=== PATIENT | female | born 1950 | race Two or more races ===

== ENCOUNTER 2020-07-09 15:31 | Outpatient (REF) | payer MEDICARE, SELFPAY | END 2020-07-09 15:32 | disposition home or self-care (01) | LOC: HO.HAP 15:31 | PROVIDERS: Visit Provider Internal Medicine | DX: Z46.1 Encounter for fitting and adjustment of hearing aid (principal) | CPT/HCPCS: 92592; V5266 ==

== ENCOUNTER 2020-08-05 12:45 | Outpatient (REF) | payer MEDICARE, SELFPAY ==
[2020-08-05 13:33] LABS: MANUAL DIFF FLAG NO
[2020-08-05 13:35] LABS: Basophils Percent Auto 0.7 % (0-2); Eosinophils Absolute Auto 0.1 X10*3/uL (0.0-0.4); Eosinophils Percent Auto 1.8 % (0-4); Hematocrit 39.8 % (37-47); Hemoglobin 12.9 g/dl (12.0-16.0); Imm Gran Abs Auto 0.01 X10*3/uL (0.00-0.03); Imm Gran Pct Auto 0.2 % (0.0-0.4); Lymphocytes Absolute Auto 1.6 X10*3/uL (1.2-4.9); Mean Corpuscular HGB Conc 32.4 g/dl (31.0-35.0); Mean Corpuscular Hemoglobin 30.9 pg (27.0-33.0); Mean Corpuscular Volume 95.4 fL (80-98); Mean Platelet Volume 10.4 fL (9.4-12.3); Monocytes Absolute Auto 0.4 X10*3/uL (0.1-1.2); Monocytes Percent Auto 7.9 % (2-11); Neutrophils Absolute Auto 3.4 X10*3/uL (2.0-8.3); Neutrophils Percent Auto 61.4 % (45-73); Platelet Count 189 X10*3/uL (160-400); Red Blood Count 4.17 X10*6/uL (4.20-5.50); Red Cell Distribution Width 12.2 % (11.0-16.0); White Blood Count 5.5 X10*3/uL (4.8-10.8)
[2020-08-05 14:17] LABS: Alanine Aminotransferase 12 U/L (0-31); Alkaline Phosphatase 93 U/L (39-117); Anion Gap 11 (12-20); Aspartate Amino Transferase 18 U/L (5-31); Bilirubin Total 0.7 mg/dL (0.0-1.0); Blood Urea Nitrogen 15 mg/dL (9-16); Calcium 8.4 mg/dL (8.4-10.2); Carbon Dioxide 27 mmol/L (22-29); Chloride 107 mmol/L (96-108); Cholesterol 196 mg/dL; Estimated Glomerular Filt Rate > 60; HDL Cholesterol 71 mg/dL; LDL Cholesterol Calculated 113 mg/dl; Potassium 4.7 mmol/l (3.3-5.1); Sodium 140 mmol/L (135-145); Total Protein 6.5 g/dL (6.5-8.0); Triglycerides 60 mg/dL
[2020-08-05 14:20] LABS: Glucose Random 87 mg/dL (60-115)
[2020-08-05 14:38] LABS: TSH reflex Free T4 1.63 mIU/mL (0.32-4.0)
== END 2020-08-05 12:46 | disposition home or self-care (01) ==
LOC: HO.LAB 12:45
PROVIDERS: PCP Internal Medicine; Visit Provider Internal Medicine
DX: E78.00 Pure hypercholesterolemia, unspecified (principal); E66.09 Other obesity due to excess calories; L98.9 Disorder of the skin and subcutaneous tissue, unspecified
CPT/HCPCS: 36415; 80053; 80061; 84443; 85025

== ENCOUNTER 2020-09-23 13:16 | Outpatient (REF) | payer MEDICARE, SELFPAY ==
--- NOTE | 2020-09-23 14:43 | XR_ITS ---
EXAMINATION: CERVICAL SPINE X-RAY CLINICAL INFORMATION: Pain COMPARISON: Previous exam May 2015 TECHNIQUE: 3 views of the cervical spine FINDINGS: Bone alignment is normal. No fracture or dislocation is seen. There is evidence of degenerative spondylosis and degenerative disc disease at C5-C6 and C6-C7. There is mild degenerative spondylosis at C3-C4 and C4-C5 as well. Prevertebral soft tissues are normal. XR/XR cervical spine 2V IMPRESSION: Degenerative changes. EXAMINATION: Lumbar spine x-ray CLINICAL INFORMATION: Pain COMPARISON: Previous x-ray from 2013 TECHNIQUE: 3 views of the lumbar spine FINDINGS: There is mild curvature of the lumbar sacral spine to the right. Bone alignment is otherwise normal. No fracture or dislocation is seen. Disc spaces are normal. There is lower lumbar spine facet arthritis. There is increased sclerosis at the sacroiliac joints IMPRESSION: Lower lumbar spine facet arthritis. Increased sclerosis at the sacroiliac joints.
--- NOTE | 2020-09-23 14:43 | XR_ITS ---
EXAMINATION: CERVICAL SPINE X-RAY CLINICAL INFORMATION: Pain COMPARISON: Previous exam May 2015 TECHNIQUE: 3 views of the cervical spine FINDINGS: Bone alignment is normal. No fracture or dislocation is seen. There is evidence of degenerative spondylosis and degenerative disc disease at C5-C6 and C6-C7. There is mild degenerative spondylosis at C3-C4 and C4-C5 as well. Prevertebral soft tissues are normal. XR/XR lumbar spine 2-3V IMPRESSION: Degenerative changes. EXAMINATION: Lumbar spine x-ray CLINICAL INFORMATION: Pain COMPARISON: Previous x-ray from 2013 TECHNIQUE: 3 views of the lumbar spine FINDINGS: There is mild curvature of the lumbar sacral spine to the right. Bone alignment is otherwise normal. No fracture or dislocation is seen. Disc spaces are normal. There is lower lumbar spine facet arthritis. There is increased sclerosis at the sacroiliac joints IMPRESSION: Lower lumbar spine facet arthritis. Increased sclerosis at the sacroiliac joints.
== END 2020-09-23 13:17 | disposition home or self-care (01) ==
LOC: HO.XRAY 13:16
PROVIDERS: PCP Internal Medicine; Referring Provider Internal Medicine; Visit Provider Student in an Organized Health Care Education/Training Program
DX: M25.50 Pain in unspecified joint (principal); R20.0 Anesthesia of skin
CPT/HCPCS: 72040; 72100; 99202

== ENCOUNTER 2020-10-27 12:38 | Outpatient (REF) | payer MEDICARE, SELFPAY ==
--- NOTE | 2020-10-27 | US_ITS ---
EXAMINATION: PELVIC ULTRASOUND CLINICAL INFORMATION: Pain COMPARISON: Previous pelvic ultrasound April [address] of the abdomen and pelvis December 2015 TECHNIQUE: Transabdominal and transvaginal pelvic ultrasound was performed. Transvaginal exam was performed for better visualization of the uterus and ovaries FINDINGS: The uterus is anteverted and measures 5.2 x 2.6 x 3.8 cm in dimension. No focal uterine lesion is seen. There is a small amount of fluid seen cavity. This is similar to previous exam. The endometrium does not appear thickened. Double thickness endometrium measures 0.2 cm. The right ovary is normal-appearing and measures 1.6 x 0.7 x 0.5 cm. The left ovary is not seen. There is no fluid in the pelvis. US/US transvaginal IMPRESSION: Normal-appearing uterus and right ovary. Left ovary not seen.
--- NOTE | 2020-10-27 12:43 | US_ITS ---
EXAMINATION: US RETROPERITONEAL LIMITED (RENAL ONLY) CLINICAL INFORMATION: Cyst of kidney, acquired. COMPARISON: Abdominal ultrasound 06/02/2018 TECHNIQUE: Real-time imaging of the kidneys. FINDINGS: RIGHT KIDNEY: 10.4 x 4.3 x 5.2 cm (SAG x AP x TRV). The kidney is normal in size, contour, and echogenicity. Renal cortical thickness is normal. No renal calculi or hydronephrosis. There is an anechoic cyst in the midpole measuring 1.6 x 1.0 x 1.0 cm. LEFT KIDNEY: 9.9 x 5.4 x 4.0 cm (SAG x AP x TRV). The kidney is normal in size, contour, and echogenicity. Renal cortical thickness is normal. No calculi or focal parenchymal lesions. No hydronephrosis. US/US renal BI IMPRESSION: Anechoic cyst midpole right kidney. There are no echogenic stones or hydronephrosis.
--- NOTE | 2020-10-27 12:43 | US_ITS ---
EXAMINATION: PELVIC ULTRASOUND CLINICAL INFORMATION: Pain COMPARISON: Previous pelvic ultrasound April [address] of the abdomen and pelvis December 2015 TECHNIQUE: Transabdominal and transvaginal pelvic ultrasound was performed. Transvaginal exam was performed for better visualization of the uterus and ovaries FINDINGS: The uterus is anteverted and measures 5.2 x 2.6 x 3.8 cm in dimension. No focal uterine lesion is seen. There is a small amount of fluid seen cavity. This is similar to previous exam. The endometrium does not appear thickened. Double thickness endometrium measures 0.2 cm. The right ovary is normal-appearing and measures 1.6 x 0.7 x 0.5 cm. The left ovary is not seen. There is no fluid in the pelvis. US/US pelvic complete IMPRESSION: Normal-appearing uterus and right ovary. Left ovary not seen.
== END 2020-10-27 12:39 | disposition home or self-care (01) ==
LOC: HO.US 12:38
PROVIDERS: PCP Internal Medicine; Visit Provider Internal Medicine
DX: R10.2 Pelvic and perineal pain (principal); N28.1 Cyst of kidney, acquired
CPT/HCPCS: 76775; 76830; 76856

== ENCOUNTER 2020-12-16 11:00 | Outpatient (RCR) | payer MEDICARE, SELFPAY ==
--- NOTE | 2020-10-06 14:54 | MHC.PT.EP ---
[facility] [place] Office [place] Office [place] Office [address] [phone] F: [phone] F: [phone] F: [phone] F: [phone] Physical Therapy Plan of Care Date of Evaluation: 10/06/20 Date of Surgery: none Diagnosis: Cervical and Lumbar spine pain Assessment: Patient is a 70 year old, Divehi speaking, R handed female who presents with s/s consistent with back and neck pain. She does not work but does like to stay active around the house. Patient past medical history is seemingly non-contributory. Current impairments include pain, ROM, strength, activity tolerance and functional mobility. Functional limitations include decreased ability to walk, stand, transfer, negotiate stairs, and perform weight bearing activities.. Patient is motivated with good rehab potential. Skilled PT will address impairments and functional limitations in order to achieve goals. Frequency and Duration: The patient will be seen 2x/week for 5 weeks Short Term Goals: I with HEP - 2 week Hip strength abd 4-/5 - 3 weeks Demo proper squat mechanics - 3 weeks Senior Care Goals: NPDI 10%, Oswestry /25 - 5 weeks Able to walk > 20 minutes without increased pain - 5 weeks Hip abd 4/5, no trendelenberg - 5 weeks Treatment Plan: Modalities to reduce pain, spasms and effusion. Manual therapy to restore motion and function. Therapeutic exercise to improve strength and flexibility. Neuromuscular re-education for posture and balance. Therapeutic activities to return to functional activities of daily living. Electronically signed by: Pawan Moncada, PT Please sign and return to therapist. Thank you for your referral.
--- NOTE | 2020-10-07 08:53 | MHC.PT.EP ---
[facility] [place] Office [place] Office [place] Office [address] [phone] F: [phone] F: [phone] F: [phone] F: [phone] Physical Therapy Plan of Care Date of Evaluation: 10/06/20 Date of Surgery: none Diagnosis: Cervical and Lumbar spine pain Assessment: Patient is a 70 year old, Vietnamese speaking, R handed female who presents with s/s consistent with back and neck pain. She does not work but does like to stay active around the house. Patient past medical history is seemingly non-contributory. Current impairments include pain, ROM, strength, activity tolerance and functional mobility. Functional limitations include decreased ability to walk, stand, transfer, negotiate stairs, and perform weight bearing activities.. Patient is motivated with good rehab potential. Skilled PT will address impairments and functional limitations in order to achieve goals. Frequency and Duration: The patient will be seen 2x/week for 5 weeks Short Term Goals: I with HEP - 2 week Hip strength abd 4-/5 - 3 weeks Demo proper squat mechanics - 3 weeks Penitentiary Goals: NPDI 10%, Oswestry /25 - 5 weeks Able to walk > 20 minutes without increased pain - 5 weeks Hip abd 4/5, no trendelenberg - 5 weeks Treatment Plan: Modalities to reduce pain, spasms and effusion. Manual therapy to restore motion and function. Therapeutic exercise to improve strength and flexibility. Neuromuscular re-education for posture and balance. Therapeutic activities to return to functional activities of daily living. Electronically signed by: Pawan Moncada, PT Please sign and return to therapist. Thank you for your referral.
--- NOTE | 2021-02-06 07:31 | MHC.PT.DC ---
[facility] [place] Office [place] Office [place] Office [address] 140 [facility] [phone] F: [phone] F: [phone] F: [phone] F: [phone] Physical Therapy Discharge Report Diagnosis: Cervical and Lumbar spine pain Date of Surgery: none Date of Evaluation: 10/06/20 Date of Discharge: 12/08/20 Treatments to Date: 8 Cancellations to Date: No Shows to Date: Discharge Status: Achieved Goals Improved Function Independent with HEP Discharge Summary: Pt progressed well over the course of skilled PT making progress on impairments and functional limitations resulting in an improved quality of life. Pt is I with HEP and appropriate to d/c to HEP at this time. Electronically signed by: Pawan Moncada, PT Please sign and return to therapist. Thank you for your referral.
== END 2021-02-06 07:33 | disposition home or self-care (01) ==
LOC: HO.PTCHIC 11:00
PROVIDERS: PCP Internal Medicine; Visit Provider Student in an Organized Health Care Education/Training Program
DX: M25.50 Pain in unspecified joint (principal)
CPT/HCPCS: 97110; 97140; 97161

== ENCOUNTER → 2020-12-31 09:55 | Outpatient (BNVA) | payer MEDICARE, SELFPAY | PROVIDERS: PCP Internal Medicine; Referring Provider Internal Medicine; Visit Provider Internal Medicine Gastroenterology | DX: Z13.89 Encounter for screening for other disorder (principal) | CPT/HCPCS: 99212 ==

== ENCOUNTER 2021-02-06 14:51 | Outpatient (REF) | payer MEDICARE, SELFPAY ==
[2021-02-06 15:22] LABS: COVID-19 Test Negative (Negative)
== END 2021-02-06 14:52 | disposition home or self-care (01) ==
LOC: HO.LAB 14:51
PROVIDERS: Visit Provider Internal Medicine
DX: Z20.822 Contact with and (suspected) exposure to COVID-19 (principal)
CPT/HCPCS: 36415; 87635; C9803

== ENCOUNTER → 2021-05-05 12:47 | Outpatient (BNVA) | payer MEDICARE, SELFPAY | PROVIDERS: PCP Internal Medicine; Referring Provider Internal Medicine; Visit Provider Physician Assistant | DX: K21.9 Gastro-esophageal reflux disease without esophagitis (principal); K59.01 Slow transit constipation; K62.5 Hemorrhage of anus and rectum | CPT/HCPCS: 99212 ==

== ENCOUNTER → 2021-06-09 13:20 | Outpatient (BNVA) | payer MEDICARE, SELFPAY | PROVIDERS: PCP Internal Medicine; Referring Provider Internal Medicine; Visit Provider Physician Assistant | DX: K62.5 Hemorrhage of anus and rectum (principal); K59.01 Slow transit constipation; K76.0 Fatty (change of) liver, not elsewhere classified | CPT/HCPCS: 99212 ==

== ENCOUNTER 2021-07-20 08:45 | Outpatient (REF) | payer MEDICARE, SELFPAY ==
--- NOTE | ~2021-07-20 | US_ITS ---
EXAMINATION: US ABDOMEN LIMITED WITH LIVER ELASTOGRAPHY CLINICAL INFORMATION: Fatty liver. COMPARISON: 10/27/2020 renal ultrasound. TECHNIQUE: Real-time imaging of the abdominal viscera. Noninvasive ultrasound liver fibrosis assessment is performed using Matty ElastPQ point quantification shear wave elastography (pSWE) with a C5-2 MHz transducer. Multiple elastography samples are obtained. FINDINGS: PANCREAS: Visualized portions unremarkable. LIVER: Normal homogeneous echotexture without focal abnormality. The right lobe measures 14.4 cm in length. The left lobe measures 9.0 cm in length. Portal flow is hepatopedal and patent. Shear wave liver elastography median stiffness is 1.69 m/s (reference: normal median stiffness is 1.3 m/s or less). IQR/median stiffness to assess sampling precision is 0.24 (reference: good quality data set is IQR/median stiffness of 0.15 or less). GALLBLADDER: Unremarkable. COMMON BILE DUCT: Normal in caliber measuring 0.4 cm in diameter. RIGHT KIDNEY: 10.1 cm. Unremarkable. FREE FLUID: None. US/US abdomen mcdaniel w elastography IMPRESSION: 1. Unremarkable abdominal ultrasound. No focal hepatic abnormality. 2. Liver elastography: Borderline ruled out/suggestive of compensated advanced chronic liver disease. REFERENCE: Society of Radiologists in Ultrasound Liver Stiffness Thresholds (2020): LIVER STIFFNESS THRESHOLDS: *Liver Stiffness equal or less than 1.3 m/s: High probability of being normal. *Liver Stiffness less than 1.7 m/s: In the absence of other known clinical signs, rules out compensated advanced chronic liver disease. *Liver Stiffness 1.7-2.1 m/s: Suggestive of compensated advanced chronic liver disease but need further test for confirmation. *Liver Stiffness over 2.1 m/s: Rules in compensated advanced chronic liver disease. *Liver Stiffness over 2.4 m/s: Suggestive of clinically significant portal hypertension. QUALITY OF DATA SET: *IQR/Median value equal or less than 0.15 implies a quality data set. *IQR/Median value over 0.15 implies a poor quality data set. SIGNIFICANT CHANGE FROM PRIOR EXAM: Significant change if liver stiffness measurement is 10% or greater from prior exam. OTHER CONSIDERATIONS: The stage of liver fibrosis may be overestimated in the setting of acute hepatitis, liver inflammation, elevated liver function tests, hepatic vascular congestion, obstructive cholestasis, non-fasting state, and infiltrative diseases such as amyloidosis and lymphoma. In some patients with NAFLD, the liver stiffness thresholds for compensated advanced chronic liver disease may be lower. In causes other than viral hepatitis and NAFLD, liver stiffness thresholds are not well established.
== END 2021-07-20 08:46 | disposition home or self-care (01) ==
LOC: HO.US 08:45
PROVIDERS: PCP Internal Medicine; Visit Provider Physician Assistant
DX: K76.0 Fatty (change of) liver, not elsewhere classified (principal)
CPT/HCPCS: 76705; 76981

== ENCOUNTER 2022-01-26 13:18 | Outpatient (REF) | payer OTHER, SELFPAY ==
--- NOTE | ~2022-01-26 | MM_ITS ---
EXAMINATION: MM SCREENING DIGITAL BREAST TOMOSYNTHESIS, BILATERAL CLINICAL INFORMATION: Screening. Asymptomatic. The lifetime risk of breast cancer based on the Tyrer-Cuzick Model is 4%. COMPARISON: Mammography: 06/03/2020, 05/23/2020, 09/13/2018 TECHNIQUE: Digital breast tomosynthesis is performed in both the craniocaudal and mediolateral oblique views along with computer-aided detection (CAD). Synthesized 2D images are generated from the tomosynthesis. FINDINGS: The breasts are heterogeneously dense, which may obscure small masses (ACR BI-RADS breast composition Category c). There are no significant masses, abnormal calcifications, or other abnormalities. There is a dermal lesion again seen overlying the lower left breast, marked with skin marker. Parenchymal pattern is similar to prior studies. No significant changes. MM/MM tomosynthesis screening BI IMPRESSION: No mammographic evidence of malignancy. ASSESSMENT: BI-RADS 2: Benign RECOMMENDATION: Routine annual mammography screening. This patient's information was entered into a reminder system with a target due date for their next mammogram.
--- NOTE | ~2022-01-26 | MM_ITS ---
EXAMINATION: BONE DENSITOMETRY CLINICAL INDICATION: Asymptomatic menopausal state. COMPARISON: None (current study represents initial baseline exam). TECHNIQUE: Using a SPORTLOGiQ DXA System (software version: 13.1) manufactured by [employer], dual-energy x-ray absorptiometry was performed of the lumbar spine and left hip. The images are of good technical quality. Summary results are attached. FINDINGS: AP SPINE L1-L4: BMD 0.847 g/cm2, Z-score -1.4, T-score -2.8, osteoporosis. LEFT FEMUR, NECK: BMD 0.757 g/cm2, Z-score -0.5, T-score -2.0, osteopenia. LEFT FEMUR, TOTAL: BMD 0.726 g/cm2, Z-score -0.9, T-score -2.2, osteopenia. IDENTIFIED RISK FACTORS: Rheumatoid arthritis, low calcium intake, menopause. HISTORY OF FRACTURE: Humerus. MEDICATIONS: Calcium supplements or multivitamin, vitamin D. MM/XR DEXA axial skeleton IMPRESSION: 1. DIAGNOSIS: Osteoporosis based on the lowest T-score value of -2.8 in the lumbar spine applying World Health Organization criteria. 2. 10-YEAR FRACTURE RISK PREDICTION, FRAX: According to the guidelines, FRAX calculation should only be performed on patients in the osteopenia bone density category. Therefore, FRAX was not performed on this patient. 3. Treatment Recommendations: NOF guidelines recommend consideration for treatment in postmenopausal women and men age 50 and older presenting with the following: -A hip or vertebral (clinical or morphometric) fracture. -T-score less than or equal to -2.5 at the femoral neck or spine after appropriate evaluation to exclude secondary causes. -Low bone mass at the hip or spine and a 10-year fracture probability by FRAX of greater than or equal to 3% for hip fracture or greater than or equal to 20% for major osteoporotic fracture based on the [place] adapted WHO algorithm. 4. Other Recommendations: All treatment decisions require clinical judgment and consideration of individual patient factors, including patient preferences, comorbidities, previous drug use, risk factors not captured in the FRAX model (e.g. frailty, falls, vitamin D deficiency, increased bone turnover, interval significant decline in bone density) and possible under or overestimation of fracture risk by FRAX. Additional medical evaluation for secondary cause of low bone mineral density may be appropriate. FUTURE SCAN RECOMMENDATION: People with diagnosed cases of osteoporosis or at high risk for fracture should have regular bone mineral density tests. For patients eligible for Medicare, routine testing is allowed once every 2 years. The testing frequency can be increased to one year for patients who have rapidly progressing disease, those who are receiving or discontinuing medical therapy to restore bone mass, or have additional risk factors.
== END 2022-01-26 13:19 | disposition home or self-care (01) ==
LOC: HO.MAMMO 13:18
PROVIDERS: Visit Provider Internal Medicine
DX: Z12.31 Encounter for screening mammogram for malignant neoplasm of breast (principal); Z13.820 Encounter for screening for osteoporosis; Z78.0 Asymptomatic menopausal state; M81.0 Age-related osteoporosis without current pathological fracture
CPT/HCPCS: 77063; 77067; 77080

== ENCOUNTER → 2022-02-01 07:34 | Outpatient (BNVA) | payer MEDICARE, SELFPAY | PROVIDERS: PCP Internal Medicine; Referring Provider Internal Medicine; Visit Provider Physician Assistant | DX: K59.01 Slow transit constipation (principal); K21.9 Gastro-esophageal reflux disease without esophagitis; Z79.899 Other long term (current) drug therapy | CPT/HCPCS: 99212 ==

== ENCOUNTER 2022-05-18 08:32 | Outpatient (REF) | payer MEDICARE, SELFPAY ==
[2022-05-18 11:04] LABS: Phosphorus 4.2 mg/dL (2.7-4.5)
[2022-05-20 22:03] LABS: Prot Elec - Albumin 3.9 g/dL (3.8-4.8); Prot Elec - Alpha1 0.2 g/dL (0.2-0.3); Prot Elec - Alpha2 0.6 g/dL (0.5-0.9); Prot Elec - Beta 1 0.4 g/dL (0.4-0.6); Prot Elec - Beta 2 0.4 g/dL (0.2-0.5); Prot Elec - Gamma 0.9 g/dL (0.8-1.7); Prot Elec - Total Protein 6.3 g/dL (6.1-8.1)
== END 2022-05-18 08:33 | disposition home or self-care (01) ==
LOC: HO.10HDL 08:32
PROVIDERS: PCP Internal Medicine; Visit Provider Internal Medicine Endocrinology, Diabetes & Metabolism
DX: M81.0 Age-related osteoporosis without current pathological fracture (principal)
CPT/HCPCS: 82306; 84100; 84165; 86335; 99202

== ENCOUNTER 2022-05-25 12:56 | Outpatient (REF) | payer OTHER, SELFPAY ==
[2022-05-25 13:55] LABS: Total Volume 24 Hour Urine 975 mL
[2022-05-25 14:55] LABS: Creatinine, 24Hr Urine 0.9 G/Day (1.0-2.0); Creatinine, mg/dL 96.58
[2022-05-27 17:02] LABS: Calcium, 24 Hr Urine 113 mg/24 h; Calcium/Creatinine Ratio 118 mg/g creat (30-275); Creatinine 24Hr Urine 0.96 g/24 h (0.50-2.15)
== END 2022-05-25 12:57 | disposition home or self-care (01) ==
LOC: HO.10HDLNP 12:56
PROVIDERS: Visit Provider Internal Medicine Endocrinology, Diabetes & Metabolism
DX: M81.0 Age-related osteoporosis without current pathological fracture (principal)
CPT/HCPCS: 82340; 82570

== ENCOUNTER 2022-06-28 12:33 | Outpatient (REF) | payer OTHER, SELFPAY ==
--- NOTE | ~2022-06-28 | XR_ITS ---
EXAMINATION: XR CERVICAL SPINE CLINICAL INFORMATION: Cervicalgia COMPARISON: X-ray of the cervical spine September 2020. TECHNIQUE: 3 views of the cervical spine were obtained. FINDINGS: At the C5-C6 and C6-C7 levels there are endplate osteophytes and mild disc space narrowing indicative of degenerative disc disease unchanged compared with September 2020. The remaining disc levels appear normal. Facets unremarkable. Surrounding bone and soft tissues unremarkable. XR/XR cervical spine 2V IMPRESSION: Mild spondylosis of the cervical spine unchanged compared with September 2020.
== END 2022-06-28 12:34 | disposition home or self-care (01) ==
LOC: HO.XRAY 12:33
PROVIDERS: PCP Internal Medicine; Visit Provider Internal Medicine
DX: M54.2 Cervicalgia (principal)
CPT/HCPCS: 72040

== ENCOUNTER 2022-08-10 15:17 | Outpatient (REF) | payer OTHER, SELFPAY ==
[2022-08-10 17:38] LABS: Vitamin D 25-OH Total 27.9 ng/mL (>30)
[2022-08-10 17:50] LABS: Amylase 62 U/L (28-100); Gamma Glutamyl Transpeptidase 26 U/L (7-33); Lactate Dehydrogenase 178 U/L (122-220); Lipase 27 U/L (8-78)
== END 2022-08-10 15:18 | disposition home or self-care (01) ==
LOC: HO.LAB 15:17
PROVIDERS: Internal Medicine Endocrinology, Diabetes & Metabolism; PCP Internal Medicine; Visit Provider Nurse Practitioner
DX: R10.9 Unspecified abdominal pain (principal); K59.04 Chronic idiopathic constipation; M81.0 Age-related osteoporosis without current pathological fracture; K21.9 Gastro-esophageal reflux disease without esophagitis
CPT/HCPCS: 36415; 82150; 82306; 82977; 83615; 83690; 84443; 99212

== ENCOUNTER 2022-09-14 09:23 | Outpatient (REF) | payer OTHER, SELFPAY ==
--- NOTE | ~2022-09-14 | US_ITS ---
EXAMINATION: US ABDOMEN COMPLETE CLINICAL INFORMATION: Abdominal pain. COMPARISON: Ultrasound abdomen limited with elastography 07/20/2021. Renal ultrasound 10/27/2020. Ultrasound abdomen complete 06/02/2018. CT abdomen and pelvis 12/08/2015. TECHNIQUE: Real-time imaging of the abdominal viscera. Technically difficult study secondary to body habitus. FINDINGS: PANCREAS: Normal. ABDOMINAL AORTA: The proximal, mid, and distal segments are normal in caliber. INFERIOR VENA CAVA: Visualized portions are normal. LIVER: Normal. The liver is normal in size. The liver contour is normal. Parenchymal echogenicity is normal. No focal hepatic lesion. There is no intrahepatic biliary duct dilatation seen. GALLBLADDER: Normal. The gallbladder is physiologically distended without evidence of stones, sludge, polyps, wall thickening or pericholecystic fluid. COMMON BILE DUCT: Normal in caliber measuring 0.4 cm in diameter. RIGHT KIDNEY: Normal. No hydronephrosis. No renal calculi or focal parenchymal lesions. The kidney measures 8.5 cm in maximum dimension. LEFT KIDNEY: 2 x 3 mm echogenic density in the midpole questionable for a stone This is not appreciated on previous ultrasound. No hydronephrosis. The kidney measures 9.5 cm in maximum dimension. SPLEEN: Normal. The spleen measures 8.4 cm in maximum dimension. FREE FLUID: None. US/US abdomen complete IMPRESSION: Limited exam. Question small left renal stone.
== END 2022-09-14 09:24 | disposition home or self-care (01) ==
LOC: HO.US 09:23
PROVIDERS: Visit Provider Nurse Practitioner
DX: K59.04 Chronic idiopathic constipation (principal); R10.9 Unspecified abdominal pain; K21.9 Gastro-esophageal reflux disease without esophagitis
CPT/HCPCS: 76700

== ENCOUNTER → 2022-09-21 14:31 | Outpatient (BNVA) | payer OTHER, SELFPAY | PROVIDERS: PCP Internal Medicine; Visit Provider Nurse Practitioner | DX: K59.04 Chronic idiopathic constipation (principal); R10.9 Unspecified abdominal pain; R63.4 Abnormal weight loss; Z68.29 Body mass index [BMI] 29.0-29.9, adult; K21.9 Gastro-esophageal reflux disease without esophagitis; Z79.899 Other long term (current) drug therapy | CPT/HCPCS: 99212 ==

== ENCOUNTER 2022-10-26 13:36 | Emergency (ER) | payer OTHER, SELFPAY ==
--- NOTE | ~2022-10-26 | CT_ITS ---
EXAMINATION: HEAD CT WITHOUT CONTRAST CERVICAL SPINE CT WITHOUT CONTRAST CLINICAL INFORMATION: Dizziness. Neck pain radiating to left arm. COMPARISON: None. TECHNIQUE: Contiguous axial imaging of the head was performed without the administration of IV contrast. Axial multidetector volumetric images were also performed through the cervical spine without contrast. Multiplanar reconstructed images in coronal and sagittal orientations were submitted. DOSE: 955 mGy-cm FINDINGS: HEAD: There is no evidence of acute intracranial hemorrhage or edematous territorial infarction. No abnormal mass-effect or midline shift. No extra-axial fluid collections. Walls to white matter differentiation is well preserved. The ventricles are normal in size and configuration. Mild patchy deep white matter hypodensities suggestive of chronic microangiopathic changes. No acute calvarial fracture. Small fluid in some of the left mastoid air cells. The sinuses and right mastoid air cells are clear. CERVICAL SPINE: Straightening of the cervical curvature. There is anatomic alignment of the vertebral bodies and posterior elements. The atlantoaxial and atlantooccipital articulations are maintained. Vertebral body heights are maintained. No evidence of acute fracture. Cervical spondylosis. Moderate-severe C5-C6 disc degeneration with disc height loss, endplate osteophytes, endplate sclerosis and small cyst within the posterior disc osteophyte complex. Bilateral C5-C6 neural foramen narrowing. Multilevel facet degeneration. There is fusion of the left C4-C5 facet joint. No prevertebral soft tissue swelling. Mild biapical pleural parenchymal scarring. No suspicious thyroid findings. There are nonspecific cervical shotty lymph nodes. CT/CT cervical spine wo IV con IMPRESSION: 1. No acute intracranial hemorrhage or edematous territorial infarction. 2. Small fluid in some of the left mastoid air cells, nonspecific. 3.No acute fracture or malalignment cervical spine. 4. Cervical spondylosis. C5-C6 moderate-severe disc degeneration, with posterior disc osteophyte complex. Bilateral C5-C6 neural foramen narrowing. Further evaluation with MRI as clinically warranted.
--- NOTE | 2022-10-26 13:52 | ED_ITS ---
HPI - Neck Pain/Injury General Chief Complaint: Dizziness <JUSTEN Michel - Last Filed: 10/26/22 13:59> Stated Complaint: Neck pain rad L arm sent from walk in <JUSTEN Michel - Last Filed: 10/26/22 13:59> Time Seen by Provider: 10/26/22 19:36 <JUSTEN Michel - Last Filed: 10/26/22 13:59> Source: patient and family (Daughter) <Jake Ramirez MD - Last Filed: 3 21:02> Mode of arrival: ambulatory <Jake Ramirez MD - Last Filed: 10/26/22 21:02> Limitations: no limitations <Jake Ramirez MD - Last Filed: 10/26/22 21:02> History of Present Illness HPI Narrative: 72-year-old female who presents emergency department for evaluation of neck pain and arm numbness, she states that she has had the symptoms for approximately 2-3 months and that gotten worse over the past 3 weeks. She told her daughter about these symptoms today in the daughter was concerned and made the patient come to the emergency department for evaluation. Patient denies any neck injury. She states she does have pain neck especially when she turns her head to the left side. She states that the pain in her neck is a cracking sensation which is 10/10 at its worst. She states she does get relief when she takes naproxen and Flexeril. The patient states that she has been feeling dizzy and lightheaded over the past 3 weeks. She states she has had occasional chest pain and occasional shortness of breath. She denied fever, chills, rhinorrhea, sore throat, dyspnea on exertion, she has had occasional nausea with no vomiting. She denies weakness of her extremities. She denied loss of bowel or bladder control. <Jake Ramirez MD - Last Filed: 10/26/22 21:02> Related Data Home Medications: Home Medications Medication Instructions Recorded Confirmed latanoprost 0.005 % eye drops 1 drp ophthalmic (eye) BID 09/22/20 05/31/22 nebulizers #1 ea 09/22/20 05/31/22 timolol maleate 0.5 % eye drops 1 drp ophthalmic (eye) QAM 12/31/20 05/31/22 solifenacin 5 mg tablet 5 mg PO DAILY 08/10/22 Previous Rx's Medication Instructions Recorded cetirizine 10 mg tablet (All Day 10 mg PO DAILY PRN allergy 07/06/21 Allergy (cetirizine)) symptoms 90 days #90 tabs naproxen 500 mg tablet 500 mg PO Q12H PRN pain 90 days 07/06/21 #180 tabs alendronate 70 mg tablet 70 mg PO QWEEK 90 days #13 tabs 07/26/22 ipratropium bromide 21 mcg (0.03 2 spray intranasal BID 30 days #30 07/26/22 %) nasal spray mL linaclotide 290 mcg capsule 290 mcg PO QAM 30 days #30 caps 08/10/22 (Linzess) pantoprazole 40 mg tablet,delayed 40 mg PO DAILY #90 tabs 08/10/22 release cyclobenzaprine 10 mg tablet 10 mg PO TID PRN muscle pain or 10/26/22 spasm #20 tabs prednisone 20 mg tablet 40 mg PO DAILY 7 days #14 tabs 10/26/22 <JUSTEN Michel - Last Filed: 10/26/22 13:59> Allergies/Adverse Reactions: Allergies Allergy/AdvReac Type Severity Reaction Status Date / Time homatropine [Hydromet] Allergy Intermediate rash Verified 10/26/22 12:18 ketorolac [From TORADOL] Allergy Intermediate N/V Verified 10/26/22 12:18 Sulfa (Sulfonamide Allergy Intermediate RASH Verified 10/26/22 12:18 Antibiotics) [SULFA (SULFONAMIDE ANTIBIOTICS)] sulfacetamide Allergy Intermediate rash Verified 10/26/22 12:18 tramadol [TRAMADOL] Allergy Intermediate N/V, edema Verified 10/26/22 12:18 and vomiting, edema and vomiting tizanidine AdvReac Intermediate blurry Verified 10/26/22 12:18 vision <JUSTEN Michel - Last Filed: 10/26/22 13:59> Review of Systems Review of Systems: Yes all other systems are reviewed and are negative <Jake Ramirez MD - Last Filed: 10/26/22 21:02> [facility] Past Medical History [facility] Narrative: Social history: She denies tobacco use. She occasionally drinks alcohol. She denies drug use. <Jake Ramirez MD - Last Filed: 10/26/22 21:02> Medical History: Medical History Abdominal pain Age related osteoporosis Allergic rhinitis GERD (gastroesophageal reflux disease) Hemorrhoids Pelvic pain in female Physical exam Postmenopausal Precordial chest pain Renal cyst Toenail fungus Urine abnormality <JUSTEN iMchel - Last Filed: 10/26/22 13:59> Surgical History: Surgical History H/O colonoscopy History of ear surgery History of esophagogastroduodenoscopy (EGD) History of tonsillectomy History of tubal ligation <JUSTEN Michel - Last Filed: 10/26/22 13:59> Family History Family History: Family History Father CVD (cardiovascular disease) Mother No problems noted. Brother Stomach cancer Sister Liver cancer Brother Lung cancer Brother Colon cancer <JUSTEN Michel - Last Filed: 10/26/22 13:59> Social History Social History: Social History Household Members: None Housing: Apartment Alcohol intake: current Alcohol intake frequency: holidays/special occasions only Alcohol type: beer and wine Patient Tobacco Use Status: Former Tobacco user Tobacco use type: Cigarette Smoked in Last 30 Days: No e-Cigarette/Vaping Use: Never Used Second Hand Smoke Exposure: No Use of substances other than those prescribed or required for medical reasons: No Advance Directives: No Advance Directives Information Provided: Yes service: No Current occupational status: disabled Cognitive needs: No Hearing needs: No Vision needs: No <JUSTEN Michel - Last Filed: 10/26/22 13:59> Physical Exam Vital Signs: Vital Signs: Last Vital Signs Temp 97.9 F 10/26/22 18:23 Pulse 48 L 10/26/22 18:23 Resp 16 10/26/22 18:23 BP 122/54 L 10/26/22 18:23 Pulse Ox 97 10/26/22 18:23 O2 Del Method 10/26/22 13:53 BMI result Body Mass Index 28.6 <JUSTEN Michel - Last Filed: 10/26/22 13:59> Vital Signs: Last Vital Signs Temp 97.9 F 10/26/22 18:23 Pulse 48 L 10/26/22 18:23 Resp 16 10/26/22 18:23 BP 122/54 L 10/26/22 18:23 Pulse Ox 97 10/26/22 18:23 O2 Del Method 10/26/22 13:53 BMI result Body Mass Index 28.6 <Jake Ramirez MD - Last Filed: 10/26/22 21:02> Const: General: cooperative and no acute distress <Jake Ramirez MD - Last Filed: 10/26/22 21:02> Orientation/consciousness: oriented to person and oriented to place <Jake Ramirez MD - Last Filed: 10/26/22 21:02> Limitations: no limitations <Jake Ramirez MD - Last Filed: 10/26/22 21:02> HEENT: Head: Yes normal to inspection, Yes normocephalic and Yes atraumatic <Jake Ramirez MD - Last Filed: 10/26/22 21:02> Ears: external ears normal <Jake Ramirez MD - Last Filed: 10/26/22 21:02> General nose exam: Normal external nose present <Jake Ramirez MD - Last Filed: 10/26/22 21:02> Face and sinus: Yes normal facial exam <Jake Ramirez MD - Last Filed: 10/26/22 21:02> Mouth: Normal oral and palatal mucosa present <Jake Ramirez MD - Last Filed: 10/26/22 21:02> Throat: Yes posterior oropharynx normal <Jake Ramirez MD - Last Filed: 10/26/22 21:02> Eyes: General: appearance normal, both eyes and all related structures <Jake Ramirez MD - Last Filed: 10/26/22 21:02> Pupils: Equal, round and reactive pupils present <Jake Ramirez MD - Last Filed: 10/26/22 21:02> Neck: Other: Patient does have tenderness palpation of her cervical spine as well as tenderness palpation of her left trapezius muscle. Patient has full range of motion of her neck, she does have increased pain or neck when she turns her head to the left arm when she tries to put her left ear to her left shoulder. < Jake Ramirez MD - Last Filed: 10/26/22 21:02> Chest: Chest palpation & inspection: normal inspection of the chest and normal palpation of entire chest wall <Jake Ramirez MD - Last Filed: 10/26/22 21:02> Resp: Effort & Inspection: normal respiratory effort and able to speak in complete sentences <Jake Ramirez MD - Last Filed: 10/26/22 21:02> Auscultation: clear to auscultation bilaterally <Jake Ramirez MD - Last Filed: 10/26/22 21:02> Cardio: Rate: regular rate <Jake Ramirez MD - Last Filed: 10/26/22 21:02> Rhythm: regular rhythm <Jake Ramirez MD - Last Filed: 10/26/22 21:02> Heart sounds: S1 normal heart sound present, S2 normal heart sound present and no murmurs <Jake Ramirez MD - Last Filed: 10/26/22 21:02> GI: Inspection: Yes normal to inspection <Jake Ramirez MD - Last Filed: 10/26/22 21:02> Palpation (GI): Soft to palpation, nontender and no guarding <Jake Ramirez MD - Last Filed: 10/26/22 21:02> Auscultation: normal bowel sounds <Jake Ramirez MD - Last Filed: 10/26/22 21:02> : General: Yes no CVA tenderness <MD Deja Bynum Last Filed: 21:02> Back/Spine/Pelvis: Back: no CVA tenderness <Jake Ramirez MD - Last Filed: 10/26/22 21:02> Skin: General skin exam: no rashes or lesions noted <Jake Ramirez MD - Last Filed: 10/26/22 21:02> Neuro: General: oriented to person and oriented to place <Jake Ramirez MD - Last Filed: 10/26/22 21:02> Cranial nerves: Yes CN's II-XII intact bilaterally and Yes Equal, round and reactive pupils present <Jake Ramirez MD - Last Filed: 10/26/22 21:02> Cognition (Neuro): normal cognition <Jake Ramirez MD - Last Filed: 10/26/22 21:02> Motor exam (neuro): 5/5 motor strength present throughout <Jake Ramirez MD - Last Filed: 10/26/22 21:02> Sensory Exam: other (Diminished light touch bilaterally symmetric in the upper extremities colette) <Jake Ramirez MD - Last Filed: 10/26/22 21:02> Extrem: General: Yes normal to inspection <Jake Ramirez MD - Last Filed: 10/26/22 21:02> Psych: Appearance: grossly normal <Jake Ramirez MD - Last Filed: 10/26/22 21:02> Speech and movement: Normal speech and movement present <Jake Ramirez MD - Last Filed: 10/26/22 21:02> Affect: normal affect <Jake Ramirez MD - Last Filed: 10/26/22 21:02> Attitude: cooperative <Jake Ramirez MD - Last Filed: 10/26/22 21:02> Thought process: Normal thought process present <Jake Ramirez MD - Last Filed: 10/26/22 21:02> Thought content: Normal thought content present <Jake Ramirez MD - Last Filed: 10/26/22 21:02> Course Course Course Narrative: RME - 72 yo female presenting to the ER for evaluation of neck pain that radiates to her left arm along with intermittent dizziness episodes for the last 2 months that have been worsening. Upon review of records it appears she has had these symptoms since at least 2019, seen in Rheum office for polyarthralgia and bilateral hand numbness. Had negative Rheum workup. XR cervical spine w/ degenerative changes. VSS in triage. Will get CT head/c-spine. Labs and EKG ordered given increased dizzy episodes. Stable to go to waiting room until treatment room available. <JUSTEN Spencer - Last Filed: 10/26/22 13:59> Medical Decision Making Medical Decision Making [facility] Narrative: 72-year-old female who presents emergency department for evaluation of neck pain times 2-3 months with numbness radiating down both arms to her hands, she has had no weakness, loss of bowel or bladder control, she has had intermittent chest pain with shortness of breath. Vital signs revealed a blood pressure of 130/51 and a pulse ranging from 48-56 otherwise were unremarkable. Patient's exam did reveal tenderness palpation of her cervical spine and left trapezius muscle. She had increased neck pain with movement of her head to the left and lateral flexion of the neck. She has normal strength but does have diminished light touch to both upper extremities compared to lower extremities. The patient had the following tests ordered at [facility] triage provider: Complete blood count, basic metabolic panel, liver panel, magnesium, troponin, urinalysis, 12 EKG, CT scan of the spine without IV contrast, CT scan of the head and neck without IV contrast. 2055: My interpretation of the patient's laboratory and radiology data is as follows: CBC normal, BMP normal, LFTs normal. High sensitivity troponin I below detectable limits. Twelve EKG revealed a sinus bradycardia otherwise unremarkable. The CT scan of the head was unremarkable. CT scan of the cervic al spine revealed moderate to severe disc degeneration at C5-C6 with posterior disc osteophyte complex causing narrowing of the neural foramina at C5-C6-this would explain the patient's numbness and neck pain. I did discuss these findings with the patient the patient's daughter. The patient will be started on prednisone 40 mg once a day for 7 days see if this improves her symptoms. I told the patient that she will need to see a cervical spine surgeon to determine if she may benefit from spinal surgery. The patient was advised to contact her PCP for follow-up and to be referred to appropriate spine surgeon. I also told the patient that she could contact [facility] to see if they would follow lower up as well. Patient was advised to stop taking naproxen while she is on prednisone, she was advised to keep taking your other medications and she was also prescribed Flexeril which she is currently taking but only has a few pills left. <Jake Ramirez MD - Last Filed: 10/26/22 21:02> Differential Diagnosis The differential diagnosis includes was not limited to spinal infection, disc disease, cervical arthritis, musculoskeletal sprain/strain, coronary artery disease, myocardial infarction, mass effect, cerebral bleed, stroke <Jake Ramirez MD - Last Filed: 10/26/22 21:02> Lab Data [facility] Lab Attestation statement: I reviewed the patient's lab results. <Jake Ramirez MD - Last Filed: 10/26/22 21:02> Please see MDM from my discussion of the labs <Jake Ramirez MD - [facility] Filed: 10/26/22 21:02> Result Diagrams: 10/26/22 15:07 10/26/22 15:07 <JUSTEN Michel - Last Filed: 10/26/22 13:59> Labs: Lab Results 10/26/22 10/26/22 10/26/22 Range/Units 15:07 15:07 15:07 WBC 4.8 (4.8-10.8) X10*3/uL RBC 4.12 L (4.20-5.50) X10*6/uL Hgb 12.9 (12.0-16.0) g/dl Hct 39.0 (37.0-47.0) % MCV 94.7 (80.0-98.0) fL MCH 31.3 (27.0-33.0) pg MCHC 33.1 (31.0-35.0) g/dl RDW 12.0 (11.0-16.0) % Plt Count 194 (160-400) X10*3/uL MPV 10.1 (9.4-12.3) fL Immature Gran % (Auto) 0.2 (0.0-0.4) % Neut % (Auto) 52.8 (45-73) % Lymph % (Auto) 37.0 (20-40) % Dundy % (Auto) 6.9 (2-11) % Eos % (Auto) 2.1 (0-4) % Baso % (Auto) 1.0 (0-2) % Lymph # (Auto) 1.8 (1.2-4.9) X10*3/uL Dundy # (Auto) 0.3 (0.1-1.2) X10*3/uL Eos # (Auto) 0.1 (0.0-0.4) X10*3/uL Baso # (Auto) 0.1 (0.0-0.2) X10*3/uL Abs Immat Gran (auto) 0.01 (0.00-0.03) X10*3/uL Absolute Neuts (auto) 2.5 (2.0-8.3) x10*3/uL Absolute Nucleated RBC 0.000 (0.0-0.012) X10*3/uL Nucleated RBC % (auto) 0.0 (0.0-0.2) /100WBC Sodium 139 (135-145) mmol/L Potassium 4.7 (3.3-5.1) mmol/L Chloride 104 (96-108) mmol/L Carbon Dioxide 29 (22-29) mmol/L Anion Gap 11 L (12-20) BUN 13 (9-16) mg/dL Creatinine 0.74 (0.5-1.4) mg/dL Estim Creat Clear Calc 69.4 Estimated GFR > 60 Random Glucose 106 (60-115) mg/dL Calcium 9.2 D (8.4-10.2) mg/dL Magnesium 2.1 (1.6-2.6) mg/dL Total Bilirubin 0.7 (0.0-1.0) mg/dL Direct Bilirubin 0.2 (0.0-0.5) mg/dL AST 19 (5-31) U/L ALT 9 (0-31) U/L Alkaline Phosphatase 59 (39-117) U/L Troponin I High Sens < 3.5 (<3.5-17.0) ng/L Total Protein 6.5 (6.5-8.0) g/dL Albumin 4.0 (3.5-5.0) g/dL Urine Color Urine Appearance Urine pH (5.0-9.0) Ur Specific Ramona (1.005-1.025) Urine Protein (Neg-Trace) mg/dL Urine Glucose (UA) (Negative) mg/dL Urine Ketones (Negative) mg/dL Urine Blood (Negative) Urine Nitrite (Negative) Ur Leukocyte Esterase (Negative) Urine RBC (0-2) /HPF Urine WBC (0-5) /HPF Ur Squamous Epith Cells (0-2) /HPF Urine Bacteria (None Seen) Hyaline Casts (0-2) /LPF 10/26/22 Range/Units 15:12 WBC (4.8-10.8) X10*3/uL RBC (4.20-5.50) X10*6/uL Hgb (12.0-16.0) g/dl Hct (37.0-47.0) % MCV (80.0-98.0) fL MCH (27.0-33.0) pg MCHC (31.0-35.0) g/dl RDW (11.0-16.0) % Plt Count (160-400) X10*3/uL MPV (9.4-12.3) fL Immature Gran % (Auto) (0.0-0.4) % Neut % (Auto) (45-73) % Lymph % (Auto) (20-40) % Dundy % (Auto) (2-11) % Eos % (Auto) (0-4) % Baso % (Auto) (0-2) % Lymph # (Auto) (1.2-4.9) X10*3/uL Dundy # (Auto) (0.1-1.2) X10*3/uL Eos # (Auto) (0.0-0.4) X10*3/uL Baso # (Auto) (0.0-0.2) X10*3/uL Abs Immat Gran (auto) (0.00-0.03) X10*3/uL Absolute Neuts (auto) (2.0-8.3) x10*3/uL Absolute Nucleated RBC (0.0-0.012) X10*3/uL Nucleated RBC % (auto) (0.0-0.2) /100WBC Sodium (135-145) mmol/L Potassium (3.3-5.1) mmol/L Chloride (96-108) mmol/L Carbon Dioxide (22-29) mmol/L Anion Gap (12-20) BUN (9-16) mg/dL Creatinine (0.5-1.4) mg/dL Estim Creat Clear Calc Estimated GFR Random Glucose (60-115) mg/dL Calcium (8.4-10.2) mg/dL Magnesium (1.6-2.6) mg/dL Total Bilirubin (0.0-1.0) mg/dL Direct Bilirubin (0.0-0.5) mg/dL AST (5-31) U/L ALT (0-31) U/L Alkaline Phosphatase (39-117) U/L Troponin I High Sens (<3.5-17.0) ng/L Total Protein (6.5-8.0) g/dL Albumin (3.5-5.0) g/dL Urine Color Yellow Urine Appearance Clear Urine pH 5.5 (5.0-9.0) Ur Specific Ramona 1.015 (1.005-1.025) Urine Protein Negative (Neg-Trace) mg/dL Urine Glucose (UA) Negative (Negative) mg/dL Urine Ketones Negative (Negative) mg/dL Urine Blood Trace H (Negative) Urine Nitrite Negative (Negative) Ur Leukocyte Esterase Trace H (Negative) Urine RBC 0-2 (0-2) /HPF Urine WBC 0-5 (0-5) /HPF Ur Squamous Epith Cells 0-2 (0-2) /HPF Urine Bacteria None Seen (None Seen) Hyaline Casts 0-2 (0-2) /LPF <JUSTEN Michel - Last Filed: 10/26/22 13:59> Lab Results 10/26/22 10/26/22 10/26/22 Range/Units 15:07 15:07 15:07 WBC 4.8 (4.8-10.8) X10*3/uL RBC 4.12 L (4.20-5.50) X10*6/uL Hgb 12.9 (12.0-16.0) g/dl Hct 39.0 (37.0-47.0) % MCV 94.7 (80.0-98.0) fL MCH 31.3 (27.0-33.0) pg MCHC 33.1 (31.0-35.0) g/dl RDW 12.0 (11.0-16.0) % Plt Count 194 (160-400) X10*3/uL MPV 10.1 (9.4-12.3) fL Immature Gran % (Auto) 0.2 (0.0-0.4) % Neut % (Auto) 52.8 (45-73) % Lymph % (Auto) 37.0 (20-40) % Dundy % (Auto) 6.9 (2-11) % Eos % (Auto) 2.1 (0-4) % Baso % (Auto) 1.0 (0-2) % Lymph # (Auto) 1.8 (1.2-4.9) X10*3/uL Dundy # (Auto) 0.3 (0.1-1.2) X10*3/uL Eos # (Auto) 0.1 (0.0-0.4) X10*3/uL Baso # (Auto) 0.1 (0.0-0.2) X10*3/uL Abs Immat Gran (auto) 0.01 (0.00-0.03) X10*3/uL Absolute Neuts (auto) 2.5 (2.0-8.3) x10*3/uL Absolute Nucleated RBC 0.000 (0.0-0.012) X10*3/uL Nucleated RBC % (auto) 0.0 (0.0-0.2) /100WBC Sodium 139 (135-145) mmol/L Potassium 4.7 (3.3-5.1) mmol/L Chloride 104 (96-108) mmol/L Carbon Dioxide 29 (22-29) mmol/L Anion Gap 11 L (12-20) BUN 13 (9-16) mg/dL Creatinine 0.74 (0.5-1.4) mg/dL Estim Creat Clear Calc 69.4 Estimated GFR > 60 Random Glucose 106 (60-115) mg/dL Calcium 9.2 D (8.4-10.2) mg/dL Magnesium 2.1 (1.6-2.6) mg/dL Total Bilirubin 0.7 (0.0-1.0) mg/dL Direct Bilirubin 0.2 (0.0-0.5) mg/dL AST 19 (5-31) U/L ALT 9 (0-31) U/L Alkaline Phosphatase 59 (39-117) U/L Troponin I High Sens < 3.5 (<3.5-17.0) ng/L Total Protein 6.5 (6.5-8.0) g/dL Albumin 4.0 (3.5-5.0) g/dL Urine Color Urine Appearance Urine pH (5.0-9.0) Ur Specific Ramona (1.005-1.025) Urine Protein (Neg-Trace) mg/dL Urine Glucose (UA) (Negative) mg/dL Urine Ketones (Negative) mg/dL Urine Blood (Negative) Urine Nitrite (Negative) Ur Leukocyte Esterase (Negative) Urine RBC (0-2) /HPF Urine WBC (0-5) /HPF Ur Squamous Epith Cells (0-2) /HPF Urine Bacteria (None Seen) Hyaline Casts (0-2) /LPF 10/26/22 Range/Units 15:12 WBC (4.8-10.8) X10*3/uL RBC (4.20-5.50) X10*6/uL Hgb (12.0-16.0) g/dl Hct (37.0-47.0) % MCV (80.0-98.0) fL MCH (27.0-33.0) pg MCHC (31.0-35.0) g/dl RDW (11.0-16.0) % Plt Count (160-400) X10*3/uL MPV (9.4-12.3) fL Immature Gran % (Auto) (0.0-0.4) % Neut % (Auto) (45-73) % Lymph % (Auto) (20-40) % Dundy % (Auto) (2-11) % Eos % (Auto) (0-4) % Baso % (Auto) (0-2) % Lymph # (Auto) (1.2-4.9) X10*3/uL Dundy # (Auto) (0.1-1.2) X10*3/uL Eos # (Auto) (0.0-0.4) X10*3/uL Baso # (Auto) (0.0-0.2) X10*3/uL Abs Immat Gran (auto) (0.00-0.03) X10*3/uL Absolute Neuts (auto) (2.0-8.3) x10*3/uL Absolute Nucleated RBC (0.0-0.012) X10*3/uL Nucleated RBC % (auto) (0.0-0.2) /100WBC Sodium (135-145) mmol/L Potassium (3.3-5.1) mmol/L Chloride (96-108) mmol/L Carbon Dioxide (22-29) mmol/L Anion Gap (12-20) BUN (9-16) mg/dL Creatinine (0.5-1.4) mg/dL Estim Creat Clear Calc Estimated GFR Random Glucose (60-115) mg/dL Calcium (8.4-10.2) mg/dL Magnesium (1.6-2.6) mg/dL Total Bilirubin (0.0-1.0) mg/dL Direct Bilirubin (0.0-0.5) mg/dL AST (5-31) U/L ALT (0-31) U/L Alkaline Phosphatase (39-117) U/L Troponin I High Sens (<3.5-17.0) ng/L Total Protein (6.5-8.0) g/dL Albumin (3.5-5.0) g/dL Urine Color Yellow Urine Appearance Clear Urine pH 5.5 (5.0-9.0) Ur Specific Ramona 1.015 (1.005-1.025) Urine Protein Negative (Neg-Trace) mg/dL Urine Glucose (UA) Negative (Negative) mg/dL Urine Ketones Negative (Negative) mg/dL Urine Blood Trace H (Negative) Urine Nitrite Negative (Negative) Ur Leukocyte Esterase Trace H (Negative) Urine RBC 0-2 (0-2) /HPF Urine WBC 0-5 (0-5) /HPF Ur Squamous Epith Cells 0-2 (0-2) /HPF Urine Bacteria None Seen (None Seen) Hyaline Casts 0-2 (0-2) /LPF <Jake Ramirez MD - Last Filed: 10/26/22 21:02> Independent Interpretation I performed an independent interpretation of an: EKG <Jake Ramirez MD - Last Filed: 10/26/22 21:02> Interpretation: My independent interpretation of the patient's EKG done at 15:02 is as follows: Sinus bradycardia with a rate of 51, normal [place] interval, normal QRS duration normal QTC interval, inverted T-wave in lead 3 and V1, no ST segment elevation, no ST segment depression, no PACs, no PVCs, except for the bradycardia this is a normal EKG there are no significant changes compared to EKG dated 12/20/2017 <Jake Ramirez MD - Last Filed: 10/26/22 21:02> Radiology Impression Discussion of test interpretation with radiology: I have reviewed the radiologist's reading. <Jake Ramirez MD - Last Filed: 10/26/22 21:02> Radiologist Impression: CT head/brain wo IV con, CT scan of the C-spine without IV contrast IMPRESSION: 1. No acute intracranial hemorrhage or edematous territorial infarction. ? 2. Small fluid in some of the left mastoid air cells, nonspecific. ? 3.No acute fracture or malalignment cervical spine. ? 4. Cervical spondylosis. C5-C6 moderate-severe disc degeneration, with posterior disc osteophyte complex. Bilateral C5-C6 neural foramen narrowing. Further evaluation with MRI as clinically warranted. ? Dictated By: Alvaro Alvarez MD Signed By: <Electronically signed by Alvaro Alvarez MD in [facility]>10/26/221815 <Jake Ramirez MD - Last Filed: 10/26/22 21:02> Discharge Plan Discharge Clinical Impression: Cervical disc disorder with radiculopathy, Cervical radiculopathy at C6 <JUSTEN Michel - Last Filed: 10/26/22 13:59> Patient Disposition: Home, Self-Care <JUSTEN Michel - Last Filed: 10/26/22 13:59> Instructions: Cervical Radiculopathy (ED) <JUSTEN Michel - Last Filed: 10/26/22 13:59> Additional Instructions: Your pain in your neck and in your arms is caused by arthritis of your neck and bulging of the C5-C6 disc which is causing narrowing of opening where the spinal nerves go through. This narrowing of the opening is causing the nerves to blood pinched causing the numbness in your arms. Take prednisone 20 mg pills, 2 pills once a day for 7days. While you are taking prednisone, do not take any NSAIDs (Motrin, Advil, ibuprofen, Aleve, naproxen). Take Tylenol (acetaminophen) 500 mg pills, 2 pills every 4 to 6 hours as needed for pain. Take Flexeril (cyclobenzaprine) 10 mg pills, 1 pill every 6-8 hours as needed for pain or spasm. This medication will make you sleepy. Do not drive or work while taking this medication. Follow-up with your doctor to be re-evaluated in 1 week, your doctor will need to refer you to a spinal surgeon to determine if you would benefit from possible surgery of your cervical spine. [facility] is also a clinic and [facility] that has the bili to ev aluate you and possibly refer you to a surgeon as well. Please return to the emergency department if your symptoms get worse or if you develop any symptoms that are concerning to you. When you see your doctor, show them this paper with a reading of your CT of your head and neck HEAD There is no evidence of acute intracranial hemorrhage or edematous territorial infarction. No abnormal mass-effect or midline shift. No extra-axial fluid collections. Walls to white matter differentiation is well preserved. The ventricles are normal in size and configuration. Mild patchy deep white matter hypodensities suggestive of chronic microangiopathic changes. No acute calvarial fracture. Small fluid in some of the left mastoid air cells. The sinuses and right mastoid air cells are clear. CERVICAL SPINE: Straightening of the cervical curvature. There is anatomic alignment of the vertebral bodies and posterior elements. The atlantoaxial and atlantooccipital articulations are maintained. Vertebral body heights are maintained. No evidence of acute fracture. Cervical spondylosis. Moderate-severe C5-C6 disc degeneration with disc height loss, endplate osteophytes, endplate sclerosis and small cyst within the posterior disc osteophyte complex. Bilateral C5-C6 neural foramen narrowing. Multilevel facet degeneration. There is fusion of the left C4-C5 facet joint. No prevertebral soft tissue swelling. Mild biapical pleural parenchymal scarring. No suspicious thyroid findings. There are nonspecific cervical shotty lymph nodes. CT/CT head/brain wo IV con IMPRESSION: 1. No acute intracranial hemorrhage or edematous territorial infarction. 2. Small fluid in some of the left mastoid air cells, nonspecific. 3.No acute fracture or malalignment cervical spine. 4. Cervical spondylosis. C5-C6 moderate-severe disc degeneration, with posterior disc osteophyte complex. Bilateral C5-C6 neural foramen narrowing. Further evaluation with MRI as clinically warranted. Dictated By:Alvaro Alvarez MDSigned By:<Electronically signed by Alvaro Alvarez MD in [place]>10/26/[id number] <JUSTEN Michel - Last Filed: 10/26/22 13:59> Prescriptions: New prednisone 20 mg tablet 40 mg PO DAILY 7 Days Qty: 14 0RF cyclobenzaprine 10 mg tablet 10 mg PO TID PRN (Reason: muscle pain or spasm) Qty: 20 0RF No Action alendronate 70 mg tablet 70 mg PO QWEEK 90 Days Qty: 13 1RF ipratropium bromide 21 mcg (0.03 %) spray,non-aerosol 2 spray intranasal BID 30 Days Qty: 30 6RF Rx Instructions: administer into each nostril naproxen 500 mg tablet 500 mg PO Q12H PRN (Reason: pain) 90 Days Qty: 180 0RF cetirizine [All Day Allergy (cetirizine)] 10 mg tablet 10 mg PO DAILY PRN (Reason: allergy symptoms) 90 Days Qty: 90 2RF latanoprost 0.005 % drops 1 drp ophthalmic (eye) BID (DME) nebulizers Misc See Rx Instructions .ROUTE .MEDSUPPLY Qty: 1 Rx Instructions: As directed timolol maleate 0.5 % drops 1 drp ophthalmic (eye) QAM solifenacin 5 mg tablet 5 mg PO DAILY Linzess 290 mcg capsule 290 mcg PO QAM 30 Days Qty: 30 6RF pantoprazole 40 mg tablet,delayed release (DR/EC) 40 mg PO DAILY Qty: 90 3RF <JUSTEN Michel - Last Filed: 10/26/22 13:59>
[2022-10-26 13:53] VITALS: BP 130/51; PULSE 56; RESP 18; TEMP 36.1; O2SAT 99; BMI 28.6
--- NOTE | 2022-10-26 13:58 | ECG_ITS ---
Test Reason : DIZZINESS Blood Pressure : / mmHG Vent. Rate : 051 BPM Atrial Rate : 051 BPM P-R Int : 152 ms QRS Dur : 072 ms QT Int : 412 ms P-R-T Axes : 051 008 016 degrees QTc Int : 379 ms Sinus bradycardia Otherwise normal ECG When compared with ECG of 20-DEC-2017 12:17, No significant change was found Referred By: Corrie Davies Electronically Signed By:ALF MACHUCA
[2022-10-26 15:17] LABS: MANUAL DIFF FLAG NO
[2022-10-26 15:22] LABS: Appearance Urine Clear; Color Urine Yellow; Glucose Urine UA Negative (Negative); Leukocyte Esterase Urine Trace (Negative); Nitrite Urine Negative (Negative); PH 5.5 (5.0-9.0); Specific Gravity - Urine 1.015 (1.005-1.025); UMIC TRIGGER UACC YES; Urine Blood Trace (Negative); Urine Ketones Negative (Negative); Urine Protein Negative (Neg-Trace)
[2022-10-26 15:23] LABS: Basophils Absolute Auto 0.1 X10*3/uL (0.0-0.2); Eosinophils Absolute Auto 0.1 X10*3/uL (0.0-0.4); Eosinophils Percent Auto 2.1 % (0-4); Hemoglobin 12.9 g/dl (12.0-16.0); Imm Gran Abs Auto 0.01 X10*3/uL (0.00-0.03); Imm Gran Pct Auto 0.2 % (0.0-0.4); Lymphocytes Absolute Auto 1.8 X10*3/uL (1.2-4.9); Mean Corpuscular HGB Conc 33.1 g/dl (31.0-35.0); Mean Corpuscular Hemoglobin 31.3 pg (27.0-33.0); Mean Corpuscular Volume 94.7 fL (80.0-98.0); Mean Platelet Volume 10.1 fL (9.4-12.3); Monocytes Absolute Auto 0.3 X10*3/uL (0.1-1.2); Monocytes Percent Auto 6.9 % (2-11); Neutrophils Absolute Auto 2.5 x10*3/uL (2.0-8.3); Neutrophils Percent Auto 52.8 % (45-73); Platelet Count 194 X10*3/uL (160-400); Red Blood Count 4.12 X10*6/uL (4.20-5.50); White Blood Count 4.8 X10*3/uL (4.8-10.8)
[2022-10-26 15:24] LABS: Bacteria Urine None Seen (None Seen); Hyaline Casts Urine 0-2 /LPF (0-2); RBC Urine 0-2 /HPF (0-2); Squamous Epithelial Cell Urine 0-2 /HPF (0-2); WBC Urine 0-5 /HPF (0-5)
[2022-10-26 15:36] LABS: Alanine Aminotransferase 9 U/L (0-31); Alkaline Phosphatase 59 U/L (39-117); Anion Gap 11 (12-20); Aspartate Amino Transferase 19 U/L (5-31); Bilirubin Direct 0.2 mg/dL (0.0-0.5); Bilirubin Total 0.7 mg/dL (0.0-1.0); Blood Urea Nitrogen 13 mg/dL (9-16); Calcium 9.2 mg/dL (8.4-10.2); Carbon Dioxide 29 mmol/L (22-29); Chloride 104 mmol/L (96-108); Creatinine Clr Calc Pharmacy 69.4; Estimated Glomerular Filt Rate > 60; Glucose Random 106 mg/dL (60-115); Magnesium 2.1 mg/dL (1.6-2.6); Potassium 4.7 mmol/L (3.3-5.1); Sodium 139 mmol/L (135-145); Total Protein 6.5 g/dL (6.5-8.0)
[2022-10-26 15:47] LABS: Troponin-I High Sensitivity < 3.5 ng/L (<3.5-17.0)
[2022-10-26 18:23] VITALS: BP 122/54; PULSE 48; RESP 16; TEMP 36.6; O2SAT 97
--- NOTE | 2022-10-26 18:37 | PC.NURSE ---
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
--- NOTE | 2022-10-26 19:45 | PC.NURSE ---
Assumed care of pt. at 1900. Pt. in room lying in bed with daughter at bedside. Pt. requesting to urinate. Provided with bedpan. No distress noted. Will continue to monitor.
[2022-10-26] MEDS: predniSONE 20 MG TABLET 40 MG PO (21:04)
== END 2022-10-26 21:20 | disposition home or self-care (01) ==
PROVIDERS: Physician Assistant; Emergency Provider Emergency Medicine Emergency Medical Services; PCP Internal Medicine
DX: M54.12 Radiculopathy, cervical region (principal); R42 Dizziness and giddiness; M54.2 Cervicalgia; R51.9 Headache, unspecified; R20.0 Anesthesia of skin; Z79.899 Other long term (current) drug therapy
CPT/HCPCS: 36415; 70450; 72125; 80048; 80076; 81001; 83735; 84484; 85025; 93005; 99284; 99285

== ENCOUNTER → 2023-01-11 12:59 | Outpatient (BNVA) | payer OTHER, SELFPAY | PROVIDERS: PCP Internal Medicine; Visit Provider Nurse Practitioner | DX: K59.04 Chronic idiopathic constipation (principal); R63.4 Abnormal weight loss; K21.9 Gastro-esophageal reflux disease without esophagitis; R10.12 Left upper quadrant pain | CPT/HCPCS: 99212 ==

== ENCOUNTER → 2023-01-14 15:47 | Outpatient (BNVA) | payer OTHER, SELFPAY | PROVIDERS: PCP Internal Medicine; Visit Provider Internal Medicine Endocrinology, Diabetes & Metabolism | DX: M81.0 Age-related osteoporosis without current pathological fracture (principal); Z79.83 Long term (current) use of bisphosphonates | CPT/HCPCS: 99212 ==

== ENCOUNTER 2023-02-22 10:24 | Outpatient (REF) | payer OTHER, SELFPAY ==
[2023-02-22 12:07] LABS: Alanine Aminotransferase 16 U/L (0-31); Albumin Level 3.9 g/dL (3.5-5.0); Alkaline Phosphatase 52 U/L (39-117); Anion Gap 10 (12-20); Aspartate Amino Transferase 20 U/L (5-31); Bilirubin Total 0.9 mg/dL (0.0-1.0); Blood Urea Nitrogen 10 mg/dL (9-16); Calcium 8.8 mg/dL (8.4-10.2); Carbon Dioxide 29 mmol/L (22-29); Chloride 107 mmol/L (96-108); Cholesterol 204 mg/dL; Estimated Glomerular Filt Rate > 60; Glucose Fasting 103 mg/dL (60-99); HDL Cholesterol 77 mg/dL; LDL Cholesterol Calculated 111 mg/dl; Potassium 4.3 mmol/L (3.3-5.1); Sodium 142 mmol/L (135-145); Total Protein 6.4 g/dL (6.5-8.0); Triglycerides 81 mg/dL; Vitamin D 25-OH Total 33.6 ng/mL (>30)
== END 2023-02-22 10:25 | disposition home or self-care (01) ==
LOC: HO.LAB 10:24
PROVIDERS: PCP Internal Medicine; Visit Provider Internal Medicine
DX: E55.9 Vitamin D deficiency, unspecified (principal); E78.5 Hyperlipidemia, unspecified; R10.9 Unspecified abdominal pain
CPT/HCPCS: 36415; 80053; 80061; 82306

== ENCOUNTER 2023-03-30 11:52 | Outpatient (REF) | payer OTHER, SELFPAY ==
--- NOTE | ~2023-03-30 | MM_ITS ---
EXAMINATION: MM SCREENING DIGITAL BREAST TOMOSYNTHESIS, BILATERAL CLINICAL INFORMATION: Screening. Asymptomatic. The lifetime risk of breast cancer based on the Tyrer-Cuzick Model is 3.6.%. COMPARISON: Mammography: This study is compared with prior exams dating back to 2018. TECHNIQUE: Digital breast tomosynthesis is performed in both the craniocaudal and mediolateral oblique views along with computer-aided detection (CAD). Synthesized 2D images are generated from the tomosynthesis. FINDINGS: The breasts are heterogeneously dense, which may obscure small masses (ACR BI-RADS breast composition Category c). There are no significant masses, abnormal calcifications, or other abnormalities. There are few, unchanged, coarse, benign calcifications in the upper outer quadrant of the right breast. MM/MM tomosynthesis screening BI IMPRESSION: No mammographic evidence of malignancy. ASSESSMENT: BI-RADS BI-RADS 2 - Benign Findings RECOMMENDATION: Routine annual mammography screening. 1 year F/U This patient's information was entered into a reminder system with a target due date for their next mammogram.
== END 2023-03-30 11:53 | disposition home or self-care (01) ==
LOC: HO.MAMMO 11:52
PROVIDERS: PCP Internal Medicine; Visit Provider Internal Medicine
DX: Z12.31 Encounter for screening mammogram for malignant neoplasm of breast (principal)
CPT/HCPCS: 77063; 77067

== ENCOUNTER → 2023-03-30 12:15 | Outpatient (BNV) | payer OTHER, SELFPAY | PROVIDERS: PCP Internal Medicine; Visit Provider Radiology Diagnostic Radiology | DX: Z12.31 Encounter for screening mammogram for malignant neoplasm of breast (principal) | CPT/HCPCS: 77063; 77067 ==

== ENCOUNTER 2023-04-12 13:25 | Outpatient (AMB) | payer OTHER, SELFPAY ==
--- NOTE | 2023-04-12 13:26 | MHC.OFFVIS ---
Intake Vital Signs 04/12/23 13:28 Height 5 ft 4 in Weight 169 lb 12.095 oz BMI 29.1 BP 119/58 L Blood Pressure Location Lt brachial Position Sitting Pulse 61 Intake Visit Reasons: 2 Month Follow Ups Intake Note: Breanna presents in the office as a 2 month follow up. CC: She states that she is not having any concerns today. 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 Covering Name: Daughter Allergies homatropine [Hydromet] Allergy (Intermediate, Verified 04/12/23 13:30) rash ketorolac [From TORADOL] Allergy (Intermediate, Verified 04/12/23 13:30) N/V Sulfa (Sulfonamide Antibiotics) [SULFA (SULFONAMIDE ANTIBIOTICS)] Allergy (Intermediate, Verified 04/12/23 13:30) RASH sulfacetamide Allergy (Intermediate, Verified 04/12/23 13:30) rash tramadol [TRAMADOL] Allergy (Intermediate, Verified 04/12/23 13:30) N/V, edema and vomiting, edema and vomiting tizanidine Adverse Reaction (Intermediate, Verified 04/12/23 13:30) blurry vision HPI 2 Month Follow Ups HPI Details Assessment & Plan (1) Chronic idiopathic constipation: ?Code(s): K59.04 - Chronic idiopathic constipation ?Plan: [place] [employer] She just had a urinary surgery at [facility] - she does not know exactly what was done but she did have general anesthesia. Pawan Martin at [facility]. She is having intermittent LUQ stabbing pains that are mild now.? The pain is worse with sitting watching TV, no r/t eating or BM's. Was told it could be r/t her recent urology surgery.? I advised it could be bowel spasm from anesthesia and postop medications and since it is not happening often we will dose wait and watch and she should tell me if this worsens.? I will try to get the records to find out exactly what was done so I can give her proper supporting Education. She continues on her Linzess 290 micro g and her pantoprazole with good control of her constipation and her GERD.? She feels that her weight is stable at this time and she is no longer concerned about weight loss.? Her daughter says she simply eating in a healthier manner choosing salads and lean fish more than pizza and junk food. ROV 6 mos. (2) Weight loss, non-intentional: ?Code(s): R63.4 - Abnormal weight loss (3) GERD (gastroesophageal reflux disease): ?Comment: Will control pantoprazole ?Code(s): K21.9 - Gastro-esophageal reflux disease without esophagitis ?Qualifiers: ?Esophagitis presence:?esophagitis presence not specified? Qualified Code(s):?K21.9 - Gastro-esophageal reflux disease without esophagitis TODAY'S VISIT [place] #dtr translates per pt request. She continues to do well on her GI regimen Linzess 290 micro g and her pantoprazole with good control of her constipation and her GERD.? She just got back from camping with her family. She has had very dark urine since returning so I will order a UA as a courtesy. She could also just be dehydrated from the heat and camping. ROV 6 mos. [facility] Medical History Abdominal pain Age related osteoporosis Allergic rhinitis GERD (gastroesophageal reflux disease) Hemorrhoids Pelvic pain in female Physical exam Postmenopausal Precordial chest pain Renal cyst Toenail fungus Urine abnormality Surgical History H/O colonoscopy History of ear surgery History of esophagogastroduodenoscopy (EGD) History of tonsillectomy History of tubal ligation Family History Father CVD (cardiovascular disease) Mother No problems noted. Brother Stomach cancer Sister Liver cancer Brother Lung cancer Brother Colon cancer Social History Household Members: None Housing: Apartment Alcohol intake: current Alcohol intake frequency: holidays/special occasions only Alcohol type: beer and wine Patient Tobacco Use Status: Former Tobacco user Tobacco use type: Cigarette e-Cigarette/Vaping Use: Never Used Second Hand Smoke Exposure: No service: No Current occupational status: disabled Cognitive needs: No Hearing needs: No Vision needs: No Review of Systems Const Denies fatigue, Denies fever(s), Denies night sweats, Denies poor appetite and Denies weight loss ENT Reports Normal hearing present, Denies dental pain, Denies dysphagia, Denies hearing loss, Denies mouth pain, Denies odynophagia, Denies throat swelling, Denies tongue swelling and Reports other (Dentition adequate) Card Reports no additional complaints Resp Reports no additional complaints GI Denies abdominal pain, Denies melena, Denies bloating, Denies hematochezia, Reports constipation, Denies GI cramping, Denies dysphagia, Denies excessive flatus, Denies early satiety, Reports heartburn, Denies diarrhea, Denies nausea, Denies odynophagia, Denies vomiting and Denies hematemesis Details: Dark urine Skin/Breast Denies pruritus, Denies lesions, Denies rash and Denies jaundice Neuro Reports Normal hearing present and Denies Abnormal speech present Endo Denies fatigue Aller/Immun Denies throat swelling and Denies tongue swelling Physical Exam Vital Signs: Last Vital Signs Pulse 61 04/12/23 13:28 BP 119/58 L 04/12/23 13:28 BMI result Body Mass Index 29.1 Const General: cooperative, no acute distress, well developed and well groomed Nutritional Appearance: well nourished and overweight Orientation/consciousness: oriented to person, oriented to place and oriented to time Limitations: language barrier HEENT Head: Yes normocephalic and Yes atraumatic Eyes General: appearance normal, both eyes and all related structures Pupils: Equal, round and reactive pupils present Neck Neck: Yes normal visual inspection and Yes no lymphadenopathy Thyroid: Thyroid normal Resp Effort & Inspection: normal respiratory effort and able to speak in complete sentences Auscultation: clear to auscultation bilaterally Cardio Rate: regular rate Rhythm: regular rhythm Heart sounds: Normal, physiologic split S2 sound present Peripheral pulses: radial pulses present and posterior tibial pulses present GI Inspection: No distended, No Abdominal panniculus present and Yes obesity Palpation (GI): Soft to palpation, nontender, no guarding, not rigid and No hepatosplenomegaly present Percussion: Yes normal to percussion Auscultation: normal bowel sounds Rectal Exam - Female: deferred Skin General skin exam: no rashes or lesions noted, turgor normal, skin not dry, no jaundice, No spider nevi and no striae Rashes: no rashes Nails: normal Neuro General: oriented to person, oriented to place and oriented to time Cranial nerves: Yes Equal, round and reactive pupils present and Yes Normal hearing present Speech: No Abnormal speech present Extrem General: Yes normal to inspection, No clubbing, No cyanosis and No edema Psych Appearance: grossly normal and well kempt Mental Status: mental status grossly normal Speech and movement: Normal speech and movement present Affect: normal affect Attitude: cooperative Thought process: Normal thought process present and not confabulating Thought content: Normal thought content present Insight: Limited insight present (Psych) Judgement: Limited judgement present (Psych) Assessment & Plan Assessment & Plan (1) Chronic idiopathic constipation: Code(s): K59.04 - Chronic idiopathic constipation Plan: [place] #dtr translates per pt request. She continues to do well on her GI regimen Linzess 290 micro g and her pantoprazole with good control of her constipation and her GERD.? She just got back from camping with her family. She has had very dark urine since returning so I will order a UA as a courtesy. She could also just be dehydrated from the heat and camping. ROV 6 mos. (2) Weight loss, non-intentional: Code(s): R63.4 - Abnormal weight loss (3) GERD (gastroesophageal reflux disease): Comment: Will control pantoprazole Code(s): K21.9 - Gastro-esophageal reflux disease without esophagitis Qualifiers: Esophagitis presence: esophagitis presence not specified Qualified Code(s): K21.9 - Gastro-esophageal reflux disease without esophagitis (4) Dysuria: Code(s): R30.0 - Dysuria Orders: Orders UA CC w/rflx Micro + Cult 04/12/23 R30.0 - Dysuria Medications: Refilled linaclotide (Linzess) 290 mcg PO QAM 30 caps 6RF 30 days pantoprazole 40 mg PO DAILY 90 tabs 3RF Coding Level of Care Code Est Pt Level 3 (15944) Diagnoses Chronic idiopathic constipation K59.04 Weight loss, non-intentional R63.4 GERD (gastroesophageal reflux disease) K21.9 Esophagitis presence: esophagitis presence not specified Dysuria R30.0
[2023-04-12 13:28] VITALS: BP 119/58; PULSE 61; BMI 29.1
== END 2023-04-12 13:52 | disposition home or self-care (01) ==
PROVIDERS: Visit Provider Nurse Practitioner
DX: K59.04 Chronic idiopathic constipation (principal); R63.4 Abnormal weight loss; K21.9 Gastro-esophageal reflux disease without esophagitis; R30.0 Dysuria
CPT/HCPCS: 99213

== ENCOUNTER 2023-04-12 13:25 | Outpatient (REF) | payer OTHER, SELFPAY ==
[2023-04-12 15:32] LABS: Appearance Urine Clear; Color Urine Yellow; Glucose Urine UA Negative (Negative); Leukocyte Esterase Urine Trace (Negative); Nitrite Urine Negative (Negative); PH 5.5 (5.0-9.0); Specific Gravity - Urine 1.015 (1.005-1.025); UMIC TRIGGER UACC YES; Urine Blood Trace (Negative); Urine Ketones Negative (Negative); Urine Protein Negative (Neg-Trace)
[2023-04-12 15:35] LABS: Bacteria Urine None Seen (None Seen); Hyaline Casts Urine 0-2 /LPF (0-2); RBC Urine 0-2 /HPF (0-2); Squamous Epithelial Cell Urine 0-2 /HPF (0-2); UACC Culture Trigger YES
== END 2023-04-12 13:26 | disposition home or self-care (01) ==
LOC: HO.LAB 13:25
PROVIDERS: PCP Internal Medicine; Visit Provider Nurse Practitioner
DX: K59.04 Chronic idiopathic constipation (principal); R63.4 Abnormal weight loss; K21.9 Gastro-esophageal reflux disease without esophagitis; R30.0 Dysuria
CPT/HCPCS: 81001; 87086; 99212

== ENCOUNTER 2023-04-18 14:00 | Outpatient (RCR) | payer OTHER, SELFPAY | END 2023-04-18 15:00 | disposition home or self-care (01) | LOC: HO.PTCHIC 14:00 | PROVIDERS: PCP Internal Medicine; Visit Provider Nurse Practitioner Family | DX: M54.2 Cervicalgia (principal) | CPT/HCPCS: 97110; 97140; 97161 ==

== ENCOUNTER 2023-04-20 09:31 | Outpatient (REF) | payer OTHER, SELFPAY ==
--- NOTE | 2023-04-20 09:34 | EMG_ITS ---
Please see scanned EMG / Nerve Conduction Report. MTDD
== END 2023-04-20 09:32 | disposition home or self-care (01) ==
LOC: HO.NEURO 09:31
PROVIDERS: PCP Internal Medicine; Visit Provider Internal Medicine
DX: R20.0 Anesthesia of skin (principal)
CPT/HCPCS: 95885; 95913

== ENCOUNTER 2023-04-29 14:32 | Emergency (ER) | payer OTHER, SELFPAY ==
[2023-04-29] VITALS (9 sets, daily range): BP systolic 112–151; BP diastolic 47–77; PULSE 58–68; RESP 16–20; TEMP 36.5–36.9; O2SAT 97–100; BMI 27.4
--- NOTE | ~2023-04-29 | XR_ITS ---
EXAMINATION: XR CHEST CLINICAL INFORMATION: Dyspnea. COMPARISON: 12/06/2017 chest radiograph. TECHNIQUE: Frontal view of the chest was obtained. FINDINGS: No significant abnormality is noted involving the heart, lungs, mediastinum, bony thorax or soft tissues. XR/XR chest 1V IMPRESSION: No acute cardiopulmonary process.
--- NOTE | ~2023-04-29 | CT_ITS ---
EXAMINATION: CT HEAD WITHOUT CONTRAST CLINICAL INFORMATION: Dizziness. COMPARISON: 10/26/2022 TECHNIQUE: Contiguous axial imaging was performed from the skull base to vertex without intravenous administration of contrast. This CT examination was performed using dose optimization techniques as appropriate, variously including the following: *Automated exposure control *Adjustment of mA and/or kV according to patient size (this includes techniques or standardized protocols for targeted exams where dose is matched to indication/reason for exam; i.e. extremities or head) *Use of iterative reconstruction technique DLP: 627 mGy-cm FINDINGS: There is no evidence of acute intracranial hemorrhage or large territorial infarction. No mass effect or midline shift. No extra-axial fluid collections. Walls to white matter differentiation is preserved. The ventricles are normal in size and configuration for patient's age. The calvarium is intact. The mastoid air cells and imaged paranasal sinuses are well aerated. CT/CT head/brain wo IV con IMPRESSION: No acute intracranial pathology.
--- NOTE | 2023-04-29 14:35 | ED_ITS ---
HPI - General Adult General Chief complaint: General Medical Stated complaint: Dizzy Blood Pressure is Erratic Time Seen by Provider: 04/29/23 22:48 Source: family Mode of arrival: wheelchair Limitations: no limitations History of Present Illness HPI narrative: Patient comes to the emergency room accompanied by her daughters. Patient very anxious, feeling weak, tearful, hyperventilating. According to the patient's daughters, patient has been under a of stress. Patient has not had any chest pain or shortness of breath. Related Data Home Medications Medication Instructions Recorded Confirmed latanoprost 0.005 % eye drops 1 drp ophthalmic (eye) BID 09/22/20 03/07/23 nebulizers #1 ea 09/22/20 03/07/23 timolol maleate 0.5 % eye drops 1 drp ophthalmic (eye) QAM 12/31/20 03/07/23 doxycycline hyclate 100 mg tablet 100 mg PO BID 04/12/23 Previous Rx's Medication Instructions Recorded cyclobenzaprine 10 mg tablet 10 mg PO BID PRN muscle pain or 11/05/22 spasm #20 tabs naproxen 500 mg tablet 500 mg PO Q12H PRN pain 90 days 11/05/22 #180 tabs alendronate 70 mg tablet 70 mg PO QWEEK 90 days #13 tabs 11/25/22 cetirizine 10 mg tablet (All Day 10 mg PO DAILY PRN allergy 11/25/22 Allergy (cetirizine)) symptoms 90 days #90 tabs ipratropium bromide 21 mcg (0.03 2 spray intranasal BID 30 days #30 11/25/22 %) nasal spray mL ciprofloxacin 0.3 %-dexamethasone 4 drp otic (ears) BID 7 days #7.5 01/25/23 0.1 % ear drops,suspension mL (Ciprodex) lidocaine HCl 4 % topical cream 1 appl topical BID PRN pain 30 01/25/23 (Aspercreme (lidocaine HCl)) days #120 grams linaclotide 290 mcg capsule 290 mcg PO QAM 30 days #30 caps 04/12/23 (Linzess) pantoprazole 40 mg tablet,delayed 40 mg PO DAILY #90 tabs 04/12/23 release Allergies Allergy/AdvReac Type Severity Reaction Status Date / Time homatropine [Hydromet] Allergy Intermediate rash Verified 04/12/23 13:30 ketorolac [From TORADOL] Allergy Intermediate N/V Verified 04/12/23 13:30 Sulfa (Sulfonamide Allergy Intermediate RASH Verified 04/12/23 13:30 Antibiotics) [SULFA (SULFONAMIDE ANTIBIOTICS)] sulfacetamide Allergy Intermediate rash Verified 04/12/23 13:30 tramadol [TRAMADOL] Allergy Intermediate N/V, edema Verified 04/12/23 13:30 and vomiting, edema and vomiting tizanidine AdvReac Intermediate blurry Verified 04/12/23 13:30 vision Review of Systems Review of Systems: Constitutional : No Weight loss, No Fever, No Chills, No Night Sweats, No Fatigue, complaining of weakness ENT/Mouth : No Hearing loss, No Ear Pain, No Nasal Congestion, No Sinus Pain, No Hoarseness, No sore throat, No Rhinorrhea, No Swallowing Difficulty Eyes: No Eye Pain, No Swelling, No Redness, No Foreign Body, No Discharge, No Vision Changes Cardiovascular : No Chest Pain, No SOB, No Dyspnea on Exertion, No Orthopnea, No Edema, No Palpitations Respiratory : No Cough, No Sputum, No Wheezing, No Smoke Exposure, No Dyspnea Gastrointestinal : No Nausea, No Vomiting, No Diarrhea, No Constipation, No abdominal Pain, No Hematochezia, No Melena Genitourinary : no irregular bleeding, No Dysuria, No Urinary Frequency, No Hematuria, No Urinary Incontinence, No Urgency, No Flank Pain, No Urinary Flow Changes, No Hesitancy Musculoskeletal : No joint pain, No Myalgias, No Joint Swelling Skin : No Skin Lesions, No rash Neuro : No Weakness, No Numbness, No Paresthesias, No Loss of Consciousness, No Dizziness, No Headache Psych : Complaining of being feeling anxious, teary, no SI or HI Heme/Lymph: No Bruising, No Bleeding,No Lymphadenopathy Endocrine : No Polyuria, No Polydipsia, No Temperature Intolerance PMFSH Past Medical History Medical History Abdominal pain Age related osteoporosis Allergic rhinitis GERD (gastroesophageal reflux disease) Hemorrhoids Pelvic pain in female Physical exam Postmenopausal Precordial chest pain Renal cyst Toenail fungus Urine abnormality Surgical History H/O colonoscopy History of ear surgery History of esophagogastroduodenoscopy (EGD) History of tonsillectomy History of tubal ligation Family History Family History Father CVD (cardiovascular disease) Mother No problems noted. Brother Stomach cancer Sister Liver cancer Brother Lung cancer Brother Colon cancer Social History Social History Household Members: None Housing: Apartment Alcohol intake: current Alcohol intake frequency: holidays/special occasions only Alcohol type: beer and wine Patient Tobacco Use Status: Former Tobacco user Tobacco use type: Cigarette Smoked in Last 30 Days: No e-Cigarette/Vaping Use: Never Used Second Hand Smoke Exposure: No Use of substances other than those prescribed or required for medical reasons: No Advance Directives: No Advance Directives Information Provided: Yes service: No Current occupational status: disabled Cognitive needs: No Hearing needs: No Vision needs: No Physical Exam ED Vital Signs: Vital Signs - 24 hr 04/29/23 14:35 04/29/23 17:54 04/29/23 18:05 Temperature 98.4 F 97.9 F 97.8 F Pulse Rate 68 58 61 Respiratory Rate 20 18 16 Blood Pressure 145/59 H 112/47 L 113/56 L Pulse Oximetry 99 97 100 Oxygen Delivery Method Room Air Room Air Room Air 04/29/23 20:00 04/29/23 21:34 04/29/23 22:11 Temperature 98.1 F 97.7 F 97.9 F Pulse Rate 62 60 63 Respiratory Rate 16 16 16 Blood Pressure 132/55 L 125/51 L 128/77 Pulse Oximetry 98 98 98 Oxygen Delivery Method Room Air Room Air Room Air 04/29/23 22:17 04/29/23 22:19 04/29/23 22:20 Temperature Pulse Rate 62 59 68 Respiratory Rate Blood Pressure 131/51 L 119/52 L 151/64 H Pulse Oximetry Oxygen Delivery Method 04/30/23 00:00 04/30/23 00:24 04/30/23 00:25 Temperature 97.7 F Pulse Rate 59 52 61 Respiratory Rate 16 Blood Pressure 126/46 L 123/45 L 134/55 L Pulse Oximetry 98 Oxygen Delivery Method Room Air 04/30/23 00:26 04/30/23 01:43 Temperature 97.7 F Pulse Rate 64 64 Respiratory Rate 16 Blood Pressure 126/66 119/49 L Pulse Oximetry 97 Oxygen Delivery Method Room Air BMI result Body Mass Index 27.4 Const Other: Appearance: Alert. Oriented X3. No acute distress. Eyes: Pupils equal, round and reactive to light. ENT: Pharynx normal. Neck: Normal inspection. Neck supple. No lymph nodes noted. No crepitus CVS: Normal heart rate and rhythm. Pulses normal. Normal S1 and S2 Respiratory: No respiratory distress. Breath sounds normal. No Wheezing. No rales Abdomen: Soft and nontender. No rigidity. No distention. Skin: Skin warm and dry. Normal skin color. Normal skin turgor. Extremities: No lower extremity edema. No Lacerations. No Rash Neuro: Oriented X 3. No motor deficit. No sensory deficit. Moving all extremities. No slurred speech. CN 2 through 12 grossly intact Psych: calm, cooperative, flat affect Course Course Course Narrative: This is a rapid medical exam: Additional HPI, ROS, PE not included below will be deferred to primary provider. Patient is a 72-year-old [place]-speaking female presenting to the emergency department with complaint of intermittent dizziness for approximately 2 hours as well as shortness of breath. Daughter states she took BP which was 118/54 initially, then repeated and it was elevated. Daughter checked POC glucose which was 120, daughter gave juice, repeat was 160. Patient denies chest pain. Plan: EKG, labs, UA Medical Decision Making Medical Decision Making [facility] Narrative: -my interpretation of labs, hematology chemistry and urinalysis at baseline. -my interpretation of EKG: Sinus bradycardia, heart rate 57, C7 depression elevation, nonspecific T-wave inversion in lead 3, QTC 424 -patient initially said that she could not walk because she was too weak and feeling lightheaded. When she heard me discussing with her daughter that I would recommend her to stay for Behavioral Health for an assessment of depression and anxiety, patient said that she has needed to eat and she would feel better. Patient did eat, walked normal, feels ready for discharge Differential Diagnosis Differential Diagnoses: The differential diagnosis associated with the presentation includes (Anxiety, depression) Admission/Observation Consideration of admission/observation: Escalation of care including admission/observation considered (Admission/observation for psychiatric/behavioral health evaluation considered) Lab Data [facility] Lab Attestation statement: I reviewed the patient's lab results. 04/29/23 14:52 04/29/23 14:52 Labs: Lab Results 04/29/23 04/29/23 04/29/23 Range/Units 14:52 14:52 14:52 WBC 4.7 L (4.8-10.8) X10*3/uL RBC 3.88 L (4.20-5.50) X10*6/uL Hgb 12.1 (12.0-16.0) g/dl Hct 36.3 L (37.0-47.0) % MCV 93.6 (80.0-98.0) fL MCH 31.2 (27.0-33.0) pg MCHC 33.3 (31.0-35.0) g/dl RDW 11.9 (11.0-16.0) % Plt Count 180 (160-400) X10*3/uL MPV 9.5 (9.4-12.3) fL Immature Gran % (Auto) 0.2 (0.0-0.4) % Neut % (Auto) 57.1 (45-73) % Lymph % (Auto) 28.5 (20-40) % [place] % (Auto) 10.4 (2-11) % Eos % (Auto) 3.2 (0-4) % Baso % (Auto) 0.6 (0-2) % Lymph # (Auto) 1.3 (1.2-4.9) X10*3/uL [place] # (Auto) 0.5 (0.1-1.2) X10*3/uL Eos # (Auto) 0.2 (0.0-0.4) X10*3/uL Baso # (Auto) 0.0 (0.0-0.2) X10*3/uL Abs Immat Gran (auto) 0.01 (0.00-0.03) X10*3/uL Absolute Neuts (auto) 2.7 (2.0-8.3) x10*3/uL Absolute Nucleated RBC 0.000 (0.0-0.012) X10*3/uL Nucleated RBC % (auto) 0.0 (0.0-0.2) /100WBC PT (11.1-13.3) SEC INR (0.9-1.1) Sodium 137 (135-145) mmol/L Potassium 3.9 (3.3-5.1) mmol/L Chloride 103 (96-108) mmol/L Carbon Dioxide 24 (22-29) mmol/L Anion Gap 14 (12-20) BUN 11 (9-16) mg/dL Creatinine 0.79 (0.5-1.4) mg/dL Estim Creat Clear Calc 68.4 Estimated GFR > 60 Random Glucose 127 H (60-115) mg/dL Calcium 8.8 (8.4-10.2) mg/dL Total Bilirubin 0.4 (0.0-1.0) mg/dL AST 18 (5-31) U/L ALT 13 (0-31) U/L Alkaline Phosphatase 73 (39-117) U/L Troponin I High Sens < 2.7 (<3.5-17.0) ng/L Total Protein 6.7 (6.5-8.0) g/dL Albumin 3.9 (3.5-5.0) g/dL Urine Color Urine Appearance Urine pH (5.0-9.0) Ur Specific [place] (1.005-1.025) Urine Protein (Neg-Trace) mg/dL Urine Glucose (UA) (Negative) mg/dL Urine Ketones (Negative) mg/dL Urine Blood (Negative) Urine Nitrite (Negative) Ur Leukocyte Esterase (Negative) Urine RBC (0-2) /HPF Urine WBC (0-5) /HPF Ur Squamous Epith Cells (0-2) /HPF Urine Bacteria (None Seen) Hyaline Casts (0-2) /LPF 04/29/23 04/29/23 Range/Units 14:52 18:31 WBC (4.8-10.8) X10*3/uL RBC (4.20-5.50) X10*6/uL Hgb (12.0-16.0) g/dl Hct (37.0-47.0) % MCV (80.0-98.0) fL MCH (27.0-33.0) pg MCHC (31.0-35.0) g/dl RDW (11.0-16.0) % Plt Count (160-400) X10*3/uL MPV (9.4-12.3) fL Immature Gran % (Auto) (0.0-0.4) % Neut % (Auto) (45-73) % Lymph % (Auto) (20-40) % [place] % (Auto) (2-11) % Eos % (Auto) (0-4) % Baso % (Auto) (0-2) % Lymph # (Auto) (1.2-4.9) X10*3/uL [place] # (Auto) (0.1-1.2) X10*3/uL Eos # (Auto) (0.0-0.4) X10*3/uL Baso # (Auto) (0.0-0.2) X10*3/uL Abs Immat Gran (auto) (0.00-0.03) X10*3/uL Absolute Neuts (auto) (2.0-8.3) x10*3/uL Absolute Nucleated RBC (0.0-0.012) X10*3/uL Nucleated RBC % (auto) (0.0-0.2) /100WBC PT 11.0 L (11.1-13.3) SEC INR 0.9 (0.9-1.1) Sodium (135-145) mmol/L Potassium (3.3-5.1) mmol/L Chloride (96-108) mmol/L Carbon Dioxide (22-29) mmol/L Anion Gap (12-20) BUN (9-16) mg/dL Creatinine (0.5-1.4) mg/dL Estim Creat Clear Calc Estimated GFR Random Glucose (60-115) mg/dL Calcium (8.4-10.2) mg/dL Total Bilirubin (0.0-1.0) mg/dL AST (5-31) U/L ALT (0-31) U/L Alkaline Phosphatase (39-117) U/L Troponin I High Sens (<3.5-17.0) ng/L Total Protein (6.5-8.0) g/dL Albumin (3.5-5.0) g/dL Urine Color Straw Urine Appearance Clear Urine pH 7.0 (5.0-9.0) Ur Specific [place] <= 1.005 (1.005-1.025) Urine Protein Negative (Neg-Trace) mg/dL Urine Glucose (UA) Negative (Negative) mg/dL Urine Ketones Negative (Negative) mg/dL Urine Blood Trace (Negative) Urine Nitrite Negative (Negative) Ur Leukocyte Esterase Trace H (Negative) Urine RBC 0-2 (0-2) /HPF Urine WBC 0-5 (0-5) /HPF Ur Squamous Epith Cells 0-2 (0-2) /HPF Urine Bacteria None Seen (None Seen) Hyaline Casts 0-2 (0-2) /LPF Discharge Plan Discharge Clinical Impression: Weakness, Anxiety and depression Patient Disposition: Home, Self-Care Instructions: Depression (ED), Anxiety (ED) Additional Instructions: Please follow-up with your primary care physician tomorrow. He will likely need to be referred for a therapist to help you with anxiety and depression. If you have any worsening or new symptoms, please return to the emergency room or call 911 Prescriptions: No Action cetirizine [All Day Allergy (cetirizine)] 10 mg tablet 10 mg PO DAILY PRN (Reason: allergy symptoms) 90 Days Qty: 90 2RF ipratropium bromide 21 mcg (0.03 %) spray,non-aerosol 2 spray intranasal BID 30 Days Qty: 30 6RF Rx Instructions: administer into each nostril alendronate 70 mg tablet 70 mg PO QWEEK 90 Days Qty: 13 1RF latanoprost 0.005 % drops 1 drp ophthalmic (eye) BID (DME) nebulizers [facility] [place] Instructions .ROUTE .MEDSUPPLY Qty: 1 Rx Instructions: As directed lidocaine HCl [Aspercreme (lidocaine HCl)] 4 % cream 1 appl topical BID PRN (Reason: pain) 30 Days Qty: 120 1RF ciprofloxacin-dexamethasone [Ciprodex] 0.3-0.1 % drops,suspension 4 drp otic (ears) BID 7 Days Qty: 7.5 0RF naproxen 500 mg tablet 500 mg PO Q12H PRN (Reason: pain) 90 Days Qty: 180 0RF cyclobenzaprine 10 mg tablet 10 mg PO BID PRN (Reason: muscle pain or spasm) Qty: 20 0RF timolol maleate 0.5 % drops 1 drp ophthalmic (eye) QAM doxycycline hyclate 100 mg tablet 100 mg PO BID Linzess 290 mcg capsule 290 mcg PO QAM 30 Days Qty: 30 6RF pantoprazole 40 mg tablet,delayed release (DR/EC) 40 mg PO DAILY Qty: 90 3RF Interventions: ED Discharge Assessment Last Done: 04/30/23 02:23 Discharge Date/Time: 04/30/23 02:26
--- NOTE | 2023-04-29 14:40 | ECG_ITS ---
Test Reason : high blood pressure Blood Pressure : / mmHG Vent. Rate : 066 BPM Atrial Rate : 066 BPM P-R Int : 128 ms QRS Dur : 080 ms QT Int : 396 ms P-R-T Axes : 006 007 022 degrees QTc Int : 415 ms Normal sinus rhythm Minimal voltage criteria for LVH, may be normal variant ( R in aVL ) Borderline ECG When compared with ECG of 26-OCT-2022 15:02, No significant change was found Referred By: Hailey Guevara Electronically Signed By:KIMBERLY NORRIS MD
[2023-04-29 14:56] LABS: MANUAL DIFF FLAG NO
[2023-04-29 14:58] LABS: Basophils Percent Auto 0.6 % (0-2); Eosinophils Absolute Auto 0.2 X10*3/uL (0.0-0.4); Eosinophils Percent Auto 3.2 % (0-4); Hematocrit 36.3 % (37.0-47.0); Hemoglobin 12.1 g/dl (12.0-16.0); Imm Gran Abs Auto 0.01 X10*3/uL (0.00-0.03); Imm Gran Pct Auto 0.2 % (0.0-0.4); Lymphocytes Absolute Auto 1.3 X10*3/uL (1.2-4.9); Lymphocytes Percent Auto 28.5 % (20-40); Mean Corpuscular HGB Conc 33.3 g/dl (31.0-35.0); Mean Corpuscular Hemoglobin 31.2 pg (27.0-33.0); Mean Corpuscular Volume 93.6 fL (80.0-98.0); Mean Platelet Volume 9.5 fL (9.4-12.3); Monocytes Absolute Auto 0.5 X10*3/uL (0.1-1.2); Monocytes Percent Auto 10.4 % (2-11); Neutrophils Absolute Auto 2.7 x10*3/uL (2.0-8.3); Neutrophils Percent Auto 57.1 % (45-73); Platelet Count 180 X10*3/uL (160-400); Red Blood Count 3.88 X10*6/uL (4.20-5.50); Red Cell Distribution Width 11.9 % (11.0-16.0); White Blood Count 4.7 X10*3/uL (4.8-10.8)
[2023-04-29 15:11] LABS: Alanine Aminotransferase 13 U/L (0-31); Albumin Level 3.9 g/dL (3.5-5.0); Alkaline Phosphatase 73 U/L (39-117); Anion Gap 14 (12-20); Aspartate Amino Transferase 18 U/L (5-31); Bilirubin Total 0.4 mg/dL (0.0-1.0); Blood Urea Nitrogen 11 mg/dL (9-16); Calcium 8.8 mg/dL (8.4-10.2); Carbon Dioxide 24 mmol/L (22-29); Chloride 103 mmol/L (96-108); Creatinine Clr Calc Pharmacy 68.4; Estimated Glomerular Filt Rate > 60; Glucose Random 127 mg/dL (60-115); Potassium 3.9 mmol/L (3.3-5.1); Sodium 137 mmol/L (135-145); Total Protein 6.7 g/dL (6.5-8.0)
[2023-04-29 15:21] LABS: Troponin-I High Sensitivity < 2.7 ng/L (<3.5-17.0)
--- NOTE | 2023-04-29 18:18 | PC.NURSE ---
Pt stated she feels SOB, SpO2 99%, RR 16. Stated she feels nauseated, and dizzy even when lying down but james when changing positions, daughter informed staff Pt had a varicose vein pop yesterday, but is seeing a specialist for her varicose veins. Also noted to have difficultly having BM but informed staff she stopped taking her stool softeners.
--- NOTE | 2023-04-29 18:31 | MHC.EDTECH ---
PATIENT WAS ASSISTED UNTO BED MCINTOSH ,VOID LARGE AMOUNT OF URINE ,URINE SAMPLE COLLECTED AND SENT TO LAB .
[2023-04-29 18:38] LABS: Appearance Urine Clear; Color Urine Straw; Glucose Urine UA Negative (Negative); Leukocyte Esterase Urine Trace (Negative); Nitrite Urine Negative (Negative); Specific Gravity - Urine <= 1.005 (1.005-1.025); UMIC TRIGGER UACC YES; Urine Blood Trace (Negative); Urine Ketones Negative (Negative); Urine Protein Negative (Neg-Trace)
[2023-04-29 18:48] LABS: Bacteria Urine None Seen (None Seen); Hyaline Casts Urine 0-2 /LPF (0-2); RBC Urine 0-2 /HPF (0-2); Squamous Epithelial Cell Urine 0-2 /HPF (0-2); WBC Urine 0-5 /HPF (0-5)
[2023-04-29 20:06] LABS: INTERNATIONAL NORM RATIO 0.9 (0.9-1.1)
--- NOTE | 2023-04-29 22:15 | ECG_ITS ---
Test Reason : DIZZINESS Blood Pressure : / mmHG Vent. Rate : 057 BPM Atrial Rate : 057 BPM P-R Int : 148 ms QRS Dur : 080 ms QT Int : 436 ms P-R-T Axes : 033 010 014 degrees QTc Int : 424 ms Sinus bradycardia Otherwise normal ECG When compared with ECG of 29-APR-2023 14:48, No significant change was found Referred By: Generic ED Physician Electronically Signed By:KIMBERLY NORRIS MD
--- NOTE | 2023-04-29 22:35 | MHC.EDTECH ---
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
--- NOTE | 2023-04-29 23:03 | PC.NURSE ---
20 G IV line placed in R AC. Patient reports moderated headache, dizziness resolved. Magda, ED provider notified of headache, stable systolic BP's with irratic diastolic BP 48-77.
[2023-04-30] VITALS: BP 126/46; PULSE 59; RESP 16; TEMP 36.5; O2SAT 98
[2023-04-30 00:24] VITALS: BP 123/45; PULSE 52
[2023-04-30 00:25] VITALS: BP 134/55; PULSE 61
[2023-04-30 00:26] VITALS: BP 126/66; PULSE 64
--- NOTE | 2023-04-30 00:35 | MHC.EDTECH ---
DURING AMBULATION PATIENT BECAME DIZZY AND WAS BROUGHT BACK TO HER BED ,MD REYNA AWARE .
[2023-04-30 01:43] VITALS: BP 119/49; PULSE 64; RESP 16; TEMP 36.5; O2SAT 97
--- NOTE | 2023-04-30 02:03 | MHC.EDTECH ---
THIS PCT TOOK PATIENT FOR A LONG WALK ,PATIENT WAS ABLE TO WALK INDEPENDENTLY WITH STEADY GAIT ABOUT 300 FT WITH NO ISSUES ,PROVIDER AWARE .
== END 2023-04-30 02:26 | disposition home or self-care (01) ==
PROVIDERS: Registered Nurse Emergency; Emergency Provider Emergency Medicine; PCP Internal Medicine
DX: F41.1 Generalized anxiety disorder (principal); F43.0 Acute stress reaction; R06.02 Shortness of breath; R00.1 Bradycardia, unspecified; F33.1 Major depressive disorder, recurrent, moderate; R42 Dizziness and giddiness; Z87.891 Personal history of nicotine dependence; Z79.899 Other long term (current) drug therapy
CPT/HCPCS: 36415; 70450; 71045; 80053; 81001; 84484; 85025; 85610; 93005; 99285

== ENCOUNTER → 2023-04-29 14:40 | Outpatient (BNV) | payer OTHER, SELFPAY | PROVIDERS: Emergency Provider Emergency Medicine; PCP Internal Medicine; Visit Provider Internal Medicine Cardiovascular Disease | DX: R00.1 Bradycardia, unspecified (principal) | CPT/HCPCS: 93010 ==

== ENCOUNTER 2023-07-18 10:37 | Outpatient (AMB) | payer OTHER, SELFPAY ==
[2023-07-18 10:42] VITALS: BP 126/58; PULSE 65; O2SAT 98; BMI 27.6
--- NOTE | 2023-07-18 10:42 | A.OFFPC_ITS ---
Vital Signs 07/18/23 10:42 Height 5 ft 6 in Weight 171 lb BMI 27.6 BP 126/58 L Blood Pressure Location Lt brachial Position Sitting Pulse 65 Pulse Source Pulse Oximeter Pulse Oximetry (%) 98 Oxygen Delivery Method Room Air Intake Visit Reasons: gerd,osteoporosis Intake Note: Patient here for a follow up GERD, Osteoporosis Dye And Chemical Coordinator Required: No Accompanied by: Daughter Allergies homatropine [Hydromet] Allergy (Intermediate, Verified 07/18/23 10:54) rash ketorolac [From TORADOL] Allergy (Intermediate, Verified 07/18/23 10:54) N/V Sulfa (Sulfonamide Antibiotics) [SULFA (SULFONAMIDE ANTIBIOTICS)] Allergy (Intermediate, Verified 07/18/23 10:54) RASH sulfacetamide Allergy (Intermediate, Verified 07/18/23 10:54) rash tramadol [TRAMADOL] Allergy (Intermediate, Verified 07/18/23 10:54) N/V, edema and vomiting, edema and vomiting tizanidine Adverse Reaction (Intermediate, Verified 07/18/23 10:54) blurry vision Medication List - Last Reconciled 07/18/23 by Elena Cedillo MD alendronate 70 mg PO QWEEK 90 days cetirizine (All Day Allergy (cetirizine)) 10 mg PO DAILY PRN 90 days ciprofloxacin-dexamethasone 0.3-0.1 % (Ciprodex) 4 drps otic (ears) BID 7 days cyclobenzaprine 10 mg PO BID PRN doxycycline hyclate 100 mg PO BID ipratropium bromide 2 sprays intranasal BID 30 days latanoprost 0.005% 1 drp ophthalmic (eye) BID lidocaine HCl 4% (Aspercreme (lidocaine HCl)) 1 appl topical BID PRN 30 days linaclotide (Linzess) 290 mcg PO QAM 30 days naproxen 500 mg PO Q12H PRN 90 days nebulizers As directed pantoprazole 40 mg PO DAILY timolol maleate 0.5% 1 drp ophthalmic (eye) QAM Tobacco use date assessed: 11/05/22 Fall risk assessment: No Falls in past year Last assessed Fall Risk: 07/18/23 Dental Screening Dental Screen Date: 07/18/23 Did you have a dental visit in the last 12 months?: Yes Did you have a dental problem in the last 6 months where you did not have access to dental care?: No Was dental information given to patient?: Patient has dentist HPI HPI Comments History of Present Illness Details This is a 73-year-old female with osteoporosis, GERD and chronic constipation that comes today accompanied by daughter complaining of chronic sinus congestion that has been present for years. She also has a hoarse voice that has also been present for years and has been evaluated by ENT before. She would like another opinion for another in ENT. Last bone density was 2021 and next bone density should be 2023. Compliant with alendronate. GERD stable with medications. Constipation well controlled with Linzess. No chest pain or shortness of breath. [facility] Medical History (Updated 07/18/23 @ 11:02 by Elena Cedillo MD) Age related osteoporosis Postmenopausal Precordial chest pain Physical exam Toenail fungus Abdominal pain Urine abnormality Hemorrhoids Allergic rhinitis GERD (gastroesophageal reflux disease) Renal cyst Pelvic pain in female Surgical History H/O colonoscopy History of esophagogastroduodenoscopy (EGD) History of ear surgery History of tonsillectomy History of tubal ligation Family History Father CVD (cardiovascular disease) Mother No problems noted. Brother Stomach cancer Sister Liver cancer Brother Lung cancer Brother Colon cancer Social History Household Members: None Housing: Apartment Alcohol intake: current Alcohol intake frequency: holidays/special occasions only Alcohol type: beer and wine Patient Tobacco Use Status: Former Tobacco user Tobacco use type: Cigarette e-Cigarette/Vaping Use: Never Used Second Hand Smoke Exposure: No service: No Current occupational status: disabled Cognitive needs: No Hearing needs: No Vision needs: No Questionnaire Thrive Questionnaire Date Thrive assessed: 01/25/23 JOSELIN-7 AMB Questionnaire JOSELIN-7 Date JOSELIN - 7 assessed: 01/25/23 Source: Developed by Drs. Ward Goldman, Christine Pantoja, Desmond Thompson and colleagues, with an educational daniel from [employer]. Review of Systems Const All systems reviewed & are unremarkable except as noted in HPI and below Eyes Reports no additional complaints, Denies change in vision and Denies other visual disturbances Card Denies chest pain at rest, Denies chest pain with activity, Denies edema, Denies irregular heart rhythm, Denies claudication, Denies dyspnea, Denies dyspnea on exertion, Denies orthopnea, Denies paroxysmal nocturnal dyspnea and Denies slow heart rate Resp Denies cough, Denies dyspnea and Denies dyspnea on exertion GI Denies abdominal pain, Denies change in bowel habits, Denies excessive flatus, Denies nausea and Denies vomiting Denies urinary incontinence, Denies urinary hesitancy and Denies urinary urgency Musc Denies abnormal gait, Denies atrophy, Denies deformity and Denies limited range of motion Skin/Breast Denies bleeding lesions, Denies changing lesions and Denies rash Neuro Denies abnormal gait and Denies lack of coordination Physical exam (Primary Care) Vital Signs: Last Vital Signs Pulse 65 07/18/23 10:42 BP 126/58 L 07/18/23 10:42 Pulse Ox 98 07/18/23 10:42 Oxygen Delivery Method Room Air 07/18/23 10:42 BMI result Body Mass Index 27.6 Tobacco/Smoking Status: Tobacco use Status Tobacco use date assessed 11/05/22 07/18/23 10:46 Patient Tobacco Use Status Former Tobacco user 07/18/23 10:46 Tobacco use type Cigarette 07/18/23 10:46 e-Cigarette/Vaping Use Never Used 07/18/23 10:46 Thrive Assessment: Date of Thrive Assessment Date Thrive assessed 01/25/23 07/18/23 10:46 Eyes General: appearance normal, both eyes and all related structures Eyelids: Yes eyelids normal Conjunctivae: conjunctivae normal Neck Neck: Yes normal visual inspection and Yes supple Resp Effort & Inspection: normal respiratory effort Auscultation: clear to auscultation bilaterally Cardio Jugular venous distension: no JVD Rate: regular rate Rhythm: regular rhythm Heart sounds: S1 normal heart sound present and S2 normal heart sound present Extrem General: Yes full ROM Office Procedures Flu Questionnaire Does the patient have a severe egg allergy?: No Immunizations flu vacc [id number] 6mos up(PF) 60 mcg(15 mcgx4)/0.5 mL IM syringe Performing Provider: Elena Cedillo MD [facility] Documented (not given) by: ANTONY Olmos on 07/18/23 10:49 Reason Not Given: Patient Refused Assessment and Plan Assessment & Plan (1) Age related osteoporosis: Code(s): M81.0 - Age-related osteoporosis without current pathological fracture Plan: Continue alendronate. Bone density will be order 2023. (2) GERD (gastroesophageal reflux disease): Comment: Will control pantoprazole Code(s): K21.9 - Gastro-esophageal reflux disease without esophagitis Qualifiers: Esophagitis presence: esophagitis presence not specified Qualified Code(s): K21.9 - Gastro-esophageal reflux disease without esophagitis Plan: Continue PPIs as needed. (3) Chronic idiopathic constipation: Code(s): K59.04 - Chronic idiopathic constipation Plan: Continue Linzess. (4) Chronic sinusitis: Code(s): J32.9 - Chronic sinusitis, unspecified Plan: Referred to ENT. Orders: Orders Influenza [id number] Immunization Today Z23 - Encounter for immunization Referrals Ear/Nose/Throat Referral J32.9 - Chronic sinusitis, unspecified Coding Level of Care Code Est Pt Level 4 (49983) Diagnoses Age related osteoporosis M81.0 Gastroesophageal reflux disease, unspecified whether esophagitis present K21.9 Esophagitis presence: esophagitis presence not specified Chronic idiopathic constipation K59.04 Chronic sinusitis J32.9 Time Spent (min) 22
== END 2023-07-18 11:06 | disposition home or self-care (01) ==
PROVIDERS: Visit Provider Internal Medicine
DX: M81.0 Age-related osteoporosis without current pathological fracture (principal); K21.9 Gastro-esophageal reflux disease without esophagitis; K59.04 Chronic idiopathic constipation; J32.9 Chronic sinusitis, unspecified
CPT/HCPCS: 99214

== ENCOUNTER 2023-08-03 10:35 | Outpatient (AMB) | payer OTHER, SELFPAY ==
[2023-08-03 10:45] VITALS: BP 128/60; PULSE 62; BMI 27.8
--- NOTE | 2023-08-03 10:45 | A.OFFVIS_ITS ---
Intake Vital Signs 08/03/23 10:45 Height 5 ft 6 in Weight 172 lb 6.424 oz BMI 27.8 BP 128/60 Blood Pressure Location Rt brachial Position Sitting Pulse 62 Intake Visit Reasons: Rectal bleeding Intake Note: Patient presents to in office visit today in follow up of rectal bleeding. CC: Patient reports she had a positive FIT test and also reports seeing blood in the stool. Patient reports seeing her stools changing colors, sometimes darker than others. Off note patient reports she got a bit form an insect and felt like electricity at the time she was bit. Ever since she has been having electricity like currents from her left breast. She also reports occasional abdominal pain. Laminating Machine Feeder Required: No Accompanied by: Self / Same As Patient Allergies homatropine [Hydromet] Allergy (Intermediate, Verified 08/03/23 10:55) rash ketorolac [From TORADOL] Allergy (Intermediate, Verified 08/03/23 10:55) N/V Sulfa (Sulfonamide Antibiotics) [SULFA (SULFONAMIDE ANTIBIOTICS)] Allergy (Intermediate, Verified 08/03/23 10:55) RASH sulfacetamide Allergy (Intermediate, Verified 08/03/23 10:55) rash tramadol [TRAMADOL] Allergy (Intermediate, Verified 08/03/23 10:55) N/V, edema and vomiting, edema and vomiting tizanidine Adverse Reaction (Intermediate, Verified 08/03/23 10:55) blurry vision HPI Rectal bleeding HPI Details Assessment & Plan (1) Chronic idiopathic constipation: Code(s): K59.04 - Chronic idiopathic constipation Plan: Colombian #dtr translates per pt request. She continues to do well on her GI regimen Linzess 290 micro g and her pantoprazole with good control of her constipation and her GERD.? She just got back from camping with her family. She has had very dark urine since returning so I will order a UA as a courtesy. She could also just be dehydrated from the heat and camping. ROV 6 mos. (2) Weight loss, non-intentional: Code(s): R63.4 - Abnormal weight loss (3) GERD (gastroesophageal reflux diseas e): Comment: Will control pantoprazole Code(s): K21.9 - Gastro-esophageal reflux disease without esophagitis Qualifiers: Esophagitis presence: esophagitis presence not specified Qualified Code(s): K21.9 - Gastro-esophageal reflux disease without esophagitis (4) Dysuria: Code(s): R30.0 - Dysuria Orders: Orders UA CC w/rflx Micro + Cult 04/12/23 R30.0 - Dysuria Medications: Refilled linaclotide (Linze ss) 290 mcg PO QAM 30 caps 6RF 30 days pantoprazole 40 mg PO DAILY 90 tabs 3RF LABS: Collection Date: 04/29/23 Collection Time : 1828 Source: Urine , Clean Catch Test Result Flag Refere nce Si te Ur Color Straw Ur Appear C lear P H 7. 0 5.0-9.0 Ur Glu Negati ve Negative mg/d L Urine Blood Trace Negative Spec Gr avity Ur <= 1.005 1.005-1.025 Urine Pro tein Negative N eg-Trace mg/dL Urine [place] es Negative Neg ative mg/dL Ur Nitrite Negative Negat vj Ur Ankit Esterase Trace H Negativ e Ur RBC 0-2 0-2 /HPF U r WBC 0- 5 0-5 /HPF Ur Squam Epi 0-2 0-2 /HPF Ur Ba ct None Seen None Seen Ur Hyal ine Boom Man 0-2 0-2 /LPF TODAY'S VISIT Colombian #Dtr translates per pt request, then Terrie Raymond She is concerned becaseu she thought she was told that she had a positive FIT test. However, they brought me the printed report and this shows negative for blood. So there may have been a misunderstanding. However, she has had some episodes of visual RB in the stools. She had 2 episodes of small drops of BRB. She used a roid cream on these, but did not use it with an applicator or for 2 weeks straight. She has 2 brothers wtih colon polyps. She would then be due for colonscopy in 2023 as her last was in 2018. She will be going on a [place] in January!! rov 6 mos and after scope [facility] Medical History Age related osteoporosis Postmenopausal Precordial chest pain Physical exam Toenail fungus Abdominal pain Urine abnormality Hemorrhoids Allergic rhinitis GERD (gastroesophageal reflux disease) Renal cyst Pelvic pain in female Surgical History H/O colonoscopy History of esophagogastroduodenoscopy (EGD) History of ear surgery History of tonsillectomy History of tubal ligation Family History Father CVD (cardiovascular disease) Mother No problems noted. Brother Stomach cancer Sister Liver cancer Brother Lung cancer Brother Colon cancer Social History Household Members: None Housing: Apartment Alcohol intake: current Alcohol intake frequency: holidays/special occasions only Alcohol type: beer and wine Patient Tobacco Use Status: Former Tobacco user Tobacco use type: Cigarette e-Cigarette/Vaping Use: Never Used Second Hand Smoke Exposure: No service: No Current occupational status: disabled Cognitive needs: No Hearing needs: No Vision needs: No Review of Systems Const Denies fatigue, Denies fever(s), Denies night sweats, Denies poor appetite and Denies weight loss ENT Reports Normal hearing present, Denies dental pain, Denies dysphagia, Denies hearing loss, Denies mouth pain, Denies odynophagia, Denies throat swelling, Denies tongue swelling and Reports other (Dentition adequate) Card Reports no additional complaints Resp Reports no additional complaints GI Denies abdominal pain, Denies melena, Denies bloating, Reports hematochezia, Reports constipation, Denies GI cramping, Denies dysphagia, Denies excessive flatus, Denies early satiety, Reports heartburn, Denies diarrhea, Denies nausea, Denies odynophagia, Denies vomiting and Denies hematemesis Skin/Breast Denies pruritus, Denies lesions, Denies rash and Denies jaundice Neuro Reports Normal hearing present and Denies Abnormal speech present Endo Denies fatigue Aller/Immun Denies throat swelling and Denies tongue swelling Physical Exam Vital Signs: Last Vital Signs Pulse 62 08/03/23 10:45 BP 128/60 08/03/23 10:45 BMI result Body Mass Index 27.8 Const General: cooperative, no acute distress, well developed and well groomed Nutritional Appearance: average body habitus and well nourished Orientation/consciousness: oriented to person, oriented to place and oriented to time Limitations: language barrier HEENT Head: Yes normocephalic and Yes atraumatic Eyes General: appearance normal, both eyes and all related structures Pupils: Equal, round and reactive pupils present Neck Neck: Yes normal visual inspection and Yes no lymphadenopathy Thyroid: Thyroid normal Resp Effort & Inspection: normal respiratory effort and able to speak in complete sentences Auscultation: clear to auscultation bilaterally Cardio Rate: regular rate Rhythm: regular rhythm Heart sounds: Normal, physiologic split S2 sound present Peripheral pulses: radial pulses present and posterior tibial pulses present GI Inspection: No distended and No Abdominal panniculus present Palpation (GI): Soft to palpation, nontender, no guarding, not rigid and No hepatosplenomegaly present Percussion: Yes normal to percussion Auscultation: normal bowel sounds Rectal Exam - Female: deferred Skin General skin exam: no rashes or lesions noted, turgor normal, skin not dry, no jaundice, No spider nevi and no striae Rashes: no rashes Nails: normal Neuro General: oriented to person, oriented to place and oriented to time Cranial nerves: Yes Equal, round and reactive pupils present and Yes Normal hearing present Speech: No Abnormal speech present Extrem General: Yes normal to inspection, No clubbing, No cyanosis and No edema Psych Appearance: grossly normal and well kempt Mental Status: mental status grossly normal Speech and movement: Normal speech and movement present Affect: normal affect Attitude: cooperative Thought process: Normal thought process present and not confabulating Thought content: Normal thought content present Insight: Limited insight present (Psych) Judgement: Limited judgement present (Psych) Assessment & Plan Assessment & Plan (1) Chronic idiopathic constipation: Code(s): K59.04 - Chronic idiopathic constipation (2) Abdominal pain: Code(s): R10.9 - Unspecified abdominal pain (3) GERD (gastroesophageal reflux disease): Comment: Will control pantoprazole Code(s): K21.9 - Gastro-esophageal reflux disease without esophagitis Qualifiers: Esophagitis presence: esophagitis presence not specified Qualified Code(s): K21.9 - Gastro-esophageal reflux disease without esophagitis (4) Family history of polyps in the colon: Comment: 2 brothers with polyps Code(s): Z83.719 - Family history of colon polyps, unspecified Plan [place]ian #Dtr translates per pt request, then Terrie Raymond She is concerned because she thought she was told that she had a positive FIT test. However, they brought me the printed report and this shows negative for blood. So there may have been a misunderstanding. However, she has had some episodes of visual RB in the stools. She had 2 episodes of small drops of BRB. She used a roid cream on these, but did not use it with an applicator or for 2 weeks straight. She has 2 brothers wtih colon polyps. She would then be due for colonscopy in 2023 as her last was in 2018. She will be going on a [place] in January!! rov 6 mos and after scope Orders: Orders Colonoscopy - GI Use Only 08/03/23 Medications: New hydrocortisone 2.5% (Proctosol HC) BE SURE TO INCLUDE RECTAL APPICATOR!! 1 appl PA BID 30 grams 6RF hemorrhoids K64.9 - Unspecified hemorrhoids peg 3350-electrolytes 236-22.74-6.74 -5.86 gram (Golytely) until fecal effluent is clear; do not exceed a total volume of 2,000 mL 240 mL PO Q10M 4,000 mL 0RF 1 day Z12.11 - Encounter for screening for malignant neoplasm of colon bisacodyl (Dulcolax (bisacodyl)) 10 mg (2 x 5 mg) PO BEDTIME 4 tabs 0RF 2 days Z01.818 - Encounter for other preprocedural examination, Z83.719 - Family history of colon polyps, unspecified Refilled linaclotide (Linzess) 290 mcg PO QAM 30 caps 6RF 30 days pantoprazole 40 mg PO DAILY 90 tabs 3RF Coding Level of Care Code Est Pt Level 3 (93902) Diagnoses Chronic idiopathic constipation K59.04 Abdominal pain R10.9 Gastroesophageal reflux disease, unspecified whether esophagitis present K21.9 Esophagitis presence: esophagitis presence not specified Family history of polyps in the colon Z83.719
== END 2023-08-03 11:48 | disposition home or self-care (01) ==
PROVIDERS: PCP Internal Medicine; Visit Provider Nurse Practitioner
DX: K59.04 Chronic idiopathic constipation (principal); R10.9 Unspecified abdominal pain; K21.9 Gastro-esophageal reflux disease without esophagitis; Z83.719 Family history of colon polyps, unspecified
CPT/HCPCS: 99213

== ENCOUNTER → 2023-08-03 10:35 | Outpatient (BNVA) | payer OTHER, SELFPAY | PROVIDERS: PCP Internal Medicine; Visit Provider Nurse Practitioner | DX: K59.04 Chronic idiopathic constipation (principal); R10.9 Unspecified abdominal pain; K21.9 Gastro-esophageal reflux disease without esophagitis; Z83.719 Family history of colon polyps, unspecified; Z79.899 Other long term (current) drug therapy | CPT/HCPCS: 99212 ==

== ENCOUNTER 2023-12-19 11:34 | Day surgery (SDC) | payer OTHER, SELFPAY ==
--- NOTE | 2023-12-19 11:43 | P.HPSUR_ITS ---
Pre-Procedural Eval Section A - 24 Hr Update-Section A only Date of Service: 12/19/23 The patient is an INPATIENT: No The patient has been examined within 24 hours of the surgical procedure. The History & Physical has been completed within 30 days and I have reviewed it.: No Section B - Complete if H&P > 30 days Chief Complaint: screening, Family history of colon polyps Relevant Family History (Specify if Yes): Yes Relevant Social History: None Present Medications: see Short Stay Collaborative assessment Medical History: Significant History (Age related osteoporosis Postmenopausal Precordial chest pain Physical exam Toenail fungus Abdominal pain Urine abnormality Hemorrhoids Allergic rhinitis GERD (gastroesophageal reflux disease) Renal cyst Pelvic pain in female) History of Previous Operations: Relevant previous surgery/procedure and date(s) (H/O colonoscopy History of esophagogastroduodenoscopy (EGD) History of ear voss rgery History of tonsillectomy History of tubal ligation) Allergies: Allergies Allergy/AdvReac Type Severity Reaction Status Date / Time homatropine [Hydromet] Allergy Intermediate rash Verified 08/03/23 10:55 ketorolac [From TORADOL] Allergy Intermediate N/V Verified 08/03/23 10:55 Sulfa (Sulfonamide Allergy Intermediate RASH Verified 08/03/23 10:55 Antibiotics) [SULFA (SULFONAMIDE ANTIBIOTICS)] sulfacetamide Allergy Intermediate rash Verified 08/03/23 10:55 tramadol [TRAMADOL] Allergy Intermediate N/V, edema Verified 08/03/23 10:55 and vomiting, edema and vomiting tizanidine AdvReac Intermediate blurry Verified 08/03/23 10:55 vision Review of Systems Sugical H&P ROS: Negative: Constitution, Cardiovascular, Respiratory and Gastrointestinal Exam Surgical H&P Exam: Normal: Heart, Normal: Lungs, Normal: Extremities and Normal: Abdomen Plan Diagnosis/Plan: Unchanged I have reviewed the history and physical and performed a pertinent physical examination on my patient. No changes have occurred unless specified. Time Spent With Patient Time: Total time managing care of this patient today ____ minutes.
[2023-12-19 11:50] VITALS: BMI 27.8
[2023-12-19 12:03] VITALS: BP 108/44; PULSE 51; RESP 16; TEMP 37.2; O2SAT 97
[2023-12-19 12:14] VITALS: PULSE 48
[2023-12-19] MEDS: Lactated Ringers 1,000 ML 50 ML IVCONT (12:14)
--- NOTE | 2023-12-19 12:35 | P.CONAN_ITS ---
[facility] Active Problems Active Problems: All Active Problems (Updated 08/03/23 @ 11:43 by BLESSING Mejia) Family history of polyps in the colon (Acute) Pre-op examination (Acute) Chronic sinusitis (Acute) Dysuria (Acute) Venous insufficiency (Acute) Dyspnea (Acute) Hand numbness (Acute) Hospital discharge follow-up (Acute) Degenerative disc disease, cervical (Acute) Dizziness (Acute) Weight loss, non-intentional (Acute) Abdominal pain (Acute) Chronic idiopathic constipation (Acute) Neck arthralgia (Acute) Age related osteoporosis (Acute) Postmenopausal (Acute) Precordial chest pain (Acute) Physical exam (Acute) Toenail fungus (Acute) Abdominal pain (Acute) Urine abnormality (Acute) Rectal bleeding (Acute) Hemorrhoids (Acute) Allergic rhinitis (Acute) Bilateral hand numbness (Acute) Polyarthralgia (Acute) GERD (gastroesophageal reflux disease) (Acute) Renal cyst (Acute) Pelvic pain in female (Acute) Past Medical History Medical History Age related osteoporosis Postmenopausal Precordial chest pain Physical exam Toenail fungus Abdominal pain Urine abnormality Hemorrhoids Allergic rhinitis GERD (gastroesophageal reflux disease) Renal cyst Pelvic pain in female Family History Family History Father CVD (cardiovascular disease) Mother No problems noted. Brother Stomach cancer Sister Liver cancer Brother Lung cancer Brother Colon cancer Family history of problems with anesthesia: No Surgical History Surgical History H/O colonoscopy History of esophagogastroduodenoscopy (EGD) History of ear surgery History of tonsillectomy History of tubal ligation History of Problems with Anesthesia: No Social History Social History Household Members: None Housing: Apartment Alcohol intake: current Alcohol intake frequency: holidays/special occasions only Alcohol type: beer and wine Patient Tobacco Use Status: Former Tobacco user Tobacco use type: Cigarette e-Cigarette/Vaping Use: Never Used Second Hand Smoke Exposure: No Use of substances other than those prescribed or required for medical reasons: No Are you DNR?: No Advance Directives: No Advance Directives Information Provided: Yes service: No Current occupational status: disabled Cognitive needs: No Hearing needs: No Vision needs: No Meds Allergies Allergy/AdvReac Type Severity Reaction Status Date / Time homatropine [Hydromet] Allergy Intermediate rash Verified 08/03/23 10:55 ketorolac [From TORADOL] Allergy Intermediate N/V Verified 08/03/23 10:55 Sulfa (Sulfonamide Allergy Intermediate RASH Verified 08/03/23 10:55 Antibiotics) [SULFA (SULFONAMIDE ANTIBIOTICS)] sulfacetamide Allergy Intermediate rash Verified 08/03/23 10:55 tramadol [TRAMADOL] Allergy Intermediate N/V, edema Verified 08/03/23 10:55 and vomiting, edema and vomiting tizanidine AdvReac Intermediate blurry Verified 08/03/23 10:55 vision Active Medications: Current Medications Lactated Ringer's (Lr) 1,000 mls @ 50 mls/hr IVCONT .Q20H CLAY Last Admin: 12/19/23 12:14 Dose: 50 mls/hr Home Medications Medication Instructions Recorded Confirmed Last Taken Type latanoprost 0.005 % eye drops 1 drp ophthalmic (eye) BID 09/22/20 12/19/23 12/19/23 History nebulizers #1 ea 09/22/20 07/18/23 Unknown History timolol maleate 0.5 % eye drops 1 drp ophthalmic (eye) QAM 12/31/20 12/19/23 12/19/23 History Exam Height,Weight and Vital Signs: Height 5 ft 6 in Weight 78.018 kg Last Vital Signs Temp 99.0 F 12/19/23 12:03 Pulse 48 L 12/19/23 12:14 Resp 16 12/19/23 12:03 BP 108/44 L 12/19/23 12:03 Pulse Ox 97 12/19/23 12:03 O2 Del Method Room Air 12/19/23 12:03 Airway Mallampati Class: II (missing a coupke, denies anything loose) TM Dist: >3cm Neck ROM: Full Heart: rrr Lungs: cta Assessment and Plan Assessment Anesthesia Assessment: Anesthesia Plan Discussed and Chart Reviewed Final Anesthetic Review Family History of Problems with Anesthesia: No History of Problems with Anesthesia: No NPO: Yes ASA Class: III Final Preanesthetic Review: No Changes in Pt Med Stat, Meds/Allgs Chart Reviewed and Consent Obtained/Reviewed Patient Risk: Low Procedure Risk: Low Anesthetic Plan Anesthetic Plan: MAC: Disposition: Standard PACU
--- NOTE | 2023-12-19 12:48 | W.PM.OPN ---
Operative Note Operative Note Date of Service: 12/19/23 Narrative: COLONOSCOPY TILL CECUM WITH SNARE POLYPECTOMY, SUBMUCOSAL INJECTION AND HEMOCLIP PLACEMENT Pre-op diagnosis: Colon cancer screening, Family history of colon polyps. Post-op diagnosis:? Colon polyps, Diverticulosis. Endoscopist:? Max Rodriguez MD Anesthesia:?MAC Consent: Indications for the procedure and potential complications of bleeding, perforation, reaction to medications and missed diagnosis were discussed with the patient and informed consent was obtained. Instrument: Olympus PCF H 190 L variable stiffness pediatric colonoscope Monitoring: Vital signs and clinical assessment, intermittent blood pressure monitoring, continuous EKG monitoring, Pulse oximetry and Carbon Dioxide monitoring were done throughout the procedure. Please see anesthesia flowsheet. Colon withdrawl time was 21 minutes. Procedure: The patient was placed in the left lateral decubitis position and pre-procedure medications were administered. After a digital rectal examination of the ano-rectum, the video colonoscope was inserted into the rectum and advanced through the colon to the cecum. The colonoscope was slowly withdrawn in a retrograde panoramic fashion and the colon mucosa was carefully examined including a retroflexed view of the rectum. Findings and interventions are described below. Procedure Difficulty: without difficulty Findings: Terminal Ileum: Not evaluated Cecum: Normal Ascending Colon: A 12-15 mm flat polyp in the mid AC at 85 cms. Polyp was raised with 4 cc of Eleview and removed with a hot snare Polypectomy site was closed with one hemoclip Transverse Colon: A 10-12 mm flat polyp in mid TC - raised with 2 cc of Eleview and removed with a hot snare. Descending Colon: Moderate diverticulosis Sigmoid Colon: Moderate diverticulosis Rectum: Normal Ano-rectum: Normal Colon preparation: Good after some irrigation. [place] Bowel Preparation Scale Right colon; 2 Transverse colon: 2 Left colon; 2 (0 = Unprepared colon segment with mucosa not seen due to solid stool that cannot be cleared. 1 = Portion of mucosa of the colon segment seen, but other areas of the colon segment not well seen due to staining, residual stool and/or opaque liquid. 2 = Minor amount of residual staining, small fragments of stool and/or opaque liquid, but mucosa of colon segment seen well. 3 = Entire mucosa of colon segment seen well with no residual staining, small fragments of stool or opaque liquid) Impression and Post Procedure Diagnosis: Colonoscopy Findings: Two medium sized polyps were removed Moderate diverticulosis seen in the left colon Plan: Pt has a FU appointment on 02/07/24 with Bernice Gilbert NP Repeat Colonoscopy in 3-5 years if polyps are adenomatous and 10 year if polyps are hyperplastic. Above findings were reviewed with the patient and relevant handouts were given and the discharge area.
[2023-12-19 13:21] VITALS: BP 90/46; PULSE 52; RESP 16; TEMP 36.1; O2SAT 99
[2023-12-19 13:39] VITALS: BP 105/45; PULSE 51; RESP 18; TEMP 36.1; O2SAT 97
== END 2023-12-19 14:00 | disposition home or self-care (01) ==
PROVIDERS: PCP Internal Medicine; Visit Provider Internal Medicine Gastroenterology
PROC: 0DJD8ZZ Inspection of Lower Intestinal Tract, Via Natural or Artificial Opening Endoscopic (ICD-10-PCS; CPT 45378; principal; 2023-12-19 13:20)
DX: Z12.11 Encounter for screening for malignant neoplasm of colon (principal); D12.2 Benign neoplasm of ascending colon; K57.30 Diverticulosis of large intestine without perforation or abscess without bleeding; Z83.719 Family history of colon polyps, unspecified; K21.9 Gastro-esophageal reflux disease without esophagitis; R63.4 Abnormal weight loss; Z68.27 Body mass index [BMI] 27.0-27.9, adult
CPT/HCPCS: 45385; 45381; 88305; J2704

== ENCOUNTER → 2023-12-19 11:34 | Outpatient (BNV) | payer OTHER, SELFPAY | PROVIDERS: PCP Internal Medicine; Visit Provider Internal Medicine Gastroenterology | DX: Z12.11 Encounter for screening for malignant neoplasm of colon (principal); Z83.719 Family history of colon polyps, unspecified; K63.5 Polyp of colon; K57.90 Diverticulosis of intestine, part unspecified, without perforation or abscess without bleeding | CPT/HCPCS: 45381; 45385 ==

== ENCOUNTER 2024-01-03 15:45 | Outpatient (AMB) | payer OTHER, SELFPAY ==
[2024-01-03 15:47] VITALS: BP 118/62; PULSE 75; BMI 28.1
--- NOTE | 2024-01-03 15:47 | A.OFFVIS_ITS ---
Intake Vital Signs 01/03/24 15:47 Height 5 ft 6 in Weight 173 lb 15.115 oz BMI 28.1 BP 118/62 Blood Pressure Location Lt brachial Position Sitting Pulse 75 Pulse Source Pulse Oximeter Intake Visit Reasons: Osteoporosis-l v/m Intake Note: Patient presents today for Osteoporosis follow up visit. 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 Operator Required: Yes 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 Operator Language: Elementary Principal Name: Anisa medical staff Information Interpreted: non-clinical & clinical Accompanied by: Daughter Allergies homatropine [Hydromet] Allergy (Intermediate, Verified 01/03/24 15:53) rash ketorolac [From TORADOL] Allergy (Intermediate, Verified 01/03/24 15:53) N/V Sulfa (Sulfonamide Antibiotics) [SULFA (SULFONAMIDE ANTIBIOTICS)] Allergy (Intermediate, Verified 01/03/24 15:53) RASH sulfacetamide Allergy (Intermediate, Verified 01/03/24 15:53) rash tramadol [TRAMADOL] Allergy (Intermediate, Verified 01/03/24 15:53) N/V, edema and vomiting, edema and vomiting tizanidine Adverse Reaction (Intermediate, Verified 01/03/24 15:53) blurry vision Medication List - Last Reconciled 01/03/24 by Wadr Amaya MD alendronate 70 mg PO QWEEK 90 days cetirizine (All Day Allergy (cetirizine)) 10 mg PO DAILY PRN 90 days ciprofloxacin-dexamethasone 0.3-0.1 % (Ciprodex) 4 drps otic (ears) BID 7 days cyclobenzaprine 10 mg PO BID PRN hydrocortisone 2.5% (Proctosol HC) [address] BID ipratropium bromide 2 sprays intranasal BID 30 days latanoprost 0.005% 1 drp ophthalmic (eye) BID lidocaine HCl 4% (Aspercreme (lidocaine HCl)) 1 appl topical BID PRN 30 days linaclotide (Linzess) 290 mcg PO QAM 30 days naproxen 500 mg PO Q12H PRN 90 days nebulizers As directed pantoprazole 40 mg PO DAILY timolol maleate 0.5% 1 drp ophthalmic (eye) QAM HPI HPI Comments History of Present Illness Details 73 YO F with hx of RA is seen in [facility] at the request of PCP for Osteoporosis. First diagnosed in couple of mos ago . Received treatment with alendronate, 3 mos ago . Having pain in back and neck L side . Had pain before medication No history of pathologic fracture or ONJ. Fx L shoulder from fall 15 yrs ago Has several servings of dietary calcium per day . Takes Calcium supplement 1200 mg daily in divided doses. Takes MVI not sure of IU of Vitamin D daily.Was taking 2000 IU up to 1 wk ago Is using PPI, -anticoagulant, -antiepileptic or -glucocorticoid medication. 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 UTD on dental cleanings and sees dentist has upcoming appt No planned upcoming dental work or extractions. DXA dated 01/26/22: FINDINGS: AP SPINE L1-L4: BMD 0.847 g/cm2, Z-score -1.4, T-score -2.8, osteoporosis. LEFT FEMUR, NECK: BMD 0.757 g/cm2, Z-score -0.5, T-score -2.0, osteopenia. LEFT FEMUR, TOTAL: BMD 0.726 g/cm2, Z-score -0.9, T-score -2.2, osteopenia. IDENTIFIED RISK FACTORS: Rheumatoid arthritis, low calcium intake, menopause. HISTORY OF FRACTURE: Humerus. Labs: Secondary workup was negative. Currently on alendronate 70 mg Q weekly. No fx since last visit but does c/o lower back pain PFSH Medical History Age related osteoporosis Postmenopausal Precordial chest pain Physical exam Toenail fungus Abdominal pain Urine abnormality Hemorrhoids Allergic rhinitis GERD (gastroesophageal reflux disease) Renal cyst Pelvic pain in female Surgical History H/O colonoscopy History of esophagogastroduodenoscopy (EGD) History of ear surgery History of tonsillectomy History of tubal ligation Family History Father CVD (cardiovascular disease) Mother No problems noted. Brother Stomach cancer Sister Liver cancer Brother Lung cancer Brother Colon cancer Social History Household Members: None Housing: Apartment Alcohol intake: current Alcohol intake frequency: holidays/special occasions only Alcohol type: beer and wine Patient Tobacco Use Status: Former Tobacco user Tobacco use type: Cigarette e-Cigarette/Vaping Use: Never Used Second Hand Smoke Exposure: No service: No Current occupational status: disabled Cognitive needs: No Hearing needs: No Vision needs: No Physical Exam Vital Signs: Last Vital Signs Pulse 75 01/03/24 15:47 BP 118/62 01/03/24 15:47 BMI result Body Mass Index 28.1 Assessment & Plan Assessment & Plan (1) Age related osteoporosis: Code(s): M81.0 - Age-related osteoporosis without current pathological fracture Plan: This is a 71-year-old female with a history of osteoporosis currently being treated with alendronate. Secondary causes have been ruled out The plan is to continue the alendronate. Will recheck urinary NTX and obtain DEXA bone density with VFA to R/O vertebral fx Based on above, we will consider either continuing alendronate or giving drug holiday Orders: Orders Collagen Crosslinks NTX Today M81.0 - Age-related osteoporosis without current pathological fracture XR DEXA axial skeleton Today M81.0 - Age-related osteoporosis without current pathological fracture Coding Level of Care Code Est Pt Level 3 (89735) Diagnoses Age related osteoporosis M81.0
== END 2024-01-03 16:11 | disposition home or self-care (01) ==
LOC: HO.ENCR 15:45
PROVIDERS: PCP Internal Medicine; Visit Provider Internal Medicine Endocrinology, Diabetes & Metabolism
DX: M81.0 Age-related osteoporosis without current pathological fracture (principal)
CPT/HCPCS: 99213

== ENCOUNTER → 2024-01-03 15:45 | Outpatient (BNVA) | payer OTHER, SELFPAY | PROVIDERS: PCP Internal Medicine; Visit Provider Internal Medicine Endocrinology, Diabetes & Metabolism | DX: M81.0 Age-related osteoporosis without current pathological fracture (principal) | CPT/HCPCS: 99212 ==

== ENCOUNTER 2024-02-07 08:41 | Outpatient (AMB) | payer OTHER, SELFPAY ==
[2024-02-07 08:53] VITALS: BP 120/60; BMI 27.6
--- NOTE | 2024-02-07 08:53 | MHC.PC.OV ---
Vital Signs 02/07/24 08:53 Height 5 ft 6 in Weight 171 lb BMI 27.6 BP 120/60 Blood Pressure Location Lt brachial Position Sitting Intake Visit Reasons: pe Intake Note: Patient here for a physical exam, left ear pain Control Specialist Required: No Accompanied by: Daughter Allergies homatropine [Hydromet] Allergy (Intermediate, Verified 02/07/24 10:04) rash ketorolac [From TORADOL] Allergy (Intermediate, Verified 02/07/24 10:04) N/V Sulfa (Sulfonamide Antibiotics) [SULFA (SULFONAMIDE ANTIBIOTICS)] Allergy (Intermediate, Verified 02/07/24 10:04) RASH sulfacetamide Allergy (Intermediate, Verified 02/07/24 10:04) rash tramadol [TRAMADOL] Allergy (Intermediate, Verified 02/07/24 10:04) N/V, edema and vomiting, edema and vomiting tizanidine Adverse Reaction (Intermediate, Verified 02/07/24 10:04) blurry vision Medication List - Last Reconciled 02/07/24 by Elena Cedillo MD alendronate 70 mg PO QWEEK 90 days cetirizine (All Day Allergy (cetirizine)) 10 mg PO DAILY PRN 90 days ciprofloxacin-dexamethasone 0.3-0.1 % (Ciprodex) 4 drps otic (ears) BID 7 days cyclobenzaprine 10 mg PO BID PRN hydrocortisone 2.5% (Proctosol HC) 1 appl [place] BID ipratropium bromide 2 sprays intranasal BID 30 days latanoprost 0.005% 1 drp ophthalmic (eye) BID lidocaine HCl 4% (Aspercreme (lidocaine HCl)) 1 appl topical BID PRN 30 days linaclotide (Linzess) 290 mcg PO QAM 30 days naproxen 500 mg PO Q12H PRN 90 days nebulizers As directed pantoprazole 40 mg PO DAILY timolol maleate 0.5% 1 drp ophthalmic (eye) QAM Tobacco use date assessed: 02/07/24 Fall risk assessment: No Falls in past year Last assessed Fall Risk: 02/07/24 Dental Screening Dental Screen Date: 02/07/24 Did you have a dental visit in the last 12 months?: Yes Did you have a dental problem in the last 6 months where you did not have access to dental care?: No Was dental information given to patient?: Patient has dentist HPI HPI Comments History of Present Illness Details This is a 73-year-old female that comes for her physical exam accompanied by daughter. Mammogram done March 2023. Colonoscopy done December 2023. Pap smear not indicated. Complains of diffuse joint pain and will be referred to rheumatology. Osteoporosis is follow by Endocrinology that order a DEXA scan to be done this year. COUNT INCLUDES THE [facility] Medical History (Updated 02/07/24 @ 12:13 by Elena Cedillo MD) Age related osteoporosis Postmenopausal Precordial chest pain Physical exam Toenail fungus Abdominal pain Urine abnormality Hemorrhoids Allergic rhinitis GERD (gastroesophageal reflux disease) Renal cyst Pelvic pain in female Surgical History History of tooth extraction H/O colonoscopy History of esophagogastroduodenoscopy (EGD) History of ear surgery History of tonsillectomy History of tubal ligation Family History Father CVD (cardiovascular disease) Mother No problems noted. Brother Stomach cancer Sister Liver cancer Brother Lung cancer Brother No problems noted. Social History Household Members: None Housing: Apartment Alcohol intake: current Alcohol intake frequency: holidays/special occasions only Alcohol type: beer and wine Patient Tobacco Use Status: Former Tobacco user Tobacco use type: Cigarette e-Cigarette/Vaping Use: Never Used Second Hand Smoke Exposure: No service: No Current occupational status: disabled Cognitive needs: No Hearing needs: No Vision needs: No Questionnaire PHQ-9 Over the last 2 weeks, how often have you been bothered by any of the following problems? 1. Little interest or pleasure in doing things: not at all 2. Feeling down, depressed, or hopeless: not at all 3. Trouble falling or staying asleep, or sleeping too much: several days 4. Feeling tired or having little energy: more than half the days 5. Poor appetite or overeating: not at all 6. Feeling bad about yourself - or that you are a failure or have let yourself or your family down: not at all 7. Trouble concentrating on things, such as reading the newspaper or watching television: not at all 8. Moving or speaking so slowly that other people could have noticed. Or the opposite - being so fidgety or restless that you have been moving around a lot more than usual: not at all 9. Thoughts that you would be better off or of hurting yourself in some way: not at all Total score: 3 Depression Screening Interpretation: Negative Depression Screening Done: Yes 70855 - PHQ-9 Billing: Yes Source: Developed by Drs. Ward oGldman, Christine Pantoja, Desmond Thompson and colleagues, with an educational daniel from [employer]. Thrive Questionnaire Date Thrive assessed: 02/07/24 I am a: Patient What is your living situation today?: I have a steady place to live Within the past 12 months, did the food you bought not last and you didn't have the money to get more?: Never true Within the past 12 months, did you worry whether your food would run out before you got money to buy more?: Never true Do you have trouble paying for medicines?: No Do you have trouble getting transportation to medical appointments?: No Do you have trouble paying your heating and electricity bill?: No Do you have trouble taking care of your child, family member or friend?: No Do you have trouble with day-to-day activities such as bathing, preparing meals, shopping, managing finances, etc.?: No Are you currently unemployed and looking for a job?: No Are you interested in more education?: No Please select the resources that you would like help with: None Currently or been in a relationship where the following occur: no concerns reported THRIVE Score: 0 AUDIT C Alcohol Use Questionnaire (AUDIT-C) 1. How often do you have a drink containing alcohol?: Monthly or less 2. How many drinks containing alcohol do you have on a typical day when you are drinking?: 1 or 2 3. How often do you have six or more drinks on one occasion?: Never Total Score: 1 JOSELIN-7 AMB Questionnaire JOSELIN-7 Date JOSELIN - 7 assessed: 02/07/24 Feeling nervous, anxious, or on edge: 0 = Not at all Not being able to stop or control worryin = Not at all Worrying too much about different things: 0 = Not at all Trouble relaxin = Not at all Being so restless that it is hard to sit still: 0 = Not at all Becoming easily annoyed or irritable: 0 = Not at all Feeling afraid as if something awful might happen: 0 = Not at all Total JOSELIN-7 score (0-4 normal; 5-9 mild; 10-14 moderate; 15-21 severe): 0 Source: Developed by Drs. Ward Goldman, Christine Pantoja, Desmond Thompson and colleagues, with an educational daniel from [employer]. JOSELIN-7 Assessment Billing JOSELIN-7 Assessment Tool: JOSELIN-7 Assessment 33716 Review of Systems Const All systems reviewed & are unremarkable except as noted in HPI and below Eyes Reports no additional complaints, Denies change in vision and Denies other visual disturbances Card Denies chest pain at rest, Denies chest pain with activity, Denies edema, Denies irregular heart rhythm, Denies claudication, Denies dyspnea, Denies dyspnea on exertion, Denies orthopnea, Denies paroxysmal nocturnal dyspnea and Denies slow heart rate Resp Denies cough, Denies dyspnea and Denies dyspnea on exertion Physical exam (Primary Care) Vital Signs: Last Vital Signs BP 120/60 02/07/24 08:53 BMI result Body Mass Index 27.6 Tobacco/Smoking Status: Tobacco use Status Tobacco use date assessed 02/07/24 02/07/24 09:01 Patient Tobacco Use Status Former Tobacco user 02/07/24 09:01 Tobacco use type Cigarette 02/07/24 09:01 e-Cigarette/Vaping Use Never Used 02/07/24 09:01 PHQ-9: PHQ-9 Score PHQ-9: Total score 3 02/07/24 09:18 Depression Screening Interpretation: Negative Thrive Assessment: Date of Thrive Assessment Date Thrive assessed 02/07/24 02/07/24 09:01 Currently or been in a relationship where the following occur: no concerns reported Const Orientation/consciousness: patient oriented x3 HENMT Head: Yes normal to inspection, Yes normocephalic and Yes atraumatic Ears: external ears normal Eyes General: appearance normal, both eyes and all related structures Eyelids: Yes eyelids normal Conjunctivae: conjunctivae normal Neck Neck: Yes normal visual inspection and Yes supple Resp Effort & Inspection: normal respiratory effort Auscultation: clear to auscultation bilaterally Cardio Jugular venous distension: no JVD Rate: regular rate Rhythm: regular rhythm Heart sounds: S1 normal heart sound present and S2 normal heart sound present GI Inspection: Yes normal to inspection Palpation (GI): Soft to palpation and nontender Auscultation: normal bowel sounds Skin General skin exam: no rashes or lesions noted Neuro General: patient oriented x3 and no focal motor deficits Extrem General: Yes full ROM Psych Appearance: grossly normal Assessment and Plan Assessment & Plan (1) Physical exam: Code(s): Z00.00 - Encounter for general adult medical examination without abnormal findings Plan: Repeat in a year. Orders: Orders Complete Blood Count Auto Diff Today M25.50 - Pain in unspecified joint Thyroid Stimulating Hormone Today R53.83 - Other fatigue Vitamin B12 and Folate Today E53.8 - Deficiency of other specified B group vitamins, R53.83 - Other fatigue ECG 12 lead EKG Today Z01.818 - Encounter for other preprocedural examination Lipid Panel Today E78.5 - Hyperlipidemia, unspecified Comprehensive [place]. Panel Fast Today Z00.00 - Encounter for general adult medical examination without abnormal findings Vitamin D 25-OH Total Today M25.50 - Pain in unspecified joint Referrals Rheumatology Referral M25.50 - Pain in unspecified joint Medications: New amoxicillin 500 mg PO BID 14 tabs 0RF 7 days Coding Level of Care Code Est Pt Prev Care >65y(98074) Diagnoses Physical exam Z00.00 Additional Codes JOSELIN-7 Assessment Billing - JOSELIN-7 Assessment Tool: JOSELIN-7 Assessment 25123 ([id number]) Time Spent (min) 33
== END 2024-02-07 09:39 | disposition home or self-care (01) ==
PROVIDERS: PCP Internal Medicine; Visit Provider Internal Medicine
DX: Z00.00 Encounter for general adult medical examination without abnormal findings (principal)
CPT/HCPCS: 99397

== ENCOUNTER 2024-02-07 09:49 | Outpatient (AMB) | payer OTHER, SELFPAY ==
[2024-02-07 09:51] VITALS: BP 137/63; PULSE 50; BMI 27.6
--- NOTE | 2024-02-07 09:51 | A.OFFVIS_ITS ---
Vital Signs 02/07/24 09:51 Height 5 ft 6 in Weight 171 lb 1.259 oz BMI 27.6 BP 137/63 Blood Pressure Location Lt brachial Position Sitting Pulse 50 Intake Visit Reasons: s/p colonoscopy Intake Note: Patient presents to in office today in follow up of colonoscopy. CC: Patient reports that after the procedure she was having a lot of gas and burning sensations. She c/o LUQ abdominal pain, blood with BMs, dizziness, weakness, and sometimes nausea. 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 Accompanied by: Daughter Allergies homatropine [Hydromet] Allergy (Intermediate, Verified 02/07/24 10:04) rash ketorolac [From TORADOL] Allergy (Intermediate, Verified 02/07/24 10:04) N/V Sulfa (Sulfonamide Antibiotics) [SULFA (SULFONAMIDE ANTIBIOTICS)] Allergy (Intermediate, Verified 02/07/24 10:04) RASH sulfacetamide Allergy (Intermediate, Verified 02/07/24 10:04) rash tramadol [TRAMADOL] Allergy (Intermediate, Verified 02/07/24 10:04) N/V, edema and vomiting, edema and vomiting tizanidine Adverse Reaction (Intermediate, Verified 02/07/24 10:04) blurry vision HPI HPI s/p colonoscopy: Details: Assessment & Plan (1) Chronic idiopathic constipation: Code(s): K59.04 - Chronic idiopathic constipation (2) Abdominal pain: Code(s): R10.9 - Unspecified abdominal pain (3) GERD (gastroesophageal reflux disease): Comment: Will control pantoprazole Code(s): K21.9 - Gastro-esophageal reflux disease without esophagitis Qualifiers: Esophagitis presence: esophagitis presence not specified Qualified Code(s): K21.9 - Gastro-esophageal reflux disease without esophagitis (4) Family history of polyps in the colon: Comment: 2 brothers with polyps Code(s): Z83.719 - Family history of colon polyps, unspecified Plan [place] [facility]Dtr translates per pt request, then Terrie Segundo She is concerned because she thought she was told that she had a positive FIT test. However, they brought me the printed report and this shows negative for blood. So there may have been a misunderstanding. However, she has had some episodes of visual RB in the stools. She had 2 episodes of small drops of BRB. She used a roid cream on these, but did not use it with an applicator or for 2 weeks straight. She has 2 brothers wtih colon polyps. She would then be due for colonscopy in 2023 as her last was in 2018. She will be going on a [employer] [place] in January!! rov 6 mos and after scope Orders: Orders Colonoscopy - GI Use Only 08/03/23 Medications: New hydrocortisone 2.5% (Proctosol HC) BE SURE TO INCLUDE RECTAL APPICATOR!! 1 appl [place] BID 30 grams 6RF hemorrhoids K64.9 - Unspecified hemorrhoids peg 3350-electrolytes 236-22.74-6.74 -5.86 gram (Golytely) until fecal effluent is clear; do not exceed a total volume of 2,000 mL 240 mL PO Q10M 4,000 mL 0RF 1 day Z12.11 - Encounter for screening for malignant neoplasm of colon bisacodyl (Dulcolax (bisacodyl)) 10 mg (2 x 5 mg) PO BEDTIME 4 tabs 0RF 2 days Z01.818 - Encounter for other preprocedural examination, Z83.719 - Family history of colon polyps, unspecified Refilled linaclotide (Linzess) 290 mcg PO QAM 30 caps 6RF 30 days pantoprazole 40 mg PO DAILY 90 tabs 3RF COLONOSCOPY 12/19/23 Findings: Terminal Ileum: Not evaluated Cecum: Normal Ascending Colon: A 12-15 mm flat polyp in the mid AC at 85 cms. Polyp was raised with 4 cc of Eleview and removed with a hot snare Polypectomy site was closed with one hemoclip Transverse Colon: A 10-12 mm flat polyp in mid TC - raised with 2 cc of Eleview and removed with a hot snare. Descending Colon: Moderate diverticulosis Sigmoid Colon: Moderate diverticulosis Rectum: Normal Ano-rectum: Normal Impression and Post Procedure Diagnosis: Colonoscopy Findings: Two medium sized polyps were removed Moderate diverticulosis seen in the left colon Plan: Pt has a FU appointment on 02/07/24 with Bernice Gilbert NP Repeat Colonoscopy in 3-5 years if polyps are adenomatous and 10 year if polyps are hyperplastic. BIOPSY Received: 12/19/23 Diagnosis A. Colon, ascending, polypectomy: Sessile serrated lesion/polyp; negative for cytologic dysplasia. B. Colon, transverse, polypectomy: Hyperplastic mucosal polyp. TODAY'S VISIT [place] [facility]DTR TRANSLATES PER PT REQUEST She is agreeable to a 5 year follow up r/t FHX polyps. The procedure was well tolerated. The results were explained and the patient is agreeable to the follow-up interval as stated. The bowel pattern has returned to normal. Education was provided to tell any 1st degree relatives about their findings to be sure that they are screened by age 45. Educated that they will be put on a recall list when it is time for their repeat scope but should they move out of state or away from the hospital they will need to remember along with their primary to repeat the procedure in a timely fashion to avoid any adverse complications. She continues to do well on her pantoprazole and LInzess 290mcg. She sill RB on the TT frequently and she has never received the prctosol cream. ? Needs PA - will have staff check. She was worried that she needed a special diet for TICS - but with no infection this is not needed. For the past 2 weeks she has been having pain in the LUQ. The pain is colicky. She was worried about my liver but this is not t correct side and the liver is generally not a painful organ. It is more likely the colon. After discussion, she admits she is not taking the LInzess every day because she will not have any warning or sensation that I have to go and this can cause fecal incontin ence. I suggest we consider lowering the dose. She also is not getting her simethicone, it seems to have been taken off of her list, I will restart it. ROV 4 weeks. [facility] Medical History Age related osteoporosis Postmenopausal Precordial chest pain Physical exam Toenail fungus Abdominal pain Urine abnormality Hemorrhoids Allergic rhinitis GERD (gastroesophageal reflux disease) Renal cyst Pelvic pain in female Surgical History History of tooth extraction H/O colonoscopy History of esophagogastroduodenoscopy (EGD) History of ear surgery History of tonsillectomy History of tubal ligation Family History Father CVD (cardiovascular disease) Mother No problems noted. Brother Stomach cancer Sister Liver cancer Brother Lung cancer Brother No problems noted. Social History Household Members: None Housing: Apartment Alcohol intake: current Alcohol intake frequency: holidays/special occasions only Alcohol type: beer and wine Patient Tobacco Use Status: Former Tobacco user Tobacco use type: Cigarette e-Cigarette/Vaping Use: Never Used Second Hand Smoke Exposure: No service: No Current occupational status: disabled Cognitive needs: No Hearing needs: No Vision needs: No Review of Systems Const Denies fatigue, Denies fever(s), Denies night sweats, Denies poor appetite and Denies weight loss ENT Reports Normal hearing present, Denies dysphagia, Denies odynophagia, Denies throat swelling and Denies tongue swelling Card Reports no additional complaints Resp Reports no additional complaints GI Details: Reports abdominal pain, Denies melena, Reports bloating, Denies hematochezia, Reports constipation, Denies GI cramping, Denies dysphagia, Denies excessive flatus, Denies early satiety, Reports heartburn, Denies diarrhea, Denies nausea, Denies odynophagia, Denies vomiting and Denies hematemesis Skin/Breast Denies pruritus, Denies lesions, Denies rash and Denies jaundice Neuro Reports Normal hearing present and Denies Abnormal speech present Endo Denies fatigue Aller/Immun Denies throat swelling and Denies tongue swelling Physical Exam Vital Signs: Last Vital Signs Pulse 50 02/07/24 09:51 BP 137/63 05/07/24 09:51 BMI result Body Mass Index 27.6 Const General: cooperative, no acute distress, well developed and well groomed Nutritional Appearance: well nourished and overweight Orientation/consciousness: oriented to person, oriented to place and oriented to time Limitations: language barrier HEENT Head: Yes normocephalic and Yes atraumatic Eyes General: appearance normal, both eyes and all related structures Pupils: Equal, round and reactive pupils present Neck Neck: Yes normal visual inspection and Yes no lymphadenopathy Thyroid: Thyroid normal Resp Effort & Inspection: normal respiratory effort and able to speak in complete sentences Auscultation: clear to auscultation bilaterally Cardio Rate: regular rate Rhythm: regular rhythm Heart sounds: Normal, physiologic split S2 sound present Peripheral pulses: radial pulses present and posterior tibial pulses present GI Inspection: Yes distended, No Abdominal panniculus present and Yes obesity Palpation (GI): Soft to palpation, Tenderness to palpation present (GI) in the LUQ, no guarding, not rigid and No hepatosplenomegaly present Percussion: Yes normal to percussion Auscultation: normal bowel sounds Rectal Exam - Female: deferred Skin General skin exam: no rashes or lesions noted, turgor normal, skin not dry, no jaundice, No spider nevi and no striae Rashes: no rashes Nails: normal Neuro General: oriented to person, oriented to place and oriented to time Cranial nerves: Yes Equal, round and reactive pupils present and Yes Normal hearing present Speech: No Abnormal speech present Extrem General: Yes normal to inspection, No clubbing, No cyanosis and No edema Psych Appearance: grossly normal and well kempt Mental Status: mental status grossly normal Speech and movement: Normal speech and movement present Affect: normal affect Attitude: cooperative Thought process: Normal thought process present and not confabulating Thought content: Normal thought content present Insight: Limited insight present (Psych) Judgement: Limited judgement present (Psych) Results Reviewed Results Reviewed: COLONOSCOPY 12/19/23 Findings: Terminal Ileum: Not evaluated Cecum: Normal Ascending Colon: A 12-15 mm flat polyp in the mid AC at 85 cms. Polyp was raised with 4 cc of Eleview and removed with a hot snare Polypectomy site was closed with one hemoclip Transverse Colon: A 10-12 mm flat polyp in mid TC - raised with 2 cc of Eleview and removed with a hot snare. Descending Colon: Moderate diverticulosis Sigmoid Colon: Moderate diverticulosis Rectum: Normal Ano-rectum: Normal Impression and Post Procedure Diagnosis: Colonoscopy Findings: Two medium sized polyps were removed Moderate diverticulosis seen in the left colon Plan: Pt has a FU appointment on 02/07/24 with Bernice Gilbert NP Repeat Colonoscopy in 3-5 years if polyps are adenomatous and 10 year if polyps are hyperplastic. BIOPSY Received: 12/19/23 Diagnosis A. Colon, ascending, polypectomy: Sessile serrated lesion/polyp; negative for cytologic dysplasia. B. Colon, transverse, polypectomy: Hyperplastic mucosal polyp. Assessment & Plan Assessment & Plan (1) Family history of polyps in the colon: Comment: 2 brothers with polyps Code(s): Z83.719 - Family history of colon polyps, unspecified Category: Medical (2) GERD (gastroesophageal reflux disease): Comment: Will control pantoprazole Code(s): K21.9 - Gastro-esophageal reflux disease without esophagitis Category: Medical Qualifiers: Esophagitis presence: esophagitis presence not specified Qualified Code(s): K21.9 - Gastro-esophageal reflux disease without esophagitis (3) Abdominal pain: Comment: Resolved, reviewed ultrasound Code(s): R10.9 - Unspecified abdominal pain Category: Medical (4) Chronic idiopathic constipation: Code(s): K59.04 - Chronic idiopathic constipation Category: Medical Plan [place] #DTR TRANSLATES PER PT REQUEST She is agreeable to a 5 year follow up r/t FHX polyps. The procedure was well tolerated. The results were explained and the patient is agreeable to the follow-up interval as stated. The bowel pattern has returned to normal. Education was provided to tell any 1st degree relatives about their findings to be sure that they are screened by age 45. Educated that they will be put on a recall list when it is time for their repeat scope but should they move out of state or away from the hospital they will need to remember along with their primary to repeat the procedure in a timely fashion to avoid any adverse complications. She continues to do well on her pantoprazole and LInzess 290mcg. She sill RB on the TT frequently and she has never received the prctosol cream. ? Needs PA - will have staff check. She was worried that she needed a special diet for TICS - but with no infection this is not needed. For the past 2 weeks she has been having pain in the LUQ. The pain is colicky. She was worried about my liver but this is not t correct side and the liver is generally not a painful organ. It is more likely the colon. After discussion, she admits she is not taking the LInzess every day because she will not have any warning or sensation that I have to go and this can cause fecal incontinence. I suggest we consider lowering the dose. She also is not getting her simethicone, it seems to have been taken off of her list, I will restart it. ROV 4 weeks. Medications: New hydrocortisone 2.5% (Proctosol HC) BE SURE TO INCLUDE RECTAL APPICATOR!! 1 appl [place] BID 30 grams 6RF hemorrhoids K64.9 - Unspecified hemorrhoids dicyclomine 20 mg PO QID 120 tabs 1RF 30 days simethicone after meals 180 mg PO QID 120 caps 6RF 30 days Refilled pantoprazole 40 mg PO DAILY 90 tabs 3RF linaclotide (Linzess) 290 mcg PO QAM 30 caps 6RF 30 days Coding Level of Care Code Est Pt Level 3 (25371) Diagnoses Family history of polyps in the colon Z83.719 Gastroesophageal reflux disease, unspecified whether esophagitis present K21.9 Esophagitis presence: esophagitis presence not specified Abdominal pain R10.9 Chronic idiopathic constipation K59.04
== END 2024-02-07 11:20 | disposition home or self-care (01) ==
PROVIDERS: PCP Internal Medicine; Visit Provider Nurse Practitioner
DX: Z83.719 Family history of colon polyps, unspecified (principal); K21.9 Gastro-esophageal reflux disease without esophagitis; R10.9 Unspecified abdominal pain; K59.04 Chronic idiopathic constipation
CPT/HCPCS: 99213

== ENCOUNTER → 2024-02-07 09:49 | Outpatient (BNVA) | payer OTHER, SELFPAY | PROVIDERS: PCP Internal Medicine; Visit Provider Nurse Practitioner | DX: K57.30 Diverticulosis of large intestine without perforation or abscess without bleeding (principal); D12.2 Benign neoplasm of ascending colon; K63.5 Polyp of colon; K59.04 Chronic idiopathic constipation; R10.9 Unspecified abdominal pain; K21.9 Gastro-esophageal reflux disease without esophagitis; Z83.719 Family history of colon polyps, unspecified; Z98.890 Other specified postprocedural states | CPT/HCPCS: 99212 ==

== ENCOUNTER → 2024-02-22 10:04 | Outpatient (REF) | payer OTHER, SELFPAY ==
--- NOTE | 2024-02-22 10:10 | ECG_ITS ---
Test Reason : PRE OP Blood Pressure : / mmHG Vent. Rate : 054 BPM Atrial Rate : 054 BPM P-R Int : 146 ms QRS Dur : 076 ms QT Int : 424 ms P-R-T Axes : 031 011 014 degrees QTc Int : 402 ms Sinus bradycardia Otherwise normal ECG When compared with ECG of 29-APR-2023 22:26, No significant change was found Referred By: Elena Cedillo Electronically Signed By:KIMBERLY NORRIS MD
[2024-02-22 10:24] LABS: MANUAL DIFF FLAG NO
[2024-02-22 11:07] LABS: Basophils Percent Auto 0.8 % (0-2); Eosinophils Absolute Auto 0.1 X10*3/uL (0.0-0.4); Eosinophils Percent Auto 2.3 % (0-4); Hematocrit 37.7 % (37.0-47.0); Hemoglobin 12.6 g/dl (12.0-16.0); Imm Gran Abs Auto 0.01 X10*3/uL (0.00-0.03); Imm Gran Pct Auto 0.2 % (0.0-0.4); Lymphocytes Absolute Auto 1.5 X10*3/uL (1.2-4.9); Lymphocytes Percent Auto 31.1 % (20-40); Mean Corpuscular HGB Conc 33.4 g/dl (31.0-35.0); Mean Corpuscular Volume 95.7 fL (80.0-98.0); Mean Platelet Volume 10.2 fL (9.4-12.3); Monocytes Absolute Auto 0.4 X10*3/uL (0.1-1.2); Monocytes Percent Auto 8.8 % (2-11); Neutrophils Absolute Auto 2.7 x10*3/uL (2.0-8.3); Neutrophils Percent Auto 56.8 % (45-73); Platelet Count 186 X10*3/uL (160-400); Red Blood Count 3.94 X10*6/uL (4.20-5.50); Red Cell Distribution Width 12.2 % (11.0-16.0); White Blood Count 4.8 X10*3/uL (4.8-10.8)
[2024-02-22 11:39] LABS: Alanine Aminotransferase 12 U/L (0-31); Albumin Level 3.9 g/dL (3.5-5.0); Alkaline Phosphatase 67 U/L (39-117); Anion Gap 10 (12-20); Aspartate Amino Transferase 18 U/L (5-31); Bilirubin Total 0.4 mg/dL (0.0-1.0); Blood Urea Nitrogen 14 mg/dL (9-16); Calcium 8.8 mg/dL (8.4-10.2); Carbon Dioxide 27 mmol/L (22-29); Chloride 108 mmol/L (96-108); Cholesterol 183 mg/dL (<200); Estimated Glomerular Filt Rate > 60; Glucose Fasting 101 mg/dL (60-99); HDL Cholesterol 71 mg/dL (>40); LDL Cholesterol Calculated 104 mg/dL (<100); Potassium 4.3 mmol/L (3.3-5.1); Sodium 141 mmol/L (135-145); Total Protein 6.6 g/dL (6.5-8.0); Triglycerides 41 mg/dL (<150)
[2024-02-22 12:00] LABS: Thyroid Stimulating Hormone 2.01 uIU/mL (0.32-4.0); Vitamin D 25-OH Total 41.1 ng/mL (>30)
[2024-02-22 12:03] LABS: Folate 12.9 ng/mL (> or = 4.0); Vitamin B12 991 pg/mL (200-900)
== END ==
LOC: HO.CARD 10:04
PROVIDERS: PCP Internal Medicine; Visit Provider Internal Medicine
DX: Z01.818 Encounter for other preprocedural examination (principal); M25.50 Pain in unspecified joint; R53.83 Other fatigue; E53.8 Deficiency of other specified B group vitamins; E78.5 Hyperlipidemia, unspecified
CPT/HCPCS: 36415; 80053; 80061; 82306; 82607; 82746; 84443; 85025; 93005

== ENCOUNTER → 2024-02-22 10:10 | Outpatient (BNV) | payer OTHER, SELFPAY | PROVIDERS: PCP Internal Medicine; Visit Provider Internal Medicine Cardiovascular Disease | DX: R00.1 Bradycardia, unspecified (principal) | CPT/HCPCS: 93010 ==

== ENCOUNTER 2024-03-05 12:16 | Outpatient (AMB) | payer OTHER, SELFPAY ==
[2024-03-05 12:25] VITALS: BP 118/68; BMI 28.1
--- NOTE | 2024-03-05 12:25 | MHC.PC.OV ---
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 Accompanied by: Grand Child/ proxy Allergies homatropine [Hydromet] Allergy (Intermediate, Verified 03/05/24 12:39) rash ketorolac [From TORADOL] Allergy (Intermediate, Verified 03/05/24 12:39) N/V Sulfa (Sulfonamide Antibiotics) [SULFA (SULFONAMIDE ANTIBIOTICS)] Allergy (Intermediate, Verified 03/05/24 12:39) RASH sulfacetamide Allergy (Intermediate, Verified 03/05/24 12:39) rash tramadol [TRAMADOL] Allergy (Intermediate, Verified 03/05/24 12:39) N/V, edema and vomiting, edema and vomiting tizanidine Adverse Reaction (Intermediate, Verified 03/05/24 12:39) blurry vision Medication List - Last Reconciled 03/05/24 by Elena Cedillo MD alendronate 70 mg PO QWEEK 90 days cetirizine (All Day Allergy (cetirizine)) 10 mg PO DAILY PRN 90 days ciprofloxacin-dexamethasone 0.3-0.1 % (Ciprodex) 4 drps otic (ears) BID 7 days cyclobenzaprine 10 mg PO BID PRN dicyclomine 20 mg PO QID 30 days hydrocortisone 2.5% (Proctosol HC) 1 appl [place] BID hydrocortisone 2.5% (Proctosol HC) 1 appl MT BID ipratropium bromide 2 sprays intranasal BID 30 days latanoprost 0.005% 1 drp ophthalmic (eye) BID lidocaine HCl 4% (Aspercreme (lidocaine HCl)) 1 appl topical BID PRN 30 days linaclotide (Linzess) 290 mcg PO QAM 30 days naproxen 500 mg PO Q12H PRN 90 days nebulizers As directed pantoprazole 40 mg PO DAILY simethicone 180 mg PO QID 30 days timolol maleate 0.5% 1 drp ophthalmic (eye) QAM Tobacco use date assessed: 02/07/24 Fall risk assessment: No Falls in past year Last assessed Fall Risk: 03/05/24 Dental Screening Dental Screen Date: 02/07/24 HPI HPI Comments History of Present Illness Details This is a 73-year-old female with osteoporosis, GERD, chronic idiopathic constipation and allergic rhinitis that comes today accompanied by daughter for preop evaluation of cataract extraction and intraocular lens implant the 1st eyes scheduled for 03/12/2024. On alendronate for osteoporosis and last DEXA scan was 2021. GERD stable with PPIs. Constipation stable with Linzess. Allergic rhinitis stable with antihistamines. She denies any chest pain or shortness on breath. EKG shows sinus bradycardia and she would like to see Cardiology in a non urgent way. Labs showed no contraindication for this low risk surgery. She has 5-7 Mets of ADLs. By RCRI she is class 1 with 0.4% risk of cardiac complications. Patient is medically clear for surgery. [facility] Medical History (Updated 03/05/24 @ 12:49 by Elena Cedillo MD) Age related osteoporosis Postmenopausal Precordial chest pain Physical exam Toenail fungus Abdominal pain Urine abnormality Hemorrhoids Allergic rhinitis GERD (gastroesophageal reflux disease) Renal cyst Pelvic pain in female Surgical History History of tooth extraction H/O colonoscopy History of esophagogastroduodenoscopy (EGD) History of ear surgery History of tonsillectomy History of tubal ligation Family History Father CVD (cardiovascular disease) Mother No problems noted. Brother Stomach cancer Sister Liver cancer Brother Lung cancer Brother No problems noted. Social History Household Members: None Housing: Apartment Alcohol intake: current Alcohol intake frequency: holidays/special occasions only Alcohol type: beer and wine Patient Tobacco Use Status: Former Tobacco user Tobacco use type: Cigarette e-Cigarette/Vaping Use: Never Used Second Hand Smoke Exposure: No service: No Current occupational status: disabled Cognitive needs: No Hearing needs: No Vision needs: No Questionnaire Thrive Questionnaire Date Thrive assessed: 02/07/24 JOSELIN-7 AMB Questionnaire JOSELIN-7 Date JOSELIN - 7 assessed: 02/07/24 Source: Developed by Drs. Ward Goldman, Christine Pantoja, Desmond Thompson and colleagues, with an educational daniel from [employer]. Review of Systems Const All systems reviewed & are unremarkable except as noted in HPI and below Card Denies chest pain at rest, Denies chest pain with activity, Denies edema, Denies irregular heart rhythm, Denies claudication, Denies dyspnea, Denies dyspnea on exertion, Denies orthopnea, Denies paroxysmal nocturnal dyspnea and Denies slow heart rate Resp Denies cough, Denies dyspnea and Denies dyspnea on exertion GI Denies abdominal pain, Denies change in bowel habits, Denies excessive flatus, Denies nausea and Denies vomiting Physical exam (Primary Care) Vital Signs: Last Vital Signs BP 118/68 03/05/24 12:25 BMI result Body Mass Index 28.1 Tobacco/Smoking Status: Tobacco use Status Tobacco use date assessed 02/07/24 03/05/24 12:35 Patient Tobacco Use Status Former Tobacco user 03/05/24 12:35 Tobacco use type Cigarette 03/05/24 12:35 e-Cigarette/Vaping Use Never Used 03/05/24 12:35 Thrive Assessment: Date of Thrive Assessment Date Thrive assessed 02/07/24 03/05/24 12:35 Resp Effort & Inspection: normal respiratory effort Auscultation: clear to auscultation bilaterally Cardio Jugular venous distension: no JVD Rate: regular rate Rhythm: regular rhythm Heart sounds: S1 normal heart sound present and S2 normal heart sound present Neuro General: no focal motor deficits Extrem General: Yes full ROM Assessment and Plan Assessment & Plan (1) Pre-op examination: Code(s): Z01.818 - Encounter for other preprocedural examination Plan: Patient medically clear for surgery. (2) Age related osteoporosis: Code(s): M81.0 - Age-related osteoporosis without current pathological fracture Plan: Continue alendronate once a week. Repeat DEXA 2023. Follow-up with endocrinology. (3) Allergic rhinitis: Code(s): J30.9 - Allergic rhinitis, unspecified Qualifiers: Allergic rhinitis trigger: pollen Allergic rhinitis seasonality: seasonal Qualified Code(s): J30.1 - Allergic rhinitis due to pollen Plan: Continue antihistamines as needed. (4) GERD (gastroesophageal reflux disease): Comment: Will control pantoprazole Code(s): K21.9 - Gastro-esophageal reflux disease without esophagitis Qualifiers: Esophagitis presence: esophagitis presence not specified Qualified Code(s): K21.9 - Gastro-esophageal reflux disease without esophagitis Plan: Continue PPIs. (5) Chronic idiopathic constipation: Code(s): K59.04 - Chronic idiopathic constipation Plan: Continue Linzess. Orders: Orders XR DEXA axial skeleton Today N95.9 - Unspecified menopausal and perimenopausal disorder Referrals Cardiology Referral R00.1 - Bradycardia, unspecified Medications: Refilled ciprofloxacin-dexamethasone 0.3-0.1 % (Ciprodex) 4 drps otic (ears) BID 7 days 7.5 mL 0RF Coding Level of Care Code Est Pt Level 4 (93745) Complex EM visit Add On G2211 Diagnoses Pre-op examination Z01.818 Age related osteoporosis M81.0 Seasonal allergic rhinitis due to pollen J30.1 Allergic rhinitis trigger: pollen Allergic rhinitis seasonality: seasonal Gastroesophageal reflux disease, unspecified whether esophagitis present K21.9 Esophagitis presence: esophagitis presence not specified Chronic idiopathic constipation K59.04 Time Spent (min) 24
== END 2024-03-05 12:52 | disposition home or self-care (01) ==
PROVIDERS: PCP Internal Medicine; Visit Provider Internal Medicine
DX: Z01.818 Encounter for other preprocedural examination (principal); M81.0 Age-related osteoporosis without current pathological fracture; J30.1 Allergic rhinitis due to pollen; K21.9 Gastro-esophageal reflux disease without esophagitis; K59.04 Chronic idiopathic constipation
CPT/HCPCS: 99214; G2211

== ENCOUNTER 2024-03-06 13:53 | Outpatient (AMB) | payer OTHER, SELFPAY ==
[2024-03-06 13:56] VITALS: BP 115/53; PULSE 62; BMI 27.6
--- NOTE | 2024-03-06 13:56 | MHC.OFFVIS ---
Vital Signs 03/06/24 13:56 Height 5 ft 6 in Weight 171 lb 1.259 oz BMI 27.6 BP 115/53 L Blood Pressure Location Rt brachial Position Sitting Pulse 62 Intake Visit Reasons: Follow up 4 weeks abd pain Intake Note: Patient in office today in 4 weeks follow up of abdominal pain. CC: Patient states that she is doing better but she would like to have a stool test done d/t concerns of blood in stool. Academic Affairs Director Required: Yes Accompanied by: Daughter Allergies homatropine [Hydromet] Allergy (Intermediate, Verified 03/06/24 14:02) rash ketorolac [From TORADOL] Allergy (Intermediate, Verified 03/06/24 14:02) N/V Sulfa (Sulfonamide Antibiotics) [SULFA (SULFONAMIDE ANTIBIOTICS)] Allergy (Intermediate, Verified 03/06/24 14:02) RASH sulfacetamide Allergy (Intermediate, Verified 03/06/24 14:02) rash tramadol [TRAMADOL] Allergy (Intermediate, Verified 03/06/24 14:02) N/V, edema and vomiting, edema and vomiting tizanidine Adverse Reaction (Intermediate, Verified 03/06/24 14:02) blurry vision HPI HPI Follow up 4 weeks abd pain: Details: Assessment & Plan (1) Family history of polyps in the colon: Comment: 2 brothers with polyps Code(s): Z83.719 - Family history of colon polyps, unspecified Category: Medical (2) GERD (gastroesophageal reflux disease): Comment: Will control pantoprazole Code(s): K21.9 - Gastro-esophageal reflux disease without esophagitis Category: Medical Qualifiers: Esophagitis presence: esophagitis presence not specified Qualified Code(s): K21.9 - Gastro-esophageal reflux disease without esophagitis (3) Abdominal pain: Comment: Resolved, reviewed ultrasound Code(s): R10.9 - Unspecified abdominal pain Category: Medical (4) Chronic idiopathic constipation: Code(s): K59.04 - Chronic idiopathic constipation Category: Medical Plan German #DTR TRANSLATES PER PT REQUEST She is agreeable to a 5 year follow up r/t FHX polyps. The procedure was well tolerated. The results were explained and the patient is agreeable to the follow-up interval as stated. The bowel pattern has returned to normal. Education was provided to tell any 1st degree relatives about their findings to be sure that they are screened by age 45. Educated that they will be put on a recall list when it is time for their repeat scope but should they move out of state or away from the hospital they will need to remember along with their primary to repeat the procedure in a timely fashion to avoid any adverse complications. She continues to do well on her pantoprazole and LInzess 290mcg. She sill RB on the TT frequently and she has never received the prctosol cream. ? Needs PA - will have staff check. She was worried that she needed a special diet for TICS - but with no infection this is not needed. For the past 2 weeks she has been having pain in the LUQ. The pain is colicky. She was worried about my liver but this is not t correct side and the liver is generally not a painful organ. It is more likely the colon. After discussion, she admits she is not taking the LInzess every day because she will not have any warning or sensation that I have to go and this can cause fecal incontinence. I suggest we consider lowering the dose. She also is not getting her simethicone, it seems to have been taken off of her list, I will restart it. ROV 4 weeks. Medications: New hydrocortisone 2.5% (Proctosol HC) BE SURE TO INCLUDE RECTAL APPICATOR!! 1 appl NM BID 30 grams 6RF hemorrhoids K64.9 - Unspecified hemorrhoids dicyclomine 20 mg PO QID 120 tabs 1RF 30 days simethicone after meals 180 mg PO QID 120 caps 6RF 30 days Refilled pantoprazole 40 mg PO DAILY 90 tabs 3RF linaclotide (Linzess) 290 mcg PO QAM 30 caps 6RF 30 days TODAY'S VISIT German #Kelly [place] She is here today with a female family member who is supportive. She says she never received the proctosol cream. She only received the simethicone, and it is working well and has even improved her cramping. She only has this now occasionally. She is still having rectal bleeding, she just had a colonoscopy, so we know there is no severe pathology - but we need to get the hemorrhoids controlled. She DID buy and OTC hemorrhoid cream, but was not using it correctly with the rectal applicator or for 2 weeks straight bid. She was educated. Her GI regimen consists of Linzess 290 micro g, pantoprazole 40 mg daily, <del>dicyclomine</del> <del>20</del> <del>mg</del> <del>4</del> <del>times</del> <del>a</del> <del>da</del>y, simethicone 180 mg 4 times a day, and <del>Proctosol</del> <del>cream.</del> ROV 4 weeks. We will work on why she is not getting these, although she may not need the bentyl. [facility] Medical History (Updated 03/06/24 @ 14:14 by BLESSING Mejia) Abdominal pain Abdominal pain Rectal bleeding Bilateral hand numbness Physical exam Physical exam Pre-op examination Hospital discharge follow-up Age related osteoporosis Postmenopausal Precordial chest pain Toenail fungus Urine abnormality Hemorrhoids Allergic rhinitis GERD (gastroesophageal reflux disease) Renal cyst Pelvic pain in female Surgical History History of tooth extraction H/O colonoscopy History of esophagogastroduodenoscopy (EGD) History of ear surgery History of tonsillectomy History of tubal ligation Family History Father CVD (cardiovascular disease) Mother No problems noted. Brother Stomach cancer Sister Liver cancer Brother Lung cancer Brother No problems noted. Social History Household Members: None Housing: Apartment Alcohol intake: current Alcohol intake frequency: holidays/special occasions only Alcohol type: beer and wine Patient Tobacco Use Status: Former Tobacco user Tobacco use type: Cigarette e-Cigarette/Vaping Use: Never Used Second Hand Smoke Exposure: No service: No Current occupational status: disabled Cognitive needs: No Hearing needs: No Vision needs: No Review of Systems Const Denies fatigue, Denies fever(s), Denies night sweats, Denies poor appetite and Denies weight loss ENT Reports Normal hearing present, Denies dental pain, Denies dysphagia, Denies hearing loss, Denies mouth pain, Denies odynophagia, Denies throat swelling, Denies tongue swelling and Reports other (Dentition adequate) Card Reports no additional complaints Resp Reports no additional complaints GI Details: Denies abdominal pain, Denies melena, Reports bloating, Reports hematochezia, Denies constipation, Reports GI cramping, Denies dysphagia, Denies excessive flatus, Denies early satiety, Reports heartburn, Denies diarrhea, Denies nausea, Denies odynophagia, Denies vomiting and Denies hematemesis Skin/Breast Denies pruritus, Denies lesions, Denies rash and Denies jaundice Neuro Reports Normal hearing present and Denies Abnormal speech present Endo Denies fatigue Aller/Immun Denies throat swelling and Denies tongue swelling Physical Exam Vital Signs: Last Vital Signs Pulse 62 03/06/24 13:56 BP 115/53 L 03/06/24 13:56 BMI result Body Mass Index 27.6 Const General: cooperative, no acute distress, well developed and well groomed Nutritional Appearance: average body habitus and well nourished Orientation/consciousness: oriented to person, oriented to place and oriented to time Limitations: language barrier HEENT Head: Yes normocephalic and Yes atraumatic Eyes General: appearance normal, both eyes and all related structures Pupils: Equal, round and reactive pupils present Neck Neck: Yes normal visual inspection and Yes no lymphadenopathy Thyroid: Thyroid normal Resp Effort & Inspection: normal respiratory effort and able to speak in complete sentences Auscultation: clear to auscultation bilaterally Cardio Rate: regular rate Rhythm: regular rhythm Heart sounds: Normal, physiologic split S2 sound present Peripheral pulses: radial pulses present and posterior tibial pulses present GI Inspection: No distended and No Abdominal panniculus present Palpation (GI): Soft to palpation, nontender, no guarding, not rigid and No hepatosplenomegaly present Percussion: Yes normal to percussion Auscultation: normal bowel sounds Rectal Exam - Female: deferred Skin General skin exam: no rashes or lesions noted, turgor normal, skin not dry, no jaundice, No spider nevi and no striae Rashes: no rashes Nails: normal Neuro General: oriented to person, oriented to place and oriented to time Cranial nerves: Yes Equal, round and reactive pupils present and Yes Normal hearing present Speech: No Abnormal speech present Extrem General: Yes normal to inspection, No clubbing, No cyanosis and No edema Psych Appearance: grossly normal and well kempt Mental Status: mental status grossly normal Speech and movement: Normal speech and movement present Affect: normal affect Attitude: cooperative Thought process: Normal thought process present and not confabulating Thought content: Normal thought content present Insight: Limited insight present (Psych) Judgement: Limited judgement present (Psych) Assessment & Plan Assessment & Plan (1) Chronic idiopathic constipation: Code(s): K59.04 - Chronic idiopathic constipation Category: Medical (2) GERD (gastroesophageal reflux disease): Comment: Will control pantoprazole Code(s): K21.9 - Gastro-esophageal reflux disease without esophagitis Category: Medical Qualifiers: Esophagitis presence: esophagitis presence not specified Qualified Code(s): K21.9 - Gastro-esophageal reflux disease without esophagitis (3) Family history of polyps in the colon: Comment: 2 brothers with polyps Code(s): Z83.719 - Family history of colon polyps, unspecified Category: Medical Plan German #Kelly callahan She is here today with a female family member who is supportive. She says she never received the proctosol cream. She only received the simethicone, and it is working well and has even improved her cramping. She only has this now occasionally. She is still having rectal bleeding, she just had a colonoscopy, so we know there is no severe pathology - but we need to get the hemorrhoids controlled. She DID buy and OTC hemorrhoid cream, but was not using it correctly with the rectal applicator or for 2 weeks straight bid. She was educated. Her GI regimen consists of Linzess 290 micro g, pantoprazole 40 mg daily, <del>dicyclomine</del> <del>20</del> <del>mg</del> <del>4</del> <del>times</del> <del>a</del> <del>da</del>y, simethicone 180 mg 4 times a day, and <del>Proctosol</del> <del>cream.</del> ROV 4 weeks. We will work on why she is not getting these, although she may not need the bentyl. Medications: Refilled dicyclomine 20 mg PO QID 120 tabs 3RF 30 days hydrocortisone 2.5% (Proctosol HC) BE SURE TO INCLUDE RECTAL APPICATOR!! 1 appl NM BID 30 grams 6RF hemorrhoids K64.9 - Unspecified hemorrhoids Coding Level of Care Code Est Pt Level 3 (10358) Diagnoses Chronic idiopathic constipation K59.04 Gastroesophageal reflux disease, unspecified whether esophagitis present K21.9 Esophagitis presence: esophagitis presence not specified Family history of polyps in the colon Z83.719
== END 2024-03-06 14:40 | disposition home or self-care (01) ==
PROVIDERS: PCP Internal Medicine; Visit Provider Nurse Practitioner
DX: K59.04 Chronic idiopathic constipation (principal); K21.9 Gastro-esophageal reflux disease without esophagitis; Z83.719 Family history of colon polyps, unspecified
CPT/HCPCS: 99213

== ENCOUNTER → 2024-03-06 13:53 | Outpatient (BNVA) | payer OTHER, SELFPAY | PROVIDERS: PCP Internal Medicine; Visit Provider Nurse Practitioner | DX: K21.9 Gastro-esophageal reflux disease without esophagitis (principal); K59.04 Chronic idiopathic constipation; Z83.719 Family history of colon polyps, unspecified; Z79.899 Other long term (current) drug therapy | CPT/HCPCS: 99212 ==

== ENCOUNTER 2024-03-12 10:17 | Day surgery (SDC) | payer OTHER, SELFPAY ==
[2024-03-07 07:25] VITALS: BMI 28.1
--- NOTE | 2024-03-08 14:23 | P.CONAN_ITS ---
Documented by User: Christie Guy NP 03/08/24 14:24 HPI - Anesthesia Eval Consult details Narrative: 73yo F for Right Cataract Extraction IOL Insertion, Trabeculectomy No previous cataract on record PMFSH Active Problems Active Problems: All Active Problems Sinus bradycardia (Acute) Fatigue (Acute) Family history of polyps in the colon (Acute) Chronic sinusitis (Acute) Dysuria (Acute) Venous insufficiency (Acute) Dyspnea (Acute) Hand numbness (Acute) Degenerative disc disease, cervical (Acute) Dizziness (Acute) Weight loss, non-intentional (Acute) Chronic idiopathic constipation (Acute) Neck arthralgia (Acute) Age related osteoporosis (Acute) Postmenopausal (Acute) Precordial chest pain (Acute) Toenail fungus (Acute) Urine abnormality (Acute) Hemorrhoids (Acute) Allergic rhinitis (Acute) Polyarthralgia (Acute) GERD (gastroesophageal reflux disease) (Acute) Renal cyst (Acute) Pelvic pain in female (Acute) Past Medical History Medical History (Updated 03/06/24 @ 14:14 by BLESSING Mejia) Abdominal pain Abdominal pain Rectal bleeding Bilateral hand numbness Physical exam Physical exam Pre-op examination Hospital discharge follow-up Age related osteoporosis Postmenopausal Precordial chest pain Toenail fungus Urine abnormality Hemorrhoids Allergic rhinitis GERD (gastroesophageal reflux disease) Renal cyst Pelvic pain in female Family History Family History Father CVD (cardiovascular disease) Mother No problems noted. Brother Stomach cancer Sister Liver cancer Brother Lung cancer Brother No problems noted. Family history of problems with anesthesia: No Surgical History Surgical History History of tooth extraction H/O colonoscopy History of esophagogastroduodenoscopy (EGD) History of ear surgery History of tonsillectomy History of tubal ligation History of Problems with Anesthesia: No Social History Social History Household Members: None Housing: Apartment Are you a primary pulmonary care nurse to a significant other at home: No Alcohol intake: current Alcohol intake frequency: does not drink Alcohol type: beer and wine Patient Tobacco Use Status: Former Tobacco user Tobacco use type: Cigarette e-Cigarette/Vaping Use: Never Used Second Hand Smoke Exposure: No Advance Directives: No Advance Directives Information Provided: Yes Advance Directives on File: No Recently lost weight without trying: No Nutrition Risks: No Nutritional Risk Patient : No : No service: No Current occupational status: disabled Cognitive needs: No Hearing needs: No Vision needs: No Meds Allergies Allergy/AdvReac Type Severity Reaction Status Date / Time homatropine [Hydromet] Allergy Intermediate rash Verified 03/06/24 14:02 ketorolac [From TORADOL] Allergy Intermediate N/V Verified 03/06/24 14:02 Sulfa (Sulfonamide Allergy Intermediate RASH Verified 03/06/24 14:02 Antibiotics) [SULFA (SULFONAMIDE ANTIBIOTICS)] sulfacetamide Allergy Intermediate rash Verified 03/06/24 14:02 tramadol [TRAMADOL] Allergy Intermediate N/V, edema Verified 03/06/24 14:02 and vomiting, edema and vomiting tizanidine AdvReac Intermediate blurry Verified 03/06/24 14:02 vision Home Medications ?Medication ?Instructions ?Recorded ?Confirmed ?Last Taken ?Type latanoprost 0.005 % eye drops 1 drp ophthalmic (eye) BID 09/22/20 03/07/24 12/19/23 History nebulizers #1 ea 09/22/20 03/05/24 Unknown History timolol maleate 0.5 % eye drops 1 drp ophthalmic (eye) QAM 12/31/20 03/07/24 12/19/23 History Exam Height,Weight and Vital Signs: Height 5 ft 6 in Weight 78.925 kg Assessment and Plan Assessment Anesthesia Assessment: Chart Reviewed Final Anesthetic Review Family History of Problems with Anesthesia: No History of Problems with Anesthesia: No Documented by User: Serene Brown MD 03/12/24 12:57 PMFSH Past Medical History Medical History (Updated 03/06/24 @ 14:14 by BLESSING Mejia) Abdominal pain Abdominal pain Rectal bleeding Bilateral hand numbness Physical exam Physical exam Pre-op examination Hospital discharge follow-up Age related osteoporosis Postmenopausal Precordial chest pain Toenail fungus Urine abnormality Hemorrhoids Allergic rhinitis GERD (gastroesophageal reflux disease) Renal cyst Pelvic pain in female Family History Family History Father CVD (cardiovascular disease) Mother No problems noted. Brother Stomach cancer Sister Liver cancer Brother Lung cancer Brother No problems noted. Surgical History Surgical History History of tooth extraction H/O colonoscopy History of esophagogastroduodenoscopy (EGD) History of ear surgery History of tonsillectomy History of tubal ligation Social History Social History Household Members: None Housing: Apartment Are you a primary pulmonary care nurse to a significant other at home: No Alcohol intake: current Alcohol intake frequency: does not drink Alcohol type: beer and wine Patient Tobacco Use Status: Former Tobacco user Tobacco use type: Cigarette e-Cigarette/Vaping Use: Never Used Second Hand Smoke Exposure: No Advance Directives: No Advance Directives Information Provided: Yes Advance Directives on File: No Recently lost weight without trying: No Nutrition Risks: No Nutritional Risk Patient : No : No service: No Current occupational status: disabled Cognitive needs: No Hearing needs: No Vision needs: No Meds Allergies Allergy/AdvReac Type Severity Reaction Status Date / Time homatropine [Hydromet] Allergy Intermediate rash Verified 03/06/24 14:02 ketorolac [From TORADOL] Allergy Intermediate N/V Verified 03/06/24 14:02 Sulfa (Sulfonamide Allergy Intermediate RASH Verified 03/06/24 14:02 Antibiotics) [SULFA (SULFONAMIDE ANTIBIOTICS)] sulfacetamide Allergy Intermediate rash Verified 03/06/24 14:02 tramadol [TRAMADOL] Allergy Intermediate N/V, edema Verified 03/06/24 14:02 and vomiting, edema and vomiting tizanidine AdvReac Intermediate blurry Verified 03/06/24 14:02 vision Home Medications ?Medication ?Instructions ?Recorded ?Confirmed ?Last Taken ?Type latanoprost 0.005 % eye drops 1 drp ophthalmic (eye) BID 09/22/20 03/07/24 12/19/23 History nebulizers #1 ea 09/22/20 03/05/24 Unknown History timolol maleate 0.5 % eye drops 1 drp ophthalmic (eye) QAM 12/31/20 03/07/24 12/19/23 History Exam Airway Mallampati Class: II TM Dist: >3cm Neck ROM: Full Assessment and Plan Assessment Anesthesia Assessment: Anesthesia Plan Discussed Final Anesthetic Review NPO: Yes ASA Class: II Final Preanesthetic Review: No Changes in Pt Med Stat, Meds/Allgs Chart Reviewed, Consent Obtained/Reviewed and Anes Risks/Benef Reviewed Patient Risk: Low Procedure Risk: Low Anesthetic Plan Anesthetic Plan: MAC: Disposition: Standard PACU
[2024-03-12 12:28] VITALS: BP 134/68; PULSE 59; RESP 18; TEMP 36.2; O2SAT 98; BMI 25.8
[2024-03-12] MEDS: Tetracaine HCl/PF 0.5% Oph Sol 4 ML DROPS 1 DROP EYE-RIGHT (12:40)
[2024-03-12] MEDS: Phenylephrine HCL 2.5% Oph SoL 2 ML BOTTLE 1 DROP EYE-RIGHT ×3 (12:40→12:47)
[2024-03-12] MEDS: Lactated Ringers 500 ML 50 ML IV (12:40)
[2024-03-12] MEDS: Tropicamide 1 % Ophth Sol 3 ML BTL 1 DROP EYE-RIGHT ×3 (12:41→12:47)
[2024-03-12] MEDS: Ketorolac Tromethamine 0.5% Op 10 ML DROPS 1 DROP EYE-RIGHT ×3 (12:41→12:47)
[2024-03-12] MEDS: Cyclopentolate 1 % Ophth Sol 2 ML DRPBTL 1 DROP EYE-RIGHT ×3 (12:42→12:48)
--- NOTE | 2024-03-12 13:05 | MHC.SHP ---
Pre-Procedural Eval Section A - 24 Hr Update-Section A only Date of Service: 03/12/24 The patient is an INPATIENT: No Changes since office visit: No Cold of Flu in the past 2 weeks, No New Medical Problems, No Changes in Medication and No Patient answered all questions The patient has been examined within 24 hours of the surgical procedure. The History & Physical has been completed within 30 days and I have reviewed it.: Yes Section B - Complete if H&P > 30 days Chief Complaint: cataract,Primary open-angle glaucoma, left eye, Allergies: Allergies Allergy/AdvReac Type Severity Reaction Status Date / Time homatropine [Hydromet] Allergy Intermediate rash Verified 03/06/24 14:02 ketorolac [From TORADOL] Allergy Intermediate N/V Verified 03/06/24 14:02 Sulfa (Sulfonamide Allergy Intermediate RASH Verified 03/06/24 14:02 Antibiotics) [SULFA (SULFONAMIDE ANTIBIOTICS)] sulfacetamide Allergy Intermediate rash Verified 03/06/24 14:02 tramadol [TRAMADOL] Allergy Intermediate N/V, edema Verified 03/06/24 14:02 and vomiting, edema and vomiting tizanidine AdvReac Intermediate blurry Verified 03/06/24 14:02 vision Plan Diagnosis/Plan: Unchanged I have reviewed the history and physical and performed a pertinent physical examination on my patient. No changes have occurred unless specified. Time Spent With Patient Time: Total time managing care of this patient today ____ minutes.
--- NOTE | 2024-03-12 13:06 | HO.PNOPHT ---
Ophthalmology Procedure Procedure Date of Service: 03/12/24 Ophthalmology Viscoelastic: Healon Duet Dual Pack Pro Ophthalmology Lenses: IOL Acrysof MP - [id number] (22.5) Procedure Notes: PREOPERATIVE DIAGNOSIS: Decreased visual acuity right eye secondary to cataract and glaucoma. POSTOPERATIVE DIAGNOSIS: Same PROCEDURE: Right cataract extraction with intraocular lens insertion and trabeculectomy, right eye SURGEON: Keny Bauman M.D. ANESTHESIA: Topical/MAC ESTIMATED BLOOD LOSS: None COMPLICATIONS: None After obtaining informed consent, the patient was brought to the operating room suite and placed in the supine position. After adequate sedation per anesthesia, topical drops of Tetracaine were given to the right eye. The eye was then prepped and draped in the usual sterile fashion. The operating room microscope was then positioned over the right eye and a lid speculum placed. 2% Lidocaine was instilled subconjunctivally. After awaiting 30 seconds, a paracentesis was created superiorly. Hemostasis was then achieved using wet field cautery. Mitomycin .4mg/ml was then placed in the conjunctival pocket and held in place for two minutes. The subconjunctival pocket was then irrigated copiously with 20 mls of BSS. Paracentesis was then created. Viscoelastic was then instilled into the anterior chamber. A crescent blade was then utilized to create a partial thickness sclera wound followed by advancement to clear cornea with the crescent blade. A keratome was then utilized to enter the anterior chamber. Capsulotomy forceps were then utilized to create a continuous circular tear capsulotomy. Hydrodissection and hydrodelineation were carried out until adequate mobilization of the nucleus occurred. Phacoemulsification was utilized to remove the dense central nucleus followed by removal of remnant cortical material utilizing the automated aspiration irrigation unit. Viscoelastic was then instilled into the posterior capsular bag followed by placement of a posterior chamber intraocular lens. Attention was then directed to create a trabeculectomy. A Marta punch was then utilized to create the trabeculectomy. The residual Viscoelastic was then removed utilizing the automated IA machine. The egress of aqueous was evaluated and found to be appropriate. The conjunctiva was then closed with a 9-0 vicryl suture. BSS was then instilled into the anterior chamber creating a superior bleb, without obvious leakage. Intracameral injection of Vigamox 0.3%, 0.1 ml and subtenon injection of Kenalog-40 0.2 ml was given followed by an atropine drop. The patient tolerated the procedure well and will be followed up in the a.m.
[2024-03-12 14:10] VITALS: BP 138/55; PULSE 55; RESP 12; TEMP 36.1; O2SAT 97
[2024-03-12 14:25] VITALS: BP 164/57; PULSE 60; RESP 16; TEMP 36.2; O2SAT 98
[2024-03-12 14:40] VITALS: BP 140/54; PULSE 57; RESP 16; TEMP 36.1; O2SAT 97
== END 2024-03-12 15:06 | disposition home or self-care (01) ==
PROVIDERS: PCP Internal Medicine; Visit Provider Ophthalmology
PROC: (CPT 66985; principal; 2024-03-12 13:00)
PROC: (CPT 66170; 2024-03-12 13:00)
DX: H25.11 Age-related nuclear cataract, right eye (principal); H40.1112 Primary open-angle glaucoma, right eye, moderate stage; Z88.2 Allergy status to sulfonamides; Z88.8 Allergy status to other drugs, medicaments and biological substances
CPT/HCPCS: 66984; 66170; J2250; J3301; J7315; V2630

== ENCOUNTER 2024-03-26 09:31 | Day surgery (SDC) | payer OTHER, SELFPAY ==
[2024-03-07 07:40] VITALS: BMI 28.1
--- NOTE | 2024-03-22 12:24 | P.CONAN_ITS ---
Documented by User: Christie Guy NP 03/22/24 12:25 HPI - Anesthesia Eval Consult details Narrative: 73yo F for Left Cataract Extraction IOL Insertion, Left Trabeculectomy Right eye cataract 03/12/24: Midaz 1 PMFSH Active Problems Active Problems: All Active Problems Sinus bradycardia (Acute) Fatigue (Acute) Family history of polyps in the colon (Acute) Chronic sinusitis (Acute) Dysuria (Acute) Venous insufficiency (Acute) Dyspnea (Acute) Hand numbness (Acute) Degenerative disc disease, cervical (Acute) Dizziness (Acute) Weight loss, non-intentional (Acute) Chronic idiopathic constipation (Acute) Neck arthralgia (Acute) Age related osteoporosis (Acute) Postmenopausal (Acute) Precordial chest pain (Acute) Toenail fungus (Acute) Urine abnormality (Acute) Hemorrhoids (Acute) Allergic rhinitis (Acute) Polyarthralgia (Acute) GERD (gastroesophageal reflux disease) (Acute) Renal cyst (Acute) Pelvic pain in female (Acute) Past Medical History Medical History (Updated 03/06/24 @ 14:14 by BLESSING Mejai) Abdominal pain Abdominal pain Rectal bleeding Bilateral hand numbness Physical exam Physical exam Pre-op examination Hospital discharge follow-up Age related osteoporosis Postmenopausal Precordial chest pain Toenail fungus Urine abnormality Hemorrhoids Allergic rhinitis GERD (gastroesophageal reflux disease) Renal cyst Pelvic pain in female Family History Family History Father CVD (cardiovascular disease) Mother No problems noted. Brother Stomach cancer Sister Liver cancer Brother Lung cancer Brother No problems noted. Family history of problems with anesthesia: No Surgical History Surgical History History of tooth extraction H/O colonoscopy History of esophagogastroduodenoscopy (EGD) History of ear surgery History of tonsillectomy History of tubal ligation History of Problems with Anesthesia: No Social History Social History Household Members: None Housing: Apartment Are you a primary day care assistant to a significant other at home: No Alcohol intake: current Alcohol intake frequency: does not drink Alcohol type: beer and wine Patient Tobacco Use Status: Former Tobacco user Tobacco use type: Cigarette e-Cigarette/Vaping Use: Never Used Second Hand Smoke Exposure: No Use of substances other than those prescribed or required for medical reasons: No Are you DNR?: No Advance Directives: No Advance Directives Information Provided: Yes Advance Directives on File: No Recently lost weight without trying: No Nutrition Risks: No Nutritional Risk Patient : No : No service: No Current occupational status: disabled Cognitive needs: No Hearing needs: No Vision needs: No Meds Allergies Allergy/AdvReac Type Severity Reaction Status Date / Time homatropine [Hydromet] Allergy Intermediate rash Verified 03/12/24 13:13 ketorolac [From TORADOL] Allergy Intermediate N/V Verified 03/12/24 13:13 Sulfa (Sulfonamide Allergy Intermediate RASH Verified 03/12/24 13:13 Antibiotics) [SULFA (SULFONAMIDE ANTIBIOTICS)] sulfacetamide Allergy Intermediate rash Verified 03/12/24 13:13 tramadol [TRAMADOL] Allergy Intermediate N/V, edema Verified 03/12/24 13:13 and vomiting, edema and vomiting tizanidine AdvReac Intermediate blurry Verified 03/12/24 13:13 vision Home Medications ?Medication ?Instructions ?Recorded ?Confirmed ?Last Taken ?Type latanoprost 0.005 % eye drops 1 drp ophthalmic (eye) BID 09/22/20 03/07/24 12/19/23 History nebulizers #1 ea 09/22/20 03/05/24 Unknown History timolol maleate 0.5 % eye drops 1 drp ophthalmic (eye) QAM 12/31/20 03/07/24 12/19/23 History Exam Height,Weight and Vital Signs: Height 5 ft 6 in Weight 78.925 kg Assessment and Plan Assessment Anesthesia Assessment: Chart Reviewed Final Anesthetic Review Family History of Problems with Anesthesia: No History of Problems with Anesthesia: No Documented by User: Serene Brown MD 03/26/24 12:04 [facility] Past Medical History Medical History (Updated 03/06/24 @ 14:14 by BLESSING Mejia) Abdominal pain Abdominal pain Rectal bleeding Bilateral hand numbness Physical exam Physical exam Pre-op examination Hospital discharge follow-up Age related osteoporosis Postmenopausal Precordial chest pain Toenail fungus Urine abnormality Hemorrhoids Allergic rhinitis GERD (gastroesophageal reflux disease) Renal cyst Pelvic pain in female Family History Family History Father CVD (cardiovascular disease) Mother No problems noted. Brother Stomach cancer Sister Liver cancer Brother Lung cancer Brother No problems noted. Surgical History Surgical History History of tooth extraction H/O colonoscopy History of esophagogastroduodenoscopy (EGD) History of ear surgery History of tonsillectomy History of tubal ligation Social History Social History Household Members: None Housing: Apartment Are you a primary day care assistant to a significant other at home: No Alcohol intake: current Alcohol intake frequency: does not drink Alcohol type: beer and wine Patient Tobacco Use Status: Former Tobacco user Tobacco use type: Cigarette e-Cigarette/Vaping Use: Never Used Second Hand Smoke Exposure: No Use of substances other than those prescribed or required for medical reasons: No Are you DNR?: No Advance Directives: No Advance Directives Information Provided: Yes Advance Directives on File: No Recently lost weight without trying: No Nutrition Risks: No Nutritional Risk Patient : No : No service: No Current occupational status: disabled Cognitive needs: No Hearing needs: No Vision needs: No Meds Allergies Allergy/AdvReac Type Severity Reaction Status Date / Time homatropine [Hydromet] Allergy Intermediate rash Verified 03/12/24 13:13 ketorolac [From TORADOL] Allergy Intermediate N/V Verified 03/12/24 13:13 Sulfa (Sulfonamide Allergy Intermediate RASH Verified 03/12/24 13:13 Antibiotics) [SULFA (SULFONAMIDE ANTIBIOTICS)] sulfacetamide Allergy Intermediate rash Verified 03/12/24 13:13 tramadol [TRAMADOL] Allergy Intermediate N/V, edema Verified 03/12/24 13:13 and vomiting, edema and vomiting tizanidine AdvReac Intermediate blurry Verified 03/12/24 13:13 vision Home Medications ?Medication ?Instructions ?Recorded ?Confirmed ?Last Taken ?Type latanoprost 0.005 % eye drops 1 drp ophthalmic (eye) BID 09/22/20 03/07/24 12/19/23 History nebulizers #1 ea 09/22/20 03/05/24 Unknown History timolol maleate 0.5 % eye drops 1 drp ophthalmic (eye) QAM 12/31/20 03/07/24 12/19/23 History Exam Airway Mallampati Class: II TM Dist: >3cm Neck ROM: Full Assessment and Plan Final Anesthetic Review NPO: Yes ASA Class: II Final Preanesthetic Review: No Changes in Pt Med Stat, Meds/Allgs Chart Reviewed, Consent Obtained/Reviewed and Anes Risks/Benef Reviewed Patient Risk: Low Procedure Risk: Low Anesthetic Plan Anesthetic Plan: MAC: Disposition: Standard PACU
[2024-03-26] MEDS: Lactated Ringers 500 ML 50 ML IV (12:09)
[2024-03-26 12:18] VITALS: BP 118/53; PULSE 59; RESP 18; TEMP 36.6; O2SAT 99
[2024-03-26] MEDS: Tetracaine HCl/PF 0.5% Oph Sol 4 ML DROPS 1 DROP EYE-LEFT (12:19)
[2024-03-26] MEDS: Tropicamide 1 % Ophth Sol 3 ML BTL 1 DROP EYE-LEFT ×3 (12:20→12:34)
[2024-03-26] MEDS: Phenylephrine HCL 2.5% Oph SoL 2 ML BOTTLE 1 DROP EYE-LEFT ×3 (12:20→12:34)
[2024-03-26] MEDS: Cyclopentolate 1 % Ophth Sol 2 ML DRPBTL 1 DROP EYE-LEFT ×3 (12:20→12:34)
[2024-03-26] MEDS: Ketorolac Tromethamine 0.5% Op 10 ML DROPS 1 DROP EYE-LEFT ×3 (12:20→12:34)
--- NOTE | 2024-03-26 12:35 | PC.NURSE ---
author spoke with pharmacy and verified that drops were okay to give based on allergies/reactions. pharmacy verified that Patient received all drops for her first cataract two weeks ago, [employer] present and patient had no issue.
--- NOTE | 2024-03-26 13:01 | HO.PNOPHT ---
Ophthalmology Procedure Procedure Date of Service: 03/26/24 Ophthalmology Viscoelastic: Healon Duet Dual Pack Pro Ophthalmology Lenses: IOL Acrysof MP - MA60AC (22) Procedure Notes: PREOPERATIVE DIAGNOSIS: Decreased visual acuity left eye secondary to cataract POSTOPERATIVE DIAGNOSIS: Same PROCEDURE: Left cataract extraction with intraocular lens insertion SURGEON: Keny Bauman M.D. ANESTHESIA: Topical/MAC ESTIMATED BLOOD LOSS: None COMPLICATIONS: None After obtaining informed consent, the patient was brought to the operation room suite and placed in the supine position. After adequate sedation per anesthesia, topical drops of Tetracaine were given to the left eye. The eye was then prepped and draped in the usual sterile fashion. The operating room microscope was then positioned over the operative eye and a lid speculum placed. A paracentesis was created. Viscoelastic was then instilled into the anterior chamber. A three plane incision was then created temporally, utilizing a 2.85 mm keratome. Capsulotomy forceps were then utilized to create a circular tear capsulotomy. Hydrodissection and hydrodelineation were carried out until adequate mobilization of the nucleus occurred. Phacoemulsification was then utilized to remove the dense central nucleus followed by removal of the cortical material utilizing the automated aspiration irrigation unit. Viscoat elastic was instilled into the posterior capsular bag followed by placement of a posterior chamber intraocular lens without difficulty. The residual Viscoat elastic was then removed utilizing the automated IA machine. The wound was check and found to be watertight. The patient tolerated the procedure well and the lid speculum was removed. Intracameral injection of Vigamox 0.1 mL followed by a subtenon injection of Kenalog-40 0.2 mL were administered. The patient will be seen in the a.m.
--- NOTE | 2024-03-26 13:01 | MHC.SHP ---
Pre-Procedural Eval Section A - 24 Hr Update-Section A only Date of Service: 03/26/24 The patient is an INPATIENT: No Changes since office visit: No Cold of Flu in the past 2 weeks, No New Medical Problems, No Changes in Medication and No Patient answered all questions The patient has been examined within 24 hours of the surgical procedure. The History & Physical has been completed within 30 days and I have reviewed it.: Yes Section B - Complete if H&P > 30 days Chief Complaint: cataract,Primary open-angle glaucoma, left eye, mo Allergies: Allergies Allergy/AdvReac Type Severity Reaction Status Date / Time homatropine [Hydromet] Allergy Intermediate rash Verified 03/26/24 12:36 ketorolac [From TORADOL] Allergy Intermediate N/V Verified 03/26/24 12:36 Sulfa (Sulfonamide Allergy Intermediate RASH Verified 03/26/24 12:36 Antibiotics) [SULFA (SULFONAMIDE ANTIBIOTICS)] sulfacetamide Allergy Intermediate rash Verified 03/26/24 12:36 tramadol [TRAMADOL] Allergy Intermediate N/V, edema Verified 03/26/24 12:36 and vomiting, edema and vomiting tizanidine AdvReac Intermediate blurry Verified 03/26/24 12:36 vision Plan Diagnosis/Plan: Unchanged I have reviewed the history and physical and performed a pertinent physical examination on my patient. No changes have occurred unless specified. Time Spent With Patient Time: Total time managing care of this patient today ____ minutes.
--- NOTE | 2024-03-26 13:02 | HO.PNOPHT ---
Ophthalmology Procedure Procedure Date of Service: 03/26/24 Ophthalmology Viscoelastic: Healon Duet Dual Pack Pro Ophthalmology Lenses: IOL Acrysof MP - MA60AC (22) Procedure Notes: PREOPERATIVE DIAGNOSIS: Decreased visual acuity left eye secondary to cataract and glaucoma POSTOPERATIVE DIAGNOSIS: Same PROCEDURE: Left cataract extraction with intraocular lens insertion and trabeculectomy, left eye SURGEON: Keny Bauman M.D. ANESTHESIA: Topical/MAC ESTIMATED BLOOD LOSS: None COMPLICATIONS: None After obtaining informed consent, the patient was brought to the operating room suite and placed in the supine position. After adequate sedation per anesthesia, topical drops of Tetracaine were given to the left eye. The eye was then prepped and draped in the usual sterile fashion. The operating room microscope was then positioned over the left eye and a lid speculum placed. 2% Lidocaine was instilled subconjunctivally. After awaiting 30 seconds, a paracentesis was created superiorly. Hemostasis was then achieved using wet field cautery. Mitomycin .4mg/ml was then placed in the conjunctival pocket and held in place for two minutes. The subconjunctival pocket was then irrigated copiously with 20 mls of BSS. Paracentesis was then created. Viscoelastic was then instilled into the anterior chamber. A crescent blade was then utilized to create a partial thickness sclera wound followed by advancement to clear cornea with the crescent blade. A keratome was then utilized to enter the anterior chamber. Capsulotomy forceps were then utilized to create a continuous circular tear capsulotomy. Hydrodissection and hydrodelineation were carried out until adequate mobilization of the nucleus occurred. Phacoemulsification was utilized to remove the dense central nucleus followed by removal of remnant cortical material utilizing the automated aspiration irrigation unit. Viscoelastic was then instilled into the posterior capsular bag followed by placement of a posterior chamber intraocular lens. Attention was then directed to create a trabeculectomy. A Marta punch was then utilized to create the trabeculectomy. The residual Viscoelastic was then removed utilizing the automated IA machine. The egress of aqueous was evaluated and found to be appropriate. The conjunctiva was then closed with a 9-0 vicryl suture. BSS was then instilled into the anterior chamber creating a superior bleb, without obvious leakage. Intracameral injection of Vigamox 0.3%, 0.1 ml and subtenon injection of Kenalog-40 0.2 ml was given followed by an atropine drop. The patient tolerated the procedure well and will be followed up in the a.m.
[2024-03-26 13:57] VITALS: BP 133/56; PULSE 56; RESP 16; TEMP 36.1; O2SAT 98
[2024-03-26 14:08] VITALS: BP 134/50; PULSE 2; RESP 16; TEMP 36.2; O2SAT 99
== END 2024-03-26 14:18 | disposition home or self-care (01) ==
PROVIDERS: PCP Internal Medicine; Visit Provider Ophthalmology
PROC: (CPT 66985; principal; 2024-03-26 12:40)
PROC: (CPT 66170; 2024-03-26 12:40)
DX: H25.12 Age-related nuclear cataract, left eye (principal); H40.1122 Primary open-angle glaucoma, left eye, moderate stage; Z83.511 Family history of glaucoma; H35.363 Drusen (degenerative) of macula, bilateral; M81.0 Age-related osteoporosis without current pathological fracture; J30.1 Allergic rhinitis due to pollen; Z79.899 Other long term (current) drug therapy; Z79.1 Long term (current) use of non-steroidal anti-inflammatories (NSAID); Z88.2 Allergy status to sulfonamides; Z88.8 Allergy status to other drugs, medicaments and biological substances; Z87.891 Personal history of nicotine dependence; Z98.890 Other specified postprocedural states
CPT/HCPCS: 66984; 66170; J2250; J3301; J7315; V2630

== ENCOUNTER 2024-04-04 10:31 | Outpatient (REF) | payer OTHER, SELFPAY ==
--- NOTE | ~2024-04-04 | MM_ITS ---
EXAMINATION: BONE DENSITOMETRY CLINICAL INDICATION: Age-related osteoporosis without current pathological fracture. COMPARISON: Baseline BD dated 01/26/2022. TECHNIQUE: Using a [employer] DXA System (software version: 13.1) manufactured by [employer], dual-energy x-ray absorptiometry was performed of the lumbar spine and left hip. The images are of good technical quality. Summary results are attached. FINDINGS: LEFT FEMUR, NECK: Current: BMD 0.783 g/cm2, Z-score -0.3, T-score -1.8, osteopenia. Baseline: BMD 0.757 g/cm2. LEFT FEMUR, TOTAL: Current: BMD 0.768 g/cm2, Z-score -0.6, T-score -1.9, osteopenia, 5.8% increase from baseline (<5% change is not significant). Baseline: BMD 0.726 g/cm2. AP SPINE L1-L4: Current: BMD 0.996 g/cm2, Z-score -0.3, T-score -1.5, osteopenia, 17.6% increase from baseline (<5% change is not significant). Baseline: BMD 0.847 g/cm2. IDENTIFIED RISK FACTORS: Menopause, height loss. HISTORY OF FRACTURE: None listed. MEDICATIONS: Calcium supplements or multivitamin, vitamin D. MM/XR DEXA axial skeleton IMPRESSION: 1. DIAGNOSIS: Osteopenia based on the lowest T-score value of -1.9 in the total femur applying World Health Organization criteria. 2. 10-YEAR FRACTURE RISK PREDICTION, FRAX: Major osteoporotic fracture (clinical spine, forearm, hip or shoulder) 6.6%. Hip fracture 1.3%. 3. Treatment Recommendations: NOF guidelines recommend consideration for treatment in postmenopausal women and men age 50 and older presenting with the following: -A hip or vertebral (clinical or morphometric) fracture. -T-score less than or equal to -2.5 at the femoral neck or spine after appropriate evaluation to exclude secondary causes. -Low bone mass at the hip or spine and a 10-year fracture probability by FRAX of greater than or equal to 3% for hip fracture or greater than or equal to 20% for major osteoporotic fracture based on the [place] adapted WHO algorithm. 4. Other Recommendations: All treatment decisions require clinical judgment and consideration of individual patient factors, including patient preferences, comorbidities, previous drug use, risk factors not captured in the FRAX model (e.g. frailty, falls, vitamin D deficiency, increased bone turnover, interval significant decline in bone density) and possible under or overestimation of fracture risk by FRAX. Additional medical evaluation for secondary cause of low bone mineral density may be appropriate. FUTURE SCAN RECOMMENDATION: People with diagnosed cases of osteoporosis or at high risk for fracture should have regular bone mineral density tests. For patients eligible for Medicare, routine testing is allowed once every 2 years. The testing frequency can be increased to one year for patients who have rapidly progressing disease, those who are receiving or discontinuing medical therapy to restore bone mass, or have additional risk factors.
--- NOTE | ~2024-04-04 | MM_ITS ---
EXAMINATION: MM SCREENING DIGITAL BREAST TOMOSYNTHESIS, BILATERAL CLINICAL INFORMATION: Screening. Asymptomatic. COMPARISON: Mammography: This study is compared with prior exams dating back to 2019. TECHNIQUE: Digital breast tomosynthesis is performed in both the craniocaudal and mediolateral oblique views along with computer-aided detection (CAD). Synthesized 2D images are generated from the tomosynthesis. FINDINGS: The breasts are heterogeneously dense, which may obscure small masses (ACR BI-RADS breast composition Category c). There are no significant masses, abnormal calcifications, or other abnormalities. There is a small area of benign, coarse calcifications in the upper outer quadrant of the right breast. MM/MM tomosynthesis screening BI IMPRESSION: No mammographic evidence of malignancy. ASSESSMENT: BI-RADS BI-RADS 2 - Benign Findings RECOMMENDATION: Routine annual mammography screening. 1 year F/U This examination should not preclude the clinical evaluation of a suspicious palpable abnormality. This patient's information was entered into a reminder system with a target due date for their next mammogram.
== END 2024-04-04 10:32 | disposition home or self-care (01) ==
LOC: HO.MAMMO 10:31
PROVIDERS: PCP Internal Medicine; Visit Provider Internal Medicine Endocrinology, Diabetes & Metabolism
DX: Z12.31 Encounter for screening mammogram for malignant neoplasm of breast (principal); Z13.820 Encounter for screening for osteoporosis; M81.0 Age-related osteoporosis without current pathological fracture; Z78.0 Asymptomatic menopausal state
CPT/HCPCS: 77063; 77067; 77080

== ENCOUNTER → 2024-04-04 11:15 | Outpatient (BNV) | payer OTHER, SELFPAY | PROVIDERS: PCP Internal Medicine; Visit Provider Radiology Diagnostic Radiology | DX: Z12.31 Encounter for screening mammogram for malignant neoplasm of breast (principal) | CPT/HCPCS: 77063; 77067 ==

== ENCOUNTER 2024-04-04 11:39 | Outpatient (REF) | payer OTHER, SELFPAY ==
[2024-04-09 20:37] LABS: N-Telopeptide 20 (see note); NTXCreaRU 66 mg/dL (20-275)
== END 2024-04-04 11:40 | disposition home or self-care (01) ==
LOC: HO.10HDLNP 11:39
PROVIDERS: Visit Provider Internal Medicine Endocrinology, Diabetes & Metabolism
DX: M81.0 Age-related osteoporosis without current pathological fracture (principal); K59.04 Chronic idiopathic constipation; K21.9 Gastro-esophageal reflux disease without esophagitis; K64.9 Unspecified hemorrhoids
CPT/HCPCS: 82523; 99212

== ENCOUNTER 2024-04-04 12:05 | Outpatient (AMB) | payer OTHER, SELFPAY ==
--- NOTE | 2024-04-04 12:08 | MHC.OFFVIS ---
Vital Signs 04/04/24 12:14 Height 5 ft 6 in Weight 169 lb 12.095 oz BMI 27.4 BP 128/61 Blood Pressure Location Rt brachial Position Sitting Pulse 71 Intake Visit Reasons: 4 week follow up Intake Note: Breanna presents to in office today in 4 weeks follow up of [facility]. CC: Patient states that she has been feeling a very mild abdominal pain that is very deep but mild . Drawbridge Operator Required: Yes Accompanied by: Daughter Allergies homatropine [Hydromet] Allergy (Intermediate, Verified 04/04/24 12:19) rash ketorolac [From TORADOL] Allergy (Intermediate, Verified 04/04/24 12:19) N/V Sulfa (Sulfonamide Antibiotics) [SULFA (SULFONAMIDE ANTIBIOTICS)] Allergy (Intermediate, Verified 04/04/24 12:19) RASH sulfacetamide Allergy (Intermediate, Verified 04/04/24 12:19) rash tramadol [TRAMADOL] Allergy (Intermediate, Verified 04/04/24 12:19) N/V, edema and vomiting, edema and vomiting tizanidine Adverse Reaction (Intermediate, Verified 04/04/24 12:19) blurry vision HPI HPI 4 week follow up: Details: Assessment & Plan (1) Chronic idiopathic constipation: Code(s): K59.04 - Chronic idiopathic constipation Category: Medical (2) GERD (gastroesophageal reflux disease): Comment: Will control pantoprazole Code(s): K21.9 - Gastro-esophageal reflux disease without esophagitis Category: Medical Qualifiers: Esophagitis presence: esophagitis presence not specified Qualified Code(s): K21.9 - Gastro-esophageal reflux disease without esophagitis (3) Family history of polyps in the colon: Comment: 2 brothers with polyps Code(s): Z83.719 - Family history of colon polyps, unspecified Category: Medical Plan [place]ic #Kelly live She is here today with a female family member who is supportive. She says she never received the proctosol cream. She only received the simethicone, and it is working well and has even improved her cramping. She only has this now occasionally. She is still having rectal bleeding, she just had a colonoscopy, so we know there is no severe pathology - but we need to get the hemorrhoids controlled. She DID buy and OTC hemorrhoid cream, but was not using it correctly with the rectal applicator or for 2 weeks straight bid. She was educated. Her GI regimen consists of Linzess 290 micro g, pantoprazole 40 mg daily, <del>dicyclomine</del> <del>20</del> <del>mg</del> <del>4</del> <del>times</del> <del>a</del> <del>da</del>y, simethicone 180 mg 4 times a day, and <del>Proctosol</del> <del>cream.</del> ROV 4 weeks. We will work on why she is not getting these, although she may not need the bentyl. Medications: Refilled dicyclomine 20 mg PO QID 120 tabs 3RF 30 days hydrocortisone 2.5% (Proctosol HC) BE SURE TO INCLUDE RECTAL APPICATOR!! 1 appl MD BID 30 grams 6RF hemorrhoids K64.9 - Unspecified hemorrhoids TODAY'S VISIT Icelandic #dtr translates per pt request She is feeling much better, but still has a very small, soft pain in the left periumbilical area. She is not taking the bentyl daily, and I suggest she try using the bentyl with this pain to see if it is bowel cramping. She DOES describe it as a cramping pain. She is taking the simethicone only once a day and this is working well. She also requires more education about how to use the bentyl. Her RB has stopped with the proctosol cream. Her current GI regimen consists of Linzess 290 micro g, pantoprazole 40 mg daily, simethicone 180 mg up to 4 times a day, dicyclomine up to 4 times a day as needed. Overall, she is happy now with her GI regimen. She just had glaucoma surgery. [facility] Medical History Abdominal pain Abdominal pain Rectal bleeding Bilateral hand numbness Physical exam Physical exam Pre-op examination Hospital discharge follow-up Age related osteoporosis Postmenopausal Precordial chest pain Toenail fungus Urine abnormality Hemorrhoids Allergic rhinitis GERD (gastroesophageal reflux disease) Renal cyst Pelvic pain in female Surgical History History of tooth extraction H/O colonoscopy History of esophagogastroduodenoscopy (EGD) History of ear surgery History of tonsillectomy History of tubal ligation Family History Father CVD (cardiovascular disease) Mother No problems noted. Brother Stomach cancer Sister Liver cancer Brother Lung cancer Brother No problems noted. Social History Household Members: None Housing: Apartment Are you a primary director of career services to a significant other at home: No Alcohol intake: current Alcohol intake frequency: does not drink Alcohol type: beer and wine Patient Tobacco Use Status: Former Tobacco user Tobacco use type: Cigarette e-Cigarette/Vaping Use: Never Used Second Hand Smoke Exposure: No service: No Current occupational status: disabled Cognitive needs: No Hearing needs: No Vision needs: No Review of Systems Const Denies fatigue, Denies fever(s), Denies night sweats, Denies poor appetite and Denies weight loss ENT Reports Normal hearing present, Denies dental pain, Denies dysphagia, Denies hearing loss, Denies mouth pain, Denies odynophagia, Denies throat swelling, Denies tongue swelling and Reports other (Dentition adequate) Card Reports no additional complaints Resp Reports no additional complaints GI Details: Denies abdominal pain, Denies melena, Reports bloating, Denies hematochezia, Reports constipation, Denies GI cramping, Denies dysphagia, Denies excessive flatus, Denies early satiety, Reports heartburn, Denies diarrhea, Denies nausea, Denies odynophagia, Denies vomiting and Denies hematemesis Skin/Breast Denies pruritus, Denies lesions, Denies rash and Denies jaundice Neuro Reports Normal hearing present and Denies Abnormal speech present Endo Denies fatigue Aller/Immun Denies throat swelling and Denies tongue swelling Physical Exam Vital Signs: Last Vital Signs Pulse 71 04/04/24 12:14 BP 128/61 04/04/24 12:14 BMI result Body Mass Index 27.4 Const General: cooperative, no acute distress, well developed and well groomed Nutritional Appearance: average body habitus and well nourished Orientation/consciousness: oriented to person, oriented to place and oriented to time Limitations: language barrier HEENT Head: Yes normocephalic and Yes atraumatic Eyes General: appearance normal, both eyes and all related structures Pupils: Equal, round and reactive pupils present Neck Neck: Yes normal visual inspection and Yes no lymphadenopathy Thyroid: Thyroid normal Resp Effort & Inspection: normal respiratory effort and able to speak in complete sentences Auscultation: clear to auscultation bilaterally Cardio Rate: regular rate Rhythm: regular rhythm Heart sounds: Normal, physiologic split S2 sound present Peripheral pulses: radial pulses present and posterior tibial pulses present GI Inspection: No distended and No Abdominal panniculus present Palpation (GI): Soft to palpation, nontender, no guarding, not rigid and No hepatosplenomegaly present Percussion: Yes normal to percussion Auscultation: normal bowel sounds Rectal Exam - Female: deferred Skin General skin exam: no rashes or lesions noted, turgor normal, skin not dry, no jaundice, No spider nevi and no striae Rashes: no rashes Nails: normal Neuro General: oriented to person, oriented to place and oriented to time Cranial nerves: Yes Equal, round and reactive pupils present and Yes Normal hearing present Speech: No Abnormal speech present Extrem General: Yes normal to inspection, No clubbing, No cyanosis and No edema Psych Appearance: grossly normal and well kempt Mental Status: mental status grossly normal Speech and movement: Normal speech and movement present Affect: normal affect Attitude: cooperative Thought process: Normal thought process present and not confabulating Thought content: Normal thought content present Insight: Limited insight present (Psych) Judgement: Limited judgement present (Psych) Assessment & Plan Assessment & Plan (1) Chronic idiopathic constipation: Code(s): K59.04 - Chronic idiopathic constipation Category: Medical (2) GERD (gastroesophageal reflux disease): Comment: Will control pantoprazole Code(s): K21.9 - Gastro-esophageal reflux disease without esophagitis Category: Medical Qualifiers: Esophagitis presence: esophagitis presence not specified Qualified Code(s): K21.9 - Gastro-esophageal reflux disease without esophagitis (3) Hemorrhoids: Code(s): K64.9 - Unspecified hemorrhoids Category: Medical Plan [place]ic #dtr translates per pt request She is feeling much better, but still has a very small, soft pain in the left periumbilical area. She is not taking the bentyl daily, and I suggest she try using the bentyl with this pain to see if it is bowel cramping. She DOES describe it as a cramping pain. She is taking the simethicone only once a day and this is working well. She also requires more education about how to use the bentyl. Her RB has stopped with the proctosol cream. Her current GI regimen consists of Linzess 290 micro g, pantoprazole 40 mg daily, simethicone 180 mg up to 4 times a day, dicyclomine up to 4 times a day as needed. Overall, she is happy now with her GI regimen. She just had glaucoma surgery. Coding Level of Care Code Est Pt Level 3 (69325) Diagnoses Chronic idiopathic constipation K59.04 Gastroesophageal reflux disease, unspecified whether esophagitis present K21.9 Esophagitis presence: esophagitis presence not specified Hemorrhoids K64.9
[2024-04-04 12:14] VITALS: BP 128/61; PULSE 71; BMI 27.4
== END 2024-04-04 12:40 | disposition home or self-care (01) ==
PROVIDERS: PCP Internal Medicine; Visit Provider Nurse Practitioner
DX: K59.04 Chronic idiopathic constipation (principal); K21.9 Gastro-esophageal reflux disease without esophagitis; K64.9 Unspecified hemorrhoids
CPT/HCPCS: 99213

== ENCOUNTER 2024-04-23 10:49 | Outpatient (AMB) | payer OTHER, SELFPAY ==
--- NOTE | 2024-04-23 10:53 | MHC.OFFVIS ---
Vital Signs 04/23/24 11:00 Height 5 ft 6 in Weight 172 lb 13.478 oz BMI 27.9 BP 115/62 Blood Pressure Location Rt brachial Position Sitting Respiration 16 Pulse 65 Pulse Source Pulse Oximeter Pulse Oximetry (%) 97 Oxygen Delivery Method Room Air Intake Visit Reasons: joint Pain/CM Intake Note: Patient presents for joint pain. Feeling constant pain all over body Radiotelegrapher Required: Yes Radiotelegrapher Services: Radiotelegrapher Present Radiotelegrapher Name: Merlyn [id number] Allergies homatropine [Hydromet] Allergy (Intermediate, Verified 04/23/24 10:57) rash ketorolac [From TORADOL] Allergy (Intermediate, Verified 04/23/24 10:57) N/V Sulfa (Sulfonamide Antibiotics) [SULFA (SULFONAMIDE ANTIBIOTICS)] Allergy (Intermediate, Verified 04/23/24 10:57) RASH sulfacetamide Allergy (Intermediate, Verified 04/23/24 10:57) rash tramadol [TRAMADOL] Allergy (Intermediate, Verified 04/23/24 10:57) N/V, edema and vomiting, edema and vomiting tizanidine Adverse Reaction (Intermediate, Verified 04/23/24 10:57) blurry vision Medication List - Last Reconciled 04/23/24 by Luiz Carlson MD alendronate 70 mg PO QWEEK 90 days cetirizine (All Day Allergy (cetirizine)) 10 mg PO DAILY PRN 90 days cyclobenzaprine 10 mg PO BID PRN dicyclomine 20 mg PO QID 30 days hydrocortisone 2.5% (Proctosol HC) 1 appl SD BID ipratropium bromide 2 sprays intranasal BID 30 days latanoprost 0.005% 1 drp ophthalmic (eye) BID lidocaine HCl 4% (Aspercreme (lidocaine HCl)) 1 appl topical BID PRN 30 days linaclotide (Linzess) 290 mcg PO QAM 30 days nebulizers As directed pantoprazole 40 mg PO DAILY simethicone 180 mg PO QID 30 days timolol maleate 0.5% 1 drp ophthalmic (eye) QAM HPI Comments Details: This is a 73-year-old female who presents for evaluation of diffuse pain. She states that she has diffuse pain everywhere including her legs, back, neck, knees, the outside of the left hip. She was evaluated by Dr. Cabello in 2019 and no evidence of an autoimmune rheumatic disease was found at that time. [facility] Medical History Abdominal pain Abdominal pain Rectal bleeding Bilateral hand numbness Physical exam Physical exam Pre-op examination Hospital discharge follow-up Age related osteoporosis Postmenopausal Precordial chest pain Toenail fungus Urine abnormality Hemorrhoids Allergic rhinitis GERD (gastroesophageal reflux disease) Renal cyst Pelvic pain in female Surgical History History of tooth extraction H/O colonoscopy History of esophagogastroduodenoscopy (EGD) History of ear surgery History of tonsillectomy History of tubal ligation Family History Father CVD (cardiovascular disease) Mother No problems noted. Brother Stomach cancer Sister Liver cancer Brother Lung cancer Brother No problems noted. Social History Household Members: None Housing: Apartment Are you a primary daycare assistant to a significant other at home: No Alcohol intake: current Alcohol intake frequency: does not drink Alcohol type: beer and wine Patient Tobacco Use Status: Former Tobacco user Tobacco use type: Cigarette e-Cigarette/Vaping Use: Never Used Second Hand Smoke Exposure: No service: No Current occupational status: disabled Cognitive needs: No Hearing needs: No Vision needs: No Review of Systems Const Reports fatigue and Reports weakness Eyes Reports dry eyes and Reports itchy eyes ENT Reports dysphagia, Reports dizziness, Reports hearing loss and Reports tinnitus Card Reports chest pain, Reports irregular heart rhythm and Reports dyspnea Resp Reports cough and Reports dyspnea GI Reports dysphagia, Reports heartburn and Reports diarrhea Reports hematuria Musc Reports myalgias, Reports arthralgias and Reports stiffness Skin/Breast Reports alopecia Neuro Reports dizziness and Reports weakness Psych Reports abnormal sleep pattern and Reports anxiety Endo Reports fatigue Aller/Immun Reports itchy eyes Physical Exam Vital Signs: Last Vital Signs Pulse 65 04/23/24 11:00 Resp 16 04/23/24 11:00 BP 115/62 04/23/24 11:00 Pulse Ox 97 04/23/24 11:00 Oxygen Delivery Method Room Air 04/23/24 11:00 BMI result Body Mass Index 27.9 Const General: cooperative, healthy appearing and comfortable Nutritional Appearance: overweight Orientation/consciousness: patient oriented x3 Limitations: no limitations HEENT Head: Yes normocephalic and Yes atraumatic Mouth: moist mucous membranes Resp Effort & Inspection: normal respiratory effort and able to speak in complete sentences Skin General skin exam: no rashes or lesions noted Neuro General: patient oriented x3 Extrem Other: No active synovitis Few fibromyalgia tender points Normal nailfold capillaroscopy Left trochanteric bursa area tenderness Assessment & Plan Assessment & Plan (1) Fibromyalgia, primary: Code(s): M79.7 - Fibromyalgia Category: Medical Plan: This is a 73-year-old female who presents for evaluation of diffuse pain. Upon evaluation I do not see any signs suggestive of an autoimmune rheumatic disease. Clinical picture consistent with fibromyalgia, mild generalized osteoarthritis and left greater trochanteric pain syndrome. Discussed management of fibromyalgia with patient. Is a noninflammatory, non-autoimmune central afferent processing disorder leading to a diffuse pain syndrome. I suggested that patient try to address her underlying psychiatric issues, anxiety. I suggested evaluation by a therapist. Try to follow sleep hygiene practices. Consider a referral for a sleep study from her PCP. Patient would benefit from increased physical activity, either through formal physical therapy or by joining a gym. Advised patient that she should start activity slowly and increase as tolerated. Consider low-impact exercises such as walking, swimming, aqua therapy stretching, yoga. I provided patient with a printout of home exercises for greater trochanteric pain syndrome Follow-up with PCP Plan I spent 30 minutes reviewing patient's chart, evaluating patient, counseling patient and documenting in the chart Coding Level of Care Code New Pt Level 3 (86667) Diagnoses Fibromyalgia, primary M79.7
[2024-04-23 11:00] VITALS: BP 115/62; PULSE 65; RESP 16; O2SAT 97; BMI 27.9
== END 2024-04-23 11:35 | disposition home or self-care (01) ==
PROVIDERS: PCP Internal Medicine; Visit Provider Student in an Organized Health Care Education/Training Program
DX: M79.7 Fibromyalgia (principal)
CPT/HCPCS: 99203

== ENCOUNTER → 2024-04-23 10:49 | Outpatient (BNVA) | payer OTHER, SELFPAY | PROVIDERS: PCP Internal Medicine; Visit Provider Student in an Organized Health Care Education/Training Program | DX: M79.7 Fibromyalgia (principal) | CPT/HCPCS: 99202 ==

== ENCOUNTER 2024-06-18 14:28 | Outpatient (AMB) | payer OTHER, SELFPAY ==
[2024-06-18 15:04] VITALS: BP 122/62; PULSE 66; BMI 27.0
--- NOTE | 2024-06-18 15:04 | A.OFFVIS_ITS ---
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 Mathematics Instructor Required: Yes Mathematics Instructor Services: Mathematics Instructor Present Mathematics Instructor Name: [id number] Allergies homatropine [Hydromet] Allergy (Intermediate, Verified 04/23/24 10:57) rash ketorolac [From TORADOL] Allergy (Intermediate, Verified 04/23/24 10:57) N/V Sulfa (Sulfonamide Antibiotics) [SULFA (SULFONAMIDE ANTIBIOTICS)] Allergy (Intermediate, Verified 04/23/24 10:57) RASH sulfacetamide Allergy (Intermediate, Verified 04/23/24 10:57) rash tramadol [TRAMADOL] Allergy (Intermediate, Verified 04/23/24 10:57) N/V, edema and vomiting, edema and vomiting tizanidine Adverse Reaction (Intermediate, Verified 04/23/24 10:57) blurry vision Medication List - Last Reconciled 06/18/24 by Miguel Triana MD alendronate 70 mg PO QWEEK 90 days cetirizine (All Day Allergy (cetirizine)) 10 mg PO DAILY PRN 90 days ciprofloxacin-dexamethasone 0.3-0.1 % drps otic (ears) cyclobenzaprine 10 mg PO BID PRN ipratropium bromide 2 sprays intranasal BID 30 days lidocaine HCl 4% (Aspercreme (lidocaine HCl)) 1 appl topical BID PRN 30 days linaclotide (Linzess) 290 mcg PO QAM 30 days nebulizers As directed pantoprazole 40 mg PO DAILY simethicone 180 mg PO QID 30 days HPI Comments Details: Breanna has been referred for evaluation regarding bradycardia. However, she states she is rather having chest discomfort. She has describing episodes of chest pressure that goes down her left arm. She has apparently had this in the past but then spontaneously resolved but again having this in the last few weeks. She is also getting some shortness of breath with activity. No documented cardiac issues. Known sinus bradycardia. From the pulmonary standpoint, known to have nonspecific interstitial changes. Discussed with patient using commercial finance analyst. [facility], [facility] Medical History Abdominal pain Abdominal pain Rectal bleeding Bilateral hand numbness Physical exam Physical exam Pre-op examination Hospital discharge follow-up Age related osteoporosis Postmenopausal Precordial chest pain Toenail fungus Urine abnormality Hemorrhoids Allergic rhinitis GERD (gastroesophageal reflux disease) Renal cyst Pelvic pain in female Surgical History History of tooth extraction H/O colonoscopy History of esophagogastroduodenoscopy (EGD) History of ear surgery History of tonsillectomy History of tubal ligation Family History Father CVD (cardiovascular disease) Mother No problems noted. Brother Stomach cancer Sister Liver cancer Brother Lung cancer Brother No problems noted. Social History Household Members: None Housing: Apartment Are you a primary health care legal assistant to a significant other at home: No Alcohol intake: current Alcohol intake frequency: does not drink Alcohol type: beer and wine Patient Tobacco Use Status: Former Tobacco user Tobacco use type: Cigarette e-Cigarette/Vaping Use: Never Used Second Hand Smoke Exposure: No service: No Current occupational status: disabled Cognitive needs: No Hearing needs: No Vision needs: No Review of Systems Const Denies weakness ENT Denies dizziness Card Denies chest pain, Denies chest pain with activity, Denies syncope, Denies rapid heart rate, Denies pedal edema, Denies edema, Denies leg edema, Denies lightheadedness, Denies palpitations, Denies dyspnea, Denies dyspnea on exertion and Denies orthopnea Resp Denies cough, Denies dyspnea and Denies dyspnea on exertion GI Denies hematochezia and Denies change in stool character Musc Denies abnormal gait, Denies muscle cramps, Denies muscle weakness, Denies numbness, Denies radiating pain into limb and Denies tingling Neuro Denies abnormal gait, Denies dizziness, Denies syncope, Denies numbness, Denies tingling and Denies weakness Endo Denies palpitations Physical Exam Vital Signs: Last Vital Signs Pulse 66 06/18/24 15:04 BP 122/62 06/18/24 15:04 BMI result Body Mass Index 27.0 Const General: comfortable and no acute distress Orientation/consciousness: patient oriented x3 HEENT Other: Unremarkable Head: Yes normal to inspection Neck Neck: Yes normal visual inspection Chest Chest palpation & inspection: normal inspection of the chest Resp Auscultation: clear to auscultation bilaterally Cardio Palpation: normal PMI Heart sounds: S1 normal heart sound present, S2 normal heart sound present, no gallops, no murmurs and no rubs GI Palpation (GI): Soft to palpation Back/Spine/Pelvis Other: unremarkable Skin General skin exam: no rashes or lesions noted Neuro General: patient oriented x3 Extrem General: Yes normal to inspection Psych Mental Status: mental status grossly normal Assessment & Plan Assessment & Plan (1) Precordial chest pain: Code(s): R07.2 - Precordial pain Category: Medical Plan In chest CT scan, description of mild coronary calcification as well as vascular calcification. Peripheral ground-glass opacities, described as nonspecific interstitial pattern. EKG with underlying sinus bradycardia, 54/Min; no clear-cut ischemic changes. Similar to the EKG from last year. Based on presenting complaints of exertional sounding chest pain/shortness of breath, we will work her for any obstructive coronary disease. We can do an echocardiogram and exercise stress perfusion imaging study. Based on the findings, can plan further care. Orders: Orders CA stress test Today R07.2 - Precordial pain NM cardiolite stress test Today R07.2 - Precordial pain CA echo transthoracic complete Today R07.2 - Precordial pain Coding Level of Care Code New Pt Level 4 (16727) Diagnoses Precordial chest pain R07.2
== END 2024-06-18 15:42 | disposition home or self-care (01) ==
PROVIDERS: PCP Internal Medicine; Visit Provider Internal Medicine
DX: R07.2 Precordial pain (principal)
CPT/HCPCS: 99214

== ENCOUNTER → 2024-06-18 14:28 | Outpatient (BNVA) | payer OTHER, SELFPAY | PROVIDERS: PCP Internal Medicine; Visit Provider Internal Medicine | DX: R07.2 Precordial pain (principal) | CPT/HCPCS: 99212 ==

== ENCOUNTER 2024-07-04 15:26 | Outpatient (AMB) | payer OTHER, SELFPAY ==
--- NOTE | 2024-07-04 15:26 | A.OFFVIS_ITS ---
Vital Signs 07/04/24 15:27 Height 5 ft 6 in Weight 176 lb 5.917 oz BMI 28.5 BP 118/56 L Blood Pressure Location Lt brachial Position Sitting Pulse 67 Pulse Source Pulse Oximeter Intake Visit Reasons: f/u osteoporosis-conf Intake Note: Patient present today for Osteoporosis follow up visit. Changeover Operator Required: Yes Changeover Operator Language: Diet Kitchen Cook Services: Changeover Operator Present Changeover Operator Name: Jemal Rivera Information Interpreted: non-clinical & clinical Accompanied by: Daughter Allergies homatropine [Hydromet] Allergy (Intermediate, Verified 07/04/24 15:31) rash ketorolac [From TORADOL] Allergy (Intermediate, Verified 07/04/24 15:31) N/V Sulfa (Sulfonamide Antibiotics) [SULFA (SULFONAMIDE ANTIBIOTICS)] Allergy (Intermediate, Verified 07/04/24 15:31) RASH sulfacetamide Allergy (Intermediate, Verified 07/04/24 15:31) rash tramadol [TRAMADOL] Allergy (Intermediate, Verified 07/04/24 15:31) N/V, edema and vomiting, edema and vomiting tizanidine Adverse Reaction (Intermediate, Verified 07/04/24 15:31) blurry vision HPI Comments Details: 73 YO F with hx of RA is seen in consultation at the request of PCP for Osteoporosis. First diagnosed in couple of mos ago . Received treatment with alendronate, 3 mos ago . Having pain in back and neck L side . Had pain before medication No history of pathologic fracture or ONJ. Fx L shoulder from fall 15 yrs ago Has several servings of dietary calcium per day . Takes Calcium supplement 1200 mg daily in divided doses. Takes MVI not sure of IU of Vitamin D daily.Was taking 2000 IU up to 1 wk ago Is using PPI, -anticoagulant, -antiepileptic or -glucocorticoid medication. 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 UTD on dental cleanings and sees dentist has upcoming appt No planned upcoming dental work or extractions. DXA dated 01/26/22: FINDINGS: AP SPINE L1-L4: BMD 0.847 g/cm2, Z-score -1.4, T-score -2.8, osteoporosis. LEFT FEMUR, NECK: BMD 0.757 g/cm2, Z-score -0.5, T-score -2.0, osteopenia. LEFT FEMUR, TOTAL: BMD 0.726 g/cm2, Z-score -0.9, T-score -2.2, osteopenia. IDENTIFIED RISK FACTORS: Rheumatoid arthritis, low calcium intake, menopause. HISTORY OF FRACTURE: Humerus. Labs: Secondary workup was negative. Currently on alendronate 70 mg Q weekly. No fx since last visit but does c/o lower back pain . DEXA bone density shows low bone mass. Bone turnover marker NTX is suppressed [facility] Medical History Abdominal pain Abdominal pain Rectal bleeding Bilateral hand numbness Physical exam Physical exam Pre-op examination Hospital discharge follow-up Age related osteoporosis Postmenopausal Precordial chest pain Toenail fungus Urine abnormality Hemorrhoids Allergic rhinitis GERD (gastroesophageal reflux disease) Renal cyst Pelvic pain in female Surgical History History of tooth extraction H/O colonoscopy History of esophagogastroduodenoscopy (EGD) History of ear surgery History of tonsillectomy History of tubal ligation Family History Father CVD (cardiovascular disease) Mother No problems noted. Brother Stomach cancer Sister Liver cancer Brother Lung cancer Brother No problems noted. Social History Household Members: None Housing: Apartment Are you a primary laboratory animal care veterinarian to a significant other at home: No Alcohol intake: current Alcohol intake frequency: does not drink Alcohol type: beer and wine Patient Tobacco Use Status: Former Tobacco user Tobacco use type: Cigarette e-Cigarette/Vaping Use: Never Used Second Hand Smoke Exposure: No service: No Current occupational status: disabled Cognitive needs: No Hearing needs: No Vision needs: No Physical Exam Vital Signs: Last Vital Signs Pulse 67 07/04/24 15:27 BP 118/56 L 07/04/24 15:27 BMI result Body Mass Index 28.5 Assessment & Plan Assessment & Plan (1) Age related osteoporosis: Code(s): M81.0 - Age-related osteoporosis without current pathological fracture Category: Medical Plan: This is a 71-year-old female with a history of osteoporosis currently being treated with alendronate. Secondary causes have been ruled out. Urine NTX is suppressed and bone density is now in the low bone mass range The plan is to stop the alendronate and give the patient a drug holiday. Patient returned 6 months' time and have a urine NTX done prior Orders: Orders Collagen Crosslinks NTX 6 Months M81.0 - Age-related osteoporosis without current pathological fracture Coding Level of Care Code Est Pt Level 3 (88366) Diagnoses Age related osteoporosis M81.0
[2024-07-04 15:27] VITALS: BP 118/56; PULSE 67; BMI 28.5
== END 2024-07-04 15:48 | disposition home or self-care (01) ==
PROVIDERS: PCP Internal Medicine; Visit Provider Internal Medicine Endocrinology, Diabetes & Metabolism
DX: M81.0 Age-related osteoporosis without current pathological fracture (principal)
CPT/HCPCS: 99213

== ENCOUNTER → 2024-07-04 15:26 | Outpatient (BNVA) | payer OTHER, SELFPAY | PROVIDERS: PCP Internal Medicine; Visit Provider Internal Medicine Endocrinology, Diabetes & Metabolism | DX: M81.0 Age-related osteoporosis without current pathological fracture (principal) | CPT/HCPCS: 99212 ==

== ENCOUNTER → 2024-07-11 12:59 | Outpatient (REF) | payer OTHER, SELFPAY ==
--- NOTE | 2024-07-11 13:02 | CA_ITS ---
Transthoracic Echocardiogram Patient (Last, First, Middle): Breanna Catherine, Gender: Female Date of : 1950 Age: 73 Procedure Date: 07/11/2024 Procedure Type: Transthoracic Echocardiogram Location: OP Height: 167.64 cm Weight: 78.02 kg BSA: 1.88 m2 Heart Rate: bpm BP: 130 / 60 mmHg Theatre Manager: STEPHANIE Referring MD: Miguel Triana MD Medical Insurance Verifier: Yahir Carter MD Symptoms: R07.2 - Precordial pain Study Quality: Fair ECG Rhythm: Sinus Conclusions: - 1. Normal LV ejection fraction 55-60% with grade 1 diastolic dysfunction 2. Normal cardiac valvular Dopplers 3. Normal RV systolic pressure 4. No gross pericardial effusion Findings Left Ventricle Normal left ventricular size, thickness, and systolic function. The visually estimated ejection fraction is between 55-60%. Spectral Doppler is indicative of an impaired relaxation filling pattern. E/E prime ratio is <8, consistent with normal filling pressures. Evidence suggests grade I (mild) diastolic dysfunction. Right Ventricle Normal right ventricular cavity size and systolic function. Atria Both atria are normal in size. There is no evidence of interatrial shunt. Aortic Valve Normal aortic valve structure and function. There is no aortic valve stenosis. There is no aortic valve regurgitation. Mitral Valve Normal mitral valve structure and function. There is trace mitral valve regurgitation. There is no mitral valve stenosis. Pulmonic Valve The pulmonic valve is likely normal. There is trace pulmonic valve regurgitation. Tricuspid Valve Normal tricuspid valve structure. There is trace tricuspid valve regurgitation. The right ventricular systolic pressure is normal. The right ventricular systolic pressure is 20 mmHg. Normal right atrial pressure. There is no evidence of pulmonary hypertension. Great Vessels All visible segments of the aorta are normal in size. The pulmonary artery was not well visualized. There is no dilatation of the ascending aorta measuring 2.70 cm. Venous The inferior vena cava is normal in size and collapses greater than 50% with inspiration. Pericardium/Pleural There is no evidence of pericardial effusion. Prior Study Comparison No prior study available for comparison. Measurements 2D Linear Measurements IVSd: 0.92 0.6-0.9/0.6-1.0 cm LVIDd: 3.63 3.9-5.3/4.2-5.9 cm LVIDd Index: 1.93 2.4-3.2/2.2-3.1 cm/m2 LVIDs: 2.28 2.0-3.6 cm LVPWd: 1.04 0.7-1.1 cm Ao Root: 2.90 2.1-3.5 cm LA Diam: 2.90 2.7-3.8/3.0-4.0 cm LAIDs Index: 1.54 1.5-2.3 cm/m2 LV Mass: 131.43 67-162/88-224 g LV Mass Index: 69.91 43-95/49-115 g/m2 LVOT Diam: 2.10 3.0+(-)1.3 cm 2D Systolic Function EF 4C: 56.40 >55% EF 2C: 53.40 >55% EF BiP: 56.00 >55% Mitral Valve MV Pk E: 0.55 MV PK A: 0.75 MV Decel Time: 221.00 E/A: 0.70 E'Lateral: 8.38 E'Medial: 5.00 E/E' Med: 10.90 E/E' Lat: 6.50 PHT: 65.00 MVA PHT: 3.38 Decel [place]: 2.46 Aortic Valve AoV Pk Codey: 0.98 AoV Mn Codey: 0.59 AoV VTI: 0.22 AoV Pk Grad: 4.00 Aov Mn Grad: 2.00 JOSEPH Cont.VTI: 3.35 LVOT LVOT Pk Codey: 0.86 LVOT Mn Codey: 0.53 LVOT VTI: 0.21 LVOT Pk Grad: 3.00 LVOT Mn Grad: 1.00 LVOT Diam: 2.10 LVOT Area: 3.46 Diastolic Function MV Pk E: 0.55 MV Pk A: 0.75 E/A: 0.70 E'Medial: 5.00 E/E' Med: 10.90 E' Laterial: 8.38 E/E' Lat: 6.50 Right Ventricle TAPSE (mm): 19.00 TVS' Codey: 11.00 Tricuspid Valve TR Pk Codey: 2.09 TR Pk Grad: 17.00 RA Press: 3.00 RVSP: 20.00 Great Vessels Aorta Ao Root-2D: 2.90 2.0-3.7 cm Ao Asc: 2.70 2.1-3.4 cm Pulmonary Valve PV Pk Codey: 1.18 Peak PV Grad: 6.00 Updated in Other Vendor System with Status of Final Yahir Carter MD electronically signed on 07/12/2024 8:46:40 AM with status of Final
== END ==
LOC: HO.CARD 12:59
PROVIDERS: PCP Internal Medicine; Visit Provider Internal Medicine
DX: R07.2 Precordial pain (principal)
CPT/HCPCS: 93306

== ENCOUNTER → 2024-07-11 13:02 | Outpatient (BNV) | payer OTHER, SELFPAY | PROVIDERS: PCP Internal Medicine; Visit Provider Internal Medicine Cardiovascular Disease | DX: I51.89 Other ill-defined heart diseases (principal); R07.2 Precordial pain | CPT/HCPCS: 93306 ==

== ENCOUNTER 2024-08-16 13:25 | Emergency (ER) | payer OTHER, SELFPAY ==
--- NOTE | ~2024-08-16 | XR_ITS ---
EXAMINATION: XR CHEST 2 VIEW CLINICAL INFORMATION: Productive cough COMPARISON: None TECHNIQUE: PA and lateral views of the chest obtained. FINDINGS: The lungs are clear. There are no pleural effusions. The cardiomediastinal silhouette is normal. XR/XR chest 2V IMPRESSION: No acute cardiopulmonary disease. Electronically signed by: Matthew Blake MD 08/16/2024 02:36 PM [facility] [place]
--- NOTE | 2024-08-16 13:28 | ECG_ITS ---
Test Reason : cp Blood Pressure : / mmHG Vent. Rate : 072 BPM Atrial Rate : 072 BPM P-R Int : 146 ms QRS Dur : 076 ms QT Int : 378 ms P-R-T Axes : 030 004 017 degrees QTc Int : 413 ms Normal sinus rhythm Normal ECG When compared with ECG of 22-FEB-2024 10:15, No significant change was found Referred By: Chichi Waldron Electronically Signed By:Oliverio Singh
[2024-08-16 14:15] VITALS: BP 136/53; PULSE 74; RESP 20; TEMP 36.9; O2SAT 97; BMI 28.4
--- NOTE | 2024-08-16 14:15 | ED_ITS ---
HPI - URI/Sore Throat General Chief Complaint: Upper Respiratory Symptoms Stated Complaint: cp-sob Time Seen by Provider: 08/16/24 15:50 Source: patient, family, RN notes reviewed and old records reviewed Mode of arrival: ambulatory Limitations: no limitations History of Present Illness ED Provider: Elias Davies PA-C HPI Narrative: 74-year-old female with a history of fibromyalgia, sinus bradycardia, sinusitis, GERD, polyarthralgia, allergic rhinitis, osteoporosis who presents to the ER for evaluation of 1 week of productive cough, body aches, chills and generalized fatigue. No known sick contacts. She reports history of asthma in feels like her asthma is acting up. She denies being on any inhalers. She reports tightness in her chest when she coughs along with pain in her chest after she coughs. She has been bringing up clear phlegm. No fevers but she reports frequent chills and aches throughout her whole body. Her joints hurt. No abdominal pain, nausea, vomiting or diarrhea. MD elicited complaint: cough Onset (ago): week(s) (1) Consistency: progressively worsening Severity: moderate Description of mucous: clear and watery Able to tolerate fluids by mouth: Yes Exacerbating factors: nothing Relieving factors: nothing Associated symptoms: chills, myalgias, headache, rhinorrhea, nasal congestion, cough and chest pain Treatments prior to arrival: none Related Data Home Medications ?Medication ?Instructions ?Recorded ?Confirmed nebulizers #1 ea 09/22/20 03/05/24 ciprofloxacin 0.3 %-dexamethasone drp otic (ears) 06/18/24 06/18/24 0.1 % ear drops,suspension ketorolac 0.5 % eye drops (Acular) 1 drp ophthalmic (eye) QID 07/04/24 prednisolone acetate 1 % eye 1 drp ophthalmic (eye) QID 07/04/24 drops,suspension Previous Rx's ?Medication ?Instructions ?Recorded cyclobenzaprine 10 mg tablet 10 mg PO BID PRN muscle pain or 11/05/22 spasm #20 tabs lidocaine HCl 4 % topical cream 1 appl topical BID PRN pain 30 01/25/23 (Aspercreme (lidocaine HCl)) days #120 grams ipratropium bromide 21 mcg (0.03 2 spray intranasal BID 30 days #30 12/07/23 %) nasal spray mL linaclotide 290 mcg capsule 290 mcg PO QAM 30 days #30 caps 02/07/24 (Linzess) pantoprazole 40 mg tablet,delayed 40 mg PO DAILY #90 tabs 02/07/24 release simethicone 180 mg capsule 180 mg PO QID 30 days #120 caps 02/07/24 alendronate 70 mg tablet 70 mg PO QWEEK 90 days #13 tabs 03/15/24 cetirizine 10 mg tablet (All Day 10 mg PO DAILY PRN allergy 06/09/24 Allergy (cetirizine)) symptoms 90 days #90 tabs Hand held shower head #1 ea 08/08/24 Raised toilet seat #1 ea 08/08/24 Shower chair #1 ea 08/08/24 albuterol sulfate 90 mcg/actuation 1 inh inhalation QID PRN shortness 08/16/24 aerosol inhaler of breath or wheezing #6.7 grams azithromycin 250 mg tablet See Rx Instructions PO .COMPLEX #6 08/16/24 (Zithromax Z-Jose) tabs benzonatate 100 mg capsule 100 mg PO TID PRN cough #20 caps 08/16/24 prednisone 20 mg tablet 40 mg (2 x 20 mg) PO DAILY #8 tabs 08/16/24 Allergies Allergy/AdvReac Type Severity Reaction Status Date / Time homatropine [Hydromet] Allergy Intermediate rash Verified 08/16/24 14:22 ketorolac [From TORADOL] Allergy Intermediate N/V Verified 08/16/24 14:22 Sulfa (Sulfonamide Allergy Intermediate RASH Verified 08/16/24 14:22 Antibiotics) [SULFA (SULFONAMIDE ANTIBIOTICS)] sulfacetamide Allergy Intermediate rash Verified 08/16/24 14:22 tramadol [TRAMADOL] Allergy Intermediate N/V, edema Verified 08/16/24 14:22 and vomiting, edema and vomiting tizanidine AdvReac Intermediate blurry Verified 08/16/24 14:22 vision Review of Systems 2 Review of Systems: Yes all other systems are reviewed and are negative PMFSH Past Medical History Medical History Abdominal pain Abdominal pain Rectal bleeding Bilateral hand numbness Physical exam Physical exam Pre-op examination Hospital discharge follow-up Age related osteoporosis Postmenopausal Precordial chest pain Toenail fungus Urine abnormality Hemorrhoids Allergic rhinitis GERD (gastroesophageal reflux disease) Renal cyst Pelvic pain in female Surgical History History of tooth extraction H/O colonoscopy History of esophagogastroduodenoscopy (EGD) History of ear surgery History of tonsillectomy History of tubal ligation Family History Family History Father CVD (cardiovascular disease) Mother No problems noted. Brother Stomach cancer Sister Liver cancer Brother Lung cancer Brother No problems noted. Social History Social History Household Members: None Housing: Apartment Are you a primary md do resident urgent care to a significant other at home: No Unable to assess alcohol history related to: Unknown Alcohol intake: current Alcohol intake frequency: does not drink Alcohol type: beer and wine Patient Tobacco Use Status: Former Tobacco user Tobacco use type: Cigarette e-Cigarette/Vaping Use: Never Used Second Hand Smoke Exposure: No Use of substances other than those prescribed or required for medical reasons: Unknown Advance Directives: Yes Advance Directives on File: Yes Advance Directives Date on File: 03/05/24 service: No Current occupational status: disabled Cognitive needs: No Hearing needs: No Vision needs: No Physical Exam 2 Vital Signs: Vital Signs: Last Vital Signs Temp 98.5 F 08/16/24 14:15 Pulse 74 08/16/24 14:15 Resp 20 08/16/24 14:15 BP 136/53 L 08/16/24 14:15 Pulse Ox 97 08/16/24 14:15 O2 Del Method Room Air 08/16/24 14:15 BMI result Body Mass Index 28.4 Appearance: Alert. Oriented X3. Appears ill Head: normocephalic, atraumatic. Eyes: Pupils equal, round and reactive to light. ENT: Pharynx with moderate posterior erythema, no swelling. Uvula midline. No tonsillar swelling or exudate. Neck: Normal inspection. Neck supple. No lymphadenopathy CVS: Normal heart rate and rhythm. Pulses normal. Respiratory: No respiratory distress. Breath sounds coarse throughout, mildly diminished at the bases, no wheezing or rhonchi Abdomen: Soft and nontender. +BS x4 Skin: Skin warm and dry. Normal skin color. Normal skin turgor. No rashes. Extremities: No lower extremity edema. No joint swelling. Neuro/psych: Oriented X 3. Grossly normal, nonfocal Normal speech and cognition. Course Course Course Narrative: This is a Rapid Medical Exam performed in triage by Chichi Waldron PA-C. Full HPI, ROS and PE to be performed by primary ED provider. 74yo F w/pmhx GERD, fibromyalgia, DDD, presenting to the ED c/o chest pain and lungs hurt, w/myalgia, chills +productive cough of clear phlegm x 6 days. PE: congested, lungs CTA, talking in complete sentences Plan: EKG, labs, CXR, viral testing Medical Decision Making Medical Decision Making MDM Narrative: 74-year-old female presents to the ER for evaluation of 1 week of not feeling well, symptoms include productive cough of clear phlegm, body aches, chills, headache, chest tightness. Vital signs are stable, patient is afebrile and saturating well on room air. Not tachycardic. Chest x-ray, EKG and lab work was initiated from triage. Lab work showing a mild leukopenia. No anemia. EKG without any ischemic changes. Troponin is negative. Doubt any cardiac etiology. Viral studies are negative. Chest x-ray reviewed, no evidence of focal infiltrate or pneumonia. Patient's biggest complaint is the cough and chest congestion. Will treat for acute bronchitis with prednisone, Z-Jose, antitussives and supportive care. Will prescribe albuterol inhaler, she reports she does not have 1 at home. She is stable for discharge home with outpatient follow-up and supportive care. Return precautions were discussed. Patient agrees with plan all questions were answered. Differential Diagnosis Differential Diagnoses: The differential diagnosis associated with the presentation includes Acute asthma exacerbation, bronchitis, pneumonia, COVID, flu, RSV, low clinical suspicion for ACS or PE Admission/Observation Consideration of admission/observation: Escalation of care including admission/observation considered Lab Data [facility] Lab Attestation statement: I reviewed the patient's lab results. As above 08/16/24 15:23 08/16/24 15:23 Labs: Lab Results 08/16/24 Range/Units 15:23 WBC 4.5 L (4.8-10.8) X10*3/uL RBC 4.18 L (4.20-5.50) X10*6/uL Hgb 13.1 (12.0-16.0) g/dl Hct 39.0 (37.0-47.0) % MCV 93.3 (80.0-98.0) fL MCH 31.3 (27.0-33.0) pg MCHC 33.6 (31.0-35.0) g/dl RDW 12.1 (11.0-16.0) % Plt Count 165 (160-400) X10*3/uL MPV 9.8 (9.4-12.3) fL Immature Gran % (Auto) 0.2 (0.0-0.4) % Neut % (Auto) 54.7 (45-73) % Lymph % (Auto) 28.3 (20-40) % [facility] % (Auto) 12.4 H (2-11) % Eos % (Auto) 3.5 (0-4) % Baso % (Auto) 0.9 (0-2) % Lymph # (Auto) 1.3 (1.2-4.9) X10*3/uL [facility] # (Auto) 0.6 (0.1-1.2) X10*3/uL Eos # (Auto) 0.2 (0.0-0.4) X10*3/uL Baso # (Auto) 0.0 (0.0-0.2) X10*3/uL Abs Immat Gran (auto) 0.01 (0.00-0.03) X10*3/uL Absolute Neuts (auto) 2.5 (2.0-8.3) x10*3/uL Absolute Nucleated RBC 0.000 (0.0-0.012) X10*3/uL Nucleated RBC % (auto) 0.0 (0.0-0.2) /100WBC PT 11.3 (10.9-12.4) SEC INR 1.0 (0.9-1.1) Sodium 136 (135-145) mmol/L Potassium 3.8 (3.3-5.1) mmol/L Chloride 105 (96-108) mmol/L Carbon Dioxide 28 (22-29) mmol/L Anion Gap 7 L (12-20) BUN 12 (9-16) mg/dL Creatinine 0.76 (0.5-1.4) mg/dL Estim Creat Clear Calc 70.2 Estimated GFR > 60 Random Glucose 144 H (60-115) mg/dL Calcium 8.2 L D (8.4-10.2) mg/dL Magnesium 2.1 (1.6-2.6) mg/dL Total Bilirubin 0.6 (0.0-1.0) mg/dL Direct Bilirubin 0.2 (0.0-0.5) mg/dL AST 22 (5-31) U/L ALT 13 (0-31) U/L Alkaline Phosphatase 52 (39-117) U/L Troponin I High Sens < 2.7 (<3.5-17.0) ng/L Total Protein 6.6 (6.5-8.0) g/dL Albumin 3.9 (3.5-5.0) g/dL Influenza Type A (PCR) NEGATIVE (Negative) Influenza Type B (PCR) NEGATIVE (Negative) RSV RNA Qual (PCR) NEGATIVE (Negative) SARS-CoV-2 RNA (RT-PCR) NEGATIVE (Negative) Independent Interpretation I performed an independent interpretation of an: EKG and Plain X-Ray Interpretation: Chest x-ray without any focal infiltrate or effusion EKG with normal sinus rhythm, ventricular rate 72 beats per minute, normal [place] interval, normal QTC, no ST segment elevations or depressions. No change from prior EKG done in January Radiology Impression Discussion of test interpretation with radiology: I have reviewed the radiologist's reading. Radiologist Impression: XR/XR chest 2V IMPRESSION: No acute cardiopulmonary disease. Independent Historian Clinical information obtained from an independent historian. History obtained from or confirmed by: Other (Daughter who was at the bedside) External Record Review External record reviewed: Prior outpatient labs and Prior outpatient radiology Prescription Management I considered prescription management with: Pain Medication and Antibiotic Chronic Conditions Patient?s care impacted by: Other (fibromyalgia, asthma) Critical Care Time Critical Care Time Critical Care Time: No Discharge Plan Discharge Clinical Impression: Bronchitis Patient Disposition: Home, Self-Care Instructions: Acute Bronchitis (ED) Additional Instructions: Your chest x-ray did not show any evidence of pneumonia. Your lab work was reassuring. You tested negative for COVID, flu, RSV. You are being treated for bronchitis. Take the medications as directed. Start the prednisone tomorrow, your given the 1st dose today in the ER. Follow-up with your doctor. Rest and drink plenty of fluids. Take [id number] cold and flu medications as needed for your other symptoms. If you develop new or worsening symptoms call 911 or come back to the ER for further evaluation. Prescriptions: New albuterol sulfate 90 mcg/actuation HFA aerosol inhaler 1 inh inhalation QID PRN (Reason: shortness of breath or wheezing) Qty: 6.7 0RF azithromycin [Zithromax Z-Jose] 250 mg tablet See Rx Instructions .ROUTE .COMPLEX Qty: 6 0RF Rx Instructions: take 500 mg today (day 1), then 250 mg for 4 days (days 2-5) benzonatate 100 mg capsule 100 mg PO TID PRN (Reason: cough) Qty: 20 0RF prednisone 20 mg tablet 40 mg PO DAILY Qty: 8 0RF No Action ipratropium bromide 21 mcg (0.03 %) spray,non-aerosol 2 spray intranasal BID 30 Days Qty: 30 6RF Rx Instructions: administer into each nostril alendronate 70 mg tablet 70 mg PO QWEEK 90 Days Qty: 13 1RF cetirizine [All Day Allergy (cetirizine)] 10 mg tablet 10 mg PO DAILY PRN (Reason: allergy symptoms) 90 Days Qty: 90 2RF (DME) Hand held shower head See Rx Instructions .Route .MEDSUPPLY Qty: 1 0RF Rx Instructions: As directed (DME) Raised toilet seat See Rx Instructions .Route .MEDSUPPLY Qty: 1 0RF Rx Instructions: As directed (DME) Shower chair See Rx Instructions .Route .MEDSUPPLY Qty: 1 0RF Rx Instructions: As directed (DME) [place]bulizers [facility] [place] Instructions .ROUTE .MEDSUPPLY Qty: 1 Rx Instructions: As directed lidocaine HCl [Aspercreme (lidocaine HCl)] 4 % cream 1 appl topical BID PRN (Reason: pain) 30 Days Qty: 120 1RF cyclobenzaprine 10 mg tablet 10 mg PO BID PRN (Reason: muscle pain or spasm) Qty: 20 0RF prednisolone acetate 1 % drops,suspension 1 drp ophthalmic (eye) QID ketorolac [Acular] 0.5 % drops 1 drp ophthalmic (eye) QID Linzess 290 mcg capsule 290 mcg PO QAM 30 Days Qty: 30 6RF pantoprazole 40 mg tablet,delayed release (DR/EC) 40 mg PO DAILY Qty: 90 3RF simethicone 180 mg capsule 180 mg PO QID 30 Days Qty: 120 6RF Rx Instructions: after meals ciprofloxacin-dexamethasone 0.3-0.1 % drops,suspension otic (ears) Referrals: Elena Johnston MD [Primary Care Provider] - Print Language: Azeri
[2024-08-16 15:39] LABS: MANUAL DIFF FLAG NO
[2024-08-16 15:43] LABS: Basophils Percent Auto 0.9 % (0-2); Eosinophils Absolute Auto 0.2 X10*3/uL (0.0-0.4); Eosinophils Percent Auto 3.5 % (0-4); Hemoglobin 13.1 g/dl (12.0-16.0); Imm Gran Abs Auto 0.01 X10*3/uL (0.00-0.03); Imm Gran Pct Auto 0.2 % (0.0-0.4); Lymphocytes Absolute Auto 1.3 X10*3/uL (1.2-4.9); Lymphocytes Percent Auto 28.3 % (20-40); Mean Corpuscular HGB Conc 33.6 g/dl (31.0-35.0); Mean Corpuscular Hemoglobin 31.3 pg (27.0-33.0); Mean Corpuscular Volume 93.3 fL (80.0-98.0); Mean Platelet Volume 9.8 fL (9.4-12.3); Monocytes Absolute Auto 0.6 X10*3/uL (0.1-1.2); Monocytes Percent Auto 12.4 % (2-11); Neutrophils Absolute Auto 2.5 x10*3/uL (2.0-8.3); Neutrophils Percent Auto 54.7 % (45-73); Platelet Count 165 X10*3/uL (160-400); Red Blood Count 4.18 X10*6/uL (4.20-5.50); Red Cell Distribution Width 12.1 % (11.0-16.0); White Blood Count 4.5 X10*3/uL (4.8-10.8)
[2024-08-16 15:50] LABS: Prothrombin Time 11.3 SEC (10.9-12.4)
[2024-08-16 16:02] LABS: Alanine Aminotransferase 13 U/L (0-31); Albumin Level 3.9 g/dL (3.5-5.0); Alkaline Phosphatase 52 U/L (39-117); Anion Gap 7 (12-20); Aspartate Amino Transferase 22 U/L (5-31); Bilirubin Direct 0.2 mg/dL (0.0-0.5); Bilirubin Total 0.6 mg/dL (0.0-1.0); Blood Urea Nitrogen 12 mg/dL (9-16); Calcium 8.2 mg/dL (8.4-10.2); Carbon Dioxide 28 mmol/L (22-29); Chloride 105 mmol/L (96-108); Creatinine Clr Calc Pharmacy 70.2; Estimated Glomerular Filt Rate > 60; Glucose Random 144 mg/dL (60-115); Magnesium 2.1 mg/dL (1.6-2.6); Potassium 3.8 mmol/L (3.3-5.1); Sodium 136 mmol/L (135-145); Total Protein 6.6 g/dL (6.5-8.0)
[2024-08-16 16:04] LABS: Troponin-I High Sensitivity < 2.7 ng/L (<3.5-17.0)
[2024-08-16 16:37] LABS: Influenza A PCR NEGATIVE (Negative); Influenza B PCR NEGATIVE (Negative); Resp Syncy Virus RNA Qual PCR NEGATIVE (Negative); SARS COV2 PCR INHOUSE NEGATIVE (Negative)
[2024-08-16] MEDS: Acetaminophen 325 MG TABLET 975 MG PO (17:15)
[2024-08-16] MEDS: guaiFENesin DM 200/20/10 ML 10 ML SYRUP PO (17:16)
[2024-08-16] MEDS: predniSONE 20 MG TABLET 40 MG PO (17:16)
[2024-08-16 17:23] VITALS: BP 136/53; PULSE 74; RESP 20; TEMP 36.9; O2SAT 97
== END 2024-08-16 17:24 | disposition home or self-care (01) ==
PROVIDERS: Physician Assistant; Emergency Provider Emergency Medicine; PCP Internal Medicine
DX: J40 Bronchitis, not specified as acute or chronic (principal); R07.89 Other chest pain; R05.9 Cough, unspecified; M79.10 Myalgia, unspecified site; R53.83 Other fatigue; Z03.818 Encounter for observation for suspected exposure to other biological agents ruled out; Z79.899 Other long term (current) drug therapy
CPT/HCPCS: 0241U; 36415; 71046; 80048; 80076; 83735; 84484; 85025; 85610; 93005; 99283; 99284

== ENCOUNTER → 2024-08-16 13:28 | Outpatient (BNV) | payer OTHER, SELFPAY | PROVIDERS: Emergency Provider Emergency Medicine; PCP Internal Medicine; Visit Provider Internal Medicine Cardiovascular Disease | DX: R07.9 Chest pain, unspecified (principal) | CPT/HCPCS: 93010 ==

== ENCOUNTER → 2024-08-27 10:00 | Outpatient (REF) | payer OTHER, SELFPAY ==
--- NOTE | ~2024-08-27 | NM_ITS ---
EXERCISE MYOCARDIAL PERFUSION STUDY INDICATION: Precordial chest pain to evaluate for myocardial ischemia TECHNIQUE: The patient was brought in for an exercise perfusion study on 08/27/2024. Patient performed exercise as per Mark protocol and was injected 25 mCi of sestamibi once target heart rate was achieved. Images were obtained using the SPECT gamma camera interlaced with the gating device. Images were obtained in supine position. Resting perfusion study was performed on 08/28/2024. Patient was administered 25 mCi of sestamibi intravenously at rest. Images were then obtained in supine position. Images obtained without without CT attenuation. Total DLP 104 mGy-cm. Images were processed with the software and compared side to side in short axis, horizontal long axis and vertical long axis views. FINDINGS: Raw images were reviewed The stress perfusion study showed nonattenuated images show minimally reduced uptake in the distal anterolateral wall of the LV myocardium. Remainder of the LV myocardium is normally perfused. Attenuated corrected images show minimal thinning of the distal anterior and apical wall of the LV myocardium. The gated study shows normal LV systolic function with calculated LVEF of 74%. LV cavity is normal in size. The gated study shows normal systolic wall thickening and contraction of segments. Resting study shows no significant change in perfusion pattern compared to stress perfusion study. Gating at rest reveals normal systolic wall motion with ejection fraction at 71%. The findings are consistent with no clear reversible defect suggestive of ischemia. Likely normal myocardial perfusion. NM/NM cardiolite stress test IMPRESSION: 1. Myocardial perfusion imaging study shows likely normal myocardial perfusion. 2. Gated LVEF is 71%. 3. Transient ischemic dilatation not present. EKG revealed negative for ischemia. Electronically signed by: Yahir Carter MD 08/28/2024 03:51 PM [facility] [place]
--- NOTE | 2024-08-27 10:03 | CA_ITS ---
Acquisition Time: 2024-08-27 10:16:16 Total Exercise Time: 00:05:03 Test Indications: chest pain sob Medications: SEE H Protocol: SEBASTIAN Max HR: 146 BPM 99% of Pred: 147 BPM Max BP: 178/048 mmHG Max Work Load: 7.0 METS Exercise Stress Test with exercise 5 mins 3 secs of sebastian Protocol, achieving 99% MPHR, with moderate shortness of breath and 4/10 upper chest discomfort that quickly in recovery, without any arrythmias, with normotensive response to exercise. Without EKG changes meeting criteria for ischemia. Nuclear images pending. Breathing back to baseline in recovery. Test reviewed with Dr. Triana. Referred By: Miguel Triana Overread By: STEFANI ABREU
== END ==
LOC: HO.CARD 10:00
PROVIDERS: PCP Internal Medicine; Visit Provider Internal Medicine
DX: R07.2 Precordial pain (principal)
CPT/HCPCS: 78452; 93017; A9500

== ENCOUNTER → 2024-08-27 10:03 | Outpatient (BNV) | payer OTHER, SELFPAY | PROVIDERS: PCP Internal Medicine; Visit Provider Nurse Practitioner Family | DX: R06.02 Shortness of breath (principal); R07.9 Chest pain, unspecified | CPT/HCPCS: 78452; 93016; 93018 ==

== ENCOUNTER 2024-12-25 09:51 | Outpatient (REF) | payer OTHER, SELFPAY ==
[2024-12-30 05:33] LABS: N-Telopeptide 26 (see note); NTXCreaRU 67 mg/dL (20-275)
== END 2024-12-25 09:52 | disposition home or self-care (01) ==
LOC: HO.10HDLNP 09:51
PROVIDERS: Visit Provider Internal Medicine Endocrinology, Diabetes & Metabolism
DX: M81.0 Age-related osteoporosis without current pathological fracture (principal)
CPT/HCPCS: 82523

== ENCOUNTER 2025-01-01 11:15 | Outpatient (AMB) | payer OTHER, SELFPAY ==
--- NOTE | 2025-01-01 11:21 | A.OFFPC_ITS ---
Vital Signs 01/01/25 11:22 Height 5 ft 6 in Weight 178 lb BMI 28.7 BP 104/56 L Blood Pressure Location Lt brachial Position Sitting Respiration 16 Pulse 58 Pulse Source Pulse Oximeter Temp 97.3 F Temp Source Temporal Artery Scan Pulse Oximetry (%) 98 Oxygen Delivery Method Room Air Intake Visit Reasons: left arm pain Bridge Maintainer Required: Yes Bridge Maintainer Language: Pipe Testing Technician Name: Used tablet- José Manuel [id number] Accompanied by: Daughter Allergies homatropine [Hydromet] Allergy (Intermediate, Verified 01/01/25 11:28) rash ketorolac [From TORADOL] Allergy (Intermediate, Verified 01/01/25 11:28) N/V Sulfa (Sulfonamide Antibiotics) [SULFA (SULFONAMIDE ANTIBIOTICS)] Allergy (Intermediate, Verified 01/01/25 11:28) RASH sulfacetamide Allergy (Intermediate, Verified 01/01/25 11:28) rash tramadol [TRAMADOL] Allergy (Intermediate, Verified 01/01/25 11:28) N/V, edema and vomiting, edema and vomiting tizanidine Adverse Reaction (Intermediate, Verified 01/01/25 11:28) blurry vision Medication List - Last Reconciled 01/01/25 by Nayla Cruz PA-C albuterol sulfate 90 mcg/actuation 1 inh inhalation QID PRN cetirizine (All Day Allergy (cetirizine)) 10 mg PO DAILY PRN 90 days cyclobenzaprine 10 mg PO BID PRN [Hand held shower head As directed] ipratropium bromide 2 sprays intranasal BID 30 days latanoprost 0.005% drps ophthalmic (eye) linaclotide (Linzess) 290 mcg PO QAM 30 days nebulizers As directed pantoprazole 40 mg PO DAILY [Raised toilet seat As directed] [Shower chair As directed] Tobacco use date assessed: 01/01/25 Fall risk assessment: No Falls in past year Last assessed Fall Risk: 01/01/25 Dental Screening Dental Screen Date: 01/01/25 Did you have a dental visit in the last 12 months?: Yes Did you have a dental problem in the last 6 months where you did not have access to dental care?: No Was dental information given to patient?: Patient has dentist HPI left arm pain HPI Details 74-year-old female with past medical his tory of GERD, polyarthralgia, osteoporosis, constipation, degenerative disc disease, venous insufficiency and fibromyalgia last seen by Dr. Dela Cruz 03/2024 coming in for acute problem. patient relations director (José Manuel [id number]) used for the duration of the visit. Presenting with left shoulder pain and discomfort as well as left knee pain. Symptoms started approximately three months ago, beginning gradually without inciting event or injury. Pain is consistent throughout the day, increasingly severe, rated at 10/10 at times, and affects daily activities. Discomfort and pain extend to the neck, back, and radiate down the arm. She will occasionally have a sharp, burning, shooting pain that radiates from the neck down to the elbow. Additionally, the patient reports urinary frequency without current burning sensations. Left knee pain has also been going on for the last several months and worsening. [facility] Medical History Abdominal pain Abdominal pain Rectal bleeding Bilateral hand numbness Physical exam Physical exam Pre-op examination Hospital discharge follow-up Age related osteoporosis Postmenopausal Precordial chest pain Toenail fungus Urine abnormality Hemorrhoids Allergic rhinitis GERD (gastroesophageal reflux disease) Renal cyst Pelvic pain in female Surgical History History of tooth extraction H/O colonoscopy History of esophagogastroduodenoscopy (EGD) History of ear surgery History of tonsillectomy History of tubal ligation Family History Father CVD (cardiovascular disease) Mother No problems noted. Brother Stomach cancer Sister Liver cancer Brother Lung cancer Brother No problems noted. Social History Household Members: None Housing: Apartment Are you a primary child daycare worker to a significant other at home: No Unable to assess alcohol history related to: Unknown Alcohol intake: current Alcohol intake frequency: does not drink Alcohol type: beer and wine Patient Tobacco Use Status: Former Tobacco user Tobacco use type: Cigarette e-Cigarette/Vaping Use: Never Used Second Hand Smoke Exposure: No Advance Directives Date on File: 03/05/24 service: No Current occupational status: disabled Cognitive needs: No Hearing needs: No Vision needs: No Questionnaire Thrive Questionnaire Date Thrive assessed: 01/01/25 I am a: Parent/Caregiver What is your living situation today?: I have a steady place to live Within the past 12 months, did the food you bought not last and you didn't have the money to get more?: Never true Within the past 12 months, did you worry whether your food would run out before you got money to buy more?: Never true Do you have trouble paying for medicines?: No Do you have trouble getting transportation to medical appointments?: No Do you have trouble paying your heating and electricity bill?: No Do you have trouble taking care of your child, family member or friend?: No Do you have trouble with day-to-day activities such as bathing, preparing meals, shopping, managing finances, etc.?: No Are you currently unemployed and looking for a job?: No Are you interested in more education?: No Please select the resources that you would like help with: None Currently or been in a relationship where the following occur: No concerns reported THRIVE Score: 0 AUDIT C Alcohol Use Questionnaire (AUDIT-C) 1. How often do you have a drink containing alcohol?: Monthly or less 2. How many drinks containing alcohol do you have on a typical day when you are drinking?: 1 or 2 3. How often do you have six or more drinks on one occasion?: Never Total Score: 1 JOSELIN-7 AMB Questionnaire JOSELIN-7 Date JOSELIN - 7 assessed: 02/07/24 Source: Developed by Drs. Ward Goldman, Christine Pantoja, Desmond Thompson and colleagues, with an educational daniel from [employer]. Review of Systems Const Denies body aches, Denies chills, Denies fever(s), Denies headache(s) and Denies poor appetite Eyes Reports no additional complaints ENT Denies dysphagia, Denies dizziness, Denies headache(s) and Denies odynophagia Card Denies chest pain, Denies syncope, Denies edema, Denies irregular heart rhythm, Denies lightheadedness and Denies dyspnea Resp Denies cough and Denies dyspnea GI Denies abdominal pain, Denies constipation, Denies dysphagia, Denies diarrhea, Denies nausea, Denies odynophagia and Denies vomiting Reports no additional complaints Musc Reports no additional complaints and Denies abnormal gait Skin/Breast Reports system reviewed and no additional complaints, except as documented Neuro Denies abnormal gait, Denies dizziness, Denies syncope and Denies headache(s) Psych Reports no additional complaints Physical exam (Primary Care) Vital Signs: Last Vital Signs Temp 97.3 F 01/01/25 11:22 Pulse 58 01/01/25 11:22 Resp 16 01/01/25 11:22 BP 104/56 L 01/01/25 11:22 Pulse Ox 98 01/01/25 11:22 Oxygen Delivery Method Room Air 01/01/25 11:22 BMI result Body Mass Index 28.7 Tobacco/Smoking Status: Tobacco use Status Tobacco use date assessed 01/01/25 01/01/25 11:40 Patient Tobacco Use Status Former Tobacco user 01/01/25 11:25 Tobacco use type Cigarette 01/01/25 11:25 e-Cigarette/Vaping Use Never Used 01/01/25 11:25 Thrive Assessment: Date of Thrive Assessment Date Thrive assessed 01/01/25 01/01/25 11:40 Currently or been in a relationship where the following occur: No concerns reported Const General: cooperative, healthy appearing, comfortable and no acute distress Orientation/consciousness: patient oriented x3 HENMT Head: Yes normocephalic Ears: hearing grossly normal bilaterally General nose exam: Normal external nose present Eyes General: appearance normal, both eyes and all related structures Conjunctivae: conjunctivae normal Neck Neck: Yes full ROM and Yes no lymphadenopathy Resp Effort & Inspection: normal respiratory effort Auscultation: clear to auscultation bilaterally, no crackles, no rales, no rhonchi and no wheezes Cardio Rate: regular rate Rhythm: regular rhythm Back/Spine/Pelvis Other: No tenderness to palpation over entirety of the spine or paraspinal muscles. No tenderness to palpation of bilateral hips Skin General skin exam: no rashes or lesions noted Neuro Other: Intact strength and sensation in bilateral upper extremities General: patient oriented x3 Gait exam (Neuro): Normal gait present Extrem Other: Pain with extension and internal rotation of left shoulder. Pain to palpation over anterior aspect of left shoulder and left bicep. Tenderness to palpation over lateral joint line of left knee with intact strength and sensation General: Yes normal to inspection, Yes full ROM and No edema Psych Affect: normal affect Attitude: cooperative Insight: Good insight present (Psych) Judgement: Good judgement present (Psych) Results AMB Urinalysis, Automated UA Leukoctes 0 Ankit/uL Last Edit by Amada Milton, PAM on 01/01/25 12:17 UA Nitrite Negative Last Edit by Amada Milton, OPEN HEARTH HELPER on 01/01/25 12:17 UA Urobilinogen 0.2 mg/dL Last Edit by Amada Milton, OPEN HEARTH HELPER on 01/01/25 12:17 UA Protein 0 mg/dL Last Edit by Amada Milton, OPEN HEARTH HELPER on 01/01/25 12:17 UA pH 5.5 Last Edit by Amada Milton, OPEN HEARTH HELPER on 01/01/25 12:17 UA Blood 10 Jean/uL Last Edit by Amada Milton, OPEN HEARTH HELPER on 01/01/25 12:17 UA Specific Eckley 1.030 Last Edit by Amada Milton, OPEN HEARTH HELPER on 01/01/25 12:17 UA Ketone Negative Last Edit by Amada Milton, OPEN HEARTH HELPER on 01/01/25 12:17 UA Bilirubin 0 mg/dL Last Edit by Amada Milton, OPEN HEARTH HELPER on 01/01/25 12:17 UA Glucose 0 mg/dL Last Edit by Amada Milton, OPEN HEARTH HELPER on 01/01/25 12:17 Coding Level of Care Code Est Pt Level 3 (94583) Diagnoses Left knee pain M25.562 Left shoulder pain M25.512 Left arm numbness R20.0 Urinary frequency R35.0 Assessment & Plan Assessment & Plan (1) Left knee pain: Code(s): M25.562 - Pain in left knee Category: Medical Plan: Plan to order for left knee x-ray for further evaluation. Advised patient to use Tylenol and ibuprofen as needed for pain. (2) Left shoulder pain: Code(s): M25.512 - Pain in left shoulder Category: Medical Plan: Advised patient to use Tylenol ibuprofen as needed for pain. May also use [id number] Voltaren gel. Ordered for x-ray for further evaluation. (3) Left arm numbness: Code(s): R20.0 - Anesthesia of skin Category: Medical Plan: Patient complaining of numbness and shooting pain of the left arm plan to order for EMG for further evaluation (4) Urinary frequency: Code(s): R35.0 - Frequency of micturition Category: Medical Plan: Patient is not reporting symptoms of UTI . Urinalysis in the office today negative advised patient to continue to monitor symptoms at this time. Reviewed red flag symptoms and when to present for re-evaluation Plan Imaging studies will proceed with an X-ray of the left shoulder to investigate potential fractures, arthritis, or rotator cuff issues, while also evaluating the knee. Nerve conduction tests are advised to assess for nerve impingement due to the reported symptoms. Given her osteoporosis, continuous monitoring is important, although current medication alendronate) is halted. Urinary frequency concerns warrant a urinalysis to exclude infection. This note was constructed using voice recognition software. While every effort has been made to ensure accuracy and world travel counselor, still areas may have been included sometimes these areas may affect the content or meeting of the given symptoms. Total time spent caring for the patient today was 20 minutes. This includes time spent before the visit reviewing the chart, time spent during the visit, and time spent after the visit and documentation. Patient was informed and verbally consented to the use of an ambient scribe for clinic note documentation during this visit. Orders: Orders XR shoulder LT min 2V Today M25.512 - Pain in left shoulder NE electromyogram (EMG) Today R20.0 - Anesthesia of skin XR knee LT 2V Today M25.562 - Pain in left knee AMB Urinalysis Automated Today Z13.9 - Encounter for screening, unspecified
[2025-01-01 11:22] VITALS: BP 104/56; PULSE 58; RESP 16; TEMP 36.3; O2SAT 98; BMI 28.7
--- OUTSIDE RECORDS SUMMARY | 2025-01-01 13:35 | XMS_ITS | Data Portability ---
Author Organization [place] - [facility], Allergy Address [address] [address] Care Team Providers Care Nougat Cutter Machine Name Role Phone WAN BRAMBILA Primary Care Provider [phone] Assessment No assessment recorded. Plan of Treatment Reminders Order Date Submit Date Provider Last Modified By Organization Details Last Modified Time Details Appointments None recorde d. Lab None recorde d. Referral None recorde d. Procedures None recorde d. Surgeries None recorde d. Imaging polysom nogram, diagnos tic, 6 yrs or older 025 12/26/19 25 [facility] Sleep Medicine Services, [address] [place] [address], [address], 5 09:20:42 Medication Orders None recorde d. Patient TargetsNo targets recorded. Patient InstructionsNo instructions recorded. Reason for Referral None Reported. Problems Name Problem SNOMED Code Status Onset Date Resolution Date Notes Provider Name and Address Organization Details Recorded Time Gastroeso phageal reflux disease without esophagit is 972316457 Active 2018 Gastro-es ophageal reflux disease without esophagit is; Note: Date Diagnosed : 01/03/2019 11:01 AM (K21.9) Not Available [facility] 4 03:27:11 Chronic rhinitis 53063592 Active 2018 Chronic rhinitis; Note: Date Diagnosed : 01/03/2019 11:01 AM (J31.0) Not Available [facility] 4 03:27:11 Posterior rhinorrhe a 97481271 Active 2018 Postnasal drip; Note: Date Diagnosed : 01/03/2019 11:01 AM (R09.82) Not Available [facility] 4 03:27:11 Central perforati on of left tympanic membrane 32537215401 84278 Active 2024 KALYAN MELO MD [address] [facility] [place] [address], [place], [place], [address] , [facility] - [facility] 5 09:13:10 Dysphagia 10305966 Active 2024 KALYAN MELO MD [address] [facility] [place] [address], [place], [address] , [facility] - [facility] 5 09:13:23 Feeling of lump in throat 112037786 Active 2024 KALYAN MELO MD [address] [facility] [place] [address], [place], [address] , [facility] - [facility] [place] 5 09:13:28 Obstructi ve sleep apnea syndrome 17753764 Active 2024 KALYAN MELO MD [address] [place] [address],[place] [address], [place], [place], [address] , [facility] - [facility] 5 09:13:32 Problem Notes None recorded. Procedures Surgical History Date Name Laterality Status Provider Name and Address Organization Details Recorded Time 12/25/2024 FFL_RE completed KALYAN MELO MD [address] [facility] [place] [address], [place], [address], [facility] - [facility] 12/25/2024 09:02:57 Imaging Results None recorded. Procedure Notes None recorded. Medical Equipment None Reported. Allergies Allergen ID Allergen Name Allergen Category Reaction Reaction Severity Criticality Documentation Date Start Date Code Code System Note Provider Name and Address Organization Details Recorded Time 771685 tramadol Not available other Not available Not available 02/14/2024 15038 RxNorm React ion: unkno wn, unspe cifie d;; Not Available [facility] 4 01:25:04 691009 Substance with sulfonami de structure and antibacte rial mechanism of action (substanc e) medicatio n other Not available Not available 02/14/2024 89624 8003 SNOMED React ion: unkno wn, unspe cifie d;; Not Available [facility] 4 01:25:05 Medications Name Sig Start Date Stop Date Status Note LastModified by Organization Details LastModified Time cyclobenza angela 10 mg tablet 2018 active Medicatio n ID: [id number] Du ration Value: 30 Brand Name: destiny payne Se nd Method: E-Prescri bed Subs Allowed: subs OK Medica tionGener icName: cyclobenz aprine Not Available Not Available Not Available latanopros t 0.005 % eye drops INSTILL 1 DROP IN RIGHT EYE AT BEDTIME active Not Available Not Available No t Available cetirizine 10 mg tablet TAKE 1 TABLET BY MOUTH NEEDED FOR ALLERGY active Not Available Not Available No t Available azithromyc in 250 mg tablet TAKE 2 TABLETS BY MOUTH ON DAY 1 THEN TAKE 1 TABLET BY MOUTH EVERY DAY FOR 4 DAYS active Not Available Not Available No t Available simethicon e 180 mg capsule TAKE 1 CAPSULE BY MOUTH FOUR TIMES A DAY AFTER MEALS active Not Available Not Available No t Available ranitidine 300 mg tablet 2018 active Medicatio n ID: [id number] Du ration Value: 30 Brand Name: ranitidin e HCl Send Method: E-Prescri bed Subs Allowed: subs OK [facility] icName: ranitidin e HCl Not Available Not Available Not Available prednisone 20 mg tablet TAKE 2 TABLETS BY MOUTH DAILY active Not Available Not Available No t Available alendronat e 70 mg tablet TAKE 1 TABLET BY MOUTH EVERY WEEK active Not Available Not Available No t Available Milk of Magnesia 400 mg/5 mL oral suspension 2018 active Medicatio n ID: [id number] Du ration Value: 36 Brand Name: Milk of Magnesia Send Method: E-Prescri bed Subs Allowed: subs [place] [facility] ic[facility]: Milk of Magnesia Not Available Not Available Not Available ciprofloxa alla 500 mg tablet TAKE 1 TABLET BY MOUTH TWICE DAILY active Not Available Not Available No t Available amoxicilli n 500 mg tablet TAKE 1 TABLET BY MOUTH TWICE DAILY FOR 7 DAYS active Not Available Not Available No t Available prednisolo ne acetate 1 % eye drops,susp ension SHAKE LIQUID AND INSTILL 1 DROP IN LEFT EYE FOUR TIMES DAILY UNTIL SEEN active Not Available Not Available No t Available dicyclomin e 20 mg tablet TAKE 1 TABLET BY MOUTH FOUR TIMES DAILY active Not Available Not Available No t Available benzonatat e 100 mg capsule TAKE 1 CAPSULE BY MOUTH THREE TIMES DAILY NEEDED FOR COUGH active Not Available Not Available No t Available pantoprazo le 40 mg tablet,del ayed release TAKE 1 TABLET BY MOUTH DAILY active Not Available Not Available No t Available albuterol sulfate HFA 90 mcg/actuat ion aerosol inhaler INHALE 1 PUFF BY MOUTH FOUR TIMES DAILY NEEDED FOR SHORTNESS OF BREATH OR WHEEZING active Not Available Not Available No t Available timolol maleate 0.5 % eye drops INSTILL 1 DROP IN BOTH EYES EVERY MORNING active Not Available Not Available No t Available fluticason e propionate 50 mcg/actuat ion nasal spray,susp ension 2018 active Medicatio n ID: [id number] Du ration Value: 60 Brand Name: fluticaso ne propionat e Send Method: E-Prescri bed Subs Allowed: subs OK Medica tionGener icName: fluticaso ne propionat e Not Available Not Available Not Available ipratropiu m bromide 21 mcg (0.03 %) nasal spray Inhale 2 spray into both nostrils three times a day as directed 2018 active Medicatio n ID: [id number] Pr escribed By Name: Marcelo thompson M.D. Bran d Name: ipratropi um bromide S end Method: E-Prescri bed Subs Allowed: subs OK Medica tionGener icName: ipratropi um bromide Not Available Not Available Not Available Myrbetriq 50 mg tablet,ext ended release 2018 active Medicatio n ID: [id number] Du ration Value: 30 Brand Name: Myrbetriq Send Method: E-Prescri bed Subs Allowed: subs OK Medica tionGener icName: Myrbetriq Not Available Not Available Not Available Linzess 145 mcg capsule 2018 active Medicatio n ID: [id number] Du ration Value: 30 Brand Name: Linzess S end Method: E-Prescri bed Subs Allowed: subs OK Medica tionGener icName: Linzess Not Available Not Available Not Available Linzess 290 mcg capsule TAKE 1 CAPSULE BY MOUTH EVERY MORNING active Not Available Not Available No t Available Procto-Med HC 2.5 % topical cream perineal applicator APPLY RECTALLY TWICE DAILY FOR HEMORRHOI DS active Not Available Not Available No t Available Vitals Date Recorded Body height Body mass index (BMI) Body weight Provider Name and Address Organization Details Last Updated DateTime 12/25/2024 162.56 cm 30.7 kg/m2 40232.03 g Arcelia [place] [facility] 12/25/2024 09:00:53 Social History None recorded. Functional Status None recorded. Mental Status None recorded. Family History Nothing Reported. Medical History No medical history recorded. Gynecological HistoryNo gynecological history recorded. Obstetrics History GPAL:G 0 P 0 0 0 0 Past Encounters Encounter ID Performer Location Encounter Start Date Encounter Closed Date Diagnosis/Indication Diagnosis SNOMED-CT Code Diagnosis ICD10 Code Diagnosis Note [id number] KALYAN MELO MD [facility] [address] [address] 12/25/2024 08:35:25 12/25/2024 09:20:14 Central perforation of left tympanic membrane [id number] 852368 H72.02 Dry and safe. We will plan on audiogram at follow-up. Dysphagia 78981918 R13.1 0 No obstructiv e lesions. Dysphagia seems mild and we will defer swallow study for now. Obstructiv e sleep apnea syndrome 21527650 G47.33 She may have TK based on her descriptio n of apnea while sleeping I will order a polysomnog ayush with follow-up to review. Health Concerns Section Related Observation LastModified by Organization Detai ls LastModified Time None Recorded Concern Status LastModified by Organization Details LastModified Time None Recorded Advance Directives Directive None Recorded Payers Encounter Date Sequence Insurance Name Policy Number Policy Villela Covered Member ID Villela Member ID Guarantor Name 12/25/2024 1 [facility] - DOS ON OR AFTER 2023 - MEDICARE [place]VANTAGE [place] REPLACEMENT/ADV ANTAGE - PPO) Breanna Floyd [id number] Breanna Floyd Notes Date Note Type Note Provider Name and Address Organization Details Recorded Time 12/25/2024 text/html She reports she chokes often in her sleep. Her throat feels tight and it is as if she is choking. Her mouth is dry. She is unsure if she mouth breathes at night. She has woken up unable to breathe a few times. She has some choking when she eats as well. She reports some SOB during the day as well. She has not had a sleep study. She endorses acid reflux and takes pantoprazole for this. KALYAN MELO MD [address] [place] [address], [place], [address], [facility] - [facility] 12/25/2024 09:14:45 OBGyn Episode No OBEpisode recorded.
--- OUTSIDE RECORDS SUMMARY | 2025-01-01 13:35 | XMS_ITS | Clinical Summary ---
Author Organization [facility] Address [address] [place] [address] Care Team Providers Care Forensic Manager Name Role Phone Unavailable Primary Care Provider Unavailabl e Source Comments PLEASE NOTE, if this patient is a minor, it may be UNLAWFUL to discuss sensitive information that is contained in these records (such as FAMILY PLANNING, MENTAL HEALTH or SUBSTANCE ABUSE) with the minor patient's parent or other person without the patient's specific authorization.[facility] Medications No known medications Active Problems No known active problems Social History Tobacco Use Types Packs/Day Years Used Date Smoking Tobacco: Never Smokeless Tobacco: Never Tobacco Cessation:Counseling Given: Not Answered Social Connections Answer Date Recorded Connectedness 0 06/14/2024 Financial Resource Strain Answer Date R ecorded Financial Resource Strain 0 2021 Stress Answer Date Recorded Stress 0 06/28/2022 Physical Activity Answer Date Recorded Physical Activity 0 06/28/2022 Food Insecurity Answer Date Recorded Food 0 06/28/2024 Transportation Needs Answer Date Record ed Transportation 0 06/28/2022 Housing Stability Answer Date Recorded Housing 0 06/28/2022 Safety and Environment Answer Date Marcos rded Safety 0 06/28/2022 Utilities Answer Date Recorded Utilities 0 06/28/2022 Employment Answer Date Recorded Stress 0 06/14/2024 Comments Unknown Sex and Gender Information Value Date Recorded Sex Assigned at Female 06/28/2022 7:57 AM PDT Legal Sex Female 11:18 AM PST Gender Identity Female 06/28/2022 7:57 AM PDT Sexual Orientation Straight 06/28/2022 7: 57 AM PDT Last Filed Vital Signs Vital Sign Reading Time Taken Comments Blood Pressure 127/60 08/01/2024 2:07 PM EDT Pulse 61 08/24/2023 1:00 PM EST Temperature - - Respiratory Rate - - Oxygen Saturation - - Inhaled Oxygen Concentration - - Weight - - Height - - Body Mass Index - - Plan of Treatment Health Maintenance Due Date Last Done Comments Dental FMX/Pano 1950 Hepatitis C Screening 1950 Lipid Screening 1950 Medicare Annual Wellness Visit 1969 Imm-DTaP/Tdap/Td (1 - Tdap) 1970 Breast Cancer Screening (Mammogram) 1991 CT Colonography 1996 Colonoscopy 1996 Colorectal Cancer Screening 1996 FIT/gFOBT 1996 Fecal DNA 1996 Flexible Sigmoidoscopy 1996 Imm-Pneumococcal 65+ (1 of 1 - PCV) 2001 Imm-Zoster, Recombinant (1 of 2) 2001 Bone Density Screening 2016 Falls Prevention 2016 [id number] ( - season) 2024 Imm-Influenza (#1) 2024 Alcohol and Drug Screen 10/03/2024 Depression Annual Screen 10/03/2024 Dental Perio Charting 12/21/2024 12/20/2023, 022 Tobacco Screening 06/27/2025 06/27/2024 Dental BW 06/29/2025 06/27/2024, 12/01, 06/14/2023, Additional history exists Dental Examination 06/29/2025 06/27/2024, 0 12/20/2023, 06/14/2023, Additional history exists Dental Prophy 06/29/2025 06/27/2024, 0306/2024, 06/14/2023, Additional history exists Hypertension Screening (#1) 08/01/2025 Procedures Procedure Name Priority Date/Time Associated Diagnosis Comments BITEWINGS - FOUR RADIOGRAPHIC IMAGES Routine 06/27/2024 1:00 PM EDT Encounter for dental examination and cleaning with abnormal findings PROPHYLAXIS - ADULT Routine 06/27/2024 1 :00 PM EDT Encounter for dental examination and cleaning with abnormal findings PERIODIC ORAL EVALUATION ESTABLISHED PATIENT Routine 06/27/2024 1:00 PM EDT Encounter for dental examination and cleaning with abnormal findings COMP PERIODONTAL EVALUATION - NEW/EST PATIENT Routine 12/20/2023 3:40 PM EDT Encounter for dental examination from Last 3 Months or Most Recently Relevant to Health Maintenance Insurance [facility] Member Subscriber Plan / Payer (Ef fective 2021-Present) Name:Breanna Catherine Relation to Subscriber:Self Name:Breanna Catherine Payer ID:[id number] Group ID:Not on file Type:Medicare Address: [place] [id number]
== END 2025-01-01 12:23 | disposition home or self-care (01) ==
LOC: HO.HMCH 11:15
PROVIDERS: PCP Internal Medicine
DX: M25.562 Pain in left knee (principal); M25.512 Pain in left shoulder; R20.0 Anesthesia of skin; R35.0 Frequency of micturition; Z13.9 Encounter for screening, unspecified

== ENCOUNTER 2025-01-01 11:15 | Outpatient (REF) | payer OTHER, SELFPAY ==
--- NOTE | ~2025-01-01 | XR_ITS ---
CLINICAL HISTORY: M25.562 - Pain in left knee 2 view left knee Comparison: None Findings: No fractures or dislocations. Mild to moderate degenerative narrowing of the medial tibiofemoral compartment. No joint effusion. No radiopaque foreign body. IMPRESSION: Mild to moderate degenerative narrowing of the medial tibiofemoral compartment. This document has been electronically signed by: Lamar Leo MD on 01/03/2025 06:32:47
--- NOTE | ~2025-01-01 | XR_ITS ---
CLINICAL HISTORY: M25.512 - Pain in left shoulder 3 view left shoulder Comparison: None Findings: No acute fracture. Mild step-off of the inferior articular surface of the AC joint due to age-indeterminate subluxation. Correlate clinically. Mild AC joint osteoarthritis. No erosions. No radiopaque foreign body. IMPRESSION: Mild step-off of the inferior articular surface of the AC joint due to age-indeterminate subluxation. Correlate clinically. This document has been electronically signed by: Lamar Leo MD on 01/03/2025 06:32:07
--- OUTSIDE RECORDS SUMMARY | 2025-01-01 14:33 | XMS_ITS | Clinical Summary ---
Author Organization [facility] Address [address] [place] [address] Care Team Providers Care Contract Clerk Automobile Name Role Phone Unavailable Primary Care Provider [...] Bone Density Screening 2016 Falls Prevention 2016 Icu-[id number]-[id number] ( - season) 2024 Imm-Influenza (#1) 2024 [...] to Health Maintenance Insurance [facility] - DENTAL Member Subscriber Plan / Payer (Ef fective 2021-Present) Name:Breanna Catherine Relation to Subscriber:Self Name:Breanna Catherine Payer ID:[id number] Group ID:Not on file Type:Medicare Address: [place] [id number]
== END 2025-01-01 11:16 | disposition home or self-care (01) ==
LOC: HO.XRAY 11:15
PROVIDERS: PCP Internal Medicine
DX: M25.512 Pain in left shoulder (principal); M25.562 Pain in left knee; R20.0 Anesthesia of skin; R35.0 Frequency of micturition
CPT/HCPCS: 73030; 73560; 81003; 99212

== ENCOUNTER → 2025-01-01 12:22 | Outpatient (BNV) | payer OTHER, SELFPAY | PROVIDERS: PCP Internal Medicine; Visit Provider Radiology Diagnostic Radiology | DX: M25.512 Pain in left shoulder (principal); M17.12 Unilateral primary osteoarthritis, left knee | CPT/HCPCS: 73030; 73560 ==

== ENCOUNTER → 2025-01-02 13:03 | Outpatient (BNVA) | payer OTHER, SELFPAY | PROVIDERS: PCP Internal Medicine; Visit Provider Internal Medicine Endocrinology, Diabetes & Metabolism ==

== ENCOUNTER 2025-01-22 10:22 | Outpatient (REF) | payer OTHER, SELFPAY ==
--- NOTE | 2025-01-22 10:28 | EMG_ITS ---
PROCEDURE: Left median and ulnar motor and sensory studies were performed. Radial sensory and median and lateral antecubital brachial sensory studies were performed and paraspinal muscles were tested with a needle. IMPRESSION: Mild left median neuropathy across carpal tunnel. MD KYLEIGH Walters/GIAN / [id number]
--- OUTSIDE RECORDS SUMMARY | 2025-01-22 11:59 | XMS_ITS | Clinical Summary ---
Author Organization [facility] Address [address] [place] [address] Care Team Providers Care Parcel Post Clerk Name Role Phone Unavailable Primary Care Provider [...] Bone Density Screening 2016 Falls Prevention 2016 [id number] ( - season) 2024 Imm-Influenza (#1) 2024 [...] Most Recently Relevant to Health Maintenance Insurance [facility] - [facility] Member Subscriber Plan / Payer (Ef fective 2021-Present) Name:Breanna Catherine Relation to Subscriber:Self Name:Breanna Catherine Payer ID:[id number] Group ID:Not on file Type:Medicare Address: [place] [id number]
--- OUTSIDE RECORDS SUMMARY | 2025-01-22 11:59 | XMS_ITS | Encounter Summary ---
Author Organization [employer] [facility] Address [address] [place] [address] Care Team Providers Care Windows Deployment Technician Name Role Phone Elena Cedillo MD Primary Care Provider Moo davis Encounter Details Date Type Department Care Team Description 06/08/2022 Citrix Administrator Report Medical Records [address] [place] [address] Pawan Martin MD Social History Tobacco Use Types Packs/Day Years Used Date Smoking Tobacco: Never Smokeless Tobacco: Never Alcohol Use Standard Drinks/Week Comments Yes 0 (1 standard drink = 0.6 oz pur e alcohol) rare Sex Assigned at Date Recorded Not on file Job Start Date Occupation Industry Not on file Not on file Not on file documented as of this encounter Plan of Treatment Not on file documented as of this encounter Visit Diagnoses Not on filedocumented in this encounter Care Teams Windows Deployment Technician Relationship Specialty Start Date End Date Elena Cedillo MD PCP - General Internal Medicine 05/09/15 documented as of this encounter
--- OUTSIDE RECORDS SUMMARY | 2025-01-22 11:59 | XMS_ITS | Encounter Summary ---
Author Organization [facility] [employer] [facility] Address [address] [place] [address] Care Team Providers Care Commissary Steward Name Role Phone Elena Cedillo MD Primary Care Provider Moo davis Encounter Details Date Type Department Care Team Description 12/31/2022 Strap Buckler Report Medical Records [address] [place] [address] Pawan Martin MD Social History Tobacco Use [...] on filedocumented in this encounter Care Teams Commissary Steward Relationship Specialty Start Date End Date Elena Cedillo MD PCP - General Internal Medicine 05/09/15 documented as of this encounter
--- OUTSIDE RECORDS SUMMARY | 2025-01-22 11:59 | XMS_ITS | Encounter Summary ---
Author Organization [employer] [facility] Address [address] [place] [address] Care Team Providers Care Orthopedic Rn Name Role Phone Elena Cedillo MD Primary Care Provider Moo davis Encounter Details Date Type Department Care Team Description 05/16/2023 Leave Coordinator Report Medical Records [address] [place] [address] Pawan Martin MD Social History Tobacco Use Types Packs/Day Years Used Date Smoking Tobacco: Never Smokeless Tobacco: Never Alcohol Use Standard Drinks/Week Comments Yes 0 (1 standard drink = 0.6 oz pur e alcohol) rare Sex Assigned at Date Recorded Not on file Job Start Date Occupation Industry Not on file Not on file Not on file COVID-19 Exposure Response Date Recorded In the last 10 days, have yo u been in contact with someone who was confirmed or suspected to have Coronavirus/COVID-19? No / Unsure 05/16/2023 3:09 PM EDT documented as of this encounter Plan of Treatment Not on file documented as of this encounter Visit Diagnoses Not on filedocumented in this encounter Care Teams Orthopedic Rn Relationship Specialty Start Date End Date Elena Cedillo MD PCP - General Internal Medicine 05/09/15 documented as of this encounter
--- OUTSIDE RECORDS SUMMARY | 2025-01-22 11:59 | XMS_ITS | Encounter Summary ---
Author Organization [employer] [facility] Address [address] [place] [address] Care Team Providers Care Dry Man Name Role Phone Elena Cedillo MD Primary Care Provider Moo davis Encounter Details Date Type Department Care Team Description 01/11/2022 Dial Marker Report Medical Records [address] [place] [address] Pawan Martin MD Social History Tobacco Use [...] on filedocumented in this encounter Care Teams Dry Man Relationship Specialty Start Date End Date Elena Cedillo MD PCP - General Internal Medicine 05/09/15 documented as of this encounter
--- OUTSIDE RECORDS SUMMARY | 2025-01-22 11:59 | XMS_ITS | Encounter Summary ---
Author Organization [employer] [facility] Address [address] [facility] [place] [address] Care Team Providers Care Peer Specialist Name Role Phone Elena Cedillo MD Primary Care Provider Moo davis Encounter Details Date Type Department Care Team Description 05/28/2021 Release of Information Medical Records [address] [place] [address] Abstract, Provider Social History Tobacco Use Types Packs/Day Years Used Date Smoking Tobacco: Never Assessed Sex Assigned at Date Recorded Not on file Job Start Date Occupation Industry Not on file Not on file Not on file documented as of this encounter Nursing Notes * Nikki Traore - 05/28/2021 8:23 AM EDT AUTHORIZATION TO OBTAIN MEDICAL RECORDS FAXED TO [facility] documented in this encounter Plan of Treatment Not on file documented as of this encounter Visit Diagnoses Not on filedocumented in this encounter Care Teams Peer Specialist Relationship Specialty Start Date End Date Elena Cedillo MD PCP - General Internal Medicine 05/09/15 documented as of this encounter
== END 2025-01-22 10:23 | disposition home or self-care (01) ==
LOC: HO.NEURO 10:22
PROVIDERS: PCP Internal Medicine
DX: R20.0 Anesthesia of skin (principal)
CPT/HCPCS: 95886; 95910

== ENCOUNTER 2025-02-11 12:44 | Outpatient (AMB) | payer OTHER, SELFPAY ==
[2025-02-11 12:46] VITALS: BP 142/70; BMI 28.9
--- NOTE | 2025-02-11 12:46 | A.OFFPC_ITS ---
Vital Signs 02/11/25 12:46 Height 5 ft 6 in Weight 179 lb BMI 28.9 BP 142/70 H Blood Pressure Location Lt brachial Position Sitting Intake Visit Reasons: annual exam Maintenance Superintendent Required: No Accompanied by: Self / Same As Patient Allergies homatropine [Hydromet] Allergy (Intermediate, Verified 02/11/25 13:16) rash ketorolac [From TORADOL] Allergy (Intermediate, Verified 02/11/25 13:16) N/V Sulfa (Sulfonamide Antibiotics) [SULFA (SULFONAMIDE ANTIBIOTICS)] Allergy (Intermediate, Verified 02/11/25 13:16) RASH sulfacetamide Allergy (Intermediate, Verified 02/11/25 13:16) rash tramadol [TRAMADOL] Allergy (Intermediate, Verified 02/11/25 13:16) N/V, edema and vomiting, edema and vomiting tizanidine Adverse Reaction (Intermediate, Verified 02/11/25 13:16) blurry vision Medication List - Last Reconciled 02/11/25 by Elena Cedillo MD albuterol sulfate 90 mcg/actuation 1 inh inhalation QID PRN cetirizine (All Day Allergy (cetirizine)) 10 mg PO DAILY PRN 90 days cyclobenzaprine 10 mg PO BID PRN [Hand held shower head As directed] ipratropium bromide 2 sprays intranasal BID 30 days latanoprost 0.005% drps ophthalmic (eye) linaclotide (Linzess) 290 mcg PO QAM 30 days nebulizers As directed pantoprazole 40 mg PO DAILY [Raised toilet seat As directed] [Shower chair As directed] Tobacco use date assessed: 01/01/25 Dental Screening Dental Screen Date: 01/01/25 HPI HPI Comments History of Present Illness Details This is a 74-year-old female that comes for her physical exam. Mamm ogram done 2023. Colonoscopy done 2023. Vaccines are up-to-date. No need for Pap smears due to age. DEXA scan done 2023 showing osteopenia and next DEXA should be 2025. Complains of dysuria and has urinary tract infection. Has mild major depression but declines any treatment. She also has left shoulder subluxation and will see ortho for that matter. 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 [facility] Medical History (Updated 02/11/25 @ 13:44 by Elena Cedillo MD) Physical exam Abdominal pain Abdominal pain Rectal bleeding Bilateral hand numbness Physical exam Pre-op examination Hospital discharge follow-up Age related osteoporosis Postmenopausal Precordial chest pain Toenail fungus Urine abnormality Hemorrhoids Allergic rhinitis GERD (gastroesophageal reflux disease) Renal cyst Pelvic pain in female Surgical History Hx of eye surgery History of tooth extraction H/O colonoscopy History of esophagogastroduodenoscopy (EGD) History of ear surgery History of tonsillectomy History of tubal ligation Family History Father CVD (cardiovascular disease) Mother No problems noted. Brother Stomach cancer Sister Liver cancer Brother Lung cancer Brother No problems noted. Social History (Updated 02/11/25 @ 13:21 by Elena Cedillo MD) Household Members: None Housing: Apartment Are you a primary child adolescent care to a significant other at home: No Unable to assess alcohol history related to: Unknown Alcohol intake: current Alcohol intake frequency: holidays/special occasions only Alcohol type: beer and wine Patient Tobacco Use Status: Former Tobacco user Tobacco use type: Cigarette e-Cigarette/Vaping Use: Never Used Second Hand Smoke Exposure: No Advance Directives Date on File: 03/05/24 service: No Current occupational status: disabled Cognitive needs: No Hearing needs: No Vision needs: No Questionnaire PHQ-9 Over the last 2 weeks, how often have you been bothered by any of the following problems? 1. Little interest or pleasure in doing things: not at all 2. Feeling down, depressed, or hopeless: not at all 3. Trouble falling or staying asleep, or sleeping too much: not at all 4. Feeling tired or having little energy: more than half the days 5. Poor appetite or overeating: more than half the days 6. Feeling bad about yourself - or that you are a failure or have let yourself or your family down: not at all 7. Trouble concentrating on things, such as reading the newspaper or watching television: not at all 8. Moving or speaking so slowly that other people could have noticed. Or the opposite - being so fidgety or restless that you have been moving around a lot more than usual: more than half the days 9. Thoughts that you would be better off or of hurting yourself in some way: not at all Total score: 6 Depression Screening Interpretation: Positive Depression Screening Follow-up: Existing condition and Follow-up Visit Requested Depression Screening Done: Yes 46271 - PHQ-9 Billing: Yes Source: Developed by Drs. Ward Goldman, Christine Pantoja, Desmond Thompson and colleagues, with an educational daniel from [employer]. Thrive Questionnaire Date Thrive assessed: 02/11/25 I am a: Patient What is your living situation today?: I choose not to answer this question Within the past 12 months, did the food you bought not last and you didn't have the money to get more?: I choose not to answer this question Within the past 12 months, did you worry whether your food would run out before you got money to buy more?: I choose not to answer this question Do you have trouble paying for medicines?: I choose not to answer this question Do you have trouble getting transportation to medical appointments?: I choose not to answer this question Do you have trouble paying your heating and electricity bill?: I choose not to answer this question Do you have trouble taking care of your child, family member or friend?: I choose not to answer this question Do you have trouble with day-to-day activities such as bathing, preparing meals, shopping, managing finances, etc.?: I choose not to answer this question Are you currently unemployed and looking for a job?: I choose not to answer this question Are you interested in more education?: I choose not to answer this question Please select the resources that you would like help with: None Currently or been in a relationship where the following occur: No concerns reported THRIVE Score: 0 AUDIT C Alcohol Use Questionnaire (AUDIT-C) 1. How often do you have a drink containing alcohol?: Monthly or less 2. How many drinks containing alcohol do you have on a typical day when you are drinking?: 1 or 2 3. How often do you have six or more drinks on one occasion?: Never Total Score: 1 JOSELIN-7 AMB Questionnaire JOSELIN-7 Date JOSELIN - 7 assessed: 02/11/25 Feeling nervous, anxious, or on edge: 1 = Several days Not being able to stop or control worryin = Not at all Worrying too much about different things: 1 = Several days Trouble relaxin = Not at all Being so restless that it is hard to sit still: 0 = Not at all Becoming easily annoyed or irritable: 0 = Not at all Feeling afraid as if something awful might happen: 0 = Not at all Total JOSELIN-7 score (0-4 normal; 5-9 mild; 10-14 moderate; 15-21 severe): 2 Source: Developed by Drs. Ward Goldman, Christine Pantoja, Desmond Thompson and colleagues, with an educational daniel from [employer]. JOSELIN-7 Assessment Billing JOSELIN-7 Assessment Tool: JOSELIN-7 Assessment 26937 Review of Systems Const All systems reviewed & are unremarkable except as noted in HPI and below Card Denies chest pain at rest, Denies chest pain with activity, Denies edema, Denies irregular heart rhythm, Denies claudication, Denies dyspnea, Denies dyspnea on exertion, Denies orthopnea, Denies paroxysmal nocturnal dyspnea and Denies slow heart rate Resp Denies cough, Denies dyspnea and Denies dyspnea on exertion Musc Reports arthralgias Physical exam (Primary Care) Vital Signs: Last Vital Signs BP 142/70 H 02/11/25 12:46 BMI result Body Mass Index 28.9 Tobacco/Smoking Status: Tobacco use Status Tobacco use date assessed 01/01/25 02/11/25 12:51 Patient Tobacco Use Status Former Tobacco user 02/11/25 13:21 Tobacco use type Cigarette 02/11/25 13:21 e-Cigarette/Vaping Use Never Used 02/11/25 13:21 PHQ-9: PHQ-9 Score PHQ-9: Total score 6 02/11/25 13:49 Depression Screening Interpretation: Positive Depression Screening Follow-up: Existing condition and Follow-up Visit Requested Thrive Assessment: Date of Thrive Assessment Date Thrive assessed 02/11/25 02/11/25 12:51 Currently or been in a relationship where the following occur: No concerns reported HENMT Head: Yes normal to inspection, Yes normocephalic and Yes atraumatic Ears: external ears normal Eyes General: appearance normal, both eyes and all related structures Eyelids: Yes eyelids normal Conjunctivae: conjunctivae normal Neck Neck: Yes normal visual inspection and Yes supple Resp Effort & Inspection: normal respiratory effort Auscultation: clear to auscultation bilaterally Cardio Jugular venous distension: no JVD Rate: regular rate Rhythm: regular rhythm Heart sounds: S1 normal heart sound present and S2 normal heart sound present GI Inspection: Yes normal to inspection Palpation (GI): Soft to palpation and nontender Auscultation: normal bowel sounds Skin General skin exam: no rashes or lesions noted Neuro General: no focal motor deficits Extrem Left upper extremity: shoulder/upper arm Details: abnormal ROM Details: pain with active ROM Details: in ABduction and in extension Psych Appearance: grossly normal Results AMB Urinalysis, Automated UA Leukoctes 3 Ankit/uL Last Edit by Martín Smith, [facility] on 02/11/25 13:05 UA Nitrite Negative Last Edit by Martín Smith, [facility] on 02/11/25 13:05 UA Urobilinogen 0 mg/dL Last Edit by Martín Smith, [facility] on 02/11/25 13:05 UA Protein 0 mg/dL Last Edit by Martín Smith, [facility] on 02/11/25 13:05 UA pH 6.0 Last Edit by Martín Smith, [facility] on 02/11/25 13:05 UA Blood 0 Jean/uL Last Edit by Martín Smith, [facility] on 02/11/25 13:05 UA Specific [place] 1.030 Last Edit by Martín Smith, [facility] on 02/11/25 13 :05 UA Ketone Negative Last Edit by Martín Smith, [facility] on 02/11/25 13:05 UA Bilirubin 0 mg/dL Last Edit by Martín Smith, [facility] on 02/11/25 13:05 UA Glucose 0 mg/dL Last Edit by Martín Smith, [facility] on 02/11/25 13:05 AMB Rapid Strep AMB Rapid Strep Negative Last Edit by Martín Smith [facility] on 02/11/25 13: 49 Results Reviewed Results Reviewed: Laboratory Last Values Urine pH (Auto) 6.0 02/11/25 12:54 Specific [place] (Auto) 1.030 02/11/25 12:54 Urine Protein (Auto) 0 mg/dL 02/11/25 12:54 Glucose (UA)(Auto) 0 mg/dL 02/11/25 12:54 Urine Ketones (Auto) Negative 02/11/25 12:54 Urine Blood (Auto) 0 Jean/uL 02/11/25 12:54 Urine Nitrite (Auto) Negative 02/11/25 12:54 Urine Bilirubin (Auto) 0 mg/dL 02/11/25 12:54 Urine Urobilinogen (Auto) 0 mg/dL 02/11/25 12:54 Leukocyte Esterase (Auto) 3 Ankit/uL 02/11/25 12:54 Strep Scn Rapid Clinic Negative 02/11/25 13:27 Coding Level of Care Code Est Pt Level 3 (66837) Est Pt Prev Care >65y(89696) Diagnoses Physical exam Z00.00 UTI (urinary tract infection) N39.0 Acromioclavicular joint arthritis M19.019 Mild recurrent major depression F33.0 Additional Codes JOSELIN-7 Assessment Billing - JOSELIN-7 Assessment Tool: JOSELIN-7 Assessment 40161 ([id number]) PHQ-9 - 59189 - PHQ-9 Billing: Yes ([id number]) Time Spent (min) 35 Assessment & Plan Assessment & Plan (1) Physical exam: Code(s): Z00.00 - Encounter for general adult medical examination without abnormal findings Category: Medical (2) UTI (urinary tract infection): Code(s): N39.0 - Urinary tract infection, site not specified Category: Medical (3) Acromioclavicular joint arthritis: Code(s): M19.019 - Primary osteoarthritis, unspecified shoulder Category: Medical (4) Mild recurrent major depression: Code(s): F33.0 - Major depressive disorder, recurrent, mild Category: Medical Plan Start antibiotic for UTI. Order mammogram for this year. DEXA scan 01/2026. Next colonoscopy should be 2028. Follow-up with ortho for left shoulder. Orders: Orders AMB Urinalysis Automated Today R35.0 - Frequency of micturition AMB Rapid Strep Screen Today Z13.9 - Encounter for screening, unspecified Urine Culture Today N39.0 - Urinary tract infection, site not specified Vitamin D 25-OH Total Today E55.9 - Vitamin D deficiency, unspecified MM tomosynthesis screening BI Today Z12.31 - Encounter for screening mammogram for malignant neoplasm of breast Lipid Panel Today E78.5 - Hyperlipidemia, unspecified Vitamin B12 and Folate Today E53.8 - Deficiency of other specified B group vitamins Comprehensive [place]. Panel Fast Today Z00.00 - Encounter for general adult medical examination without abnormal findings Medications: New nitrofurantoin macrocrystal must administer with a meal/food 100 mg PO BID 14 caps 0RF 7 days
--- OUTSIDE RECORDS SUMMARY | 2025-02-11 13:05 | XMS_ITS | Continuity of Care Document ---
Author Organization [facility] Address [address] [place] [address] [address] [place] [address] Phone Care Team Providers Care Dairy Laboratory Technician Name Role Phone Ramon ALCANTAR FACS RVT Fahad ACOSTA Unavailable Unavailable Procedures Procedure Date Duplex Scan-extrem Veins; Comp Offic Cons New/estab Mod 40 Mi Advance Directives Directive Yes / No Effective Date File Name No Information Encounters Encounter Description Practice Location Reason(s) For Visit Diagnoses Date Provider Providers Copied on Encounter [facility], [address] [place] [address] [address], [id number], [place] tel:[phone] [facility] No Information 3 Ramon ALCANTAR FACS SRINIVASAT DAVE Orellana. [address] [facility] [address], [address], [place], [address], [place]. tel:[phone] Referring Provider: Elena Dela Cruz MD, [address] [place] [address] DrBr[address], [address] [place] D/B/A: yessica [facility], [place], [address]. tel:[phone] [facility], [address] [place] [address] [address], [id number], [place] tel:[phone] [facility] Chronic venous htn w oth comp of bilateral low extrm 3 Ramon ALCANTAR FACS T DAVE Orellana. [address] [facility], [place] [address], [place], [address], [place]. tel:[phone] Referring Provider: Elena Dela Cruz MD, [address], [address] [place] [address] D/B/A: [place], [address]. tel:[phone] Offic Cons New/estab Mod 40 [place] [facility], [address], [place], [id number], [place] tel:[phone] [facility] - [facility] Chronic venous htn w oth comp of bilateral low extrmFlail joint, unspecified jointPruritus , unspecifiedCr amp and spasmLocalize d edema 3 Ramon ALCANTAR FACS T DAVE Orellana. [address] [facility], [place] [address], [place], [address], [place]. tel:[phone] Referring Provider: Elena Dela Cruz MD, [address] [facility] [address], [address] [place] [address] D/B/A: [place], [address]. tel:[phone] Family History Family Member Type Diagnosis Age At Onset No Information Payers Payer name Insurance type Covered green party ID Authoriza tion(s) [facility] CI [id number] Medical Assistance [facility] [id number] Social History Type Description Quantity Date Captured [...]
--- OUTSIDE RECORDS SUMMARY | 2025-02-11 13:05 | XMS_ITS | Data Portability ---
Author Organization [place] [facility], Allergy Address [address] [address] Care Team Providers Care Steel Turner Name Role Phone WAN BRAMBILA Primary Care Provider [phone] Assessment No assessment recorded. Plan of Treatment Reminders Order Date Submit Date Provider Last Modified By Organization Details Last Modified Time Details Appointments None recorde d. Lab None recorde d. Referral None recorde d. Procedures None recorde d. Surgeries None recorde d. Imaging polysom nogram, diagnos tic, 6 yrs or older 025 12/26/19 25 [facility] Sleep Medicine Services, [address] [place] [address], [address], 5 09:20:42 Medication Orders None recorde d. Patient TargetsNo targets recorded. Patient InstructionsNo instructions recorded. Reason for Referral None Reported. Problems Name Problem SNOMED Code Status Onset Date Resolution Date Notes Provider Name and Address Organization Details Recorded Time Gastroeso phageal reflux disease without esophagit is 389563933 Active 2018 Gastro-es ophageal reflux disease without esophagit is; Note: Date Diagnosed : 01/03/2019 11:01 AM (K21.9) Not Available [facility] 4 03:27:11 Chronic rhinitis 31087478 Active 2018 Chronic rhinitis; Note: Date Diagnosed : 01/03/2019 11:01 AM (J31.0) Not Available [facility] 4 03:27:11 Posterior rhinorrhe a 83378823 Active 2018 Postnasal drip; Note: Date Diagnosed : 01/03/2019 11:01 AM (R09.82) Not Available [facility] 4 03:27:11 Central perforati on of left tympanic membrane 88391021687 94400 Active 2024 KALYAN MELO MD [address] [facility] [place] [address], [place], [place], [address] , [facility] - [facility] 5 09:13:10 Dysphagia 29794897 Active 2024 KALYAN MELO MD [address] [facility] [place] [address], [place], [address] , [facility] - [facility] 5 09:13:23 Feeling of lump in throat 852570556 Active 2024 KALYAN MELO MD [address] [facility] [place] [address], [place], [address] , [facility] 5 09:13:28 Obstructi ve sleep apnea syndrome 43597905 Active 2024 KALYAN MELO MD [address] [place] [address],[place] [address], [place], [place], [address] , [facility] - [facility] 5 09:13:32 Problem Notes None recorded. Procedures Surgical History Date Name Laterality Status Provider Name and Address Organization Details Recorded Time 12/25/2024 FFL_RE completed KALYAN MELO MD [address] [facility] [place] [address], [place], [address], [facility] - [facility] 12/25/2024 09:02:57 Imaging Results None recorded. Procedure Notes None recorded. Medical Equipment None Reported. Allergies Allergen ID Allergen Name Allergen Category Reaction Reaction Severity Criticality Documentation Date Start Date Code Code System Note Provider Name and Address Organization Details Recorded Time 695011 tramadol Not available other Not available Not available 02/14/2024 25580 RxNorm React ion: unkno wn, unspe cifie d;; Not Available [facility] 4 01:25:04 389014 Substance with sulfonami de structure and antibacte rial mechanism of action (substanc e) medicatio n other Not available Not available 02/14/2024 56947 8003 SNOMED React ion: unkno wn, unspe cifie d;; Not Available [facility] 4 01:25:05 Medications Name Sig Start Date Stop Date Status Note LastModified by Organization Details LastModified Time cyclobenza angela 10 mg tablet 2018 active Medicatio n ID: [id number] Du ration Value: 30 Brand Name: destiny [...] mg tablet 2018 active Medicatio n ID: [id number] Du ration Value: 30 Brand Name: ranitidin e HCl Send Method: E-Prescri bed Subs Allowed: subs [place] [facility]: ranitidin e HCl Not Available Not Available Not Available prednisone 20 mg tablet TAKE 2 TABLETS BY MOUTH DAILY active Not Available Not Available No t Available alendronat e 70 mg tablet TAKE 1 TABLET BY MOUTH EVERY WEEK active Not Available Not Available No t Available Milk of Magnesia 400 mg/5 mL oral suspension 2018 active Medicatio n ID: [id number] Du ration Value: 36 Brand Name: Milk of Magnesia Send Method: E-Prescri bed Subs Allowed: subs [place] [facility] icName: Milk of Magnesia Not Available Not [...] spray,susp ension 2018 active Medicatio n ID: [id number] Du ration Value: 60 Brand Name: fluticaso ne propionat e Send Method: E-Prescri bed Subs Allowed: subs OK Medica tionGener icName: fluticaso ne propionat e Not Available Not Available Not Available ipratropiu m bromide 21 mcg (0.03 %) nasal spray Inhale 2 spray into both nostrils three times a day as directed 2018 active Medicatio n ID: [id number] Pr escribed By Name: Marcelo thompson M.D. Bran d Name: ipratropi um bromide S end Method: E-Prescri bed Subs Allowed: subs OK Medica tionGener icName: ipratropi um bromide Not Available Not Available Not Available Myrbetriq 50 mg tablet,ext ended release 2018 active Medicatio n ID: [id number] Du ration Value: 30 Brand Name: Myrbetriq Send Method: E-Prescri bed Subs Allowed: subs OK Medica tionGener icName: Myrbetriq Not Available Not Available Not Available Linzess 145 mcg capsule 2018 active Medicatio n ID: [id number] Du ration Value: 30 Brand Name: Linzess [...] Updated DateTime 12/25/2024 162.56 cm 30.7 kg/m2 30939.03 g Arcelia [place] [facility] 12/25/2024 09:00:53 Social History None recorded. Functional Status None recorded. Mental Status None recorded. Family History Nothing Reported. Medical History No medical history recorded. Gynecological HistoryNo gynecological history recorded. Obstetrics History GPAL:G 0 P 0 0 0 0 Past Encounters Encounter ID Performer Location Encounter Start Date Encounter Closed Date Diagnosis/Indication Diagnosis SNOMED-CT Code Diagnosis ICD10 Code Diagnosis Note [id number] KALYAN MELO MD [facility] [address] [address] 12/25/2024 08:35:25 12/25/2024 09:20:14 Central perforation of left tympanic membrane 8188126898 763232 H72.02 Dry and safe. We will plan on audiogram at follow-up. Dysphagia 20063218 R13.1 0 No obstructiv e lesions. Dysphagia seems mild and we will defer swallow study for now. Obstructiv e sleep apnea syndrome 00387995 G47.33 She may have TK based on her descriptio n of apnea while sleeping I will order a polysomnog ayush with follow-up to review. Health Concerns Section Related Observation LastModified by Organization Detai ls LastModified Time None Recorded Concern Status LastModified by Organization Details LastModified Time None Recorded Advance Directives Directive None Recorded Payers Insurance Date Sequence Insurance Name Policy Number Policy Villela Covered Member ID Villela Member ID Guarantor Name 12/25/2024 1 [facility] - DOS ON OR AFTER 2023 - MEDICARE [place]VANTAGE [place] (MEDICARE REPLACEMENT/ADV ANTAGE - PPO) Breanna Floyd [id number] Breanna Floyd Notes Date Note Type Note [...] takes pantoprazole for this. KALYAN MELO MD [address] [place] [address], [place], [address], [facility] - [facility] 12/25/2024 09:14:45 OBGyn Episode No OBEpisode recorded.
--- OUTSIDE RECORDS SUMMARY | 2025-02-11 13:05 | XMS_ITS | Clinical Summary ---
Author Organization [facility] Address [address] [place] [address] Care Team Providers Care Head Mixer Name Role Phone Unavailable Primary Care Provider [...] Bone Density Screening 2016 Falls Prevention 2016 [id number] ( - season) 2024 Imm-Influenza (#1) 2024 [...] Most Recently Relevant to Health Maintenance Insurance [facility] Member Subscriber Plan / Payer (Ef fective 2021-Present) Name:Breanna Catherine Relation to Subscriber:Self Name:Breanna Catherine Payer ID:[id number] Group ID:Not on file Type:Medicare Address: [place] [id number]
== END 2025-02-11 13:41 | disposition home or self-care (01) ==
LOC: HO.HMCH 12:45
PROVIDERS: PCP Internal Medicine; Visit Provider Internal Medicine
DX: Z00.00 Encounter for general adult medical examination without abnormal findings (principal); N39.0 Urinary tract infection, site not specified; M19.019 Primary osteoarthritis, unspecified shoulder; F33.0 Major depressive disorder, recurrent, mild; R35.0 Frequency of micturition; Z13.9 Encounter for screening, unspecified

== ENCOUNTER 2025-02-11 12:44 | Outpatient (REF) | payer OTHER, SELFPAY ==
--- OUTSIDE RECORDS SUMMARY | 2025-02-11 13:48 | XMS_ITS | Continuity of Care Document ---
Author Organization [facility] Address [address] [place] [address] [address] [place] [address] Phone Care Team Providers Care Facility Technician Name Role Phone Ramon ALCANTAR FACS RVT Fahad ACOSTA Unavailable Unavailable Procedures Procedure Date Duplex Scan-extrem Veins; Comp Offic Cons New/estab Mod 40 Mi Advance Directives Directive Yes / No Effective Date File Name No Information Encounters Encounter Description Practice Location Reason(s) For Visit Diagnoses Date Provider Providers Copied on Encounter [facility], [address] [place] [address] [address], [id number], [place] tel:[phone] [facility] No Information 3 Ramon ALCANTAR FACS SRINIVASAT DAVE Orellana. [address] [facility], [address], [place], [address], [place]. tel:[phone] Referring Provider: Elena Dela Cruz MD, [address] [place] [address] DrBrise[address], [address] [place] D/B/A: yessica [facility], [place], [address]. tel:[phone] [facility], [address] [place] [address] [address], [id number], [place] tel:[phone] [facility] Chronic venous htn w oth comp of bilateral low extrm 3 Ramon ALCANTAR FACS T DAVE Orellana. [address] [facility], [place] [address], [place], [address], [place]. tel:[phone] Referring Provider: Elena Dela Cruz MD, [address], [address] [place] [address] D/B/A: [place], [address]. tel:[phone] Offic Cons New/estab Mod 40 [place] [facility], [address], [place], [id number], [place] tel:[phone] [facility] - [facility] Chronic venous htn w oth comp of bilateral low extrmFlail joint, unspecified jointPruritus , unspecifiedCr amp and spasmLocalize d edema 3 Ramon ALCANTAR FACS T DAVE Orellana. [address] [facility], [place] [address], [place], [address], [place]. tel:[phone] Referring Provider: Elena Dela Cruz MD, [address] [facility] [address], [address] [place] [address] D/B/A: [place], [address]. tel:[phone] Family History Family Member Type Diagnosis Age At Onset No Information Payers Payer name Insurance type Covered alliance party ID Authoriza tion(s) [facility] CI [id number] Medical Assistance [facility] [id number] Social History Type Description Quantity Date Captured [...]
--- OUTSIDE RECORDS SUMMARY | 2025-02-11 13:48 | XMS_ITS | Clinical Summary ---
Author Organization [facility] Address [address] [place] [address] Care Team Providers Care Statistician Name Role Phone Unavailable Primary Care Provider [...] Bone Density Screening 2016 Falls Prevention 2016 [id number] ( - season) 2024 Imm-Influenza (#1) 2024 [...] Most Recently Relevant to Health Maintenance Insurance [facility] Member Subscriber Plan / Payer (Ef fective 2021-Present) Name:Breanna Catherine Relation to Subscriber:Self Name:Breanna Catherine Payer ID:[id number] Group ID:Not on file Type:Medicare Address: [place] [id number]
== END 2025-02-11 12:45 | disposition home or self-care (01) ==
LOC: HO.LAB 12:44
PROVIDERS: PCP Internal Medicine; Visit Provider Internal Medicine
DX: Z00.00 Encounter for general adult medical examination without abnormal findings (principal); N39.0 Urinary tract infection, site not specified; M19.019 Primary osteoarthritis, unspecified shoulder; F33.0 Major depressive disorder, recurrent, mild; R35.0 Frequency of micturition
CPT/HCPCS: 81003; 87086; 87880; 96127; 99212; 99397

== ENCOUNTER 2025-03-05 08:46 | Outpatient (REF) | payer OTHER, SELFPAY ==
--- NOTE | ~2025-03-05 | XR_ITS ---
EXAMINATION: XR KNEE, LEFT CLINICAL INFORMATION: M25.569 - Pain in unspecified knee COMPARISON: None available. TECHNIQUE: AP bilateral standing and sunrise view of the left knee. FINDINGS: There is mild narrowing of the medial joint space. Small marginal osteophytes are present along trochlea and medial tibial plateau. No other abnormality. XR/XR knee LT 2V IMPRESSION: Mild medial compartment osteoarthritis. Electronically signed by: Spencer English MD 03/05/2025 06:09 PM EDT
== END 2025-03-05 08:47 | disposition home or self-care (01) ==
LOC: HO.HOSX 08:46
PROVIDERS: Visit Provider Physician Assistant
DX: M25.562 Pain in left knee (principal); M54.12 Radiculopathy, cervical region; M50.30 Other cervical disc degeneration, unspecified cervical region
CPT/HCPCS: 73560; 99202

== ENCOUNTER 2025-03-05 14:21 | Outpatient (AMB) | payer OTHER, SELFPAY ==
--- NOTE | 2025-03-05 14:39 | MHC.OFFVIS ---
Vital Signs 03/05/25 14:53 Height 5 ft 6 in Weight 179 lb BMI 28.9 Intake Visit Reasons: New Pt - left shoulder pain Intake Note: Breanna is a 74 year old female who presents today as a new patient for a evaluation of her left shoulder pain. Patient mentions that her pain started in her neck for many years and regional facilities specialist to her shoulder and down to her hand and she feels that it is getting worse. Her pain is located on the lateral aspect of the shoulder. She notices that her pain is worse when she is lifting her arm. Patient has taken Tylenol, NASAIDs with mild relief. IMPRESSION: Mild step-off of the inferior articular surface of the AC joint due to age-indeterminate subluxation. Correlate clinically. Business Solutions Architect Services: Business Solutions Architect Present (Matthew ([id number])) Allergies homatropine [Hydromet] Allergy (Intermediate, Verified 03/05/25 14:54) rash ketorolac [From TORADOL] Allergy (Intermediate, Verified 03/05/25 14:54) N/V Sulfa (Sulfonamide Antibiotics) [SULFA (SULFONAMIDE ANTIBIOTICS)] Allergy (Intermediate, Verified 03/05/25 14:54) RASH sulfacetamide Allergy (Intermediate, Verified 03/05/25 14:54) rash tramadol [TRAMADOL] Allergy (Intermediate, Verified 03/05/25 14:54) N/V, edema and vomiting, edema and vomiting tizanidine Adverse Reaction (Intermediate, Verified 03/05/25 14:54) blurry vision HPI HPI New Pt - left shoulder pain: Details: Ms. House is a 74 year old female who presents today as a new patient for a evaluation of her left upper extremity pain that radiates from her neck to her hand. She reports pain in her neck for years. She denies any injury or trauma to the left upper extremity or the shoulder. She notices that her pain is worse when she is lifting her arm or motion of her neck. She endorses numbness and tingling in bilateral upper extremities. Patient has taken Tylenol, NASAIDs with mild relief. [facility] Medical History (Updated 03/06/25 @ 10:13 by Bina Frost PA-C) Physical exam Abdominal pain Abdominal pain Rectal bleeding Bilateral hand numbness Physical exam Pre-op examination Hospital discharge follow-up Age related osteoporosis Postmenopausal Precordial chest pain Toenail fungus Urine abnormality Hemorrhoids Allergic rhinitis GERD (gastroesophageal reflux disease) Renal cyst Pelvic pain in female Surgical History Hx of eye surgery History of tooth extraction H/O colonoscopy History of esophagogastroduodenoscopy (EGD) History of ear surgery History of tonsillectomy History of tubal ligation Family History Father CVD (cardiovascular disease) Mother No problems noted. Brother Stomach cancer Sister Liver cancer Brother Lung cancer Brother No problems noted. Social History Household Members: None Housing: Apartment Are you a primary care program director to a significant other at home: No Unable to assess alcohol history related to: Unknown Alcohol intake: current Alcohol intake frequency: holidays/special occasions only Alcohol type: beer and wine Patient Tobacco Use Status: Former Tobacco user Tobacco use type: Cigarette e-Cigarette/Vaping Use: Never Used Second Hand Smoke Exposure: No Advance Directives Date on File: 03/05/24 service: No Current occupational status: disabled Cognitive needs: No Hearing needs: No Vision needs: No Review of Systems Const All systems reviewed & are unremarkable except as noted in HPI and below Physical Exam Vital Signs: BMI result Body Mass Index 28.9 Const General: cooperative, healthy appearing and no acute distress Resp Effort & Inspection: normal respiratory effort and able to speak in complete sentences Extrem Other: Right shoulder: Forward flexion to 45 degrees. Abduction to 45 degrees. Pain with cross-body reach. Unable to perform drop arm or empty can due to pain and weakness. NVI. Assessment & Plan Assessment & Plan (1) Degenerative disc disease, cervical: Code(s): M50.30 - Other cervical disc degeneration, unspecified cervical region Category: Medical (2) Cervical radiculopathy: Code(s): M54.12 - Radiculopathy, cervical region Category: Medical Plan Ms. House is a 74 year old female who presents today as a new patient for a evaluation of her left upper extremity pain that radiates from her neck to her hand. She reports pain in her neck for years. She denies any injury or trauma to the left upper extremity or the shoulder. She notices that her pain is worse when she is lifting her arm or motion of her neck. She endorses numbness and tingling in bilateral upper extremities. Patient has taken Tylenol, NASAIDs with mild relief. While in the office today I discussed with the patient that her symptoms appear to be originating from her cervical spine. I would like for her to be evaluated by Dr. Sood for further evaluation and treatment. X-rays of the left shoulder which were obtained on 01/03/2025 IMPRESSION: Mild step-off of the inferior articular surface of the AC joint due to age-indeterminate subluxation. Correlate clinically. Orders: Orders XR knee LT 2V 03/05/25 M25.569 - Pain in unspecified knee Coding Level of Care Code New Pt Level 3 (12941) Diagnoses Degenerative disc disease, cervical M50.30 Cervical radiculopathy M54.12
[2025-03-05 14:53] VITALS: BMI 28.9
--- OUTSIDE RECORDS SUMMARY | 2025-03-05 16:12 | XMS_ITS | Data Portability ---
Author Organization [place] - [facility], Allergy Address [address] [address] Care Team Providers Care Phone Representative Name Role Phone WAN BRAMBILA Primary Care Provider Assessment No assessment recorded. Plan of Treatment Reminders Order Date Submit Date Provider Last Modified By Organization Details Last Modified Time Details Appointments None recorde d. Lab None recorde d. Referral None recorde d. Procedures None recorde d. Surgeries None recorde d. Imaging polysom nogram, diagnos tic, 6 yrs or older 025 12/26/19 25 [facility] Sleep Medicine Services, [address] [place] [address], [address], 5 09:20:42 Medication Orders None recorde d. Patient TargetsNo targets recorded. Patient InstructionsNo instructions recorded. Reason for Referral None Reported. Problems Name Problem SNOMED Code Status Onset Date Resolution Date Notes Provider Name and Address Organization Details Recorded Time Gastroeso phageal reflux disease without esophagit is 664778047 Active 2018 Gastro-es ophageal reflux disease without esophagit is; Note: Date Diagnosed : 01/03/2019 11:01 AM (K21.9) Not Available [facility] 4 03:27:11 Chronic rhinitis 14926394 Active 2018 Chronic rhinitis; Note: Date Diagnosed : 01/03/2019 11:01 AM (J31.0) Not Available [facility] 4 03:27:11 Posterior rhinorrhe a 59744069 Active 2018 Postnasal drip; Note: Date Diagnosed : 01/03/2019 11:01 AM (R09.82) Not Available [facility] 4 03:27:11 Central perforati on of left tympanic membrane 40000991114 14524 Active 2024 KALYAN MELO MD [address] [facility] [address], [place], [place], [address] , [facility] - [facility] 5 09:13:10 Dysphagia 04946705 Active 2024 KALYAN MELO MD [address] [facility] [place] [address], [place], [address] , [facility] - [facility] 5 09:13:23 Feeling of lump in throat 827168684 Active 2024 KALYAN MELO MD [address] [facility] [place] [address], [place], [address] , [facility] - [facility] [place] 5 09:13:28 Obstructi ve sleep apnea syndrome 99244772 Active 2024 KALYAN MELO MD [address] [place] [address],[place] [address], [place], [place], [address] , [facility] - [facility] [place] 5 09:13:32 Problem Notes None recorded. Procedures Surgical History Date Name Laterality Status Provider Name and Address Organization Details Recorded Time 12/25/2024 FFL_RE completed KALYAN MELO MD [address] [facility] [place] [address], [place], [address], [facility] - [facility] 12/25/2024 09:02:57 Imaging Results None recorded. Procedure Notes None recorded. Medical Equipment None Reported. Allergies Allergen ID Allergen Name Allergen Category Reaction Reaction Severity Criticality Documentation Date Start Date Code Code System Note Provider Name and Address Organization Details Recorded Time 517517 tramadol Not available other Not available Not available 02/14/2024 16107 RxNorm React ion: unkno wn, unspe cifie d;; Not Available [facility] 4 01:25:04 537242 Substance with sulfonami de structure and antibacte rial mechanism of action (substanc e) medicatio n other Not available Not available 02/14/2024 01644 8003 SNOMED React ion: unkno wn, unspe cifie d;; Not Available [facility] 4 01:25:05 Medications Name Sig Start Date Stop Date Status Note LastModified by Organization Details LastModified Time cyclobenza angela 10 mg tablet 2018 active Medicatio n ID: [id number] Du ration Value: 30 Brand Name: destiny [...] mg tablet 2018 active Medicatio n ID: [id number] Du ration Value: 30 Brand Name: ranitidin e HCl Send Method: E-Prescri bed Subs Allowed: subs [place] [facility]: [facility] HCl Not Available Not Available Not Available prednisone 20 mg tablet TAKE 2 TABLETS BY MOUTH DAILY active Not Available Not Available No t Available alendronat e 70 mg tablet TAKE 1 TABLET BY MOUTH EVERY WEEK active Not Available Not Available No t Available Milk of Magnesia 400 mg/5 mL oral suspension 2018 active Medicatio n ID: [id number] Du ration Value: 36 Brand Name: Milk of Magnesia Send Method: E-Prescri bed Subs Allowed: subs [place] [facility] Milk of Magnesia Not Available Not [...] spray,susp ension 2018 active Medicatio n ID: [id number] Du ration Value: 60 Brand Name: fluticaso ne propionat e Send Method: E-Prescri bed Subs Allowed: subs OK Medica tionGener icName: fluticaso ne propionat e Not Available Not Available Not Available ipratropiu m bromide 21 mcg (0.03 %) nasal spray Inhale 2 spray into both nostrils three times a day as directed 2018 active Medicatio n ID: [id number] Pr escribed By Name: Marcelo thompson M.D. Bran d Name: ipratropi um bromide S end Method: E-Prescri bed Subs Allowed: subs OK Medica tionGener icName: ipratropi um bromide Not Available Not Available Not Available Myrbetriq 50 mg tablet,ext ended release 2018 active Medicatio n ID: [id number] Du ration Value: 30 Brand Name: Myrbetriq Send Method: E-Prescri bed Subs Allowed: subs OK Medica tionGener icName: Myrbetriq Not Available Not Available Not Available Linzess 145 mcg capsule 2018 active Medicatio n ID: [id number] Du ration Value: 30 Brand Name: Linzess [...] Updated DateTime 12/25/2024 162.56 cm 30.7 kg/m2 37631.03 g Arcelia Winchester [place] - [facility] 12/25/2024 09:00:53 Social History None recorded. Functional Status None recorded. Mental Status None recorded. Family History Nothing Reported. Medical History No medical history recorded. Gynecological HistoryNo gynecological history recorded. Obstetrics History GPAL:G 0 P 0 0 0 0 Past Encounters Encounter ID Performer Location Encounter Start Date Encounter Closed Date Diagnosis/Indication Diagnosis SNOMED-CT Code Diagnosis ICD10 Code Diagnosis Note [id number] KALYAN MELO MD [facility] of [address] [address] 12/25/2024 08:35:25 12/25/2024 09:20:14 Central perforation of left tympanic membrane [id number] 353615 H72.02 Dry and safe. We will plan on audiogram at follow-up. Dysphagia 64349106 R13.1 0 No obstructiv e lesions. Dysphagia seems mild and we will defer swallow study for now. Obstructiv e sleep apnea syndrome 67228225 G47.33 She may have TK based on [...] Villela Member ID Guarantor Name 12/25/2024 1 [facility] - DOS ON OR AFTER 2023 - MEDICARE ADVANTAGE [place] (MEDICARE REPLACEMENT/ADV ANTAGE - PPO) Breanna Floyd [id number] Breanna Floyd Notes Date Note Type Note [...] takes pantoprazole for this. KALYAN MELO MD [address] [place] [address], [place], [address], [facility] - [facility] 12/25/2024 09:14:45 OBGyn Episode No OBEpisode recorded.
== END 2025-03-05 15:21 | disposition home or self-care (01) ==
LOC: HO.HOS 14:22
PROVIDERS: PCP Internal Medicine; Visit Provider Physician Assistant
DX: M50.30 Other cervical disc degeneration, unspecified cervical region (principal); M54.12 Radiculopathy, cervical region
CPT/HCPCS: 99203

== ENCOUNTER → 2025-03-05 14:25 | Outpatient (BNV) | payer OTHER, SELFPAY | PROVIDERS: Visit Provider Radiology Diagnostic Radiology | DX: M17.12 Unilateral primary osteoarthritis, left knee (principal) | CPT/HCPCS: 73560 ==

== ENCOUNTER 2025-03-26 10:16 | Outpatient (AMB) | payer OTHER, SELFPAY ==
[2025-03-26 10:19] VITALS: BMI 28.9
--- NOTE | 2025-03-26 10:19 | MHC.OFFVIS ---
Vital Signs 03/26/25 10:19 Height 5 ft 6 in Weight 179 lb BMI 28.9 Intake Visit Reasons: New prob - Left CTS, EMG done Intake Note: Breanna is a 74 year old left hand dominant female who presents today for a new problem visit for evaluation of her left upper extremity. Patient reports her symptoms presented about 4-5 months ago. States her pain started in her hand, then started to travel up her arm to her elbow and eventually went up to her neck. She has numbness and tingling in her hand. States a stinging sensations with turning her head from side to side. She has no strength in her hand. EMG/NCS done on 01/22/25 IMPRESSION: Mild left median neuropathy across carpal tunnel. Supervisor [employer] Required: Yes Supervisor [employer] Services: Supervisor [employer] Present Supervisor [employer] Fin[employer] Name: Deep Mar ID#[id number] Allergies homatropine (Hydromet) Allergy (Intermediate, Verified 03/26/25 10:25) rash ketorolac (From TORADOL) Allergy (Intermediate, Verified 03/26/25 10:25) N/V Sulfa (Sulfonamide Antibiotics) (SULFA (SULFONAMIDE ANTIBIOTICS)) Allergy (Intermediate, Verified 03/26/25 10:25) RASH sulfacetamide Allergy (Intermediate, Verified 03/26/25 10:25) rash tramadol (TRAMADOL) Allergy (Intermediate, Verified 03/26/25 10:25) N/V, edema and vomiting, edema and vomiting tizanidine Adverse Reaction (Intermediate, Verified 03/26/25 10:25) blurry vision HPI HPI New prob - Left CTS, EMG done: Details: Breanna is a 74 year old left hand dominant female who presents today for a new problem visit for evaluation of her left upper extremity. Patient reports her symptoms presented about 4-5 months ago. States her pain started in her hand, then started to travel up her arm to her elbow and eventually went up to her neck. She has numbness and tingling in her hand. States a stinging sensations with turning her head from side to side. She has no strength in her hand. EMG/NCS done on 01/22/25 IMPRESSION: Mild left median neuropathy across carpal tunnel. [facility] Medical History (Updated 03/06/25 @ 10:13 by Bina Frost PA-C) Physical exam Abdominal pain Abdominal pain Rectal bleeding Bilateral hand numbness Physical exam Pre-op examination Hospital discharge follow-up Age related osteoporosis Postmenopausal Precordial chest pain Toenail fungus Urine abnormality Hemorrhoids Allergic rhinitis GERD (gastroesophageal reflux disease) Renal cyst Pelvic pain in female Surgical History Hx of eye surgery History of tooth extraction H/O colonoscopy History of esophagogastroduodenoscopy (EGD) History of ear surgery History of tonsillectomy History of tubal ligation Family History Father CVD (cardiovascular disease) Mother No problems noted. Brother Stomach cancer Sister Liver cancer Brother Lung cancer Brother No problems noted. Social History Household Members: None Housing: Apartment Are you a primary career developer to a significant other at home: No Unable to assess alcohol history related to: Unknown Alcohol intake: current Alcohol intake frequency: holidays/special occasions only Alcohol type: beer and wine Patient Tobacco Use Status: Former Tobacco user Tobacco use type: Cigarette e-Cigarette/Vaping Use: Never Used Second Hand Smoke Exposure: No Advance Directives Date on File: 03/05/24 service: No Current occupational status: disabled Cognitive needs: No Hearing needs: No Vision needs: No Review of Systems Const All systems reviewed & are unremarkable except as noted in HPI and below Physical Exam Vital Signs: BMI result Body Mass Index 28.9 Extrem Other: Neuro: Normal sensation of the tips of all digits of the left hand in the office today No thenar or intrinsic wasting. Good APB muscle firing and good finger cross. Vascular: Capillary refill brisk. ROM: Patient can make a fist and extend all their digits. Skin: No lacerations or abrasions noted. General: No ecchymosis. No erythema or evidence of infection. Assessment & Plan Assessment & Plan (1) Left carpal tunnel syndrome: Code(s): G56.02 - Carpal tunnel syndrome, left upper limb Category: Medical Plan 1. Left carpal tunnel syndrome Intermittent, daily, worse at night Patient is educated about this condition Patient is educated about the typical recovery course At this time, patient is educated that surgical intervention is the preferred treatment for carpal tunnel syndrome However, the patient states that she is not interested in surgical intervention at this time, and would prefer a referral to occupational therapy OT referral placed Patient is educated on the risks of prolonging treatment for carpal tunnel syndrome Patient understands these risks Follow-up if she is ready to discuss surgical intervention, sooner with any acute concerns Orders: Orders OT Evaluation and Treatment Today G56.02 - Carpal tunnel syndrome, left upper limb Coding Level of Care Code New Pt Level 3 (98334) Diagnoses Left carpal tunnel syndrome G56.02
--- OUTSIDE RECORDS SUMMARY | 2025-03-26 11:23 | XMS_ITS | Data Portability ---
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 Plan of Treatment Reminders Order Date Submit Date Provider Last Modified By Organization Details Last Modified Time Details Appointments None recorde d. Lab None recorde d. Referral None recorde d. Procedures None recorde d. Surgeries None recorde d. Imaging polysom nogram, diagnos tic, 6 yrs or older 025 12/26/19 25 [facility] Sleep Medicine Services, [address] [place], [address], 5 09:20:42 Medication Orders None recorde d. Patient TargetsNo targets recorded. Patient InstructionsNo instructions recorded. Reason for Referral None Reported. Problems Name Problem SNOMED Code Status Onset Date Resolution Date Notes Provider Name and Address Organization Details Recorded Time Gastroeso phageal reflux disease without esophagit is 639846800 Active 2018 Gastro-es ophageal reflux disease without esophagit is; Note: Date Diagnosed : 01/03/2019 11:01 AM (K21.9) Not Available [facility] 4 03:27:11 Chronic rhinitis 97210516 Active 2018 Chronic rhinitis; Note: Date Diagnosed : 01/03/2019 11:01 AM (J31.0) [facility] Available [facility] 4 03:27:11 Posterior rhinorrhe a 12993236 Active 2018 Postnasal drip; Note: Date Diagnosed : 01/03/2019 11:01 AM (R09.82) Not Available [facility] 4 03:27:11 Central perforati on of left tympanic membrane 90584904038 29401 Active 2024 KALYAN MELO MD 100 [facility] [place] [address], [place], [address] , [facility] - [facility] [place] 5 09:13:10 Dysphagia 04967863 Active 2024 KALYAN MELO MD 100 [facility],[place] [address], [place], [address] , [facility] - [facility] [place] 5 09:13:23 Feeling of lump in throat 682759068 Active 2024 KALYAN MELO MD 100 [facility],[place] [address], [place], [address] , [facility] - [facility] [place] 5 09:13:28 Obstructi ve sleep apnea syndrome 85677110 Active 2024 KALYAN MELO MD [address] [place] [address],[place] [address], [place], [address] , [facility] - [facility] [place] 09:13:32 Problem Notes None recorded. Procedures Surgical History Date Name Laterality Status Provider Name and Address Organization Details Recorded Time 12/25/2024 FFL_RE completed KALYAN MELO MD 100 [facility],[place] [address], [place], [address], [facility] - [facility] [place] 12/25/2024 09:02:57 Imaging Results None recorded. Procedure Notes None recorded. Medical Equipment None Reported. Allergies Allergen ID Allergen Name Allergen Category Reaction Reaction Severity Criticality Documentation Date Start Date Code Code System Note Provider Name and Address Organization Details Recorded Time 844072 tramadol Not available other Not available Not available 02/14/2024 65695 RxNorm React ion: unkno wn, unspe cifie d;; Not Available [facility] 4 01:25:04 194517 Substance with sulfonami de structure and antibacte rial mechanism of action (substanc e) medicatio n other Not available Not available 02/14/2024 45774 8003 SNOMED React ion: unkno wn, unspe cifie d;; Not Available [facility] 4 01:25:05 Medications Name Sig Start Date Stop Date Status Note LastModified by Organization Details LastModified Time jazmyne angela 10 mg tablet 2018 active Medicatio n ID: [id number] Du ration Value: 30 Brand Name: destiny hydeine Se nd Method: E-Prescri bed Subs Allowed: [...] mg tablet 2018 active Medicatio n ID: [id number] Du ration Value: 30 Brand Name: ranitidin e HCl Send Method: E-Prescri bed Subs Allowed: subs OK Medica tionGener icName: ranitidin e HCl Not Available Not Available Not Available prednisone 20 mg tablet TAKE 2 TABLETS BY MOUTH DAILY active Not Available Not Available No t Available alendronat e 70 mg tablet TAKE 1 TABLET BY MOUTH EVERY WEEK active Not Available Not Available No t Available Milk of Magnesia 400 mg/5 mL oral suspension 2018 active Medicatio n ID: [id number] Du ration Value: 36 Brand Name: Milk of Magnesia Send Method: E-Prescri bed Subs Allowed: subs [place] Medica tionGener icName: Milk of Magnesia Not Available Not [...] spray,susp ension 2018 active Medicatio n ID: [id number] Du ration Value: 60 Brand Name: fluticaso ne propionat e Send Method: E-Prescri bed Subs Allowed: subs [place] Medica tionGener icName: fluticaso ne propionat e Not Available Not Available Not Available ipratropiu m bromide 21 mcg (0.03 %) nasal spray Inhale 2 spray into both nostrils three times a day as directed 2018 active Medicatio n ID: [id number] Pr escribed By Name: Kris Musa Name: ipratropi um bromide S end Method: E-Prescri bed Subs Allowed: subs OK Medica tionGener icName: ipratropi um bromide Not Available Not Available Not Available Myrbetriq 50 mg tablet,ext ended release 2018 active Medicatio n ID: [id number] Du ration Value: 30 Brand Name: Myrbetriq Send Method: E-Prescri bed Subs Allowed: subs [place] Medica tionGener icName: Myrbetriq Not Available Not Available Not Available Linzess 145 mcg capsule 2018 active Medicatio n ID: [id number] Du ration Value: 30 Brand Name: Linzess [...] Updated DateTime 12/25/2024 162.56 cm 30.7 kg/m2 06444.[address] [place] - [facility] 12/25/2024 09:00:53 Social History None recorded. Functional Status None recorded. Mental Status None recorded. Family History Nothing Reported. Medical History No medical history recorded. Gynecological HistoryNo gynecological history recorded. Obstetrics History GPAL:G 0 P 0 0 0 0 Past Encounters Encounter ID Performer Location Encounter Start Date Encounter Closed Date Diagnosis/Indication Diagnosis SNOMED-CT Code Diagnosis ICD10 Code Diagnosis Note [id number] KALYAN MELO MD [facility] of [address] [address] 12/25/2024 08:35:25 12/25/2024 09:20:14 Central perforation of left tympanic membrane 5488155650 813655 H72.02 Dry and safe. We will plan on audiogram at follow-up. Dysphagia 75896962 R13.1 0 No obstructiv e lesions. Dysphagia seems mild and we will defer swallow study for now. Obstructiv e sleep apnea syndrome 69411807 G47.33 She may have TK based on [...] Villela Member ID Guarantor Name 12/25/2024 1 [facility] - DOS ON OR AFTER 2023 - MEDICARE ADVANTAGE [place] (MEDICARE REPLACEMENT/ADV ANTAGE - PPO) Breanna Floyd [id number] Breanna Floyd Notes Date Note Type Note [...] acid reflux and takes pantoprazole for this. KALAYN MELO MD [address] [place] [address], [phone], [facility] - [facility] 12/25/2024 09:14:45 OBGyn Episode No OBEpisode recorded.
== END 2025-03-26 10:55 | disposition home or self-care (01) ==
LOC: HO.HOS 10:17
PROVIDERS: PCP Internal Medicine
DX: G56.02 Carpal tunnel syndrome, left upper limb (principal)
CPT/HCPCS: 99213

== ENCOUNTER → 2025-03-26 10:16 | Outpatient (BNVA) | payer OTHER, SELFPAY | PROVIDERS: PCP Internal Medicine | DX: G56.02 Carpal tunnel syndrome, left upper limb (principal) | CPT/HCPCS: 99212 ==

== ENCOUNTER 2025-04-15 13:41 | Outpatient (REF) | payer OTHER, SELFPAY ==
--- OUTSIDE RECORDS SUMMARY | 2023-05-23 10:25 | XMS_ITS | Continuity of Care Document ---
Author Organization [facility] Address [address] [place] [address] [address] [place] [address] Phone Care Team Providers Care Service Desk Technician Name Role Phone Ramon ALCANTAR FACS RVT Fahad ACOSTA Unavailable Unavailable Procedures Procedure Date Duplex Scan-extrem Veins; Comp Offic Cons New/estab Mod 40 Mi Advance Directives Directive Yes / No Effective Date File Name No Information Encounters Encounter Description Practice Location Reason(s) For Visit Diagnoses Date Provider Providers Copied on Encounter [facility], [address] [place] [address] [address], [id number], [place] tel:[phone] [facility] No Information 3 Ramon ALCANTAR FACS SRINIVASAT DAVE Orellana. [address] [facility], [address], [place], [address], [place]. tel:[phone] Referring Provider: Elena Dela Cruz MD, [address] [place] [address] Dr[address], [address] [place] D/B/A: yessica [facility], [place], [address]. tel:[phone] [facility], [address] [place] [address] [address], [id number], [place] tel:[phone] [facility] Chronic venous htn w oth comp of bilateral low extrm 3 Ramon ALCANTAR FACS T DAVE Orellana. [address] [facility], [place] [address], [place], [address], [place]. tel:[phone] Referring Provider: Elena Dela Cruz MD, [address], [address] [place] [address] D/B/A: [place], [address]. tel:[phone] Offic Cons New/estab Mod 40 Nd [facility], [address], [place], [id number], [place] tel:[phone] [facility] - [facility] Chronic venous htn w oth comp of bilateral low extrmFlail joint, unspecified jointPruritus , unspecifiedCr amp and spasmLocalize d edema 3 Ramon ALCANTAR FACS T DAVE Orellana. [address] [facility], [place] [address], [place], [address], [place]. tel:[phone] Referring Provider: Elena Dela Cruz MD, [address] [facility] [address], [address] [place] [address] D/B/A: [place], [address]. tel:[phone] Family History Family Member Type Diagnosis Age At Onset No Information Payers Payer name Insurance type Covered democrat ID Authoriza tion(s) [facility] CI [id number] Medical Assistance [facility] [id number] Social History Type Description Quantity Date Captured [...]
--- OUTSIDE RECORDS SUMMARY | 2025-04-15 14:54 | XMS_ITS | Data Portability ---
Author Organization [place] - [facility], Allergy Address [address] [address] Care Team Providers Care Architectural Technologist Name Role Phone AWN BRAMBILA Primary Care Provider [phone] Assessment No assessment recorded. Plan of Treatment Reminders Order Date Submit Date Provider Last Modified By Organization Details Last Modified Time Details Appointments None recorde d. Lab None recorde d. Referral None recorde d. Procedures None recorde d. Surgeries None recorde d. Imaging polysom nogram, diagnos tic, 6 yrs or older 025 12/26/19 25 [facility] Sleep Medicine Services, [address] [place], [address], 5 09:20:42 Medication Orders None recorde d. Patient TargetsNo targets recorded. Patient InstructionsNo instructions recorded. Reason for Referral None Reported. Problems Name Problem SNOMED Code Status Onset Date Resolution Date Notes Provider Name and Address Organization Details Recorded Time Gastroeso phageal reflux disease without esophagit is 552839604 Active 2018 Gastro-es ophageal reflux disease without esophagit is; Note: Date Diagnosed : 01/03/2019 11:01 AM (K21.9) Not Available [facility] 4 03:27:11 Chronic rhinitis 45755269 Active 2018 Chronic rhinitis; Note: Date Diagnosed : 01/03/2019 11:01 AM (J31.0) Not Available [facility] 4 03:27:11 Posterior rhinorrhe a 56095636 Active 2018 Postnasal drip; Note: Date Diagnosed : 01/03/2019 11:01 AM (R09.82) Not Available [facility] 4 03:27:11 Central perforati on of left tympanic membrane 24514850474 48199 Active 2024 KALYAN MELO MD [address] [facility] [address], [place], [address] , [facility] - [facility] 5 09:13:10 Dysphagia 14180458 Active 2024 KALYAN MELO MD 100 [facility],[place] [address], [place], [address] , [facility] - [facility] 5 09:13:23 Feeling of lump in throat 922463997 Active 2024 KALYAN MELO MD 100 [facility],[place] [address], [place], [address] , [facility] - [facility] 5 09:13:28 Obstructi ve sleep apnea syndrome 06578705 Active 2024 KALYAN MELO MD [address] [place] [address],[place] [address], [place], [address] , [facility] - [facility] 09:13:32 Problem Notes None recorded. Procedures Surgical History Date Name Laterality Status Provider Name and Address Organization Details Recorded Time 12/25/2024 FFL_RE completed KALYAN MELO MD [address] [facility],[place] [address], [place], [address], [facility] - [facility] 12/25/2024 09:02:57 Imaging Results None recorded. Procedure Notes None recorded. Medical Equipment None Reported. Allergies Allergen ID Allergen Name Allergen Category Reaction Reaction Severity Criticality Documentation Date Start Date Code Code System Note Provider Name and Address Organization Details Recorded Time 426500 tramadol Not available other Not available Not available 02/14/2024 29464 RxNorm React ion: unkno wn, unspe cifie d;; Not Available [facility] 4 01:25:04 432756 Substance with sulfonami de structure and antibacte rial mechanism of action (substanc e) medicatio n other Not available Not available 02/14/2024 41436 8003 SNOMED React ion: unkno wn, unspe cifie d;; Not Available [facility] 4 01:25:05 Medications Name Sig Start Date Stop Date Status Note LastModified by Organization Details LastModified Time jazmyne angela 10 mg tablet 2018 active Medicatio n ID: [id number] Du ration Value: 30 Brand Name: destiny [...] mg tablet 2018 active Medicatio n ID: [id number] Du ration Value: 30 Brand Name: ranitidin [...] oral suspension 2018 active Medicatio n ID: [id number] Du ration Value: 36 Brand Name: Milk [...] spray,susp ension 2018 active Medicatio n ID: [id number] Du ration Value: 60 Brand Name: fluticaso ne propionat e Send Method: E-Prescri bed Subs Allowed: subs OK Medica tionGener icName: fluticaso ne propionat e Not Available Not Available Not Available ipratropiu m bromide 21 mcg (0.03 %) nasal spray Inhale 2 spray into both nostrils three times a day as directed 2018 active Medicatio n ID: [id number] Pr escribed By Name: Kris Musa Name: ipratropi um bromide S end Method: E-Prescri bed Subs Allowed: subs OK Medica tionGener icName: ipratropi um bromide Not Available Not Available Not Available Myrbetriq 50 mg tablet,ext ended release 2018 active Medicatio n ID: [id number] Du ration Value: 30 Brand Name: Myrbetriq Send Method: E-Prescri bed Subs Allowed: subs OK Medica tionGener icName: Myrbetriq Not Available Not Available Not Available Linzess 145 mcg capsule 2018 active Medicatio n ID: [id number] Du ration Value: 30 Brand Name: Linzess [...] Updated DateTime 12/25/2024 162.56 cm 30.7 kg/m2 66371.03 g Arcelia [place] - [facility] 12/25/2024 09:00:53 Social History None recorded. Functional Status None recorded. Mental Status None recorded. Family History Nothing Reported. Medical History No medical history recorded. Gynecological HistoryNo gynecological history recorded. Obstetrics History GPAL:G 0 P 0 0 0 0 Past Encounters Encounter ID Performer Location Encounter Start Date Encounter Closed Date Diagnosis/Indication Diagnosis SNOMED-CT Code Diagnosis ICD10 Code Diagnosis Note [id number] KALYAN MELO MD [facility] [address] [address] 12/25/2024 08:35:25 12/25/2024 09:20:14 Central perforation of left tympanic membrane [id number] 516975 H72.02 Dry and safe. We will plan on audiogram at follow-up. Dysphagia 37803224 R13.1 0 No obstructiv e lesions. Dysphagia seems mild and we will defer swallow study for now. Obstructiv e sleep apnea syndrome 84109038 G47.33 She may have TK based on [...] [place] Member ID Guarantor Name 12/25/2024 1 [facility] - DOS ON OR AFTER 2023 - MEDICARE ADVANTAGE [place] (MEDICARE REPLACEMENT/ADV ANTAGE - PPO) Breanna Floyd [id number] Breanna Floyd Notes Date Note Type Note [...] takes pantoprazole for this. KALYAN MELO MD [address] [place] [address], [address], [facility] - [facility] 12/25/2024 09:14:45 OBGyn Episode No OBEpisode recorded.
--- OUTSIDE RECORDS SUMMARY | 2025-04-15 14:54 | XMS_ITS | Clinical Summary ---
Author Organization [facility] Address [address] [place] [address] Care Team Providers Care Cloth Washer Operator Name Role Phone Unavailable Primary Care Provider [...] Fecal DNA 1996 Flexible Sigmoidoscopy 1996 Imm-Pneumococcal 50+ (1 of 1 - PCV) 2001 Imm-Zoster, Recombinant (1 of 2) 2001 Bone Density Screening 2016 Falls Prevention 2016 [id number] ( - season) 2024 Alcohol and Drug Screen 10/03/2024 Depression Annual Screen 10/03/2024 Dental Perio Charting 12/21/2024 12/20/2023, 022 Imm-Influenza (#1) 2025 Tobacco Screening 06/27/2025 06/27/2024 Dental BW 06/29/2025 06/27/2024, 12/01, 06/14/2023, Additional history exists Dental Examination 06/29/2025 06/27/2024, 0 12/20/2023, 06/14/2023, Additional history exists Dental Prophy 06/29/2025 06/27/2024, 12/01, 06/14/2023, Additional history exists Hypertension Screening (#1) [...] Health Maintenance Insurance [facility] Member Subscriber Plan / Payer (Ef fective 2021-Present) Name:Breanna Catherine Relation to Subscriber:Self Name:Breanna Catherine Payer ID:[id number] Group ID:Not on file Type:Medicare Address: [place] [id number]
== END 2025-04-15 13:42 | disposition home or self-care (01) ==
LOC: HO.MAMMO 13:41
PROVIDERS: PCP Internal Medicine; Visit Provider Internal Medicine
DX: Z12.31 Encounter for screening mammogram for malignant neoplasm of breast (principal)
CPT/HCPCS: 77063; 77067

== ENCOUNTER → 2025-04-15 14:15 | Outpatient (BNV) | payer OTHER, SELFPAY | PROVIDERS: PCP Internal Medicine; Visit Provider Internal Medicine | DX: Z12.31 Encounter for screening mammogram for malignant neoplasm of breast (principal) | CPT/HCPCS: 77063; 77067 ==

== ENCOUNTER 2025-04-22 14:00 | Outpatient (RCR) | payer OTHER, SELFPAY ==
--- NOTE | 2025-04-08 15:08 | MHC.OT.EP ---
[address] [phone] Occupational Therapy Plan of Care Patient Name: Breanna Jauregui Date of Evaluation: 04/08/25 Diagnosis: L CTS Pain Location: L BASE OF THUMB 2-3/10 L SHOULDER 9/10 Pain Score: 2-9/10 Pain Scale Used: Numeric (0 - 10) Aggravating Factors: GRASPING, CARRYING HEAVY ITEMS Alleviating Factors: NAPROXEN, FLEXERIL Assessment: MS ROBE JAUREGUI HAD AN EMG COMPLETED IN JANUARY 2025 WHICH SHOWS MILD MEDIAN NERVE IMPAIRMENT. SHE REPORTS MILD NUMBNESS AND TINGLING AND PAIN IN HAND AND WRIST, YET SEVERE PAIN IN HER L SHOULDER AND NECK. AN 80% LIMITATION WAS REPORTED PER THE QUICK DASH ASSESSMENT. A BRIEF COURSE OF OT IS WARRANTED TO PROVIDE ED ON ORTHOSIS USE, ROM, STRENGTH AND LUE SAFETY. PER EMR, PENDING REFERRAL TO DR CALDERON FOR CERVICAL RADICULOPATHY. Frequency and Duration: The patient will be seen 2X/WEEK FOR 2 WEEKS Short Term Goals: IND HEP IND ORTHOSIS USE IND JT PROTECTION AND ACTIVITY MODIFICATIONS Compressor Station Chief Engineer Goals: SEE ABOVE Treatment Plan: Therapeutic Exercise Therapeutic Activity Home Exercise Program Splinting Neuro Re-ed Patient Education Desensitization/Sensory Re-ed Edema Control ADL Training Ultrasound NMES Iontophoresis Paraffin Fluidotherapy MHP Cold Packs Joint Mobilization Soft Tissue Mobilization Kinesiotaping Other (see comments) Electronically Signed By: GALO ALEXANDER OTR/L Please Sign and return to therapist. Thank you once again for your referral.
--- NOTE | 2025-04-22 14:27 | MHC.OT.DC ---
[address] [phone] F: [phone] Occupational Therapy Discharge Note Patient Name: Breanna Jauregui Provider: Lamberto Burrell Diagnosis: L CTS Date of Evaluation: 04/08/25 Date of Discharge: 04/22/25 Treatments to Date: 5 Discharge Status: Achieved Goals Improved Function Independent with HEP Discharge Summary: MS ROBE JAUREGUI REPORTS LESS NUMBNESS, TINGLING AND PAIN. SHE HAS BEEN EDUCATED ON HEP WITH IMPROVEMENTS IN FOLLOW THROUGH WITH MULTIMODAL EDUCATION. PRINTED WORKSHEETS PROVIDED ON MEDIAN NERVE SAFETY. READY FOR TRANSITION TO A HOME BASED PROGRAM. Electronically Signed By: CYNDEE PACHECO/Darío Reviewed/agree with student documentation: N/A Therapist: Please Sign and return to therapist, thank you for your referral.
== END 2025-04-22 14:25 | disposition home or self-care (01) ==
LOC: HO.OT 14:00
PROVIDERS: PCP Internal Medicine
DX: Z48.811 Encounter for surgical aftercare following surgery on the nervous system (principal)
CPT/HCPCS: 97110; 97140; 97166

== ENCOUNTER 2025-04-23 09:23 | Outpatient (REF) | payer OTHER, SELFPAY ==
[2025-04-23 14:57] LABS: B Type Natriuretic Peptide 60 pg/mL (<100)
== END 2025-04-23 09:24 | disposition home or self-care (01) ==
LOC: HO.LAB 09:23
PROVIDERS: PCP Internal Medicine; Visit Provider Internal Medicine
DX: R06.02 Shortness of breath (principal); I50.9 Heart failure, unspecified; R07.9 Chest pain, unspecified; Z79.899 Other long term (current) drug therapy
CPT/HCPCS: 36415; 83880; 99212

== ENCOUNTER 2025-04-23 09:23 | Outpatient (AMB) | payer OTHER, SELFPAY ==
--- OUTSIDE RECORDS SUMMARY | 2023-05-23 10:25 | XMS_ITS | Continuity of Care Document ---
Author Organization [facility] Address [address] [place] [address] [address] [place] [address] Phone Care Team Providers Care Data Architect Manager Name Role Phone Ramon ALCANTAR FACS RVT Fahad ACOSTA Unavailable Unavailable Procedures Procedure Date Duplex Scan-extrem Veins; Comp Offic Cons New/estab Mod 40 Mi Advance Directives Directive Yes / No Effective Date File Name No Information Encounters Encounter Description Practice Location Reason(s) For Visit Diagnoses Date Provider Providers Copied on Encounter [facility], [address] [place] [address] [address], [id number], [place] tel:[phone] [facility] No Information 3 Ramon ALCANTAR FACS SRINIVASAT DAVE Orellana. [address] [facility], [address], [place], [address], [place]. tel:[phone] Referring Provider: Elena Dela Cruz MD, [address] [place] [address] [address], [address] [place] D/B/A: [facility]essica [facility], [place], [address]. tel:[phone] [facility], [address] [place] [address] [address], [id number], [place] tel:[phone] [facility] Chronic venous htn w oth comp of bilateral low extrm 3 Ramon ALCANTAR FACS T DAVE Orellana. [address] [facility], [place] [address], [place], [address], [place]. tel:[phone] Referring Provider: Elena Dela Cruz MD, [address], [address] [place] [address] D/B/A: [place], [address]. tel:[phone] Offic Cons New/estab Mod 40 Sc [facility], [address] [facility] [address], [place], [id number], [place] tel:[phone] [facility] Chronic venous htn w oth comp of bilateral low extrmFlail joint, unspecified jointPruritus , unspecifiedCr amp and spasmLocalize d edema 3 Ramon ACLANTAR FACS T DAVE Orellana. [address] [facility], [place] [address], [place], [address], [place]. tel:[phone] Referring Provider: Elena Dela Cruz MD, [address] [facility] [address], [address] [place] [address] D/B/A: [place], [address]. tel:[phone] Family History Family Member Type Diagnosis Age At Onset No Information Payers Payer name Insurance type Covered libertarian ID Authoriza tion(s) [facility] CI [id number] Medical Assistance [facility] [id number] Social History Type Description Quantity Date Captured [...]
--- NOTE | 2025-04-23 09:21 | MHC.OFFVIS ---
Vital Signs 04/23/25 09:36 Height 5 ft 6 in Weight 179 lb BMI 28.9 Intake Visit Reasons: New Prob- Left knee pain Intake Note: Breanna is a 74 year old female who presents today for a evaluation of her left knee OA. Patient reports ongoing pain for about a year. She notices that her pain is on the medial and lateral aspect of the knee and at times it radiates up to her thigh. She notices that her pain also comes down to her ankle. Patient mentions that her pain is worse when she is walking, going up and down the stairs and bending. Patient has tried a brace for 3 + months no relief and more pain. IMPRESSION: Mild medial compartment osteoarthritis. Allergies homatropine (Hydromet) Allergy (Intermediate, Verified 04/23/25 09:36) rash ketorolac (From TORADOL) Allergy (Intermediate, Verified 04/23/25 09:36) N/V Sulfa (Sulfonamide Antibiotics) (SULFA (SULFONAMIDE ANTIBIOTICS)) Allergy (Intermediate, Verified 04/23/25 09:36) RASH sulfacetamide Allergy (Intermediate, Verified 04/23/25 09:36) rash tramadol (TRAMADOL) Allergy (Intermediate, Verified 04/23/25 09:36) N/V, edema and vomiting, edema and vomiting tizanidine Adverse Reaction (Intermediate, Verified 04/23/25 09:36) blurry vision HPI HPI New Prob- Left knee pain: Details: Ms. Harsh Floyd is a 74-year-old female who presents to the office for evaluation of left lower extremity numbness, tingling, electricity feel and pain. She reports that she has back pain, thigh pain, knee pain with radiation down to her foot. She reports that this has been present for quite some time but more recently has become more consistent. She reports that ambulating makes her pain worse as well as going up and down stairs and bending. She reports a history of low back pain but has not been evaluated for this. COUNT INCLUDES THE [facility] Medical History (Updated 04/23/25 @ 10:57 by Bina Frost PA-C) Physical exam Abdominal pain Abdominal pain Rectal bleeding Bilateral hand numbness Physical exam Pre-op examination Hospital discharge follow-up Age related osteoporosis Postmenopausal Precordial chest pain Toenail fungus Urine abnormality Hemorrhoids Allergic rhinitis GERD (gastroesophageal reflux disease) Renal cyst Pelvic pain in female Surgical History Hx of eye surgery History of tooth extraction H/O colonoscopy History of esophagogastroduodenoscopy (EGD) History of ear surgery History of tonsillectomy History of tubal ligation Family History Father CVD (cardiovascular disease) Mother No problems noted. Brother Stomach cancer Sister Liver cancer Brother Lung cancer Brother No problems noted. Social History Household Members: None Housing: Apartment Are you a primary dog day care attendant to a significant other at home: No Unable to assess alcohol history related to: Unknown Alcohol intake: current Alcohol intake frequency: holidays/special occasions only Alcohol type: beer and wine Patient Tobacco Use Status: Former Tobacco user Tobacco use type: Cigarette e-Cigarette/Vaping Use: Never Used Second Hand Smoke Exposure: No Advance Directives Date on File: 03/05/24 service: No Current occupational status: disabled Cognitive needs: No Hearing needs: No Vision needs: No Review of Systems Const All systems reviewed & are unremarkable except as noted in HPI and below Physical Exam Vital Signs: BMI result Body Mass Index 28.9 Const General: cooperative, healthy appearing and no acute distress Resp Effort & Inspection: normal respiratory effort and able to speak in complete sentences Extrem Other: Left knee: Normal to inspection. No ecchymosis, erythema, or joint effusion. No tenderness to palpation along the medial or lateral joint lines. Full knee extension and flexion. Left hip: Full hip ROM in all planes. No reported groin pain with range of motion testing. No tenderness to palpation over the greater trochanteric bursa. 4/5 strength with resisted hip flexion, knee extension, abduction, and abduction. Able to perform straight leg raise with reproduction of symptoms. Assessment & Plan Assessment & Plan (1) Lumbar back pain with radiculopathy affecting left lower extremity: Code(s): M54.16 - Radiculopathy, lumbar region Category: Medical Plan Ms. Harsh Floyd is a 74-year-old female who presents to the office for evaluation of left lower extremity numbness, tingling, electricity feel and pain. She reports that she has back pain, thigh pain, knee pain with radiation down to her foot. She reports that this has been present for quite some time but more recently has become more consistent. She reports that ambulating makes her pain worse as well as going up and down stairs and bending. She reports a history of low back pain but has not been evaluated for this. While in the office today, we discussed x-ray findings which were obtained on 03/05/2025 as well as additional imaging on 01/03/2025 which is significant for mild medial compartment osteoarthritis. However, based off of the patient's neurological symptoms I feel that there is a low back component contributing to her pain. I have recommended an evaluation with Dr. Sood for further evaluation and treatment. She will follow up with Orthopedics p.r.n., sooner if needed. Coding Level of Care Code Est Pt Level 3 (08444) Diagnoses Lumbar back pain with radiculopathy affecting left lower extremity M54.16
[2025-04-23 09:36] VITALS: BMI 28.9
--- OUTSIDE RECORDS SUMMARY | 2025-04-23 09:57 | XMS_ITS | Clinical Summary ---
Author Organization [facility] Address [address] [place] [address] Care Team Providers Care Truck Chauffeur Name Role Phone Unavailable Primary Care Provider [...] Bone Density Screening 2016 Falls Prevention 2016 [id number] ( - season) 2024 Alcohol and Drug [...] Most Recently Relevant to Health Maintenance Insurance [facility] - [facility] Member Subscriber Plan / Payer (Ef fective 2021-Present) Name:Breanna Catherine Relation to Subscriber:Self Name:Breanna Catherine Payer ID:[id number] Group ID:Not on file Type:Medicare Address: [place] [id number]
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
--- OUTSIDE RECORDS SUMMARY | 2025-04-23 09:57 | XMS_ITS | Data Portability ---
Author Organization [place] [facility], Allergy Address [address] [address] Care Team Providers Care Retail Reset Merchandiser Name Role Phone WAN BRAMBILA Primary Care [...] or older 025 12/26/19 25 [facility], [address] [place], [address], 5 09:20:42 Medication Orders None recorde d. Patient TargetsNo targets recorded. Patient InstructionsNo instructions recorded. Reason for Referral None Reported. Problems Name Problem SNOMED Code Status Onset Date Resolution Date Notes Provider Name and Address Organization Details Recorded Time Gastroeso phageal reflux disease without esophagit is 034751571 Active 2018 Gastro-es ophageal reflux disease without esophagit is; Note: Date Diagnosed : 01/03/2019 11:01 AM (K21.9) Not Available [facility] 4 03:27:11 Chronic rhinitis 77656161 Active 2018 Chronic rhinitis; Note: Date Diagnosed : 01/03/2019 11:01 AM (J31.0) Not Available [facility] 4 03:27:11 Posterior rhinorrhe a 74420333 Active 2018 Postnasal drip; Note: Date Diagnosed : 01/03/2019 11:01 AM (R09.82) Not Available [facility] 4 03:27:11 Central perforati on of left tympanic membrane [id number] 12534 Active 2024 KALYAN MELO MD [address] [facility] [place] [address], [place], [address] , [facility] [place] 5 09:13:10 Dysphagia 51887129 Active 2024 KALYAN MELO MD [address] [facility],[place] [address], [place], [address] , [facility] - [facility] [place] 5 09:13:23 Feeling of lump in throat 511489284 Active 2024 KALYAN MELO MD [address] [facility],[place] [address], [place], [address] , [facility] [place] 5 09:13:28 Obstructi ve sleep apnea syndrome 22178484 Active 2024 KALYAN MELO MD [address] [place] [address],[place] [address], [place], [address] , [facility] - [facility] [place] 09:13:32 Problem Notes None recorded. Procedures Surgical History Date Name Laterality Status Provider Name and Address Organization Details Recorded Time 12/25/2024 FFL_RE completed KALYAN MELO MD [address] [facility],[place] [address], [place], [address], [facility] - [facility] [place] 12/25/2024 09:02:57 Imaging Results None recorded. Procedure Notes None recorded. Medical Equipment None Reported. Allergies Allergen ID Allergen Name Allergen Category Reaction Reaction Severity Criticality Documentation Date Start Date Code Code System Note Provider Name and Address Organization Details Recorded Time [id number] tramadol Not available other Not available Not available 02/14/2024 57424 RxNorm React ion: unkno wn, unspe cifie d;; Not Available [facility] 4 01:25:04 191735 Substance with sulfonami de structure and antibacte rial mechanism of action (substanc e) medicatio n other Not available Not available 02/14/2024 13233 8003 SNOMED React ion: unkno wn, unspe cifie d;; Not Available [facility] 4 01:25:05 Medications Name Sig Start Date Stop Date Status Note LastModified by Organization Details LastModified Time jazmyne angela 10 mg tablet 2018 active Medicatio n ID: [id number] Du ration Value: 30 Brand Name: destiny [...] mg tablet 2018 active Medicatio n ID: [id number] Du ration Value: 30 Brand Name: ranitidin [...] oral suspension 2018 active Medicatio n ID: [id number] Du ration Value: 36 Brand Name: Milk [...] spray,susp ension 2018 active Medicatio n ID: [id number] Du ration Value: 60 Brand Name: fluticaso ne propionat e Send Method: E-Prescri bed Subs Allowed: subs OK Medica tionGener icName: fluticaso ne propionat e Not Available Not Available Not Available ipratropiu m bromide 21 mcg (0.03 %) nasal spray Inhale 2 spray into both nostrils three times a day as directed 2018 active Medicatio n ID: [id number] Pr escribed By Name: Kris Musa Name: ipratropi um bromide S end Method: E-Prescri bed Subs Allowed: subs OK Medica tionGener icName: ipratropi um bromide Not Available Not Available Not Available Myrbetriq 50 mg tablet,ext ended release 2018 active Medicatio n ID: [id number] Du ration Value: 30 Brand Name: Myrbetriq Send Method: E-Prescri bed Subs Allowed: subs OK Medica tionGener icName: Myrbetriq Not Available Not Available Not Available Linzess 145 mcg capsule 2018 active Medicatio n ID: [id number] Du ration Value: 30 Brand Name: Linzess [...] Updated DateTime 12/25/2024 162.56 cm 30.7 kg/m2 85458.03 g Arcelia [place] [facility] 12/25/2024 09:00:53 Social History None recorded. Functional Status None recorded. Mental Status None recorded. Family History Nothing Reported. Medical History No medical history recorded. Gynecological HistoryNo gynecological history recorded. Obstetrics History GPAL:G 0 P 0 0 0 0 Past Encounters Encounter ID Performer Location Encounter Start Date Encounter Closed Date Diagnosis/Indication Diagnosis SNOMED-CT Code Diagnosis ICD10 Code Diagnosis Note [id number] KALYAN MELO MD [facility] [address] [address] 12/25/2024 08:35:25 12/25/2024 09:20:14 Central perforation of left tympanic membrane [id number] 846832 H72.02 Dry and safe. We will plan on audiogram at follow-up. Dysphagia 72022823 R13.1 0 No obstructiv e lesions. Dysphagia seems mild and we will defer swallow study for now. Obstructiv e sleep apnea syndrome 33698381 G47.33 She may have TK based on [...] Villela Member ID Guarantor Name 12/25/2024 1 [facility] - DOS ON OR AFTER 2023 - MEDICARE ADVANTAGE [place] (MEDICARE REPLACEMENT/ADV ANTAGE - PPO) Breanna Floyd [id number] Breanna Floyd Notes Date Note Type Note [...] takes pantoprazole for this. KALYAN MELO MD [address] [place] [address], [address], [facility] - [facility] 12/25/2024 09:14:45 OBGyn Episode No OBEpisode recorded.
== END 2025-04-23 10:20 | disposition home or self-care (01) ==
LOC: HO.HOS 09:23
PROVIDERS: PCP Internal Medicine; Visit Provider Physician Assistant
DX: M54.16 Radiculopathy, lumbar region (principal)
CPT/HCPCS: 99213

== ENCOUNTER 2025-04-23 13:18 | Outpatient (AMB) | payer OTHER, SELFPAY ==
[2025-04-23 13:21] VITALS: BP 106/60; PULSE 67; BMI 28.8
--- NOTE | 2025-04-23 13:21 | A.OFFVIS_ITS ---
Vital Signs 04/23/25 13:21 Height 5 ft 6 in Weight 178 lb 9.191 oz BMI 28.8 BP 106/60 Blood Pressure Location Lt brachial Position Sitting Pulse 67 Pulse Source Pulse Oximeter Intake Visit Reasons: follow up/ ongoing SOB/chest pain Nickel Operator Required: Yes Nickel Operator Name: RENATO [id number] Allergies homatropine (Hydromet) Allergy (Intermediate, Verified 04/23/25 09:36) rash ketorolac (From TORADOL) Allergy (Intermediate, Verified 04/23/25 09:36) N/V Sulfa (Sulfonamide Antibiotics) (SULFA (SULFONAMIDE ANTIBIOTICS)) Allergy (Intermediate, Verified 04/23/25 09:36) RASH sulfacetamide Allergy (Intermediate, Verified 04/23/25 09:36) rash tramadol (TRAMADOL) Allergy (Intermediate, Verified 04/23/25 09:36) N/V, edema and vomiting, edema and vomiting tizanidine Adverse Reaction (Intermediate, Verified 04/23/25 09:36) blurry vision Medication List - Last Reconciled 04/23/25 by Miguel Triana MD albuterol sulfate 90 mcg/actuation 1 inh inhalation QID PRN cetirizine (All Day Allergy (cetirizine)) 10 mg PO DAILY PRN 90 days cyclobenzaprine 10 mg PO BID PRN 30 days [Hand held shower head As directed] ipratropium bromide 2 sprays intranasal BID 30 days latanoprost 0.005% drps ophthalmic (eye) linaclotide (Linzess) 290 mcg PO QAM 30 days naproxen 500 mg PO BID PRN 30 days nebulizers As directed nitrofurantoin macrocrystal 100 mg PO BID 7 days pantoprazole 40 mg PO DAILY [Raised toilet seat As directed] [Shower chair As directed] HPI Comments Details: Breanna returns for follow-up. In the past, she was seen regarding question of bradycardia and other symptoms like chest pressure, shortness of breath. However, cardiac workup itself was unremarkable. She also has a history of nonspecific interstitial pneumonitis and goes to [facility] pulmonology. She states that she is getting up at night with sensation not able to breathe. Not clear if she is having sleep apnea. It seems that she might be getting a sleep study through [facility]. Otherwise, some shortness of breath with activity same as before. No clear anginal-type symptoms. It seems that she has gained some weight recently. He is wondering if that is the reason for her shortness of breath. Discussed with patient using conference interpreter. [facility] Medical History (Updated 04/23/25 @ 10:57 by Bina Frost PA-C) Physical exam Abdominal pain Abdominal pain Rectal bleeding Bilateral hand numbness Physical exam Pre-op examination Hospital discharge follow-up Age related osteoporosis Postmenopausal Precordial chest pain Toenail fungus Urine abnormality Hemorrhoids Allergic rhinitis GERD (gastroesophageal reflux disease) Renal cyst Pelvic pain in female Surgical History Hx of eye surgery History of tooth extraction H/O colonoscopy History of esophagogastroduodenoscopy (EGD) History of ear surgery History of tonsillectomy History of tubal ligation Family History Father CVD (cardiovascular disease) Mother No problems noted. Brother Stomach cancer Sister Liver cancer Brother Lung cancer Brother No problems noted. Social History Household Members: None Housing: Apartment Are you a primary health care aide to a significant other at home: No Unable to assess alcohol history related to: Unknown Alcohol intake: current Alcohol intake frequency: holidays/special occasions only Alcohol type: beer and wine Patient Tobacco Use Status: Former Tobacco user Tobacco use type: Cigarette e-Cigarette/Vaping Use: Never Used Second Hand Smoke Exposure: No Advance Directives Date on File: 03/05/24 service: No Current occupational status: disabled Cognitive needs: No Hearing needs: No Vision needs: No Review of Systems Const Denies weakness ENT Denies dizziness Card Denies chest pain, Denies chest pain with activity, Denies syncope, Denies rapid heart rate, Denies pedal edema, Denies edema, Denies leg edema, Denies lightheadedness, Denies palpitations, Reports dyspnea, Reports dyspnea on exertion and Reports orthopnea Resp Denies cough, Reports dyspnea and Reports dyspnea on exertion GI Denies hematochezia and Denies change in stool character Musc Denies abnormal gait, Denies muscle cramps, Denies muscle weakness, Denies numbness, Denies radiating pain into limb and Denies tingling Neuro Denies abnormal gait, Denies dizziness, Denies syncope, Denies numbness, Denies tingling and Denies weakness Endo Denies palpitations Physical Exam Vital Signs: Last Vital Signs Pulse 67 04/23/25 13:21 BP 106/60 04/23/25 13:21 BMI result Body Mass Index 28.8 Const General: comfortable and no acute distress Orientation/consciousness: patient oriented x3 HEENT Other: Unremarkable Head: Yes normal to inspection Neck Neck: Yes normal visual inspection Chest Chest palpation & inspection: normal inspection of the chest Resp Auscultation: clear to auscultation bilaterally Cardio Palpation: normal PMI Heart sounds: S1 normal heart sound present, S2 normal heart sound present, no gallops, no murmurs and no rubs GI Palpation (GI): Soft to palpation Back/Spine/Pelvis Other: unremarkable Skin General skin exam: no rashes or lesions noted Neuro General: patient oriented x3 Extrem General: Yes normal to inspection Psych Mental Status: mental status grossly normal Assessment & Plan Assessment & Plan (1) Dyspnea: Code(s): R06.00 - Dyspnea, unspecified Category: Medical Plan Echocardiogram with LVEF of 55-60% mild diastolic dysfunction, otherwise unremarkable. Myocardial perfusion imaging study shows likely normal perfusion. Per [facility] pulmonary note, subtle ground-glass/subpleural interstitial changes in both lower lobes, possible ILD like nonspecific interstitial pneumonitis versus silent aspiration. Suspect shortness of breath is most likely noncardiac. We will get cardiac BNP as well for further clarification. Otherwise, she can follow up with on a sleep study. Discussion Notes I discussed with the patient the possibility of sleep apnea contributing to her nocturnal symptoms and the importance of undergoing a sleep study. We also talked about the need for a blood test to check her heart function, given her history of normal cardiac tests last year. I advised her to be mindful of her weight, as it may be impacting her breathing. Patient was informed and verbally consented to the use of an ambient scribe for clinic note documentation during this visit. Orders: Orders B Type Natriuretic Peptide Today I50.9 - Heart failure, unspecified Patient Instructions: - Schedule and complete the sleep study as soon as possible. - Go to the lab for the blood test to check heart function. - Monitor your weight and try to maintain a healthy weight. Coding Level of Care Code Est Pt Level 3 (26696) Diagnoses Dyspnea R06.00
== END 2025-04-23 14:11 | disposition home or self-care (01) ==
PROVIDERS: PCP Internal Medicine; Visit Provider Internal Medicine
DX: R06.00 Dyspnea, unspecified (principal)
CPT/HCPCS: 99213

== ENCOUNTER 2025-05-31 10:38 | Outpatient (AMB) | payer OTHER, SELFPAY ==
--- OUTSIDE RECORDS SUMMARY | 2023-05-23 10:25 | XMS_ITS | Continuity of Care Document ---
Author Organization [facility] Address [address] [place] [address] [address] [place] [phone] Phone Care Team Providers Care Customer Service Analyst Name Role Phone Ramon ALCANTAR FACS RVT Fahad ACOSTA Unavailable Unavailable Procedures Procedure Date Duplex Scan-extrem Veins; Comp Offic Cons New/estab Mod 40 Mi Advance Directives Directive Yes / No Effective Date File Name No Information Encounters Encounter Description Practice Location Reason(s) For Visit Diagnoses Date Provider Providers Copied on Encounter [facility], [address] [place] [address] [address], [id number], [place] tel:[phone] [facility] No Information 3 Ramon ALCANTAR FACS SRINIVASAT DAVE Orellana. [address] [facility], [address], [place], [address], [place]. tel:[phone] Referring Provider: Elena Dela Cruz MD, [address] [place] [address] DrBr[address], [address] [place] D/B/A: yessica [facility], [place], [address]. tel:[phone] [facility], [address] [place] [address] [address], [id number], [place] tel:[phone] [facility] Chronic venous htn w oth comp of bilateral low extrm 3 Ramon ALCANTAR FACS T DAVE Orellana. [address] [facility], [place] [address], [place], [address], [place]. tel:[phone] Referring Provider: Elena Dela Cruz MD, [address], [address] [place] [address] D/B/A: [place], [address]. tel:[phone] Offic Cons New/estab Mod 40 Ri [facility], [address], [place], [id number], [place] tel:[phone] [facility] - [facility] Chronic venous htn w oth comp of bilateral low extrmFlail joint, unspecified jointPruritus , unspecifiedCr amp and spasmLocalize d edema 3 Ramon ALCANTAR FACS T DAVE Orellana. [address] [facility], [place] [address], [place], [address], [place]. tel:[phone] Referring Provider: Elena Dela Cruz MD, [address] [facility] [address], [address] [place] [address] D/B/A: [place], [address]. tel:[phone] Family History Family Member Type Diagnosis Age At Onset No Information Payers Payer name Insurance type Covered constitution party ID Authoriza tion(s) [facility] CI [id number] Medical Assistance [facility] [id number] Social History Type Description Quantity Date Captured [...]
--- NOTE | 2025-05-31 10:41 | A.OFFVIS_ITS ---
Vital Signs 05/31/25 10:50 Height 5 ft 6 in Weight 180 lb BMI 29.0 Intake Visit Reasons: New Patient Left Sided Neck Pain Intake Note: Breanna is a 74 year old female left hand dominant who presents today as a new patient for left sided neck pain. Patient was referred by her PCP and AA. Patient states that for the past 3 to 4 months she has had neck pain that is radiating down the left arm. Patient states that she has not tried physical therapy or injections. Residential Interior Designer Required: Yes Residential Interior Designer Services: Residential Interior Designer Present Residential Interior Designer Name: José Manuel [id number] Allergies homatropine (Hydromet) Allergy (Intermediate, Verified 05/31/25 10:52) rash ketorolac (From TORADOL) Allergy (Intermediate, Verified 05/31/25 10:52) N/V Sulfa (Sulfonamide Antibiotics) (SULFA (SULFONAMIDE ANTIBIOTICS)) Allergy (Intermediate, Verified 05/31/25 10:52) RASH sulfacetamide Allergy (Intermediate, Verified 05/31/25 10:52) rash tramadol (TRAMADOL) Allergy (Intermediate, Verified 05/31/25 10:52) N/V, edema and vomiting, edema and vomiting tizanidine Adverse Reaction (Intermediate, Verified 05/31/25 10:52) blurry vision Medication List - Last Reconciled 05/31/25 by Trudi Smith MD albuterol sulfate 90 mcg/actuation 1 inh inhalation QID PRN cetirizine (All Day Allergy (cetirizine)) 10 mg PO DAILY PRN 90 days cyclobenzaprine 10 mg PO BID PRN 30 days [Hand held shower head As directed] ipratropium bromide 2 sprays intranasal BID 30 days latanoprost 0.005% drps ophthalmic (eye) linaclotide (Linzess) 290 mcg PO QAM 30 days naproxen 500 mg PO BID PRN 30 days nebulizers As directed nitrofurantoin macrocrystal 100 mg PO BID 7 days pantoprazole 40 mg PO DAILY [Raised toilet seat As directed] [Shower chair As directed] HPI Comments Details: She was seen by Bina CAMPUZANO for left leg pain/numbness. Referred to Physiatry for further evaluation of lumbar spine. She was also seen by Lamberto CAMPUZANO for left arm/hand numbness. But she says today that she is here for left sided neck pain, NOT low back pain. 3 months only for left sided neck pain, radiating down to left shoulder and elbow. Does not radiate to left hand now, it used to but it resolved with therapy. Denies numbness on arm or hand. Limited ROM on left shoulder forward flexion. 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 Murray 2022. Shoulder xray done few months ago. CT cervical spine few years ago, no surgery or injections. On further review, she did have chronic neck pain that comes/goes. But it seems her main complaint is left shoulder. [facility] Medical History (Updated 05/31/25 @ 12:07 by Trudi Smith MD) Physical exam Abdominal pain Abdominal pain Rectal bleeding Bilateral hand numbness Physical exam Pre-op examination Hospital discharge follow-up Age related osteoporosis Postmenopausal Precordial chest pain Toenail fungus Urine abnormality Hemorrhoids Allergic rhinitis GERD (gastroesophageal reflux disease) Renal cyst Pelvic pain in female Surgical History Hx of eye surgery History of tooth extraction H/O colonoscopy History of esophagogastroduodenoscopy (EGD) History of ear surgery History of tonsillectomy History of tubal ligation Family History Father CVD (cardiovascular disease) Mother No problems noted. Brother Stomach cancer Sister Liver cancer Brother Lung cancer Brother No problems noted. Social History Household Members: None Housing: Apartment Are you a primary home care chaplain to a significant other at home: No Unable to assess alcohol history related to: Unknown Alcohol intake: current Alcohol intake frequency: holidays/special occasions only Alcohol type: beer and wine Patient Tobacco Use Status: Former Tobacco user Tobacco use type: Cigarette e-Cigarette/Vaping Use: Never Used Second Hand Smoke Exposure: No Advance Directives Date on File: 03/05/24 service: No Current occupational status: disabled Cognitive needs: No Hearing needs: No Vision needs: No Review of Systems Const All systems reviewed & are unremarkable except as noted in HPI and below Physical Exam Exam Exam: Constitutional: Patient appears to be in no acute distress, well nourished and well developed. Patient was appropriately conversant and oriented. Good historian. MSK: Inspection reveals appropriate head and neck positioning. Indicated pain on left upper trapezius and left subacromial area. Cervical ROM was full. Spurling's sign negative. Limited left shoulder range of motion with forward flexion and abduction, with pain. Positive left Jim sign. Could not do good empty can test. Neurological: Neurologic examination of the upper and lower extremities was nonfocal with intact sensation, muscle stretch reflexes and without focal motor deficits . Chamberlain?s negative bilaterally. Babinski was down going bilaterally. Clonus was negative. Gait is non-antalgic without loss of balance. Vital Signs: BMI result Body Mass Index 29.0 Results Reviewed Results Reviewed: Ordering Physician: Nayla Cruz PA-C Date of Service: 01/01/25 Procedure(s): XR shoulder LT min 2V Accession Number(s): [id number] cc: Nayla Cruz PA-C; Elena Johnston MD~ CLINICAL HISTORY: M25.512 - Pain in left shoulder 3 view left shoulder Comparison: None Findings: No acute fracture. Mild step-off of the inferior articular surface of the AC joint due to age-indeterminate subluxation. Correlate clinically. Mild AC joint osteoarthritis. No erosions. No radiopaque foreign body. IMPRESSION: Mild step-off of the inferior articular surface of the AC joint due to age-indeterminate subluxation. Correlate clinically. This document has been electronically signed by: Lamar Leo MD on 01/03/2025 06:32:07 Ordering Physician: Corrie Davies Date of Service: 10/26/22 Procedure(s): CT cervical spine wo IV con Accession Number(s): [id number] cc: Corrie Davies~ EXAMINATION: HEAD CT WITHOUT CONTRAST CERVICAL SPINE CT WITHOUT CONTRAST CLINICAL INFORMATION: Dizziness. Neck pain radiating to left arm. COMPARISON: None. TECHNIQUE: Contiguous axial imaging of the head was performed without the administration of IV contrast. Axial multidetector volumetric images were also performed through the cervical spine without contrast. Multiplanar reconstructed images in coronal and sagittal orientations were submitted. DOSE: 955 mGy-cm FINDINGS: HEAD: There is no evidence of acute intracranial hemorrhage or edematous territorial infarction. No abnormal mass-effect or midline shift. No extra-axial fluid collections. Walls to white matter differentiation is well preserved. The ventricles are normal in size and configuration. Mild patchy deep white matter hypodensities suggestive of chronic microangiopathic changes. No acute calvarial fracture. Small fluid in some of the left mastoid air cells. The sinuses and right mastoid air cells are clear. CERVICAL SPINE: Straightening of the cervical curvature. There is anatomic alignment of the vertebral bodies and posterior elements. The atlantoaxial and atlantooccipital articulations are maintained. Vertebral body heights are maintained. No evidence of acute fracture. Cervical spondylosis. Moderate-severe C5-C6 disc degeneration with disc height loss, endplate osteophytes, endplate sclerosis and small cyst within the posterior disc osteophyte complex. Bilateral C5-C6 neural foramen narrowing. Multilevel facet degeneration. There is fusion of the left C4-C5 facet joint. No prevertebral soft tissue swelling. Mild biapical pleural parenchymal scarring. No suspicious thyroid findings. There are nonspecific cervical shotty lymph nodes. CT/CT cervical spine wo IV con IMPRESSION: 1. No acute intracranial hemorrhage or edematous territorial infarction. 2. Small fluid in some of the left mastoid air cells, nonspecific. 3.No acute fracture or malalignment cervical spine. 4. Cervical spondylosis. C5-C6 moderate-severe disc degeneration, with posterior disc osteophyte complex. Bilateral C5-C6 neural foramen narrowing. Further evaluation with MRI as clinically warranted. I reviewed records from the following: ortho hand surgery Assessment & Plan Assessment & Plan (1) Tendinopathy of left rotator cuff: Code(s): M67.912 - Unspecified disorder of synovium and tendon, left shoulder Category: Medical (2) Arthritis of shoulder region, left: Code(s): M19.012 - Primary osteoarthritis, left shoulder Category: Medical (3) Myofascial pain: Code(s): M79.18 - Myalgia, other site Category: Medical (4) Cervical spondylosis: Code(s): M47.812 - Spondylosis without myelopathy or radiculopathy, cervical region Category: Medical Plan Left rotator cuff tendinopathy versus myofascial pain. No signs of cervical radiculopathy or myelopathy today. Offered trial of steroid injection to shoulder or trigger point injections to trapezius. Patient defers. She is amenable to going back to PT to further work on left shoulder, rotator cuff, trapezius muscles. Referral placed. Assessment and plan discussed with patient, and patient was agreeable. All questions were answered thoroughly. Follow up 3 months. Trudi Smith MD, JASMYNE Board Certified, [place] [employer] and Rehabilitation (ABPMR) Board Certified, [place] [employer] Electrodiagnostic Medicine (ABEM) Orders: Orders PT Evaluation and Treatment Today M19.012 - Primary osteoarthritis, left shoul robi, M47.812 - Spondylosis without myelopathy or radiculopathy, cervical region, M67.911 - Unspecified disorder of synovium and tendon, right shoulder, M79.18 - Myalgia, other site Coding Level of Care Code New Pt Level 4 (18682) Diagnoses Tendinopathy of left rotator cuff M67.912 Arthritis of shoulder region, left M19.012 Myofascial pain M79.18 Cervical spondylosis M47.812
[2025-05-31 10:50] VITALS: BMI 29.0
--- OUTSIDE RECORDS SUMMARY | 2025-05-31 11:17 | XMS_ITS | Encounter Summary ---
Author Organization [facility] Address [address] [place] [address] Care Team Providers Care Entertainment Usher Name Role Phone Elena Cedillo MD Primary Care Provider [phone] Encounter Details Date Type Department Care Team (Late Contact Info) Description 04/30/[address] [facility] - Main Lab [address] [facility] [place] [address] Homar Britt, PA [address] [place] [address] [place] [address] Urinary tract infection, site not specified; Dysuria Social History Tobacco Use Types Packs/Day Years Used Date Smoking Tobacco: Never Smokeless Tobacco: Never Alcohol Use Standard Drinks/Week Comments Yes 0 (1 standard drink = 0.6 oz pur e alcohol) Comments Unknown Sex and Gender Information Value Date Recorded Sex Assigned at Not on file Legal Sex Female 12:40 PM EST Gender Identity Not on file Sexual Orientation Not on file documented as of this encounter Plan of Treatment Upcoming Encounters Date Type Department Care Team (Late st Contact Info) Description 06/17/2025 10:00 AM EDT Office Visit Obstetrics and Gynecology - [address] [phone] [place], YANCY [address] [place], [place] documented as of this encounter Procedures Procedure Name Priority Date/Time Associated Diagnosis Comments CULTURE URINE Routine 04/30/2025 12:00 AM EDT Urinary tract infection, site not specified Dysuria documented in this encounter Results * Culture urine (04/30/2025 12:00 AM EDT) Culture, Urine No growth 05/01/2025 1:37 PM EDT [facility] Urine Urine specimen obtained by clean catch procedure / Unknown Non-blood Collection / Unknown 04/30/2025 04/30/2025 6:19 PM EDT us Homar [facility] MICROBIOLOGY - GENERAL ORD ERABLES Final Result [facility] [address] [place] [address], documented in this encounter Visit Diagnoses Diagnosis Urinary tract infection, site not specified Dysuria documented in this encounter Care Teams Entertainment Usher Relationship Specialty Start Date End Date Elena Cedillo MD 2 [facility] , [address] Physician Associ D/B/A: [facility] Telephone, [place] PCP - General Internal Medicine 05/09/15 documented as of this encounter
--- OUTSIDE RECORDS SUMMARY | 2025-05-31 11:17 | XMS_ITS | Clinical Summary ---
Author Organization [facility] Address [address] [place] [address] Care Team Providers Care Chief Electrician Name Role Phone Unavailable Primary Care Provider [...] Bone Density Screening 2016 Falls Prevention 2016 [id number] ( - season) 2024 Alcohol and Drug [...] Most Recently Relevant to Health Maintenance Insurance [facility] Member Subscriber Plan / Payer (Ef fective 2021-Present) Name:Breanna Catherine Relation to Subscriber:Self Name:Breanna Catherine Payer ID:[id number] Group ID:Not on file Type:Medicare Address: [place] [id number]
--- OUTSIDE RECORDS SUMMARY | 2025-05-31 11:17 | XMS_ITS | Encounter Summary ---
Author Organization [facility] Address [address] [place] [address] Care Team Providers Care Cryptographic Machine Operator Name Role Phone Elena Cedillo MD Primary Care Provider Moo davis Encounter Details Date Type Department Care Team Description 12/24/2023 Orders Only [facility] [address] [place] [address] Dania Gilliland, [address] [address] Social History Tobacco Use Types Packs/Day Years [...] on filedocumented in this encounter Care Teams Cryptographic Machine Operator Relationship Specialty Start Date End Date Elena Cedillo MD PCP - General Internal Medicine 05/09/15 documented as of this encounter
--- OUTSIDE RECORDS SUMMARY | 2025-05-31 11:17 | XMS_ITS | Encounter Summary ---
Author Organization [facility] Address [address] [place] [address] Care Team Providers Care Special Weapons Unit Officer Name Role Phone Elena Cedillo MD Primary Care Provider Moo davis Reason for Visit * Reason Onset Date Comments medication problems 12/23/2023 Encounter Details Date Type Department Care Team Description 12/23/2023 Telephone OBGYN - [place] [address] [place] [address] [address] [phone] medication problems Social History Tobacco Use Types Packs/Day Years Used Date Smoking Tobacco: Never Smokeless Tobacco: Never Alcohol Use Standard Drinks/Week Comments Yes 0 (1 standard drink = 0.6 oz pur e alcohol) rare Sex Assigned at Date Recorded Not on file Job Start Date Occupation Industry Not on file Not on file Not on file documented as of this encounter Miscellaneous Notes * Telephone Encounter - Celine Puente M.A. - 12/26/2023 2:29 PM EDT Telephone Information: L/M to call [facility] to speak with floor nurse. Pt has a uti, rx sent for macrobid BID x 5 days. Saee note as below. * Telephone Encounter - Celine Puente M.A. - 12/26/2023 2:28 PM EDT ----- Message from Dania Gilliland CNM sent at 12/24/2023 9:47 AM EDT ----- Pls call pt to inform that she has a UTI. Rx for Macrobid BID x 5 days sent to her pharmacy. Pls advise pt to take full course of abx. All other results were neg. * Telephone Encounter - Leora Martínez R.N. - 12/23/2023 4:38 PM EDT Spoke with patients daughter.Explained the final result of the urine culture is not back yet and tocall 12/24/23 am to speak with consulting psychiatrist provider for result. Pt still c/o burning with urination. * Telephone Encounter - Tia Rosenberg - 12/23/2023 4:11 PM EDT Patient was seen 12/20 and the patient is saying that antibiotics were supposed to be sent over to the pharmacy but they weren't. I couldn't see anything under the medication tab please advice. documented in this encounter Plan of Treatment Not on file documented as of this encounter Visit Diagnoses Not on filedocumented in this encounter Care Teams Special Weapons Unit Officer Relationship Specialty Start Date End Date Elena Cedillo MD PCP - General Internal Medicine 05/09/15 documented as of this encounter
--- OUTSIDE RECORDS SUMMARY | 2025-05-31 11:18 | XMS_ITS | Encounter Summary ---
Author Organization [facility] Address [address] [place] [address] Care Team Providers Care Immunopathologist Name Role Phone Elena Cedillo MD Primary Care Provider Moo davis Encounter Details Date Type Department Care Team Description 12/31/2022 Sharepoint Administrator Report Medical Records [address] [place] [address] Pawan Martin MD Social History Tobacco Use [...] on filedocumented in this encounter Care Teams Immunopathologist Relationship Specialty Start Date End Date Elena Cedillo MD PCP - General Internal Medicine 05/09/15 documented as of this encounter
--- OUTSIDE RECORDS SUMMARY | 2025-05-31 11:18 | XMS_ITS | Encounter Summary ---
Author Organization [facility] Address [address] [place] [address] Care Team Providers Care Glass Cutter Helper Name Role Phone Elena Cedillo MD Primary Care Provider Moo davis Encounter Details Date Type Department Care Team Description 05/16/2023 First Line Production Supervisor Report Medical Records [address] [place] [address] Pawan Martin MD Social History Tobacco Use [...] on filedocumented in this encounter Care Teams Glass Cutter Helper Relationship Specialty Start Date End Date Elena Cedillo MD PCP - General Internal Medicine 05/09/15 documented as of this encounter
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
--- OUTSIDE RECORDS SUMMARY | 2025-05-31 11:18 | XMS_ITS | Encounter Summary ---
Author Organization [facility] Address [address] [place] [address] Care Team Providers Care Tool Storage Attendant Name Role Phone Elena Cedillo MD Primary Care Provider Moo davis Encounter Details Date Type Department Care Team Description 01/11/2022 Communications Administrator Report Medical Records [address] [place] [address] Pawan Martin MD Social History Tobacco Use [...] on filedocumented in this encounter Care Teams Tool Storage Attendant Relationship Specialty Start Date End Date Elena Cedillo MD PCP - General Internal Medicine 05/09/15 documented as of this encounter
--- OUTSIDE RECORDS SUMMARY | 2025-05-31 11:18 | XMS_ITS | Encounter Summary ---
Author Organization [facility] Address [address] [facility] [place] [address] Care Team Providers Care Crew Truck Driver Name Role Phone Elena Cedillo MD Primary Care Provider Moo davis Encounter Details Date Type Department Care Team Description 05/28/2021 Release of Information Medical Records [address] [place] [address] Abstract, Provider Social History Tobacco Use Types Packs/Day Years Used Date Smoking Tobacco: Never Assessed Sex Assigned at Date Recorded Not on file Job Start Date Occupation Industry Not on file Not on file Not on file documented as of this encounter Nursing Notes * Nikki Traore - 05/28/2021 8:23 AM EDT AUTHORIZATION TO OBTAIN MEDICAL RECORDS FAXED TO [facility] documented in this encounter Plan of Treatment Not on file documented as of this encounter Visit Diagnoses Not on filedocumented in this encounter Care Teams Crew Truck Driver Relationship Specialty Start Date End Date Elena Cedillo MD PCP - General Internal Medicine 05/09/15 documented as of this encounter
== END 2025-05-31 11:21 | disposition home or self-care (01) ==
PROVIDERS: PCP Internal Medicine; Visit Provider Physical Medicine & Rehabilitation
DX: M67.912 Unspecified disorder of synovium and tendon, left shoulder (principal); M19.012 Primary osteoarthritis, left shoulder; M79.18 Myalgia, other site; M47.812 Spondylosis without myelopathy or radiculopathy, cervical region
CPT/HCPCS: 99203

== ENCOUNTER → 2025-05-31 10:38 | Outpatient (BNVA) | payer OTHER, SELFPAY | PROVIDERS: PCP Internal Medicine; Visit Provider Physical Medicine & Rehabilitation | DX: M67.912 Unspecified disorder of synovium and tendon, left shoulder (principal); M19.012 Primary osteoarthritis, left shoulder; M79.18 Myalgia, other site; M47.812 Spondylosis without myelopathy or radiculopathy, cervical region | CPT/HCPCS: 99202 ==

== ENCOUNTER 2025-06-04 10:30 | Outpatient (AMB) | payer OTHER, SELFPAY ==
--- OUTSIDE RECORDS SUMMARY | 2023-05-23 10:25 | XMS_ITS | Continuity of Care Document ---
Author Organization [facility] Address [address] [place] [address] [address] [place] [address] Phone Care Team Providers Care Cocoa Roaster Name Role Phone Ramon ALCANTAR FACS RVT Fahad ACOSTA Unavailable Unavailable Procedures Procedure Date Duplex Scan-extrem Veins; Comp Offic Cons New/estab Mod 40 Mi Advance Directives Directive Yes / No Effective Date File Name No Information Encounters Encounter Description Practice Location Reason(s) For Visit Diagnoses Date Provider Providers Copied on Encounter [facility], [address] [place] [address] [address], [id number], [place] tel:[phone] [facility] No Information 3 Ramon ALCANTAR FACS SRINIVASAT DAVE Orellana. [address] [facility], [address], [place], [address], [place]. tel:[phone] Referring Provider: Elena Dela Cruz MD, [address] [place] [address] , [address] [place] D/B/A: yessica [facility], [place], [address]. tel:[phone] [facility], [address] [place] [address] [address], [id number], [place] tel:[phone] [facility] Chronic venous htn w oth comp of bilateral low extrm 3 Ramon ALCANTAR FACS T DAVE Orellana. [address] [facility], [place] [address], [place], [address], [place]. tel:[phone] Referring Provider: Elena Dela Cruz MD, [address], [address] [place] [address] D/B/A: [place], [address]. tel:[phone] Offic Cons New/estab Mod 40 Nc [facility], [address] [facility] [address], [place], [id number], [place] tel:[phone] [facility] Chronic venous htn w oth comp of bilateral low extrmFlail joint, unspecified jointPruritus , unspecifiedCr amp and spasmLocalize d edema 3 Ramon ALCANTAR FACS T DAVE Orellana. [address] [facility], [place] [address], [place], [address], [place]. tel:[phone] Referring Provider: Elena Dela Cruz MD, [address] [facility] [address], [address] [place] [address] D/B/A: [place], [address]. tel:[phone] Family History Family Member Type Diagnosis Age At Onset No Information Payers Payer name Insurance type Covered republican ID Authoriza tion(s) [facility] CI [id number] Medical Assistance [facility] [id number] Social History Type Description Quantity Date Captured [...] Information Instructions Date Instruction Additional Infor mation Diet education Related to Body mass index (BMI) 27.0-27.9, adult Giving Encouragement to exercise Related to Body mass index (BMI) 27.0-27.9, adult Lifestyle education Related to B awais mass index (BMI) 27.0-27.9, adult Compression stocking usage as conservative measure Related to Chronic venous htn w oth comp of bilateral low extrm Patient education booklet given Related to Chronic venous htn w oth comp of bilateral low extrm Assessments Type Assessment Date No Information Patient Care Teams Name Effective Dates (start - stop) Status Members No Information
--- NOTE | 2025-06-04 10:35 | MHC.OFFVIS ---
Vital Signs 06/04/25 10:50 Height 5 ft 6 in Weight 179 lb 14.355 oz BMI 29.0 BP 120/61 Blood Pressure Location Rt brachial Position Sitting Pulse 63 Intake Visit Reasons: CIC Intake Note: Breanna returns to office in follow up of GERD and CIC. CC: Patient is asking that she would like to have her pancreas checked d/t upper abd pain, and occassional nausea. She also reports that she sometimes she thinks there is blood in her stool because it looks like brown with some red . House Shorer Required: Yes Accompanied by: Daughter Allergies homatropine (Hydromet) Allergy (Intermediate, Verified 06/04/25 10:57) rash ketorolac (From TORADOL) Allergy (Intermediate, Verified 06/04/25 10:57) N/V Sulfa (Sulfonamide Antibiotics) (SULFA (SULFONAMIDE ANTIBIOTICS)) Allergy (Intermediate, Verified 06/04/25 10:57) RASH sulfacetamide Allergy (Intermediate, Verified 06/04/25 10:57) rash tramadol (TRAMADOL) Allergy (Intermediate, Verified 06/04/25 10:57) N/V, edema and vomiting, edema and vomiting tizanidine Adverse Reaction (Intermediate, Verified 06/04/25 10:57) blurry vision HPI HPI CIC: Details: Assessment & Plan (1) Chronic idiopathic constipation: Code(s): K59.04 - Chronic idiopathic constipation Category: Medical (2) GERD (gastroesophageal reflux disease): Comment: Will control pantoprazole Code(s): K21.9 - Gastro-esophageal reflux disease without esophagitis Category: Medical Qualifiers: Esophagitis presence: esophagitis presence not specified Qualified Code(s): K21.9 - Gastro-esophageal reflux disease without esophagitis (3) Hemorrhoids: Code(s): K64.9 - Unspecified hemorrhoids Category: Medical Plan Iraqi #dtr translates per pt request She is feeling much better, but still has a very small, soft pain in the left periumbilical area. She is not taking the bentyl daily, and I suggest she try using the bentyl with this pain to see if it is bowel cramping. She DOES describe it as a cramping pain. She is taking the simethicone only once a day and this is working well. She also requires more education about how to use the bentyl. Her RB has stopped with the proctosol cream. Her current GI regimen consists of Linzess 290 micro g, pantoprazole 40 mg daily, simethicone 180 mg up to 4 times a day, dicyclomine up to 4 times a day as needed. Overall, she is happy now with her GI regimen. She just had glaucoma surgery. TODAY'S VISIT Iraqi #V live She is here today with her dtr but does not want her to translate. Her current GI regimen consists of Linzess 290 micro g, pantoprazole 40 mg daily, simethicone 180 mg up to 4 times a day, dicyclomine up to 4 times a day as needed. [facility] Medical History (Updated 06/04/25 @ 11:15 by BLESSING Mejia) Weight loss, non-intentional Physical exam Myofascial pain Left knee pain Dysuria UTI (urinary tract infection) Abdominal pain Abdominal pain Rectal bleeding Bilateral hand numbness Physical exam Pre-op examination Hospital discharge follow-up Age related osteoporosis Postmenopausal Precordial chest pain Toenail fungus Urine abnormality Hemorrhoids Allergic rhinitis GERD (gastroesophageal reflux disease) Renal cyst Pelvic pain in female Surgical History Hx of eye surgery History of tooth extraction H/O colonoscopy History of esophagogastroduodenoscopy (EGD) History of ear surgery History of tonsillectomy History of tubal ligation Family History Father CVD (cardiovascular disease) Mother No problems noted. Brother Stomach cancer Sister Liver cancer Brother Lung cancer Brother No problems noted. Social History Household Members: None Housing: Apartment Are you a primary special needs caregiver to a significant other at home: No Unable to assess alcohol history related to: Unknown Alcohol intake: current Alcohol intake frequency: holidays/special occasions only Alcohol type: beer and wine Patient Tobacco Use Status: Former Tobacco user Tobacco use type: Cigarette e-Cigarette/Vaping Use: Never Used Second Hand Smoke Exposure: No Advance Directives Date on File: 03/05/24 service: No Current occupational status: disabled Cognitive needs: No Hearing needs: No Vision needs: No Review of Systems Const Denies fatigue, Denies fever(s), Denies night sweats, Denies poor appetite and Denies weight loss ENT Reports Normal hearing present, Denies dental pain, Denies dysphagia, Denies hearing loss, Denies mouth pain, Denies odynophagia, Denies throat swelling, Denies tongue swelling and Reports other (Dentition adequate) Card Reports no additional complaints Resp Reports no additional complaints GI Details: Reports abdominal pain, Denies melena, Reports bloating, Reports hematochezia, Reports constipation, Denies GI cramping, Denies dysphagia, Denies excessive flatus, Denies early satiety, Reports heartburn, Denies diarrhea, Denies nausea, Denies odynophagia, Denies vomiting and Denies hematemesis Skin/Breast Denies pruritus, Denies lesions, Denies rash and Denies jaundice Neuro Reports Normal hearing present and Denies Abnormal speech present Endo Denies fatigue Aller/Immun Denies throat swelling and Denies tongue swelling Physical Exam Vital Signs: Last Vital Signs Pulse 63 06/04/25 10:50 BP 120/61 06/04/25 10:50 BMI result Body Mass Index 29.0 Const General: cooperative, no acute distress, well developed and well groomed Nutritional Appearance: well nourished and obese Orientation/consciousness: oriented to person, oriented to place and oriented to time Limitations: language barrier and other limitations (Education/literacy level) HEENT Head: Yes normocephalic and Yes atraumatic Eyes General: appearance normal, both eyes and all related structures Pupils: Equal, round and reactive pupils present Neck Neck: Yes normal visual inspection and Yes no lymphadenopathy Thyroid: Thyroid normal Resp Effort & Inspection: normal respiratory effort and able to speak in complete sentences Auscultation: clear to auscultation bilaterally Cardio Rate: regular rate Rhythm: regular rhythm Heart sounds: Normal, physiologic split S2 sound present Peripheral pulses: radial pulses present and posterior tibial pulses present GI Inspection: No distended, No Abdominal panniculus present and Yes obesity Palpation (GI): Soft to palpation, nontender, no guarding, not rigid and No hepatosplenomegaly present Percussion: Yes normal to percussion Auscultation: normal bowel sounds Rectal Exam - Female: deferred Skin General skin exam: no rashes or lesions noted, turgor normal, skin not dry, no jaundice, No spider nevi and no striae Rashes: no rashes Nails: normal Neuro General: oriented to person, oriented to place and oriented to time Cranial nerves: Yes Equal, round and reactive pupils present and Yes Normal hearing present Speech: No Abnormal speech present Extrem General: Yes normal to inspection, No clubbing, No cyanosis and No edema Psych Appearance: grossly normal and well kempt Mental Status: mental status grossly normal Speech and movement: Normal speech and movement present Affect: normal affect Attitude: cooperative Thought process: Normal thought process present and not confabulating Thought content: Normal thought content present Insight: Limited insight present (Psych) Judgement: Limited judgement present (Psych) Assessment & Plan Assessment & Plan (1) GERD (gastroesophageal reflux disease): Comment: Will control pantoprazole Code(s): K21.9 - Gastro-esophageal reflux disease without esophagitis Category: Medical Qualifiers: Esophagitis presence: esophagitis presence not specified Qualified Code(s): K21.9 - Gastro-esophageal reflux disease without esophagitis (2) Chronic idiopathic constipation: Code(s): K59.04 - Chronic idiopathic constipation Category: Medical (3) LUQ abdominal pain: Code(s): R10.12 - Left upper quadrant pain Category: Medical Plan Iraqi #V live She is here today with her dtr but does not want her to translate. Her current GI regimen consists of Linzess 290 micro g, pantoprazole 40 mg daily, simethicone 180 mg up to 4 times a day, dicyclomine up to 4 times a day as needed. She says she ?wants my pancreas checked. ? I asked her why and she says she has bouts of left upper quadrant abdominal pain she describes as stabbing. She is unable to relate any exacerbating or remitting factors but does say it does not occur every day. When she does have it tends to last all day. With this I discovered that she is only using her Linzess intermittently every few days. When I ask her why she says that it will cause her to many bowel movements in a day. I explained that it is likely she is having bowel cramping from starting and stopping the Linzess which is intended to be used daily and not just when needed. We discuss moving her to a lower dose than 290 micro g, but she is unwilling to do this. She says she will try taking it every day. Of note, she also has fibromyalgia syndrome so it is possible that her left upper abdominal pain is related to myofascial symptoms. She is also complaining of rectal bleeding reporting red-brown stooling intermittently. Given her last colonoscopy is up to date this likely is hemorrhoids so we will give her a prescription of Proctosol cream to see if we can make this better. There also seems to be some confusion around the dicyclomine. It is unclear whether she has ever had this medication. I am going to send it again since it is most likely the left upper quadrant pain is bowel irritability, I will have my MA call the pharmacy to find out why she is not receiving this medication. Her heartburn and dyspepsia is well controlled on her pantoprazole 40 mg daily. She also utilizes simethicone for potential gas trapping and bloating. Return office visit in 6 weeks Orders: Orders Amylase Today R10.12 - Left upper quadrant pain Lipase Today R10.12 - Left upper quadrant pain Medications: New hydrocortisone 2.5% (Proctosol HC) BE SURE TO INCLUDE RECTAL APPICATOR!! 1 appl OH BID 30 grams 6RF hemorrhoids K64.9 - Unspecified hemorrhoids dicyclomine 20 mg PO QID 120 tabs 6RF 30 days famotidine (Pepcid) 40 mg PO BEDTIME 90 tabs 1RF 90 days Refilled linaclotide (Linzess) 290 mcg PO QAM 30 caps 6RF 30 days pantoprazole 40 mg PO DAILY 90 tabs 3RF Discontinued nitrofurantoin macrocrystal must administer with a meal/food Discontinued Reason: Doctor's Order 100 mg PO BID 7 days 14 caps 0RF Coding Level of Care Code Est Pt Level 3 (60943) Diagnoses Gastroesophageal reflux disease, unspecified whether esophagitis present K21.9 Esophagitis presence: esophagitis presence not specified Chronic idiopathic constipation K59.04 LUQ abdominal pain R10.12
[2025-06-04 10:50] VITALS: BP 120/61; PULSE 63; BMI 29.0
--- OUTSIDE RECORDS SUMMARY | 2025-06-04 12:04 | XMS_ITS | Encounter Summary ---
Author Organization [facility] Address [address] [place] [address] Care Team Providers Care Audio Visual Design Engineer Name Role Phone Elena Cedillo MD Primary Care Provider Moo davis Encounter Details Date Type Department Care Team Description 09/05/2023 Finger Buff Sewer Report Medical Records [address] [place] [address] [address] Social History Tobacco Use Types Packs/Day Years [...] on filedocumented in this encounter Care Teams Audio Visual Design Engineer Relationship Specialty Start Date End Date Elena Cedillo MD PCP - General Internal Medicine 05/09/15 documented as of this encounter
--- OUTSIDE RECORDS SUMMARY | 2025-06-04 12:04 | XMS_ITS | Encounter Summary ---
Author Organization [employer] [facility] Address [address] [place] [address] Care Team Providers Care Baseball Scout Name Role Phone Elena Cedillo MD Primary Care Provider Moo davis Encounter Details Date Type Department Care Team Description 09/07/2021 Machining Technician Report Medical Records [address] [place] [address] Pawan Martin MD Social History Tobacco Use [...] on filedocumented in this encounter Care Teams Baseball Scout Relationship Specialty Start Date End Date Elena Cedillo MD PCP - General Internal Medicine 05/09/15 documented as of this encounter
--- OUTSIDE RECORDS SUMMARY | 2025-06-04 12:04 | XMS_ITS | Encounter Summary ---
Author Organization [facility] Address [address] [place] [address] Care Team Providers Care Veneer Drier Tailer Name Role Phone Elena Cedillo MD Primary Care Provider [phone] Encounter Details Date Type Department Care Team (Late Contact Info) Description 04/30/[address] [facility] - Main Lab [address] [facility] [place] [address] Homar Britt, PA [address] [place] [address] Urinary tract infection, site not [...] EDT Office Visit Obstetrics and Gynecology - [address] [phone] [place], YANCY [address] [place], [place] documented as of this encounter Procedures Procedure Name Priority Date/Time Associated Diagnosis Comments CULTURE URINE Routine 04/30/2025 12:00 AM EDT Urinary tract infection, site not specified Dysuria documented in this encounter Results * Culture urine (04/30/2025 12:00 AM EDT) Culture, Urine No growth 05/01/2025 1:37 PM EDT [facility] Urine Urine specimen obtained by clean catch procedure / Unknown Non-blood Collection / Unknown 04/30/2025 04/30/2025 6:19 PM EDT us Homar [facility] MICROBIOLOGY - GENERAL ORD ERABLES Final Result [facility] [address] [place] [address], documented in this encounter Visit Diagnoses Diagnosis Urinary tract infection, site not specified Dysuria documented in this encounter Care Teams Veneer Drier Tailer Relationship Specialty Start Date End Date Elena Cedillo MD 2 [facility] , [address] Physician Associ D/B/A: [facility] [place], [place] PCP - General Internal Medicine 05/09/15 documented as of this encounter
--- OUTSIDE RECORDS SUMMARY | 2025-06-04 12:04 | XMS_ITS | Encounter Summary ---
Author Organization [employer] [facility] Address [address] [place] [address] Care Team Providers Care Balancing Machine Operator Name Role Phone Elena Cedillo MD Primary Care Provider Moo davis Encounter Details Date Type Department Care Team Description 01/11/2022 Banking Teacher Report Medical Records [address] [place] [address] Pawan Martin MD Social History Tobacco Use [...] on filedocumented in this encounter Care Teams Balancing Machine Operator Relationship Specialty Start Date End Date Elena Cedillo MD PCP - General Internal Medicine 05/09/15 documented as of this encounter
--- OUTSIDE RECORDS SUMMARY | 2025-06-04 12:04 | XMS_ITS | Clinical Summary ---
Author Organization [facility] Address [address] [place] [address] Phone Care Team Providers Care Car Repairman Name Role Phone Elena Cedillo MD Primary Care Provider [phone] Encounters Date Type Department Care Team Description 04/30/2025 Lab Requisition [facility] [address] [facility] [place] [address] Homar Britt PA Urinary tract [...] DX:Microsc opic hematuria; COMMENT: Undergoing evaluation at [facility] Urology Overactive bladder DX:Overactive bladder; COMMENT: Oxybutynin [...] EDT Office Visit Obstetrics and Gynecology - [place] [address] [place], [place] [phone] Merlyn Hill, [facility] [address] [place], [place] Health Maintenance Due Date Last Done [...] Urine No growth 05/01/2025 1:37 PM EDT [facility] Urine Urine specimen obtained by clean catch procedure / Unknown Non-blood Collection / Unknown 04/30/2025 04/30/2025 6:19 PM EDT us Homar [facility] MICROBIOLOGY - GENERAL ORD ERABLES Final Result [facility] [address] [place] [address], from Last 3 Months Insurance [facility] Member Subscriber Plan / Payer (Ef fective 2017-Present) Name:Breanna Catherine Relation to Subscriber:Self Name:Breanna Catherine Payer ID:[id number] Group ID:[id number] Type:Not on file Address: [place] [address] [address] [id number] Care Teams Car Repairman Relationship Specialty Start Date End Date Elena Cedillo MD [address] [place] [address] , [address] [facility] Physician Associ D/B/A: [facility] DEVYN Mckinnon PCP - General Internal Medicine 05/09/15
--- OUTSIDE RECORDS SUMMARY | 2025-06-04 12:04 | XMS_ITS | Encounter Summary ---
Author Organization [employer] [facility] Address [address] [place] [address] Care Team Providers Care Soft Sugar Supervisor Name Role Phone Elena Cedillo MD Primary Care Provider Moo davis Encounter Details Date Type Department Care Team Description 06/26/2021 Release of Information Medical Records [address] [place] [address] Abstract, Provider Social History Tobacco Use Types [...] Exposure Response Date Recorded In the last month, have you been in contact with someone who was confirmed or suspected to have Coronavirus / COVID-19? No / Unsure 06/24/2021 10:30 AM EDT documented as of this encounter Plan of Treatment Not on file documented as of this encounter Visit Diagnoses Not on filedocumented in this encounter Care Teams Soft Sugar Supervisor Relationship Specialty Start Date End Date Elena Cedillo MD PCP - General Internal Medicine 05/09/15 documented as of this encounter
--- OUTSIDE RECORDS SUMMARY | 2025-06-04 12:04 | XMS_ITS | Encounter Summary ---
Author Organization [employer] [facility] Address [address] [place] [address] Care Team Providers Care Babbitter Name Role Phone Elena Cedillo MD Primary Care Provider Moo davis Encounter Details Date Type Department Care Team Description 06/08/2022 Tong Setter Report Medical Records [address] [place] [address] Pawan Martin MD Social History Tobacco Use [...] on filedocumented in this encounter Care Teams Babbitter Relationship Specialty Start Date End Date Elena Cedillo MD PCP - General Internal Medicine 05/09/15 documented as of this encounter
--- OUTSIDE RECORDS SUMMARY | 2025-06-04 12:04 | XMS_ITS | Clinical Summary ---
Author Organization [facility] Address [address] [place] [address] Care Team Providers Care Copy Center Operator Name Role Phone Unavailable Primary Care [...] Bone Density Screening 2016 Falls Prevention 2016 [id number] ( - season) 2024 Alcohol and Drug [...] Most Recently Relevant to Health Maintenance Insurance [facility] Member Subscriber Plan / Payer (Ef fective 2021-Present) Name:Breanna Catherine Relation to Subscriber:Self Name:Breanna Catherine Payer ID:[id number] Group ID:Not on file Type:Medicare Address: [place] [id number]
--- OUTSIDE RECORDS SUMMARY | 2025-06-04 12:04 | XMS_ITS | Clinical Summary ---
Author Organization [facility] Address [address] [place] [address] Care Team Providers Care Director Oracle Database Name Role Phone Elena Cedillo MD Primary Care Provider Moo lable Allergies Active Allergy Reactions Severity Noted Date Comments Sulfa Drugs 06/24/2021 Toradol 06/24/2021 Tramadol 06/24/2021 Medications Medication Sig Dispensed Refills Start Date End Date Status Timolol Maleate 0.5 % (DAILY) Solution apply to the eye. 0 06/24/2021 A ctive Ngeymtw-Btbjgr-Oiqmkt-L atanopr 0.5-0.15-2 -0.005% Solution apply to the eye. 0 06/24/2021 A ctive Active Problems Problem Noted Date Pelvic pain 05/16/2023 Last Assessment & Plan: I counseled Breanna that there is no evidence of Manager Compliance pathology or cause of her pain on exam. I suspect her constipation or irritable bladder symptoms may be more likely cause. Also, on exam, pain with palpation of her hip seemed similar and thus it could be arthritis related. She will follow up with her respective specialists. Microscopic hematuria 01/19/2022 Overview: Microscopic hematuria and overactive bladder Pleated consultation at [facility] urology with Dr. Pawan Martin MD She was switched from oxybutynin to Solifenacin since 5 mg -Cautions and follow-up plan Family History Relation Name Status Comments Brother [...] file Not on file Not on file Last Filed Vital Signs Vital Sign Reading Time Taken Comments Blood Pressure 124/80 05/16/2023 3:49 PM EDT Pulse 82 05/16/2023 3:49 PM EDT Temperature - - Respiratory Rate 16 05/16/2023 3:49 PM EDT Oxygen Saturation - - Inhaled Oxygen Concentration - - Weight 78.9 kg (174 lb) 12/21/2023 10:33 AM EDT Height 162.6 cm (5' 4 ) 05/16/2023 3:49 PM EDT Body Mass Index 29.87 05/16/2023 3:49 PM EDT Plan of Treatment Health Maintenance Due Date Last Done Comments Covid-19 Vaccine (#1) 01/11/1951 HEPATITIS C SCREENING 1969 DTAP/TDAP/TD (1 - Tdap) 1970 CHOLESTEROL SCREENING 1971 MAMMOGRAM 1991 COLON CANCER SCREENING 2001 SHINGLES VACCINE (1 of 2) 2001 BONE DENSITY SCREENING 2016 PNEUMOCOCCAL VACCINE (2 - PCV) 06/16/2018 06/16/2017 BMI CHECK/ADVISE 10/03/2024 06/24/2021 INFLUENZA (#1) 2025 09/13/2018, 06/16/2017, Care Teams Director Oracle Database Relationship Specialty Start Date End Date Elena Cedillo MD PCP - General Internal Medicine 05/09/15
== END 2025-06-04 11:29 | disposition home or self-care (01) ==
LOC: HO.HGI 10:32
PROVIDERS: PCP Internal Medicine; Visit Provider Nurse Practitioner
DX: K21.9 Gastro-esophageal reflux disease without esophagitis (principal); K59.04 Chronic idiopathic constipation; R10.12 Left upper quadrant pain
CPT/HCPCS: 99213

== ENCOUNTER → 2025-06-04 10:30 | Outpatient (BNVA) | payer OTHER, SELFPAY | PROVIDERS: PCP Internal Medicine; Visit Provider Nurse Practitioner | DX: K21.9 Gastro-esophageal reflux disease without esophagitis (principal); K59.04 Chronic idiopathic constipation; R10.12 Left upper quadrant pain | CPT/HCPCS: 99212 ==

== ENCOUNTER 2025-07-12 13:17 | Outpatient (REF) | payer OTHER, SELFPAY ==
[2025-07-12 14:13] LABS: Amylase 47 U/L (28-100); Lipase 20 U/L (8-78)
== END 2025-07-12 13:18 | disposition home or self-care (01) ==
LOC: HO.LAB 13:17
PROVIDERS: PCP Internal Medicine; Visit Provider Nurse Practitioner
DX: R10.12 Left upper quadrant pain (principal)
CPT/HCPCS: 36415; 82150; 83690

== ENCOUNTER 2025-07-16 13:44 | Outpatient (AMB) | payer OTHER, SELFPAY ==
--- NOTE | 2025-07-16 14:11 | A.OFFVIS_ITS ---
Vital Signs 07/16/25 14:21 Height 5 ft 6 in Weight 179 lb BMI 28.9 BP 115/71 Blood Pressure Location Lt brachial Position Sitting Pulse 63 Intake Visit Reasons: Follow up GERD/labs Intake Note: Patient in office today in follow up of GERD and labs. CC: Patient reports that she is doing a lot better with medications. Clinical Informatics Physician Required: Yes Accompanied by: Daughter Allergies homatropine (Hydromet) Allergy (Intermediate, Verified 06/04/25 10:57) rash ketorolac (From TORADOL) Allergy (Intermediate, Verified 06/04/25 10:57) N/V Sulfa (Sulfonamide Antibiotics) (SULFA (SULFONAMIDE ANTIBIOTICS)) Allergy (Intermediate, Verified 06/04/25 10:57) RASH sulfacetamide Allergy (Intermediate, Verified 06/04/25 10:57) rash tramadol (TRAMADOL) Allergy (Intermediate, Verified 06/04/25 10:57) N/V, edema and vomiting, edema and vomiting tizanidine Adverse Reaction (Intermediate, Verified 06/04/25 10:57) blurry vision HPI HPI Follow up GERD/labs: Details: Assessment & Plan (1) GERD (gastroesophageal reflux disease): Comment: Will control pantoprazole Code(s): K21.9 - Gastro-esophageal reflux disease without esophagitis Category: Medical Qualifiers: Esophagitis presence: esophagitis presence not specified Qualified Code(s): K21.9 - Gastro-esophageal reflux disease without esophagitis (2) Chronic idiopathic constipation: Code(s): K59.04 - Chronic idiopathic constipation Category: Medical (3) LUQ abdominal pain: Code(s): R10.12 - Left upper quadrant pain Category: Medical Plan Citizen [place] #V live She is here today with her dtr but does not want her to translate. Her current GI regimen consists of Linzess 290 micro g, pantoprazole 40 mg daily, simethicone 180 mg up to 4 times a day, dicyclomine up to 4 times a day as needed. She says she ?wants my pancreas checked. ? I asked her why and she says she has bouts of left upper quadrant abdominal pain she describes as stabbing. She is unable to relate any exacerbating or remitting factors but does say it does not occur every day. When she does have it tends to last all day. With this I discovered that she is only using her Linzess intermittently every few days. When I ask her why she says that it will cause her to many bowel movements in a day. I explained that it is likely she is having bowel cramping from starting and stopping the Linzess which is intended to be used daily and not just when needed. We discuss moving her to a lower dose than 290 micro g, but she is unwilling to do this. She says she will try taking it every day. Of note, she also has fibromyalgia syndrome so it is possible that her left upper abdominal pain is related to myofascial symptoms. She is also complaining of rectal bleeding reporting red-brown stooling intermittently. Given her last colonoscopy is up to date this likely is hemorrhoids so we will give her a prescription of Proctosol cream to see if we can make this better. There also seems to be some confusion around the dicyclomine. It is unclear whether she has ever had this medication. I am going to send it again since it is most likely the left upper quadrant pain is bowel irritability, I will have my MA call the pharmacy to find out why she is not receiving this medication. Her heartburn and dyspepsia is well controlled on her pantoprazole 40 mg daily. She also utilizes simethicone for potential gas trapping and bloating. Return office visit in 6 weeks Orders: Orders Amylase Today R10.12 - Left upper quadrant pain Lipase Today R10.12 - Left upper quadrant pain Medications: New hydrocortisone 2.5% (Proctosol HC) BE SURE TO INCLUDE RECTAL APPICATOR!! 1 appl UT BID 30 grams 6RF hemorrhoids K64.9 - Unspecified hemorrhoids dicyclomine 20 mg PO QID 120 tabs 6RF 30 days famotidine (Pepcid) 40 mg PO BEDTIME 90 tabs 1RF 90 days Refilled linaclotide (Linzess) 290 mcg PO QAM 30 caps 6RF 30 days pantoprazole 40 mg PO DAILY 90 tabs 3RF Discontinued nitrofurantoin macrocrystal must administer with a meal/food Discontinued Reason: Doctor's Order 100 mg PO BID 7 days 14 caps 0RF LABS: Laboratory Tests 07/12/25 13:25 Amylase 47 Lipase 20 TODAY'S VISIT Citizen [place] # PFSH Medical History (Updated 06/04/25 @ 11:15 by BLESSING Mejia) Weight loss, non-intentional Physical exam Myofascial pain Left knee pain Dysuria UTI (urinary tract infection) Abdominal pain Abdominal pain Rectal bleeding Bilateral hand numbness Physical exam Pre-op examination Hospital discharge follow-up Age related osteoporosis Postmenopausal Precordial chest pain Toenail fungus Urine abnormality Hemorrhoids Allergic rhinitis GERD (gastroesophageal reflux disease) Renal cyst Pelvic pain in female Surgical History Hx of eye surgery History of tooth extraction H/O colonoscopy History of esophagogastroduodenoscopy (EGD) History of ear surgery History of tonsillectomy History of tubal ligation Family History Father CVD (cardiovascular disease) Mother No problems noted. Brother Stomach cancer Sister Liver cancer Brother Lung cancer Brother No problems noted. Social History Household Members: None Housing: Apartment Are you a primary home health care case manager to a significant other at home: No Alcohol intake: current Alcohol intake frequency: holidays/special occasions only Alcohol type: beer and wine Patient Tobacco Use Status: Former Tobacco user Tobacco use type: Cigarette e-Cigarette/Vaping Use: Never Used Second Hand Smoke Exposure: No Advance Directives Date on File: 03/05/24 service: No Current occupational status: disabled Cognitive needs: No Hearing needs: No Vision needs: No Review of Systems Const Denies fatigue, Denies fever(s), Denies night sweats, Denies poor appetite and Denies weight loss Eyes Reports requires corrective lenses ENT Reports Normal hearing present, Denies dental pain, Denies dysphagia, Denies hearing loss, Denies mouth pain, Denies odynophagia, Denies throat swelling, Denies tongue swelling and Reports other (Dentition adequate) Card Reports no additional complaints Resp Reports no additional complaints GI Details: Denies abdominal pain, Denies melena, Reports bloating, Denies hematochezia, Reports constipation, Reports GI cramping, Denies dysphagia, Denies excessive flatus, Denies early satiety, Reports heartburn, Denies diarrhea, Denies nausea, Denies odynophagia, Denies vomiting and Denies hematemesis Skin/Breast Denies pruritus, Denies lesions, Denies rash and Denies jaundice Neuro Reports Normal hearing present and Denies Abnormal speech present Endo Denies fatigue Aller/Immun Denies throat swelling and Denies tongue swelling Physical Exam Vital Signs: Last Vital Signs Pulse 63 07/16/25 14:21 BP 115/71 07/16/25 14:21 BMI result Body Mass Index 28.9 Const General: cooperative, no acute distress, well developed and well groomed Nutritional Appearance: well nourished and overweight Orientation/consciousness: oriented to person, oriented to place and oriented to time Limitations: language barrier HEENT Head: Yes normocephalic and Yes atraumatic Eyes General: appearance normal, both eyes and all related structures Pupils: Equal, round and reactive pupils present Neck Neck: Yes normal visual inspection and Yes no lymphadenopathy Thyroid: Thyroid normal Resp Effort & Inspection: normal respiratory effort and able to speak in complete sentences Auscultation: clear to auscultation bilaterally Cardio Rate: regular rate Rhythm: regular rhythm Heart sounds: Normal, physiologic split S2 sound present Peripheral pulses: radial pulses present and posterior tibial pulses present GI Inspection: No distended, No Abdominal panniculus present and Yes obesity Palpation (GI): Soft to palpation, nontender, no guarding, not rigid and No hepatosplenomegaly present Percussion: Yes normal to percussion Auscultation: normal bowel sounds Rectal Exam - Female: deferred Skin General skin exam: no rashes or lesions noted, turgor normal, skin not dry, no jaundice, No spider nevi and no striae Rashes: no rashes Nails: normal Neuro General: oriented to person, oriented to place and oriented to time Cranial nerves: Yes Equal, round and reactive pupils present and Yes Normal hearing present Speech: No Abnormal speech present Extrem General: Yes normal to inspection, No clubbing, No cyanosis and No edema Psych Appearance: grossly normal and well kempt Mental Status: mental status grossly normal Speech and movement: Normal speech and movement present Affect: normal affect Attitude: cooperative Thought process: Normal thought process present and not confabulating Thought content: Normal thought content present Insight: Fair insight present (Psych) Judgement: Fair judgement present (Psych) Assessment & Plan Assessment & Plan (1) GERD (gastroesophageal reflux disease): Comment: Will control pantoprazole Code(s): K21.9 - Gastro-esophageal reflux disease without esophagitis Category: Medical Qualifiers: Esophagitis presence: esophagitis presence not specified Qualified Code(s): K21.9 - Gastro-esophageal reflux disease without esophagitis (2) Chronic idiopathic constipation: Code(s): K59.04 - Chronic idiopathic constipation Category: Medical Plan Citizen [place] #Terrie Segundo Her current GI regimen consists of Linzess 290 micro g, pantoprazole 40 mg daily, simethicone 180 mg up to 4 times a day, dicyclomine up to 4 times a day as needed. With the addition of the dicyclomine and the simethicone she has had a resolution of her left upper quadrant abdominal pain. She is now extremely satisfied with her GI regimen. Return office visit in 6 months Medications: Refilled famotidine (Pepcid) 40 mg PO BEDTIME 90 tabs 1RF 90 days pantoprazole 40 mg PO DAILY 90 tabs 1RF Coding Level of Care Code Est Pt Level 3 (64935) Diagnoses Gastroesophageal reflux disease, unspecified whether esophagitis present K21.9 Esophagitis presence: esophagitis presence not specified Chronic idiopathic constipation K59.04
[2025-07-16 14:21] VITALS: BP 115/71; PULSE 63; BMI 28.9
--- OUTSIDE RECORDS SUMMARY | 2025-07-16 16:42 | XMS_ITS | Encounter Summary ---
Author Organization [facility] Address [address] [place] [address] Care Team Providers Care Firmware Test Engineer Name Role Phone Elena Cedillo MD Primary Care Provider [phone] Encounter Details Date Type Department Care Team (Late st Contact Info) Description 04/30/2025 Lab Requisition [facility] - Main Lab [address] [facility] [place] [address] Homar Britt, PA [address] [place] [address] Urinary tract infection, site not specified; Dysuria Social History Tobacco Use Types Packs/Day Years Used Date Smoking Tobacco: Never Smokeless Tobacco: Never Alcohol Use Standard Drinks/Week Comments Yes 0 (1 standard drink = 0.6 oz pur e alcohol) Comments Unknown Sex and Gender Information Value Date Recorded Sex Assigned at Female 06/10/2025 11:18 AM EDT Legal Sex Female 12:40 PM EST Gender Identity Female 06/10/2025 11:18 AM EDT Sexual Orientation Straight 06/10/2025 11 :18 AM EDT documented as of this encounter Plan of Treatment Not on file documented as of this encounter Procedures Procedure Name Priority Date/Time Associated Diagnosis Comments CULTURE URINE Routine 04/30/2025 12:00 AM EDT Urinary tract infection, site not specified Dysuria documented in this encounter Results * Culture urine (04/30/2025 12:00 AM EDT) Culture, Urine No growth 05/01/2025 1:37 PM EDT [facility] Urine Urine specimen obtained by clean catch procedure / Unknown Non-blood Collection / Unknown 04/30/2025 04/30/2025 6:19 PM EDT us Homar Britt PA LAB MICROBIOLOGY - GENERAL ORD ERABLES Final Result [facility] [address] [place] [address], documented in this encounter Visit Diagnoses Diagnosis Urinary tract infection, site not specified Dysuria documented in this encounter Care Teams Firmware Test Engineer Relationship Specialty Start Date End Date Elena Cedillo MD 2 [facility] , [address] [facility] Physician Associ D/B/A: [facility] [place], [place] PCP - General Internal Medicine 05/09/15 documented as of this encounter
--- OUTSIDE RECORDS SUMMARY | 2025-07-16 16:42 | XMS_ITS | Clinical Summary ---
Author Organization [facility] [address] [place] [address] [address] [place] [address] Phone Care Team Providers Care Felt Hat Inspector And Packer Name Role Phone Elena Cedillo MD Primary Care Provider [phone] Allergies Active Allergy Reactions Criticality Noted Date Comments Sulfa (Sulfonamide Antibiotics) 06/03 Ketorolac Inflammation 06/17/2025 Tramadol 06/17/2025 Medications alendronate (FOSAMAX) 70 mg tablet Take 1 tablet (70 mg total) by mouth. Active Encounters Date Type Department Care Team Description 06/17/2025 10:00 AM EDT Office Visit Obstetrics and Gynecology - [address] [phone] Merlyn Hill CNM Encounter for breast and pelvic examination (Primary Dx) 04/30/[address] [facility] - Main Lab [address] [place] [address] Homar Britt PA Urinary tract [...] DX:Microsc opic hematuria; COMMENT: Undergoing evaluation at [facility] Urolog Overactive bladder DX:Overactive bladder; COMMENT: Oxybutynin ER 5 mg Family History Relation Name Status Comments Brother 1 Pancreatic canc er Brother 2 spinal cancer Sister liver disease Social History Tobacco Use Types Packs/Day Years Used Date Smoking Tobacco: Never Smokeless Tobacco: Never Alcohol Use Standard Drinks/Week Comments Yes 0 (1 standard drink = 0.6 oz pur e alcohol) Housing Instability Answer Date Recorde d Are you worried that in the next 2 months you may not have stable housing? Patient declined 06/10/2025 Food Access & Nutrition Answer Date Rec orded Do you have access to a vari ety of food including fruits and vegetables? Patient declined 06/10/2025 Access to Healthcare Answer Date Record ed Within the last 3 months, ho w many times did you visit the emergency department for your medical care? 1 06/10/2025 Health Literacy Answer Date Recorded How often do you need to hav e someone help you when you read instructions, pamphlets, or other written material from your doctor or pharmacy? Sometimes 06/10/2025 Caregiver: How often do you need to have someone help you when you read instructions, pamphlets, or other written material from your doctor or pharmacy? Not on file 06/10/2025 Financial Risk Answer Date Recorded How hard is it for you to pa y for the very basics like food, housing, medical care, and air conditioning / heating? Patient declined 06/10/2025 Transportation Answer Date Recorded Has the lack of transportati on kept you from meetings, work, or from getting things needed for daily living? No Has the lack of transportati on kept you from medical appointments or from getting medications? No 06/10/2025 Social Isolation Answer Date Recorded How often do you feel lonely or isolated from th ose around you? Rarely 06/10/2025 Food Risk Answer Date Recorded Within the past 12 months we worried whether our food would run out before we got money to buy more. Often true 025 Within the past 12 months th e food we bought just didn't last and we didn't have money to get more. Sometimes true 06/10/2025 Dependent Care Answer Date Recorded Do you need help finding or paying for care for your loved ones. For example, attendant child activity or elderly care for an older adult? No 06/10/2025 Education Answer Date Recorded Do you think completing more education or training, like finishing a GED, going to college, or learning a trade, would be helpful for you? Patient declined 06/10/2025 Employment and Income Answer Date Recor ded During the last four weeks, have you been actively looking for work? No 06/10/2025 Living Situation Answer Date Recorded What is your living situation? Unrecognized valu e 06/10/2025 Comments No Sex and Gender Information Value Date Recorded Sex Assigned at Female 06/10/2025 11:18 AM EDT Legal Sex Female 12:40 PM EST Gender Identity Female 06/10/2025 11:18 AM EDT Sexual Orientation Straight 06/10/2025 11 :18 AM EDT Obstetrics History Para Term AB IAB SAB Ectopic Multiple Livin g Live Births 4 4 4 0 4 4 Date Outcome GA Total Labor Labor/2nd/3rd Weight Sex Type Anes PTL Nhi A1 A5 Name Clin Term Vag-S pont Living Term Vag-S pont Living Term Vag-S pont Living Term Vag-S pont Living Last Filed Vital Signs Vital Sign Reading Time Taken Comments Blood Pressure 128/70 06/17/2025 10:32 AM EDT Pulse 66 06/17/2025 10:32 AM EDT Temperature - - Respiratory Rate - - Oxygen Saturation - - Inhaled Oxygen Concentration - - Weight 80.7 kg (178 lb) 06/17/2025 10:32 AM EDT Height 167.6 cm (5' 6 ) 06/17/2025 10:32 AM EDT Body Mass Index 28.73 06/17/2025 10:32 AM EDT Plan of Treatment Health Maintenance Due Date Last Done Comments Breast Cancer Screening 1950 Colorectal Cancer Screening: Colonoscopy 1950 DTaP,Tdap,and Td Vaccines (1 - Tdap) 1970 Pneumococcal Vaccine: 50+ Ye ars (1 of 1 - PCV) 2001 Zoster Vaccines (1 of 2) 2001 Falls Risk Assessment 08/31/2022 Hepatitis C Screening 08/31/2022 Osteoporosis Screening (Bone Density Screening) 08/31/2022 COVID-19 Vaccine (1 - 2023-2 5 season) 2025 Influenza Vaccine (#1) 2025 Social Influencers of Health Screening 06/10/2026 06/10/2025 RSV Immunization Adult Patie nts (1 - 1-dose 75+ series) 2026 Depression Screening Completed 06/10/2025 HIB Vaccines Aged Out No longer eligi [...] Urine No growth 05/01/2025 1:37 PM EDT [facility] Urine Urine specimen obtained by clean catch procedure / Unknown Non-blood Collection / Unknown 04/30/2025 04/30/2025 6:19 PM EDT us Homar [facility]PUZAN[facility] MICROBIOLOGY - GENERAL ORD ERABLES Final Result [facility] [address] [place] [address], [place] [phone] from Last 3 Months Insurance [facility] Member Subscriber Plan / Payer (Ef fective 2017-Present) Name:Breanna Catheirne Relation to Subscriber:Self Name:Breanna Catherine Payer ID:[id number] Group ID:[id number] Type:Not on file Address: [place] [address] [address] [id number] Care Teams Felt Hat Inspector And Packer Relationship Specialty Start Date End Date Elena Cedillo MD [address] [facility] , [address] [facility] Physician Associ D/B/A: [facility] DEVYN Mckinnon PCP - General Internal Medicine 05/09/15
== END 2025-07-16 14:43 | disposition home or self-care (01) ==
LOC: HO.HGI 13:44
PROVIDERS: PCP Internal Medicine; Visit Provider Nurse Practitioner
DX: K21.9 Gastro-esophageal reflux disease without esophagitis (principal); K59.04 Chronic idiopathic constipation
CPT/HCPCS: 99213

== ENCOUNTER → 2025-07-16 13:44 | Outpatient (BNVA) | payer OTHER, SELFPAY | PROVIDERS: PCP Internal Medicine; Visit Provider Nurse Practitioner | DX: K21.9 Gastro-esophageal reflux disease without esophagitis (principal); K59.04 Chronic idiopathic constipation | CPT/HCPCS: 99212 ==

== ENCOUNTER 2025-07-24 13:55 | Outpatient (RCR) | payer OTHER, SELFPAY ==
--- NOTE | 2025-06-18 13:53 | MHC.PT.EP ---
[facility] [place] [facility] [place] Office [place] Office [address] Opal Tompkins [address] [phone] F: [phone] F: [phone] F: [phone] F: [phone] Physical Therapy Plan of Care Date of Evaluation: 06/18/25 Date of Surgery: Diagnosis: unspecifie disorder of synovium and tendon, R shoulder primary OA, L shouler myalgia, other site Assessment: 74 L-hand dominant female presents to PT with s/s consistent with L RTC tendinopathy and overlapping cervical dysfunction resulting in pain and difficulty with reaching, grooming, dressing, sleeping on L side, and carrying. Examination shows decreased B shoulder ROM (L more restricted than R), decreased strength, increased tissue tension, pain, and impaired postural awareness. Recommend PT 2x/week for 5 weeks to address impairments, implement HEP, and optimize functional mobility. Frequency and Duration: The patient will be seen 2x/week for 5 weeks Short Term Goals: 3 weeks I with HEP Pt will demonstrate L shoulder flexion to 100* Border Measurer And Cutter Goals: 5 weeks I with HEP and self management of sx Pt will be able to reach overhead cabinets with pain < 3/10 Pt will be able to reach behind back to faciliate dressing with pain < 3/10 Improve SPADI to 100/130 (IR 124/130) Treatment Plan: Modalities to reduce pain, spasms and effusion. Manual therapy to restore motion and function. Therapeutic exercise to improve strength and flexibility. Neuromuscular re-education for posture and balance. Therapeutic activities to return to functional activities of daily living. Electronically signed by: Nicolette Martínez PT Please sign and return to therapist. Thank you for your referral.
--- NOTE | 2025-08-13 11:46 | MHC.PT.DC ---
[facility] Office [place] Office [place] Office [address] Opal Tompkins [address] [phone] F: [phone] F: [phone] F: [phone] F: [phone] Physical Therapy Discharge Report Diagnosis: unspecifie disorder of synovium and tendon, R shoulder primary OA, L shouler myalgia, other site Date of Surgery: Date of Evaluation: 06/18/25 Date of Discharge: 08/13/25 Treatments to Date: 9 Cancellations to Date: 0 No Shows to Date: 0 Discharge Status: Achieved Goals Improved Function Independent with HEP Discharge Summary: Pt has made good progress in PT and reports understanding of shoulder care mechanics. At this time, appropriate for d/c to I HEP. Electronically signed by: Nicolette Martínez PT Please sign and return to therapist. Thank you for your referral.
== END 2025-08-13 11:46 | disposition home or self-care (01) ==
LOC: HO.PT 13:55
PROVIDERS: PCP Internal Medicine; Visit Provider Physical Medicine & Rehabilitation
DX: M19.012 Primary osteoarthritis, left shoulder (principal); M67.911 Unspecified disorder of synovium and tendon, right shoulder; M79.18 Myalgia, other site; M47.812 Spondylosis without myelopathy or radiculopathy, cervical region
CPT/HCPCS: 97110; 97161; 97530

== ENCOUNTER 2025-07-31 14:34 | Outpatient (AMB) | payer OTHER, SELFPAY ==
[2025-07-31 14:38] VITALS: BP 124/60; PULSE 72; TEMP 36.8; O2SAT 97; BMI 28.2
--- NOTE | 2025-07-31 14:38 | MHC.OFFWIV ---
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 Allergies homatropine (Hydromet) Allergy (Intermediate, Verified 07/31/25 14:39) rash ketorolac (From TORADOL) Allergy (Intermediate, Verified 07/31/25 14:39) N/V Sulfa (Sulfonamide Antibiotics) (SULFA (SULFONAMIDE ANTIBIOTICS)) Allergy (Intermediate, Verified 07/31/25 14:39) RASH sulfacetamide Allergy (Intermediate, Verified 07/31/25 14:39) rash tramadol (TRAMADOL) Allergy (Intermediate, Verified 07/31/25 14:39) N/V, edema and vomiting, edema and vomiting tizanidine Adverse Reaction (Intermediate, Verified 07/31/25 14:39) blurry vision HPI HPI Comments History of Present Illness Details 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 History - The patient is a 75-year-old female presenting with a sore throat, and respiratory symptoms. - She is also complaining of urinary symptoms. - Sore throat: The patient reports a sore throat with associated phlegm production. No fever has been noted. - Respiratory symptoms: The patient experiences a mild cough and dyspnea. No history of asthma or COPD, but has lung cysts monitored every six months. - The patient reports frequent urination with dark yellow urine. No burning sensation during urination is reported. Increased frequency of urination, she also has urinary retention. - The patient has a history of kidney cysts, with occasional back pain, no increase from her baseline. Review of Systems - General: Denies fever. - Respiratory: Reports sore throat, cough, and dyspnea. Denies wheezing. - Genitourinary: Reports increased urinary frequency with dark yellow urine. Denies dysuria. - Musculoskeletal: Reports occasional back pain. All systems reviewed and are unremarkable except as noted in HPI Physical Exam General: Cooperative, healthy appearing, comfortable and no acute distress Orientation/consciousness: Patient oriented x3 Limitations: No limitations Head: Normal to inspection Ears: Hearing grossly normal bilaterally, external ears normal, EAC's normal bilaterally and TM's normal bilaterally Nose: Normal external nose present, Normal nares present and No nasal discharge present Face and sinus: Normal facial exam and sinuses nontender Mouth: Normal oral and palatal mucosa present and moist mucous membranes Throat: tonsils normal, no exudates, uvula midline, posterior oropharynx erythema Eyes: Appearance normal, both eyes and all related structures Neck: Normal visual inspection, full ROM Respiratory: Clear to auscultation bilaterally. Normal respiratory effort, able to speak in complete sentences, actively coughing, no respiratory distress, not tachypneic, no tripod positioning and no use of accessory muscles Cardiovascular: Regular rate and rhythm. Normal S1 and S2 Skin: No rashes or lesions noted Neuro: Patient oriented x3 Extremities: Normal to inspection and Yes no clubbing, cyanosis or edema [facility] Medical History (Updated 07/31/25 @ 15:08 by Mariam Campos PA-C) UTI (urinary tract infection) Weight loss, non-intentional Physical exam Myofascial pain Left knee pain Dysuria Abdominal pain Abdominal pain Rectal bleeding Bilateral hand numbness Physical exam Pre-op examination Hospital discharge follow-up Age related osteoporosis Postmenopausal Precordial chest pain Toenail fungus Urine abnormality Hemorrhoids Allergic rhinitis GERD (gastroesophageal reflux disease) Renal cyst Pelvic pain in female Surgical History Hx of eye surgery History of tooth extraction H/O colonoscopy History of esophagogastroduodenoscopy (EGD) History of ear surgery History of tonsillectomy History of tubal ligation Family History Father CVD (cardiovascular disease) Mother No problems noted. Brother Stomach cancer Sister Liver cancer Brother Lung cancer Brother No problems noted. Social History Household Members: None Housing: Apartment Are you a primary clinical care manager to a significant other at home: No Alcohol intake: current Alcohol intake frequency: holidays/special occasions only Alcohol type: beer and wine Patient Tobacco Use Status: Former Tobacco user Tobacco use type: Cigarette e-Cigarette/Vaping Use: Never Used Second Hand Smoke Exposure: No Advance Directives Date on File: 03/05/24 service: No Current occupational status: disabled Cognitive needs: No Hearing needs: No Vision needs: No Physical Exam Vital Signs: Last Vital Signs Temp 98.2 F 07/31/25 14:38 Pulse 72 07/31/25 14:38 BP 124/60 07/31/25 14:38 Pulse Ox 97 07/31/25 14:38 Oxygen Delivery Method Room Air 07/31/25 14:38 BMI result Body Mass Index 28.2 Results AMB Rapid Strep AMB Rapid Strep Negative Last Edit by Yanet Morin CMA on 07/31/25 15:02 Assessment & Plan Assessment & Plan (1) URI, acute: Code(s): J06.9 - Acute upper respiratory infection, unspecified Plan: Plan Patient was informed and verbally consented to the use of an ambient scribe for clinic note documentation during this visit. - VSS, pt well appearing and PE unremarkable. - Throat swab for strep was negative. - Flu/Covid/RSV test has been sent. - Advised use of albuterol inhaler as needed for dyspnea. - OTC meds to treat symptoms. (2) UTI (urinary tract infection): Code(s): N39.0 - Urinary tract infection, site not specified Qualifiers: Urinary tract infection type: acute cystitis Hematuria presence: with hematuria Qualified Code(s): N30.01 - Acute cystitis with hematuria Plan: Increased Urinary Frequency - Urinalysis to be conducted to evaluate for possible urinary tract infection or other causes. UA+ leuks, neg nitrites, + blood. - Will send culture - Abx sent, do not use pantoprazole while taking Cefuroxime, use Tums or similar instead. Orders: Orders AMB Rapid Strep Screen Today Z13.9 - Encounter for screening, unspecified SARS-CoV2/FLU/RSV Today R09.89 - Other specified symptoms and signs involving the circulatory and respiratory systems AMB Urinalysis Automated Today Z13.9 - Encounter for screening, unspecified Urine Culture Today N39.0 - Urinary tract infection, site not specified Medications: New cefuroxime axetil 500 mg PO Q12H 10 tabs 0RF Coding Level of Care Code Est Pt Level 4 (70495) Diagnoses URI, acute J06.9 Acute cystitis with hematuria N30.01 Urinary tract infection type: acute cystitis Hematuria presence: with hematuria
--- OUTSIDE RECORDS SUMMARY | 2025-07-31 18:55 | XMS_ITS | Encounter Summary ---
[facility] Address [address] [place] [address] Care Team Providers Care Claims Adjuster Crop Name Role Phone Elena Cedillo MD Primary Care Provider [phone] Encounter Details Date Type Department Care Team (Late st Contact Info) Description 04/30/2025 Lab Requisition [facility] - Main Lab [address] [facility] [place] [address] Homar Britt, PA [address] [place] [address] Urinary tract infection, site not [...] No growth 05/01/2025 1:37 PM EDT [facility] Urine Urine specimen obtained by clean catch procedure / Unknown Non-blood Collection / Unknown 04/30/2025 04/30/2025 6:19 PM EDT us Homar Britt PA LAB MICROBIOLOGY - GENERAL ORD ERABLES Final Result [facility] [address] [place] [address], documented in this encounter Visit Diagnoses Diagnosis Urinary tract infection, site not specified Dysuria documented in this encounter Care Teams Claims Adjuster Crop Relationship Specialty Start Date End Date Elena Cedillo MD [address] [facility] , [address] [facility] Physician Associ D/B/A: [facility] [place], [place] PCP - General Internal Medicine 05/09/15 documented as of this encounter
--- OUTSIDE RECORDS SUMMARY | 2025-07-31 18:55 | XMS_ITS | Clinical Summary ---
Author Organization [facility] [address] [place] [address] Address [address] [place] [address] Phone Care Team Providers Care Bale Sewer Name Role Phone Elena Cedillo MD Primary Care Provider [phone] Allergies Active Allergy Reactions Criticality Noted Date Comments Sulfa (Sulfonamide Antibiotics) 06/03 Ketorolac Inflammation 06/17/2025 Tramadol 06/17/2025 Medications alendronate (FOSAMAX) 70 mg tablet Take 1 tablet (70 mg total) by mouth. Active Encounters Date Type Department Care Team Description 06/17/2025 10:00 AM EDT Office Visit Obstetrics and Gynecology - [address] [phone] Merlyn Hill CNM Encounter for breast and pelvic examination (Primary Dx) 04/30/2025 Lab Requisition [facility] - Main Lab [address] [facility] [place] [address] Homar Britt PA Urinary tract [...] DX:Microsc opic hematuria; COMMENT: Undergoing evaluation at [facility] Urolog Overactive bladder DX:Overactive bladder; COMMENT: Oxybutynin [...] care for your loved ones. For example, child guidance counselor or elderly care for an older adult? [...] Urine No growth 05/01/2025 1:37 PM EDT [facility] Urine Urine specimen obtained by clean catch procedure / Unknown Non-blood Collection / Unknown 04/30/2025 04/30/2025 6:19 PM EDT us Homar [facility]ZAN[facility] LAB MICROBIOLOGY - GENERAL ORD ERABLES Final Result [facility] [address] [place] [address], [place] [phone] from Last 3 Months Insurance [facility] Member Subscriber Plan / Payer (Ef fective 2017-Present) Name:Breanna Catherine Relation to Subscriber:Self Name:Breanna Catherine Payer ID:[id number] Group ID:[id number] Type:Not on file Address: [place] [address] [address] [phone] Care Teams Bale Sewer Relationship Specialty Start Date End Date Elena Cedillo MD [address] [facility] , [address] [facility] Physician Associ D/B/A: [facility] DEVYN Mckinnon PCP - General Internal Medicine 05/09/15
--- OUTSIDE RECORDS SUMMARY | 2025-07-31 18:55 | XMS_ITS | Clinical Summary ---
Author Organization [facility] Address [address] [place] [address] Care Team Providers Care Commissioned Defence Force Officer Name Role Phone Unavailable Primary Care Provider [...] Hepatitis C Screening 1950 Lipid Screening 1950 Tobacco Screening 1950 Medicare Annual Wellness Visit 1969 Imm-DTaP/Tdap/Td (1 - Tdap) 1970 Breast Cancer Screening (Mammogram) 1991 CT Colonography 1996 Colonoscopy 1996 Colorectal Cancer Screening 1996 FIT/gFOBT 1996 Fecal DNA 1996 Flexible Sigmoidoscopy 1996 Imm-Pneumococcal 50+ (1 of 1 - PCV) 2001 Imm-Zoster, Recombinant (1 of 2) 2001 Bone Density Screening 2016 Falls Prevention 2016 Alcohol and Drug Screen 10/03/2024 Depression Annual Screen 10/03/2024 Dental Perio Charting 12/21/2024 12/20/2023, 022 [id number] (1 - season) 2025 Imm-Influenza (#1) 2025 Dental BW 06/29/2025 06/27/2024, 12/01, 06/14/2023, Additional [...] Most Recently Relevant to Health Maintenance Insurance [facility]
--- OUTSIDE RECORDS SUMMARY | 2025-07-31 18:55 | XMS_ITS | Data Portability ---
Author Organization [place] [facility], Allergy Address [address] [address] Care Team Providers Care Plastics Fabricator Or Welder Name Role Phone WAN BRAMBILA Primary Care Provider Assessment No assessment recorded. Plan of Treatment Reminders Order Date Submit Date Provider Last Modified By Organization Details Last Modified Time Details Appointments None recorde d. Lab None recorde d. Referral None recorde d. Procedures None recorde d. Surgeries None recorde d. Imaging polysom nogram, diagnos tic, 6 yrs or older 025 12/26/19 25 [facility] Sleep Medicine Services, [address] [place], [address], 5 09:20:42 Medication Orders None recorde d. Patient TargetsNo targets recorded. Patient InstructionsNo instructions recorded. Reason for Referral None Reported. Problems Name Problem SNOMED Code Status Onset Date Resolution Date Notes Provider Name and Address Organization Details Recorded Time Gastroeso phageal reflux disease without esophagit is 755972096 Active 2018 Gastro-es ophageal reflux disease without esophagit is; Note: Date Diagnosed : 01/03/2019 11:01 AM (K21.9) Not Available [facility] 4 03:27:11 Chronic rhinitis 47438963 Active 2018 Chronic rhinitis; Note: Date Diagnosed : 01/03/2019 11:01 AM (J31.0) Not Available [facility] 4 03:27:11 Posterior rhinorrhe a 67689569 Active 2018 Postnasal drip; Note: Date Diagnosed : 01/03/2019 11:01 AM (R09.82) Not Available [facility] 4 03:27:11 Central perforati on of left tympanic membrane 76484466438 17870 Active 2024 KALYAN MELO MD [facility] [place] [address], [place], [address] , [facility] 5 09:13:10 Dysphagia 65917186 Active 2024 KALYAN MELO MD 100 [facility],[place] [address], [place], [address] , [facility] - [facility] 5 09:13:23 Feeling of lump in throat 957617482 Active 2024 KALYAN MELO MD 100 [facility],[place] [address], [place], [address] , [facility] - [facility] 5 09:13:28 Obstructi ve sleep apnea syndrome 29470122 Active 2024 KALYAN MELO MD [address] [place] [address],[place] [address], [place], [address] , [facility] - [facility] 09:13:32 Problem Notes None recorded. Procedures Surgical History Date Name Laterality Status Provider Name and Address Organization Details Recorded Time 12/25/2024 FFL_RE completed KALYAN MELO MD [address] [facility],[place] [address], [place], [address], [facility] - [facility] 12/25/2024 09:02:57 Imaging Results None recorded. Procedure Notes None recorded. Medical Equipment None Reported. Allergies Allergen ID Allergen Name Allergen Category Reaction Reaction Severity Criticality Documentation Date Start Date Code Code System Note Provider Name and Address Organization Details Recorded Time 841536 tramadol Not available other Not available Not available 02/14/2024 34319 RxNorm React ion: unkno wn, unspe cifie d;; Not Available [facility] 4 01:25:04 393596 Substance with sulfonami de structure and antibacte rial mechanism of action (substanc e) medicatio n other Not available Not available 02/14/2024 85420 8003 SNOMED React ion: unkno wn, unspe cifie d;; Not Available [facility] 4 01:25:05 Medications Name Sig Start Date Stop Date Status Note LastModified by Organization Details LastModified Time jazmyne angela 10 mg tablet 2018 active Medicatio n ID: [id number] Du ration Value: 30 Brand Name: destiny [...] mg tablet 2018 active Medicatio n ID: [id number] Du ration Value: 30 Brand Name: ranitidin [...] oral suspension 2018 active Medicatio n ID: [id number] Du ration Value: 36 Brand Name: Milk [...] spray,susp ension 2018 active Medicatio n ID: [id number] Du ration Value: 60 Brand Name: fluticaso ne propionat e Send Method: E-Prescri bed Subs Allowed: subs OK Medica tionGener icName: fluticaso ne propionat e Not Available Not Available Not Available ipratropiu m bromide 21 mcg (0.03 %) nasal spray Inhale 2 spray into both nostrils three times a day as directed 2018 active Medicatio n ID: [id number] Pr escribed By Name: Kris Musa Name: ipratropi um bromide S end Method: E-Prescri bed Subs Allowed: subs OK Medica tionGener icName: ipratropi um bromide Not Available Not Available Not Available Myrbetriq 50 mg tablet,ext ended release 2018 active Medicatio n ID: [id number] Du ration Value: 30 Brand Name: Myrbetriq Send Method: E-Prescri bed Subs Allowed: subs OK Medica tionGener icName: Myrbetriq Not Available Not Available Not Available Linzess 145 mcg capsule 2018 active Medicatio n ID: [id number] Du ration Value: 30 Brand Name: Linzess [...] Updated DateTime 12/25/2024 162.56 cm 30.7 kg/m2 69371.03 g Arcelia [place] [facility] 12/25/2024 09:00:53 Social History None recorded. Functional Status None recorded. Mental Status None recorded. Family History Nothing Reported. Medical History No medical history recorded. Gynecological HistoryNo gynecological history recorded. Obstetrics History GPAL:G 0 P 0 0 0 0 Past Encounters Encounter ID Performer Location Encounter Start Date Encounter Closed Date Diagnosis/Indication Diagnosis SNOMED-CT Code Diagnosis ICD10 Code Diagnosis IMO Codes Diagnosis Note [id number] KALYAN MELO MD [facility] [address] [address] 12/25/2024 08:35:25 12/25/2024 09:20:14 Central perforation of left tympanic membrane [id number] 011042 H72.02 Dry and safe. We will plan on audiogram at follow-up. Dysphagia 54644595 R13.1 0 No obstructiv e lesions. Dysphagia seems mild and we will defer swallow study for now. Obstructiv e sleep apnea syndrome 95561117 G47.33 She may have TK based on [...] [facility] - DOS ON OR AFTER 2023 - MEDICARE ADVANTAGE [place] (MEDICARE REPLACEMENT/ADV ANTAGE - PPO) Breanna Floyd [id number] Breanna Floyd Notes Date Note Type Note Provider Name and Address Organization Details Recorded Time 12/25/2024 text/html ROS as noted in the HPI She reports she chokes often in her [...] pantoprazole for this. KALYAN MELO MD [address] [place] [address], [address], [facility] - [facility] 12/25/2024 09:14:45 OBGyn Episode No OBEpisode recorded.
== END 2025-07-31 15:17 | disposition home or self-care (01) ==
PROVIDERS: PCP Internal Medicine; Visit Provider Physician Assistant
DX: J06.9 Acute upper respiratory infection, unspecified (principal); N30.01 Acute cystitis with hematuria; Z13.9 Encounter for screening, unspecified

== ENCOUNTER 2025-07-31 14:34 | Outpatient (REF) | payer OTHER, SELFPAY ==
[2025-07-31 17:22] LABS: Resp Syncy Virus RNA Qual PCR NEGATIVE (Negative); SARS COV2 PCR INHOUSE NEGATIVE (Negative)
== END 2025-07-31 14:35 | disposition home or self-care (01) ==
LOC: HO.LAB 14:34
PROVIDERS: Physician Assistant; PCP Internal Medicine
DX: N30.01 Acute cystitis with hematuria (principal); J06.9 Acute upper respiratory infection, unspecified; Z87.891 Personal history of nicotine dependence
CPT/HCPCS: 81003; 87086; 87637; 87880; 99212

== ENCOUNTER 2025-08-07 10:04 | Outpatient (REF) | payer OTHER, SELFPAY ==
[2025-08-07 11:32] LABS: Alanine Aminotransferase 23 U/L (0-31); Albumin Level 4.2 g/dL (3.5-5.0); Alkaline Phosphatase 76 U/L (39-117); Anion Gap 7 (12-20); Aspartate Amino Transferase 26 U/L (5-31); Blood Urea Nitrogen 15 mg/dL (9-16); Calcium 9.2 mg/dL (8.4-10.2); Carbon Dioxide 31 mmol/L (22-29); Chloride 107 mmol/L (96-108); Cholesterol 194 mg/dL (<200); Estimated Glomerular Filt Rate > 60; HDL Cholesterol 74 mg/dL (>40); Potassium 4.0 mmol/L (3.3-5.1); Sodium 141 mmol/L (135-145); Total Protein 7.0 g/dL (6.5-8.0); Triglycerides 64 mg/dL (<150)
--- OUTSIDE RECORDS SUMMARY | 2025-08-07 11:36 | XMS_ITS | Clinical Summary ---
Author Organization [facility] Address [address] [place] [address] Care Team Providers Care Parts Counter Salesperson Name Role Phone Unavailable Primary Care Provider [...] 10/03/2024 Dental Perio Charting 12/21/2024 12/20/2023, 022 [id number] (1 - season) 2025 Imm-Influenza (#1) 2025 [...] Recently Relevant to Health Maintenance Insurance [facility]
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
--- OUTSIDE RECORDS SUMMARY | 2025-08-07 11:36 | XMS_ITS | Encounter Summary ---
Author Organization [facility] Address [address] [place] [address] Care Team Providers Care Hydroponics Worker Name Role Phone Elena Cedillo MD Primary Care Provider [phone] Encounter Details Date Type Department Care Team (Late st Contact Info) Description 04/30/2025 Lab Requisition [facility] - Main Lab [address] [facility] [place] [address] Homar Britt, PA [address] [place] [address] Urinary tract infection, site not [...] Urine No growth 05/01/2025 1:[address] [facility] Urine Urine specimen obtained by clean catch procedure / Unknown Non-blood Collection / Unknown 04/30/2025 04/30/2025 6:19 PM EDT us Homar Britt PA LAB MICROBIOLOGY - GENERAL ORD ERABLES Final Result [facility] [address] [place] [address], documented in this encounter Visit Diagnoses Diagnosis Urinary tract infection, site not specified Dysuria documented in this encounter Care Teams Hydroponics Worker Relationship Specialty Start Date End Date Elena Cedillo MD [address] [facility] , [address] [facility] D[facility] [place], [place] PCP - General Internal Medicine 05/09/15 documented as of this encounter
[2025-08-07 11:54] LABS: Folate 14.8 ng/mL (> or = 4.0); Vitamin B12 1204 pg/mL (200-900)
== END 2025-08-07 10:05 | disposition home or self-care (01) ==
LOC: HO.LAB 10:04
PROVIDERS: PCP Internal Medicine; Visit Provider Internal Medicine
DX: Z00.00 Encounter for general adult medical examination without abnormal findings (principal); E53.8 Deficiency of other specified B group vitamins; E78.5 Hyperlipidemia, unspecified; E55.9 Vitamin D deficiency, unspecified
CPT/HCPCS: 36415; 80053; 80061; 82306; 82607; 82746

== ENCOUNTER 2025-08-14 13:08 | Outpatient (AMB) | payer OTHER, SELFPAY ==
--- OUTSIDE RECORDS SUMMARY | 2023-05-23 09:25 | XMS_ITS | Continuity of Care Document ---
Author Organization [facility] Address [address] [place] [address] [address] [place] [id number] Phone Care Team Providers Care Crisis Specialist Name Role Phone Ramon ALCANTAR FACS RVT Fahad ACOSTA Unavailable Unavailable Procedures Procedure Date Duplex Scan-extrem Veins; Comp Offic Cons New/estab Mod 40 Mi Advance Directives Directive Yes / No Effective Date File Name No Information Encounters Encounter Description Practice Location Reason(s) For Visit Diagnoses Date Provider Providers Copied on Encounter [facility], [address] [place] [address] [address], [id number], [place] tel:[phone] [facility] No Information 3 Ramon ALCANTAR FACS SRINIVASAT DAVE Orellana. [address], [address], [place], [address], [place]. tel:[phone] Referring Provider: Elena Dela Cruz MD, [address] [place] [address] [address], [address] [place] D/B/A: [facility], [place], [address]. tel:[phone] [facility], [address] [place] [address] [address], [id number], [place] tel:[phone] [facility] Chronic venous htn w oth comp of bilateral low extrm 3 Ramon ALCANTAR FACS T DAVE Orellana. [address], [place] [address], [place], [address], [place]. tel:[phone] Referring Provider: Elena Dela Cruz MD, [address], [address] [place] [address] D/B/A: [place], [address]. tel:[phone] Offic Cons New/estab Mod 40 Dc [facility], [address], [place], [id number], [place] tel:[phone] [facility] Chronic venous htn w oth comp of bilateral low extrmFlail joint, unspecified jointPruritus , unspecifiedCr amp and spasmLocalize d edema 3 Ramon ALCANTAR FACS T DAVE Orellana. [address], [place] [address], [place], [address], [place]. tel:[phone] Referring Provider: Elena Dela Cruz MD, [address] [facility] [address], [address] [place] [address] D/B/A: [place], [address]. tel:[phone] Family History Family Member Type Diagnosis Age At Onset No Information Payers Payer name Insurance type Covered democrat ID Authoriza tion(s) [facility] CI [id number] Medical Assistance [facility] [id number] Social History Type Description Quantity Date Captured Comments Sex Female Smoking Status No Information Chief Complaint And Reason For Visit No Information Reason For Referral Reason For Referral No Information Plan Of Treatment Date Type Action Status Goal Diet education completed Referral Ordered: Weight management: Referral to physician timeframe: 3 Months (related to Body mass index (BMI) 27.0-27.9, adult) ordered History Of Present Illness Encounter Date Complaint History Of Prese nt Illness No Information Functional Status Date Functional Assessmen t No Information Instructions Date Instruction Additional Infor mation Patient education booklet given Related to Chronic venous htn w oth comp of bilateral low extrm Compression stocking usage as conservative measure Related to Chronic venous htn w oth comp of bilateral low extrm Lifestyle education Related to B awais mass index (BMI) 27.0-27.9, adult Giving Encouragement to exercise Related to Body mass index (BMI) 27.0-27.9, adult Diet education Related to Body mass index (BMI) 27.0-27.9, adult Assessments Type Assessment Date No Information Patient Care Teams Name Effective Dates (start - stop) Status Members No Information
--- NOTE | 2025-08-14 13:12 | MHC.PC.OV ---
Vital Signs 08/14/25 13:13 Height 5 ft 6 in Weight 176 lb 8 oz BMI 28.5 BP 120/60 Blood Pressure Location Lt brachial Position Sitting Pulse 70 Pulse Source Pulse Oximeter Temp 96.6 F L Temp Source Temporal Artery Scan Pulse Oximetry (%) 94 Oxygen Delivery Method Room Air Intake Visit Reasons: depression, asthma Intake Note: Patient is here to follow up on Depression, Asthma. Police And Fire Dispatcher Required: Yes Police And Fire Dispatcher Language: Persian Information Interpreted: non-clinical & clinical Automatic Mounter: Not Required per policy Accompanied by: Self / Same As Patient Allergies homatropine (Hydromet) Allergy (Intermediate, Verified 08/14/25 13:25) rash ketorolac (From TORADOL) Allergy (Intermediate, Verified 08/14/25 13:25) N/V Sulfa (Sulfonamide Antibiotics) (SULFA (SULFONAMIDE ANTIBIOTICS)) Allergy (Intermediate, Verified 08/14/25 13:25) RASH sulfacetamide Allergy (Intermediate, Verified 08/14/25 13:25) rash tramadol (TRAMADOL) Allergy (Intermediate, Verified 08/14/25 13:25) N/V, edema and vomiting, edema and vomiting tizanidine Adverse Reaction (Intermediate, Verified 08/14/25 13:25) blurry vision Medication List - Last Reconciled 08/14/25 by Elena Cedillo MD albuterol sulfate 90 mcg/actuation 1 inh inhalation QID PRN cefuroxime axetil 500 mg PO Q12H cetirizine (All Day Allergy (cetirizine)) 10 mg PO DAILY PRN 90 days cyclobenzaprine 10 mg PO BID PRN 30 days dicyclomine 20 mg PO QID 30 days famotidine (Pepcid) 40 mg PO BEDTIME 90 days [Hand held shower head As directed] hydrocortisone 2.5% (Proctosol HC) 1 appl SD BID ipratropium bromide 2 sprays intranasal BID 30 days latanoprost 0.005% drps ophthalmic (eye) linaclotide (Linzess) 290 mcg PO QAM 30 days naproxen 500 mg PO BID PRN 30 days nebulizers As directed pantoprazole 40 mg PO DAILY [Raised toilet seat As directed] [Shower chair As directed] vibegron (Gemtesa) 75 mg PO DAILY Tobacco use date assessed: 08/14/25 Fall risk assessment: No Falls in past year Last assessed Fall Risk: 08/14/25 Dental Screening Dental Screen Date: 01/01/25 HPI HPI Comments History of Present Illness Details The patient is a 75-year-old female presenting for a follow-up visit to review medications and chronic conditions. She has multiple drug allergies, including Hydromet, Toradol, sulfa which causes a rash, tramadol which causes nausea and vomiting, and tizanidine which causes blurry vision. Her current medications include cetirizine for allergies, Flexeril, dicyclomine for dyspepsia, Pepcid (famotidine) and pantoprazole for acidity, naproxen, Linzess, and Gemtesa for urinary incontinence. The patient is not currently taking any antibiotics. An abdominal ultrasound from 2021 showed a normal right kidney and a very small stone in the left kidney, with no cysts or nodules noted. A bone densitometry was performed in 2023, and the next is due in 2025. Recent laboratory results showed excellent renal function, a glucose of 94, and normal liver function, cholesterol, and vitamin levels. She complains of allergic rhinitis associated with nasal congestion and I will refer her to an cyber software engineer. She also has urge urinary incontinence was recently placed on Gemtesa. She has GERD relieved by pantoprazole. [facility] Medical History (Updated 08/14/25 @ 13:51 by Elena Cedillo MD) UTI (urinary tract infection) Weight loss, non-intentional Physical exam Myofascial pain Left knee pain Dysuria Abdominal pain Abdominal pain Rectal bleeding Bilateral hand numbness Physical exam Pre-op examination Hospital discharge follow-up Age related osteoporosis Postmenopausal Precordial chest pain Toenail fungus Urine abnormality Hemorrhoids Allergic rhinitis GERD (gastroesophageal reflux disease) Renal cyst Pelvic pain in female Surgical History Hx of eye surgery History of tooth extraction H/O colonoscopy History of esophagogastroduodenoscopy (EGD) History of ear surgery History of tonsillectomy History of tubal ligation Family History Father CVD (cardiovascular disease) Mother No problems noted. Brother Stomach cancer Sister Liver cancer Brother Lung cancer Brother No problems noted. Social History Household Members: None Housing: Apartment Are you a primary pet caregiver to a significant other at home: No Unable to assess alcohol history related to: Unknown Alcohol intake: current Alcohol intake frequency: holidays/special occasions only Alcohol type: beer and wine Patient Tobacco Use Status: Former Tobacco user Tobacco use type: Cigarette e-Cigarette/Vaping Use: Never Used Second Hand Smoke Exposure: Yes Advance Directives Date on File: 03/05/24 service: No Current occupational status: disabled Cognitive needs: No Hearing needs: No Vision needs: No Questionnaire Thrive Questionnaire Date Thrive assessed: 02/11/25 I am a: Patient What is your living situation today?: I choose not to answer this question Within the past 12 months, did the food you bought not last and you didn't have the money to get more?: I choose not to answer this question Within the past 12 months, did you worry whether your food would run out before you got money to buy more?: I choose not to answer this question Do you have trouble paying for medicines?: I choose not to answer this question Do you have trouble getting transportation to medical appointments?: I choose not to answer this question Do you have trouble paying your heating and electricity bill?: I choose not to answer this question Do you have trouble taking care of your child, family member or friend?: I choose not to answer this question Do you have trouble with day-to-day activities such as bathing, preparing meals, shopping, managing finances, etc.?: I choose not to answer this question Are you currently unemployed and looking for a job?: I choose not to answer this question Are you interested in more education?: I choose not to answer this question Please select the resources that you would like help with: None Currently or been in a relationship where the following occur: No concerns reported THRIVE Score: 0 AUDIT C Alcohol Use Questionnaire (AUDIT-C) 1. How often do you have a drink containing alcohol?: Never Total Score: 0 JOSELIN-7 AMB Questionnaire JOSELIN-7 Date JOSELIN - 7 assessed: 02/11/25 Feeling nervous, anxious, or on edge: 0 = Not at all Not being able to stop or control worryin = Not at all Worrying too much about different things: 0 = Not at all Trouble relaxin = Not at all Being so restless that it is hard to sit still: 0 = Not at all Becoming easily annoyed or irritable: 1 = Several days Feeling afraid as if something awful might happen: 0 = Not at all Total JOSELIN-7 score (0-4 normal; 5-9 mild; 10-14 moderate; 15-21 severe): 1 Source: Developed by Drs. Ward Goldman, Christine Pantoja, Desmond Thompson and colleagues, with an educational daniel from [employer]. JOSELIN-7 Assessment Billing JOSELIN-7 Assessment Tool: JOSELIN-7 Assessment 01139 Review of Systems Const All systems reviewed & are unremarkable except as noted in HPI and below Card Denies chest pain at rest, Denies chest pain with activity, Denies edema, Denies irregular heart rhythm, Denies claudication, Denies dyspnea, Denies dyspnea on exertion, Denies orthopnea, Denies paroxysmal nocturnal dyspnea and Denies slow heart rate Resp Denies cough, Denies dyspnea and Denies dyspnea on exertion GI Denies abdominal pain, Denies change in bowel habits, Denies excessive flatus, Denies nausea and Denies vomiting Physical exam (Primary Care) Vital Signs: Last Vital Signs Temp 96.6 F L 08/14/25 13:13 Pulse 70 08/14/25 13:13 BP 120/60 08/14/25 13:13 Pulse Ox 94 08/14/25 13:13 Oxygen Delivery Method Room Air 08/14/25 13:13 BMI result Body Mass Index 28.5 Tobacco/Smoking Status: Tobacco use Status Tobacco use date assessed 08/14/25 08/14/25 13:18 Patient Tobacco Use Status Former Tobacco user 08/14/25 13:18 Tobacco use type Cigarette 08/14/25 13:18 e-Cigarette/Vaping Use Never Used 08/14/25 13:18 Thrive Assessment: Date of Thrive Assessment Date Thrive assessed 02/11/25 08/14/25 13:18 Currently or been in a relationship where the following occur: No concerns reported Resp Effort & Inspection: normal respiratory effort Auscultation: clear to auscultation bilaterally Cardio Jugular venous distension: no JVD Rate: regular rate Rhythm: regular rhythm Heart sounds: S1 normal heart sound present and S2 normal heart sound present Extrem General: Yes full ROM Coding Level of Care Code Est Pt Level 4 (20771) Complex EM visit Add On G2211 Diagnoses Allergic rhinitis J30.9 Gastroesophageal reflux disease, unspecified whether esophagitis present K21.9 Esophagitis presence: esophagitis presence not specified Nephrolithiasis N20.0 Urge urinary incontinence N39.41 Dyspepsia R10.13 Additional Codes JOSELIN-7 Assessment Billing - JOSELIN-7 Assessment Tool: JOSELIN-7 Assessment 82670 ([id number]) Time Spent (min) 25 Assessment & Plan Assessment & Plan (1) Allergic rhinitis: Code(s): J30.9 - Allergic rhinitis, unspecified Category: Medical (2) GERD (gastroesophageal reflux disease): Comment: Will control pantoprazole Code(s): K21.9 - Gastro-esophageal reflux disease without esophagitis Category: Medical Qualifiers: Esophagitis presence: esophagitis presence not specified Qualified Code(s): K21.9 - Gastro-esophageal reflux disease without esophagitis (3) Nephrolithiasis: Code(s): N20.0 - Calculus of kidney Category: Medical (4) Urge urinary incontinence: Code(s): N39.41 - Urge incontinence Category: Medical (5) Dyspepsia: Code(s): R10.13 - Epigastric pain Category: Medical Plan Plan 1. Allergic rhinitis The patient experiences ongoing symptoms suspected to be from environmental allergies. A referral will be sent to an cyber software engineer for further testing and consideration of immunotherapy. Her allergy medication will be changed from cetirizine to levocetirizine. The patient will continue taking famotidine, which also helps with allergies as an H2 histamine receptor mary ann. 2. Dyspepsia The patient manages dyspepsia and acidity with multiple medications. She will continue her current regimen, including pantoprazole, famotidine, and dicyclomine, which she takes before meals for stomach discomfort. 3. Urinary Incontinence The patient is on Gemtesa for urinary incontinence. She will continue this medication as prescribed. 4. History Of Nephrolithiasis An abdominal ultrasound in 2021 identified a very small stone in the left kidney. Recent lab results show excellent renal function. No acute management is required at this time. 5. GERD Continue PPIs Orders: Orders US renal BI Today N20.0 - Calculus of kidney Referrals Allergy & Immunology Referral J30.9 - Allergic rhinitis, unspecified Medications: New levocetirizine 5 mg PO BID 180 tabs 1RF 90 days Discontinued cetirizine (All Day Allergy (cetirizine)) Discontinued Reason: Patient Completed Course 10 mg PO DAILY 90 days PRN 90 tabs 2RF allergy symptoms
[2025-08-14 13:13] VITALS: BP 120/60; PULSE 70; TEMP 35.9; O2SAT 94; BMI 28.5
--- OUTSIDE RECORDS SUMMARY | 2025-08-14 15:54 | XMS_ITS | Clinical Summary ---
Author Organization [facility] [address] [place] [address] Address [address] [place] [address] Phone Care Team Providers Care Learning Design Specialist Name Role Phone Elena Cedillo MD Primary Care Provider [phone] Allergies Active Allergy Reactions Criticality Noted Date Comments Sulfa (Sulfonamide Antibiotics) 06/03 Ketorolac Inflammation 06/17/2025 Tramadol 06/17/2025 Medications alendronate (FOSAMAX) 70 mg tablet Take 1 tablet (70 mg total) by mouth. Active Encounters Date Type Department Care Team Description 06/17/2025 10:00 AM EDT Office Visit Obstetrics and Gynecology - [address] [phone] Merlyn Hill CNM Encounter for breast and [...] DX:Microsc opic hematuria; COMMENT: Undergoing evaluation at [facility] Overactive bladder DX:Overactive bladder; COMMENT: Oxybutynin ER [...] for your loved ones. For example, child welfare manager or elderly care for an older adult? [...] Density Screening) 08/31/2022 COVID-19 Vaccine (1 - 2024-2 6 season) 2025 Influenza Vaccine (#1) 2025 Social [...] patient's age to complete this topic Insurance [facility] Member Subscriber Plan / Payer (Ef fective 2017-Present) Name:Breanna Catherine Relation to Subscriber:Self Name:Breanna Catherine Payer ID:[id number] Group ID:[id number] Type:Not on file Address: [place] [address] [address] [id number] Care Teams Learning Design Specialist Relationship Specialty Start Date End Date Elena Cedillo MD [address] [place] [address] , [facility] [address] [facility] D/B/A: [facility] DEVYN Mckinnon PCP - General Internal Medicine 05/09/15
--- OUTSIDE RECORDS SUMMARY | 2025-08-14 15:54 | XMS_ITS | Encounter Summary ---
Author Organization [facility] Address [address] [place] [address] Care Team Providers Care Cinder Worker Name Role Phone Elena Cedillo MD Primary Care Provider [phone] Encounter Details Date Type Department Care Team (Late st Contact Info) Description 04/30/2025 Lab Requisition [facility] - Main Lab [address] [facility] [place] [address] Homar Britt, PA [address] [place] [address] Urinary tract infection, site not [...] Urine No growth 05/01/2025 1:37 PM EDT [facility] Urine Urine specimen obtained by clean catch procedure / Unknown Non-blood Collection / Unknown 04/30/2025 04/30/2025 6:19 PM EDT us Homar Britt PA LAB MICROBIOLOGY - GENERAL ORD ERABLES Final Result [facility] [address] [place] [address], documented in this encounter Visit Diagnoses Diagnosis Urinary tract infection, site not specified Dysuria documented in this encounter Care Teams Cinder Worker Relationship Specialty Start Date End Date Elena Cedillo MD [address] [facility] , [address] [facility] D/B/A: [facility] [place], MD PCP - General Internal Medicine 05/09/15 documented as of this encounter
--- OUTSIDE RECORDS SUMMARY | 2025-08-14 15:54 | XMS_ITS | Data Portability ---
Author Organization [place] [facility] Address [address] [address] Care Team Providers Care Public Works Director Name Role Phone WAN BRAMBILA Primary Care Provider Assessment No assessment recorded. Plan of Treatment Reminders Order Date Submit Date Provider Last Modified By Organization Details Last Modified Time Details Appointments None recorde d. Lab None recorde d. Referral None recorde d. Procedures None recorde d. Surgeries None recorde d. Imaging polysom nogram, diagnos tic, 6 yrs or older 025 12/26/19 25 [facility] Sleep Medicine Services, [address] [place], [address], 5 09:20:42 Medication Orders None recorde d. Patient TargetsNo targets recorded. Patient InstructionsNo instructions recorded. Reason for Referral None Reported. Problems Name Problem SNOMED Code Status Onset Date Resolution Date Notes Provider Name and Address Organization Details Recorded Time Gastroeso phageal reflux disease without esophagit is 758477288 Active 2018 Gastro-es ophageal reflux disease without esophagit is; Note: Date Diagnosed : 01/03/2019 11:01 AM (K21.9) Not Available [facility] 4 03:27:11 Chronic rhinitis 54192812 Active 2018 Chronic rhinitis; Note: Date Diagnosed : 01/03/2019 11:01 AM (J31.0) Not Available [facility] 4 03:27:11 Posterior rhinorrhe a 46692469 Active 2018 Postnasal drip; Note: Date Diagnosed : 01/03/2019 11:01 AM (R09.82) Not Available [facility] 4 03:27:11 Central perforati on of left tympanic membrane 63808541996 12976 Active 2024 KALYAN MEOL MD 100 [facility] [place] [facility] [place] [address], [place], [address] , [facility] - [facility] 5 09:13:10 Dysphagia 15852031 Active 2024 KALYAN MELO MD 100 [facility],[place] [address], [place], [address] , [facility] - [facility] 5 09:13:23 Feeling of lump in throat 787694118 Active 2024 KALYAN MELO MD 100 [facility],[place] [address], [place], [address] , [facility] - [facility] 5 09:13:28 Obstructi ve sleep apnea syndrome 44351559 Active 2024 KALYAN MELO MD [address] [place] [address],[place] [address], [place], [address] , [facility] - [facility] 09:13:32 Problem Notes None recorded. Procedures Surgical History Date Name Laterality Status Provider Name and Address Organization Details Recorded Time 12/25/2024 FFL_RE completed KALYAN MELO MD 100 [facility],[place] [address], [place], [address], [facility] - [facility] 12/25/2024 09:02:57 Imaging Results None recorded. Procedure Notes None recorded. Medical Equipment None Reported. Allergies Allergen ID Allergen Name Allergen Category Reaction Reaction Severity Criticality Documentation Date Start Date Code Code System Note Provider Name and Address Organization Details Recorded Time 693358 tramadol Not available other Not available Not available 02/14/2024 33714 RxNorm React ion: unkno wn, unspe cifie d;; Not Available [facility] 4 01:25:04 953587 Substance with sulfonami de structure and antibacte rial mechanism of action (substanc e) medicatio n other Not available Not available 02/14/2024 67074 8003 SNOMED React ion: unkno wn, unspe cifie d;; Not Available Count includes the [facility] 4 01:25:05 Medications Name Sig Start Date Stop Date Status Note LastModified by Organization Details LastModified Time jazmyne angela 10 mg tablet 2018 active Medicatio n ID: [id number] Du ration Value: 30 Brand Name: destiny [...] mg tablet 2018 active Medicatio n ID: [id number] Du ration Value: 30 Brand Name: ranitidin [...] oral suspension 2018 active Medicatio n ID: [id number] Du ration Value: 36 Brand Name: Milk [...] spray,susp ension 2018 active Medicatio n ID: [id number] Du ration Value: 60 Brand Name: fluticaso ne propionat e Send Method: E-Prescri bed Subs Allowed: subs OK Medica tionGener icName: fluticaso ne propionat e Not Available Not Available Not Available ipratropiu m bromide 21 mcg (0.03 %) nasal spray Inhale 2 spray into both nostrils three times a day as directed 2018 active Medicatio n ID: [id number] Pr escribed By Name: Kris Musa Name: ipratropi um bromide S end Method: E-Prescri bed Subs Allowed: subs OK Medica tionGener icName: ipratropi um bromide Not Available Not Available Not Available Myrbetriq 50 mg tablet,ext ended release 2018 active Medicatio n ID: [id number] Du ration Value: 30 Brand Name: Myrbetriq Send Method: E-Prescri bed Subs Allowed: subs OK Medica tionGener icName: Myrbetriq Not Available Not Available Not Available Linzess 145 mcg capsule 2018 active Medicatio n ID: [id number] Du ration Value: 30 Brand Name: Linzess [...] Updated DateTime 12/25/2024 162.56 cm 30.7 kg/m2 25622.03 g Arcelia W[place] [facility] 12/25/2024 09:00:53 Social History None recorded. Functional Status None recorded. Mental Status None recorded. Family History Nothing Reported. Medical History No medical history recorded. Gynecological HistoryNo gynecological history recorded. Obstetrics History GPAL:G 0 P 0 0 0 0 Past Encounters Encounter ID Performer Location Encounter Start Date Encounter Closed Date Diagnosis/Indication Diagnosis SNOMED-CT Code Diagnosis ICD10 Code Diagnosis IMO Codes Diagnosis Note [id number] KALYAN MELO MD [facility] [address] [address] 12/25/2024 08:35:25 12/25/2024 09:20:14 Central perforation of left tympanic membrane [id number] 332320 H72.02 Dry and safe. We will plan on audiogram at follow-up. Dysphagia 83090732 R13.1 0 No obstructiv e lesions. Dysphagia seems mild and we will defer swallow study for now. Obstructiv e sleep apnea syndrome 50305089 G47.33 She may have TK based on [...] [facility] - DOS ON OR AFTER 2023 - MEDICARE ADVANTAGE [place] (MEDICARE REPLACEMENT/ADV ANTAGE - PPO) Breanna Floyd [id number] Breanna Floyd Notes Date Note Type Note [...] takes pantoprazole for this. KALYAN MELO MD [address] [place] [address], [address], [facility] - [facility] 12/25/2024 09:14:45 OBGyn Episode No OBEpisode recorded.
--- OUTSIDE RECORDS SUMMARY | 2025-08-14 15:54 | XMS_ITS | Clinical Summary ---
Author Organization [facility] Address [address] [place] [address] Care Team Providers Care Lime Trimmer Name Role Phone Unavailable Primary Care Provider [...] 10/03/2024 Dental Perio Charting 12/21/2024 12/20/2023, 022 [id number] (1 - season) 2025 Imm-Influenza (#1) 2025 [...] Most Recently Relevant to Health Maintenance Insurance [facility]
== END 2025-08-14 13:45 | disposition home or self-care (01) ==
LOC: HO.HMCH 13:09
PROVIDERS: PCP Internal Medicine; Visit Provider Internal Medicine
DX: J30.9 Allergic rhinitis, unspecified (principal); K21.9 Gastro-esophageal reflux disease without esophagitis; N20.0 Calculus of kidney; N39.41 Urge incontinence; R10.13 Epigastric pain

== ENCOUNTER → 2025-08-14 13:08 | Outpatient (BNVA) | payer OTHER, SELFPAY | PROVIDERS: PCP Internal Medicine; Visit Provider Internal Medicine | DX: K21.9 Gastro-esophageal reflux disease without esophagitis (principal); N20.0 Calculus of kidney; J30.9 Allergic rhinitis, unspecified; N39.41 Urge incontinence; R10.13 Epigastric pain | CPT/HCPCS: 96127; 99212 ==

== ENCOUNTER 2025-08-22 11:48 | Outpatient (REF) | payer OTHER, SELFPAY ==
--- NOTE | ~2025-08-22 | XR_ITS ---
EXAMINATION: XR LUMBOSACRAL SPINE CLINICAL INFORMATION: M54.9 - Dorsalgia, unspecified COMPARISON: X-ray 09/23/2020 TECHNIQUE: Three views of the lumbosacral spine. FINDINGS: Mild leftward curvature of the spine. No evidence of acute fracture or subluxation. Disc heights are maintained. No suspicious bony lesion. Facet degeneration lower lumbar spine. Mild bilateral SI joint arthritis. No suspicious soft tissue calcification.. XR/XR lumbar spine 2-3V IMPRESSION: Mild lower lumbar spine facet degeneration. Bilateral SI joint arthritis Electronically signed by: Alvaro Alvarez MD 08/23/2025 08:10 AM [facility]
--- NOTE | ~2025-08-22 | XR_ITS ---
EXAMINATION: XR HIP, LEFT CLINICAL INFORMATION: M16.12 - Unilateral primary osteoarthritis, left hip COMPARISON: None available. TECHNIQUE: Two views of the left hip. FINDINGS: No visible acute fracture, dislocation or suspicious bony lesion. Mild left hip arthritis. Minimal symphysis pubis degeneration. Mild bilateral SI joint arthritis. Chronic calcifications in the lateral soft tissue XR/XR hip LT min 2V IMPRESSION: No acute findings Mild left hip arthritis Electronically signed by: Alvaro Alvarez MD 08/23/2025 07:28 AM [facility]
== END 2025-08-22 11:49 | disposition home or self-care (01) ==
LOC: HO.HOSX 11:48
PROVIDERS: PCP Internal Medicine; Visit Provider Physical Medicine & Rehabilitation
DX: M47.26 Other spondylosis with radiculopathy, lumbar region (principal); M53.3 Sacrococcygeal disorders, not elsewhere classified; G56.03 Carpal tunnel syndrome, bilateral upper limbs; M16.12 Unilateral primary osteoarthritis, left hip
CPT/HCPCS: 72100; 73502; 99212

== ENCOUNTER 2025-08-22 11:48 | Outpatient (AMB) | payer OTHER, SELFPAY ==
--- NOTE | 2025-08-22 11:52 | MHC.OFFVIS ---
Intake Visit Reasons: OV- Left sided Neck pain, Lower back pain Intake Note: Breanna is a 75 year old female who presents today as a follow up for her Arthritis of the left shoulder and lower back pain. At last visit she was referred to physical therapy. At today's visit she states that the left shoulder is feeling better and that the physical therapy helped. Patient states that the left hand is still having numbness, tingling but she has not had this issue for over a week now. Patient reports that the left sided lower back pain is still radiating down her left leg into the left ankle. Can Operator Required: Yes Can Operator Services: Can Operator Present Can Operator Name: Yudith [phone] Allergies homatropine (Hydromet) Allergy (Intermediate, Verified 08/14/25 13:25) rash ketorolac (From TORADOL) Allergy (Intermediate, Verified 08/14/25 13:25) N/V Sulfa (Sulfonamide Antibiotics) (SULFA (SULFONAMIDE ANTIBIOTICS)) Allergy (Intermediate, Verified 08/14/25 13:25) RASH sulfacetamide Allergy (Intermediate, Verified 08/14/25 13:25) rash tramadol (TRAMADOL) Allergy (Intermediate, Verified 08/14/25 13:25) N/V, edema and vomiting, edema and vomiting tizanidine Adverse Reaction (Intermediate, Verified 08/14/25 13:25) blurry vision Medication List - Last Reconciled 08/22/25 by Trudi Smith MD albuterol sulfate 90 mcg/actuation 1 inh inhalation QID PRN cefuroxime axetil 500 mg PO Q12H cyclobenzaprine 10 mg PO BID PRN 30 days dicyclomine 20 mg PO QID 30 days famotidine (Pepcid) 40 mg PO BEDTIME 90 days [Hand held shower head As directed] hydrocortisone 2.5% (Proctosol HC) 1 appl NV BID ipratropium bromide 2 sprays intranasal BID 30 days latanoprost 0.005% drps ophthalmic (eye) levocetirizine 5 mg PO BID 90 days linaclotide (Linzess) 290 mcg PO QAM 30 days naproxen 500 mg PO BID PRN 30 days nebulizers As directed pantoprazole 40 mg PO DAILY [Raised toilet seat As directed] [Shower chair As directed] vibegron (Gemtesa) 75 mg PO DAILY HPI Comments Details: She was seen by Bina CAMPUZANO for left leg pain/numbness. Referred to Physiatry for further evaluation of lumbar spine. She was also seen by Lamberto CAMPUZANO for left arm/hand numbness. But she says today that she is here for left sided neck pain, NOT low back pain. 3 months only for left sided neck pain, radiating down to left shoulder and elbow. Does not radiate to left hand now, it used to but it resolved with therapy. Denies numbness on arm or hand. Limited ROM on left shoulder forward flexion. Shoulder xray done few months ago. CT cervical spine few years ago, no surgery or injections. On further review, she did have chronic neck pain that comes/goes. But it seems her main complaint is left shoulder. At last visit she was referred to physical therapy. At today's visit she states that the left shoulder is feeling better and that the physical therapy helped. Patient states that the left hand is still having numbness, tingling but she has not had this issue for over a week now. 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 Murray 2022. Whenever she wakes up at night. She had seen Lamberto CAMPUZANO Hand Surgery once and they recommended OT and not surgery, since the CTS is only mild. She wears the wrist brace. Patient reports that the left sided lower back pain is still radiating down her left leg into the left ankle. Chronic but getting worse over time. Last lumbar xray available to review is from 2019. No MRI lumbar spine yet. No injections yet. No PT for lower back pain. [facility] Medical History UTI (urinary tract infection) Weight loss, non-intentional Physical exam Myofascial pain Left knee pain Dysuria Abdominal pain Abdominal pain Rectal bleeding Bilateral hand numbness Physical exam Pre-op examination Hospital discharge follow-up Age related osteoporosis Postmenopausal Precordial chest pain Toenail fungus Urine abnormality Hemorrhoids Allergic rhinitis GERD (gastroesophageal reflux disease) Renal cyst Pelvic pain in female Surgical History Hx of eye surgery History of tooth extraction H/O colonoscopy History of esophagogastroduodenoscopy (EGD) History of ear surgery History of tonsillectomy History of tubal ligation Family History Father CVD (cardiovascular disease) Mother No problems noted. Brother Stomach cancer Sister Liver cancer Brother Lung cancer Brother No problems noted. Social History Household Members: None Housing: Apartment Are you a primary personal care attendant to a significant other at home: No Unable to assess alcohol history related to: Unknown Alcohol intake: current Alcohol intake frequency: holidays/special occasions only Alcohol type: beer and wine Patient Tobacco Use Status: Former Tobacco user Tobacco use type: Cigarette e-Cigarette/Vaping Use: Never Used Second Hand Smoke Exposure: Yes Advance Directives Date on File: 03/05/24 service: No Current occupational status: disabled Cognitive needs: No Hearing needs: No Vision needs: No Physical Exam Exam Exam: Tender on left SI joint and lower lumbar facets. GT nontender. No footdrop. No weakness. Results Reviewed Results Reviewed: Ordering Physician: Nayla Cruz PA-C Date of Service: 01/01/25 Procedure(s): XR shoulder LT min 2V Accession Number(s): [id number] cc: Nayla Cruz PA-C; Elena Johnston MD~ CLINICAL HISTORY: M25.512 - Pain in left shoulder 3 view left shoulder Comparison: None Findings: No acute fracture. Mild step-off of the inferior articular surface of the AC joint due to age-indeterminate subluxation. Correlate clinically. Mild AC joint osteoarthritis. No erosions. No radiopaque foreign body. IMPRESSION: Mild step-off of the inferior articular surface of the AC joint due to age-indeterminate subluxation. Correlate clinically. This document has been electronically signed by: Lamar Leo MD on 01/03/2025 06:32:07 Ordering Physician: Corrie Davies Date of Service: 10/26/22 Procedure(s): CT cervical spine wo IV con Accession Number(s): [id number] cc: Corrie Davies~ EXAMINATION: HEAD CT WITHOUT CONTRAST CERVICAL SPINE CT WITHOUT CONTRAST CLINICAL INFORMATION: Dizziness. Neck pain radiating to left arm. COMPARISON: None. TECHNIQUE: Contiguous axial imaging of the head was performed without the administration of IV contrast. Axial multidetector volumetric images were also performed through the cervical spine without contrast. Multiplanar reconstructed images in coronal and sagittal orientations were submitted. DOSE: 955 mGy-cm FINDINGS: HEAD: There is no evidence of acute intracranial hemorrhage or edematous territorial infarction. No abnormal mass-effect or midline shift. No extra-axial fluid collections. Walls to white matter differentiation is well preserved. The ventricles are normal in size and configuration. Mild patchy deep white matter hypodensities suggestive of chronic microangiopathic changes. No acute calvarial fracture. Small fluid in some of the left mastoid air cells. The sinuses and right mastoid air cells are clear. CERVICAL SPINE: Straightening of the cervical curvature. There is anatomic alignment of the vertebral bodies and posterior elements. The atlantoaxial and atlantooccipital articulations are maintained. Vertebral body heights are maintained. No evidence of acute fracture. Cervical spondylosis. Moderate-severe C5-C6 disc degeneration with disc height loss, endplate osteophytes, endplate sclerosis and small cyst within the posterior disc osteophyte complex. Bilateral C5-C6 neural foramen narrowing. Multilevel facet degeneration. There is fusion of the left C4-C5 facet joint. No prevertebral soft tissue swelling. Mild biapical pleural parenchymal scarring. No suspicious thyroid findings. There are nonspecific cervical shotty lymph nodes. CT/CT cervical spine wo IV con IMPRESSION: 1. No acute intracranial hemorrhage or edematous territorial infarction. 2. Small fluid in some of the left mastoid air cells, nonspecific. 3.No acute fracture or malalignment cervical spine. 4. Cervical spondylosis. C5-C6 moderate-severe disc degeneration, with posterior disc osteophyte complex. Bilateral C5-C6 neural foramen narrowing. Further evaluation with MRI as clinically warranted. Ordering Physician: Aj Cabello MD Date of Service: 09/23/20 Procedure(s): XR lumbar spine 2-3V Accession Number(s): [id number] cc: Aj Cabello MD~ EXAMINATION: CERVICAL SPINE X-RAY CLINICAL INFORMATION: Pain COMPARISON: Previous exam May 2015 TECHNIQUE: 3 views of the cervical spine FINDINGS: Bone alignment is normal. No fracture or dislocation is seen. There is evidence of degenerative spondylosis and degenerative disc disease at C5-C6 and C6-C7. There is mild degenerative spondylosis at C3-C4 and C4-C5 as well. Prevertebral soft tissues are normal. XR/XR lumbar spine 2-3V IMPRESSION: Degenerative changes. EXAMINATION: Lumbar spine x-ray CLINICAL INFORMATION: Pain COMPARISON: Previous x-ray from 2013 TECHNIQUE: 3 views of the lumbar spine FINDINGS: There is mild curvature of the lumbar sacral spine to the right. Bone alignment is otherwise normal. No fracture or dislocation is seen. Disc spaces are normal. There is lower lumbar spine facet arthritis. There is increased sclerosis at the sacroiliac joints IMPRESSION: Lower lumbar spine facet arthritis. Increased sclerosis at the sacroiliac joints. I reviewed records from the following: ortho hand surgery Assessment & Plan Assessment & Plan (1) Left lumbar radiculitis: Code(s): M54.16 - Radiculopathy, lumbar region Category: Medical (2) Sacroiliac joint dysfunction of left side: Code(s): M53.3 - Sacrococcygeal disorders, not elsewhere classified Category: Medical (3) Facet arthritis of lumbar region: Code(s): M47.816 - Spondylosis without myelopathy or radiculopathy, lumbar region Category: Medical (4) Carpal tunnel syndrome on both sides: Code(s): G56.03 - Carpal tunnel syndrome, bilateral upper limbs Category: Medical Plan 1. Chronic lower back pain, more left-sided. Past x-ray showed facet arthritis and possible SI joint. We will repeat lumbar x-rays today. Add left hip x-ray as well. Referred to physical therapy. 2. Left hand numbness, left mild Carpal Tunnel Syndrome on EMG. Even milder right hand numbness. Offered to repeat EMG but patient defers. Continue to wear wrist brace at night. Assessment and plan discussed with patient, and patient was agreeable. All questions were answered thoroughly. Follow up for back pain after 3 months or after PT.. Trudi Smith MD, JASMYNE Board Certified, [place] [employer] Medicine and Rehabilitation (ABPMR) Board Certified, [place] Board of Electrodiagnostic Medicine (ABEM) Orders: Orders XR hip LT min 2V Today M16.12 - Unilateral primary osteoarthritis, left hip XR lumbar spine 2-3V Today M54.9 - Dorsalgia, unspecified PT Evaluation and Treatment Today M47.816 - Spondylosis without myelopathy or radiculopathy, lumbar region, M53.3 - Sacrococcygeal disorders, not elsewhere classified, M54.16 - Radiculopathy, lumbar region Coding Level of Care Code Est Pt Level 4 (19206) Diagnoses Left lumbar radiculitis M54.16 Sacroiliac joint dysfunction of left side M53.3 Facet arthritis of lumbar region M47.816 Carpal tunnel syndrome on both sides G56.03
--- OUTSIDE RECORDS SUMMARY | 2025-08-22 18:01 | XMS_ITS | Data Portability ---
Author Organization [place] [facility], Allergy Address [address] [address] Care Team Providers Care Home Day Care Provider Name Role Phone WAN BRAMBILA Primary Care Provider Assessment No assessment recorded. Plan of Treatment Reminders Order Date Submit Date Provider Last Modified By Organization Details Last Modified Time Details Appointments None recorde d. Lab None recorde d. Referral None recorde d. Procedures None recorde d. Surgeries None recorde d. Imaging polysom nogram, diagnos tic, 6 yrs or older 025 12/26/19 25 [facility], [address] [place], [address], 5 09:20:42 Medication Orders None recorde d. Patient TargetsNo targets recorded. Patient InstructionsNo instructions recorded. Reason for Referral None Reported. Problems Name Problem SNOMED Code Status Onset Date Resolution Date Notes Provider Name and Address Organization Details Recorded Time Gastroeso phageal reflux disease without esophagit is 392419410 Active 2018 Gastro-es ophageal reflux disease without esophagit is; Note: Date Diagnosed : 01/03/2019 11:01 AM (K21.9) Not Available [facility] 4 03:27:11 Chronic rhinitis 80707084 Active 2018 Chronic rhinitis; Note: Date Diagnosed : 01/03/2019 11:01 AM (J31.0) Not Available [facility] 4 03:27:11 Posterior rhinorrhe a 44760571 Active 2018 Postnasal drip; Note: Date Diagnosed : 01/03/2019 11:01 AM (R09.82) Not Available [facility] 4 03:27:11 Central perforati on of left tympanic membrane 91331458100 53074 Active 2024 KALYAN MELO MD [address] [facility] [place] [address], [place], [address] , [facility] - [facility] 5 09:13:10 Dysphagia 12061111 Active 2024 KALYAN MELO MD 100 [facility],[place] [address], [place], [address] , [facility] - [facility] 5 09:13:23 Feeling of lump in throat 961094579 Active 2024 KALYAN MELO MD 100 [facility],[place] [address], [place], [address] , [facility] - [facility] 5 09:13:28 Obstructi ve sleep apnea syndrome 68136863 Active 2024 KALYAN MELO MD [address] [place] [address],[place] [address], [place], [address] , [facility] - [facility] 09:13:32 Problem Notes None recorded. Procedures Surgical History Date Name Laterality Status Provider Name and Address Organization Details Recorded Time 12/25/2024 FFL_RE completed KALYAN MELO MD 100 [facility],[place] [address], [place], [address], [facility] - [facility] 12/25/2024 09:02:57 Imaging Results None recorded. Procedure Notes None recorded. Medical Equipment None Reported. Allergies Allergen ID Allergen Name Allergen Category Reaction Reaction Severity Criticality Documentation Date Start Date Code Code System Note Provider Name and Address Organization Details Recorded Time 019556 tramadol Not available other Not available Not available 02/14/2024 18624 RxNorm React ion: unkno wn, unspe cifie d;; Not Available [facility] 4 01:25:04 631970 Substance with sulfonami de structure and antibacte rial mechanism of action (substanc e) medicatio n other Not available Not available 02/14/2024 34944 8003 SNOMED React ion: unkno wn, unspe cifie d;; Not Available [facility] 4 01:25:05 Medications Name Sig Start Date Stop Date Status Note LastModified by Organization Details LastModified Time jazmyne angela 10 mg tablet 2018 active Medicatio n ID: [id number] Du ration Value: 30 Brand Name: destiny [...] mg tablet 2018 active Medicatio n ID: [id number] Du ration Value: 30 Brand Name: ranitidin [...] oral suspension 2018 active Medicatio n ID: [id number] Du ration Value: 36 Brand Name: Milk [...] spray,susp ension 2018 active Medicatio n ID: [id number] Du ration Value: 60 Brand Name: fluticaso ne propionat e Send Method: E-Prescri bed Subs Allowed: subs OK Medica tionGener icName: fluticaso ne propionat e Not Available Not Available Not Available ipratropiu m bromide 21 mcg (0.03 %) nasal spray Inhale 2 spray into both nostrils three times a day as directed 2018 active Medicatio n ID: [id number] Pr escribed By Name: Kris Musa Name: ipratropi um bromide S end Method: E-Prescri bed Subs Allowed: subs OK Medica tionGener icName: ipratropi um bromide Not Available Not Available Not Available Myrbetriq 50 mg tablet,ext ended release 2018 active Medicatio n ID: [id number] Du ration Value: 30 Brand Name: Myrbetriq Send Method: E-Prescri bed Subs Allowed: subs OK Medica tionGener icName: Myrbetriq Not Available Not Available Not Available Linzess 145 mcg capsule 2018 active Medicatio n ID: [id number] Du ration Value: 30 Brand Name: Linzess [...] Updated DateTime 12/25/2024 162.56 cm 30.7 kg/m2 79729.03 g Arcelia [place] [facility] 12/25/2024 09:00:53 Social History None recorded. Functional Status None recorded. Mental Status None recorded. Family History Nothing Reported. Medical History No medical history recorded. Gynecological HistoryNo gynecological history recorded. Obstetrics History GPAL:G 0 P 0 0 0 0 Past Encounters Encounter ID Performer Location Encounter Start Date Encounter Closed Date Diagnosis/Indication Diagnosis SNOMED-CT Code Diagnosis ICD10 Code Diagnosis IMO Codes Diagnosis Note [id number] KALYAN MELO MD [facility] [address] [address] 12/25/2024 08:35:25 12/25/2024 09:20:14 Central perforation of left tympanic membrane 4114455551 169484 H72.02 Dry and safe. We will plan on audiogram at follow-up. Dysphagia 76887023 R13.1 0 No obstructiv e lesions. Dysphagia seems mild and we will defer swallow study for now. Obstructiv e sleep apnea syndrome 19442664 G47.33 She may have TK based on [...] [place] Member ID Guarantor Name 12/25/2024 1 [facility] - DOS ON OR AFTER 2023 - MEDICARE ADVANTAGE [place] (MEDICARE REPLACEMENT/ADV ANTAGE - PPO) Breanna Floyd [id number] Breanna Floyd Notes Date Note Type Note [...] takes pantoprazole for this. KALYAN MELO MD [address] [place] [address], [address], [facility] - [facility] 12/25/2024 09:14:45 OBGyn Episode No OBEpisode recorded.
== END 2025-08-22 13:41 | disposition home or self-care (01) ==
LOC: HO.HOS 11:49
PROVIDERS: PCP Internal Medicine; Visit Provider Physical Medicine & Rehabilitation
DX: M54.16 Radiculopathy, lumbar region (principal); M53.3 Sacrococcygeal disorders, not elsewhere classified; M47.816 Spondylosis without myelopathy or radiculopathy, lumbar region; G56.03 Carpal tunnel syndrome, bilateral upper limbs
CPT/HCPCS: 99213

== ENCOUNTER → 2025-08-22 12:32 | Outpatient (BNV) | payer OTHER, SELFPAY | PROVIDERS: PCP Internal Medicine; Visit Provider Radiology Diagnostic Ultrasound | DX: M16.12 Unilateral primary osteoarthritis, left hip (principal); M54.9 Dorsalgia, unspecified | CPT/HCPCS: 72100; 73502 ==